=== PATIENT | male | born 1945 | race Caucasian/White ===

== ENCOUNTER 2021-03-06 15:15 | Emergency (ER) | payer OTHER, SELFPAY ==
[2021-03-06] VITALS (22 sets, daily range): BP systolic 125–161; BP diastolic 65–97; PULSE 99–106; RESP 17–28; TEMP 36.1; O2SAT 91–100
--- NOTE | ~2021-03-06 | XR_ITS ---
XR chest 1V 03/06/2021 16:07 Indication: Generalized chest pain Procedure: AP portable chest Comparison: 05/01/2017 Findings: There is right upper and diffuse left-sided airspace disease with peribronchial thickening. Cardiomegaly. No significant effusion or pneumothorax. No acute osseous abnormality. Impression: 1: Extensive bilateral airspace disease which may represent edema or pneumonia. Reviewed, dictated and finalized at location B. Impression: 1: Extensive bilateral airspace disease which may represent edema or pneumonia.
--- NOTE | ~2021-03-06 | XR_ITS ---
EXAMINATION: XR wrist LT min 3V DATE: 03/06/2021 16:07 INDICATION: Left wrist injury. TECHNIQUE: 4 views of left wrist were obtained. COMPARISON: None. FINDINGS: There is dorsal tilt of lunate, consistent with dorsal intercalated segmental instability. No fracture. There is mild osteoarthritis of triscaphe joint and severe osteoarthritis of first carpa l metacarpal joint. There is an 8 mm nonaggressive lytic lesion in lunate, likely an enchondroma, sub chondral cyst, or intraosseous ganglion. IMPRESSION: 1. Polyarticular osteoarthritis. 2. Dorsal intercalated segmental instability (DISI). Reviewed, dictated and finalized at location A.
--- NOTE | ~2021-03-06 | CT_ITS ---
EXAMINATION: CT abdomen pelvis w con DATE: 03/06/2021 15:55 INDICATION: Abdominal pain. TECHNIQUE: Computed tomography (CT) of the abdomen and pelvis was performed with 100 mL Omnipaque 350 intravenous contrast. Automated exposure control and iterative reconstruction technique were employe d. The dose-length product was 1346.26 mGy-cm. COMPARISON: CT 09/05/2017 FINDINGS: The visualized portions of the lung bases demonstrates septal thickening and airspace and g roundglass opacities with a posterior predominance, consistent with chronic interstitial lung disease . Calcified right lung nodules and calcified right hilar lymph nodes are consistent with old granulom atous disease. There is a small left pleural effusion. The heart size is normal. No pericardial effus ion. Calcifications in the liver and spleen are consistent with old granulomatous disease. The gallbl adder, pancreas, and adrenal glands are normal. There are cysts in the kidneys measuring up to 19 mm on the left. There is a 3 mm stone in right kidney. There are bilateral inguinal hernias containing f at. There are changes of appendectomy. There are no dilated loops of bowel. There are no pathological ly enlarged lymph nodes. There is no free intraperitoneal fluid. The prostate is mildly enlarged. The re is an old fracture of the left 11th rib. There are acute fractures of left seventh-ninth ribs. The re are changes of anterior and posterior fusion procedures at L5-S1. IMPRESSION: 1. Acute fractures of left seventh-ninth ribs. 2. Small left pleural effusion. 3. Chronic interstitial lung disease. Reviewed, dictated and finalized at location A.
--- NOTE | ~2021-03-06 | CT_ITS ---
EXAMINATION: CT cervical spine wo con DATE: 03/06/2021 15:55 INDICATION: Neck injury. TECHNIQUE: Computed tomography (CT) of the cervical spine was performed without intravenous contrast. Automated exposure control and iterative reconstruction technique were employed. The dose-length pro duct was 476.92 mGy-cm. COMPARISON: Cervical spine CT 09/19/2010 FINDINGS: There is 7 degrees dextrocurvature of cervical spine. Vertebral body heights are normal. Th ere is severely decreased disc height at C3-C4, mildly decreased disc height at C4-C5 and C5-C6, and moderately decreased disc height at C6-C7. The following disc levels are specifically discussed: C2-C3: There is no uncovertebral joint osteoarthritis. There is mild right and moderate left facet denice int osteoarthritis. There is no neural foraminal stenosis. There is no central canal stenosis. C3-C4: There is severe left uncovertebral joint osteoarthritis. There is severe bilateral facet joint osteoarthritis. There is severe left neural foraminal stenosis. There is mild central canal stenosis . C4-C5: There is no uncovertebral joint osteoarthritis. There is severe left facet joint osteoarthriti s. There is mild left neural foraminal stenosis. There is mild central canal stenosis. C5-C6: There is mild bilateral uncovertebral joint osteoarthritis. There is severe right and moderate left facet joint osteoarthritis. There is mild bilateral neural foraminal stenosis. There is mild ce ntral canal stenosis. C6-C7: There is moderate right and severe left uncovertebral joint osteoarthritis. There is mild righ t and moderate severe facet joint osteoarthritis. There is mild bilateral neural foraminal stenosis. There is mild central canal stenosis. C7-T1: There is no uncovertebral joint osteoarthritis. There is severe bilateral facet joint osteoart hritis. There is mild left neural foraminal stenosis. There is no central canal stenosis. IMPRESSION: 1. No fracture. 2. Severe cervical spondylosis. Reviewed, dictated and finalized at location A.
--- NOTE | ~2021-03-06 | CT_ITS ---
EXAMINATION: CT brain wo con DATE: 03/06/2021 15:55 INDICATION: Syncope. TECHNIQUE: Computed tomography (CT) of the head was performed without intravenous contrast. The mA wa s adjusted according to patient size. Iterative reconstruction technique was employed. The dose-lengt h product was 681.00 mGy-cm. COMPARISON: Head CT 09/19/2010 FINDINGS: There are old infarcts in the right temporal and occipital lobes in the expected distributi on of right posterior cerebral artery. There are scattered areas of low attenuation in the cerebral w ramiro matter, which is within normal limits for the patient's age. There is no intracranial hemorrhage , acute infarction, or abnormal intracranial mass lesion. There are old infarcts in right thalamus. T here is ex vacuo dilatation of occipital horn of right lateral ventricle. There is mucosal thickening in the paranasal sinuses. The mastoid air cells are normal. There are likely changes of ocular lens replacement surgeries. IMPRESSION: 1. 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 Reviewed, dictated and finalized at location A. IMPRESSION: 1. Old infarcts involving the right temporal and occipital lobes and right thal amus.
--- NOTE | ~2021-03-06 | XR_ITS ---
EXAMINATION: XR elbow LT 2V DATE: 03/06/2021 16:07 INDICATION: Left elbow injury. TECHNIQUE: 2 views of left elbow were obtained. COMPARISON: None. FINDINGS: Bone alignment is normal. No fracture. The elbow joint space is normal. There is an entheso phyte at medial humeral epicondyle. No elbow joint effusion. IMPRESSION: 1. No fracture. Reviewed, dictated and finalized at location A. IMPRESSION: 1. No fracture.
--- NOTE | ~2021-03-06 | CT_ITS ---
EXAMINATION: CTA chest PE protocol DATE: 03/06/2021 17:23 INDICATION: Midsternal chest pain. TECHNIQUE: Computed tomography angiography (CTA) of the chest was performed with 100 mL Omnipaque-350 intravenous contrast timed to evaluate the pulmonary arteries. Coronal maximum intensity projection 3D-reconstructions were created by the technologist. Automated exposure control and iterative reconst ruction technique were employed. The dose-length product was 916.18 mGy-cm. COMPARISON: Chest CT 09/05/2017 FINDINGS: The lungs demonstrate widespread septal thickening and groundglass and airspace opacities. Calcified right lung nodules and calcified right hilar lymph nodes are consistent with old granulomat ous disease. There is a small left hydropneumothorax. There is gas in left chest wall. There are frac tures of left first-ninth ribs. The heart demonstrates lipomatous hypertrophy of the interatrial sept um. The heart size is normal. No pericardial effusion. There is no pulmonary embolus. There is mild t horacic spondylosis. IMPRESSION: 1. No pulmonary embolus. Sensitivity is mildly decreased by motion artifact. 2. Acute fractures of left first-ninth ribs. 3. Small left-sided hydropneumothorax. 4. Worsened diffuse lung disease, likely atelectasis and mild pulmonary edema superimposed on chronic interstitial lung disease. Reviewed, dictated and finalized at location A. IMPRESSION: 1. No pulmonary embolus. Sensitivity is mildly decreased by motion artifact. 2. Acute fractures of left first-ninth ribs. 3. Small left-sided hydropneumothorax. 4. Worsened diffuse lung disease, likely atelectasis and mild pulmonary edema s uperimposed on chronic interstitial lung disease.
--- NOTE | 2021-03-06 15:19 | ECG_ITS ---
Measurements Intervals [place] Rate: 97 P: 48 [place]: 186 QRS: 0 QRSD: 110 T: 52 QT: 355 QTc: 452 Interpretive Statements SINUS RHYTHM BASELINE ARTIFACT- I, II, III, AVR, AVL, AVF, V1-V6 NORMAL ECG Electronically Signed On 03-06-2021 16:21:01 CDT by Asael Jha D.O.
--- NOTE | 2021-03-06 15:28 | ED.CHESTPAIN ---
HPI - Chest Pain General Chief Complaint: Chest Pain Stated Complaint: CP Time Seen by Provider: 03/06/21 15:20 Source: RN notes reviewed History of Present Illness HPI narrative: Patient presents to emergency department from home via EMS for chest pain and a fall. Patient states he was working in his basement and experienced sudden onset of right-sided chest pain. States the chest pain was sharp and stabbing states that that time he did not feel well was going upstairs to lay down he states that he does not recall what happened but woke up on the concrete at the bottom of the stairs since that time he has been noted to have bruising around his left eye which is new as well as skin tears on his left arm and left-sided chest pain denies any fevers or chills does note upper abdominal pain. 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 but does not follow cardiology is on aspirin and Plavix Related Data Home Medications Medication Instructions Recorded Confirmed Bifidobacterium infantis [Align] 4 mg PO DAILY 03/06/21 amitriptyline-chlordiazepoxide 1 tablet PO BID PRN 03/06/21 aspirin 81 mg PO DAILY 03/06/21 atorvastatin 40 mg PO DAILY 03/06/21 calcium mg 03/06/21 cholecalciferol (vitamin D3) 125 mcg PO DAILY 03/06/21 [Vitamin D3] clopidogrel 75 mg PO DAILY 03/06/21 finasteride 0.5 mg PO DAILY 03/06/21 multivitamin cap 03/06/21 pantoprazole 40 mg PO HS 03/06/21 polyethylene glycol 3350 [Miralax] 17 g PO DAILY 03/06/21 tamsulosin 0.4 mg PO DAILY 03/06/21 Allergies Allergy/AdvReac Type Severity Reaction Status Date / Time rivaroxaban AdvReac Unknown SEVERE Verified 03/06/21 15:20 NOSE BLEED Review of Systems Review of Systems: Narrative: Gen.: Denies fevers or chills Eyes: Denies eye pain or visual change ENT: Denies congestion Respiratory: Denies shortness of breath or cough CV: See HPI GI: Reports abdominal pain denies nausea, emesis or diarrhea denies burning, urgency, frequency or hematuria Musculoskeletal: Reports left arm pain Neuro: Denies numbness, tingling, weakness or focal weakness Skin: Denies rash Except as documented, all other systems reviewed and negative [facility] Past Medical History Medical History (Updated 03/06/21 @ 18:18 by Abisai Reyes DO) Coronary artery disease Family History Family History (Updated 05/10/14 @ 07:13 by DOCTOR UNKNOWN) Sibling Cerebrovascular accident Father Family history of heart disease in male family member before age 55 Other Diabetes mellitus Family history of cardiovascular disease Family history of gout Family history of malignant neoplasm Family history of osteoarthritis Hypertension Social History Social History (Updated 03/06/21 @ 18:15 by Abisai Reyes DO) Smoking status: Never smoker Alcohol intake: current Gender identity (if verbalized by the patient): Male Exam Narrative: Exam Narrative: APPEARANCE: Well appearing, no apparent distress, well-nourished. HEENT: normocephalic ecchymosis of the left superior and inferior orbit no tenderness of the bilateral zygomatic arch range of motion of jaw without pain EYES: PERRL left lateral eye with ecchymosis NECK: Supple. No midline tenderness to palpation. Full range of motion without pain RESPIRATORY: No respiratory distress. Clear to auscultation bilaterally Chest: Turn palpation bilateral anterior chest wall CARDIOVASCULAR: Regular rate and rhythm without murmurs rubs or gallops. ABDOMINAL: Soft, nondistended, tender to palpation epigastric right upper quadrant left upper quadrant tenderness right lower quadrant left lower quadrant MUSCULOSKELETAl: Moves all extremities. No tenderness to palpation of bilateral upper and lower extremities. No clubbing cyanosis or edema Back: No midline thoracic or lumbar tenderness to palpation NEURO: Awake and alert ?3. Follows commands. Speech normal. No focal deficits. SKIN:: Warm, dry. Six large superficial skin tear of the left p
[2021-03-06 15:38] LABS: Basophils Absolute Auto 0.1 K/mm3 (0.0-0.1); Basophils Percent Auto 0.3 % (0.2-1.2); Eosinophils Percent Auto 0.1 % (0-4.4); Hemoglobin 15.1 g/dL (14.0-18.0); Immature Granulocyte Percent A 0.5 % (0-0.5); Lymphocytes Absolute Auto 1.39 K/mm3 (0.9-3.2); Lymphocytes Percent Auto 7.5 % (18.3-44.2); Mean Corpuscular HGB Conc 32.8 g/dl (32-36); Mean Corpuscular Hemoglobin 29.1 pg (26-34); Mean Corpuscular Volume 88.6 fl (80-100); Mean Platelet Volume 9.4 fl (7.4-10.4); Monocytes Percent Auto 5.3 % (2.6-8.5); Neutrophils Absolute Auto 15.9 K/mm3 (1.3-6.7); Neutrophils Percent Auto 86.3 % (45.5-73.1); Platelet Count Result 238 k/mm3 (150-375); Red Blood Count 5.19 M/mm3 (4.6-6.20); Red Cell Distribution Width 14.6 % (11.5-14.5); White Blood Count 18.5 K/mm3 (4.5-10.0)
[2021-03-06 15:48] LABS: Estimated CRCL calculation 39 ml/min; Estimated Glomerular Filt Rate 46
--- NOTE | 2021-03-06 15:50 | PC.NURSE ---
PT STILL IN CT
[2021-03-06 15:51] LABS: Alanine Aminotransferase 20 U/L (4-50); Albumin Level 4.1 g/dL (3.5-5.1); Alkaline Phosphatase 113 U/L (38-126); Aspartate Amino Transferase 39 U/L (17-59); Bilirubin,Total 0.6 mg/dL (0.2-1.3); Lipase 111 U/L (23-300)
[2021-03-06 15:52] LABS: Anion Gap 8 mmol/L (8-16); Blood Urea Nitrogen 17 mg/dL (9-20); Calcium 9.3 mg/dL (8.4-10.2); Carbon Dioxide 26 mmol/L (22-30); Chloride 105 mmol/L (98-107); Estimated CRCL calculation 45 ml/min; Estimated Glomerular Filt Rate 54; Glucose 145 mg/dL (75-110); Potassium 4.4 mmol/L (3.4-5.0); Sodium 139 mmol/L (137-145)
[2021-03-06 15:58] LABS: INR 0.9; Prothrombin Time 13.1 Seconds (11.1-14.7)
[2021-03-06 15:59] LABS: Partial Thromboplastin Time 21.4 SECONDS (22.3-36.8)
[2021-03-06 16:31] LABS: Troponin I < 0.012 ng/mL (0.000-0.034)
--- NOTE | 2021-03-06 16:57 | PC.NURSE ---
HOSPITALIST AT BEDSIDE.
[2021-03-06 17:03] LABS: NT Pro B Type Natriuretic Pept 213 pg/mL (5-100)
[2021-03-06 17:17] LABS: Lactic Acid Reflex 1.7 mmol/L (0.7-2.1)
--- NOTE | 2021-03-06 17:47 | PC.NURSE ---
pT C/O 08/22 PAIN, EDP INFORMED, AWAITING NEW ORDERS.
[2021-03-06] MEDS: MORPHINE SULFATE (*CRX) 4 MG/ML INJ IV PUSH ×2 (18:01→20:41)
--- NOTE | 2021-03-06 18:10 | PC.NURSE ---
pT O2 NOTED TO DECREASE AT THIS TIME TO 85% ON RA, EDP INFORMED, PT PLACED ON 2l VIA NC. PT NOTED TO BE ASLEEP UPON ENTERING ROOM.
--- NOTE | 2021-03-06 18:20 | PC.NURSE ---
lars walker and yogesh all declined transfer to [facility] ems accepted transfer to [facility] ETA [id number] Trip#[id number]
--- NOTE | 2021-03-06 18:28 | PC.NURSE ---
REPORT CALLED TO ALINA HOPSON AT THIS TIME AT [facility]
--- NOTE | 2021-03-06 18:30 | PC.NURSE ---
PER UNIT SEC [facility] FOR EMS [id number]
--- NOTE | 2021-03-06 19:07 | PC.NURSE ---
Pt presents to ED post fall at home with complaints of abdominal pain. Pt noted to be on blood thinners. Bruising and swelling noted to left eye with multiple skin tears noted to bilateral arms. Pt remains alert and oriented x4 and in no obvious distress at this time. States pain is rated 4/10 this time and does not request pain meds. Nephew at bedside and both updated on poc. All questions and concerns addressed. Pt advised to press call button for assistance. Pt vitals are stable and pt conversing with staff without difficulty.
--- NOTE | 2021-03-06 19:09 | PC.NURSE ---
REPORT TO RN ALICIA AT THIS TIME, SHE HAS ASSUMED PT CARE, PT VSS, A&OX4, PINK, WARM AND DRY, FAMILY AT BEDSIDE.
[2021-03-06 19:12] LABS: Troponin I < 0.012 ng/mL (0.000-0.034)
--- NOTE | 2021-03-06 19:48 | PC.NURSE ---
Pt resting on cart in its lowest position with call button and personal items within reach. Pt denies pain at this time. EMS called and states new arrival time is 2044. Pt and nephew aware of ETA. Pt and nephew advised to press call button for assistance.
--- NOTE | 2021-03-06 20:19 | PC.NURSE ---
Pt continues resting on cart in its lowest position with call button and personal items within reach. Pt now complaining of pain. EDMD notified and states he will place orders for pain. Pt remains alert and oriented x4 with stable vitals. Breathing is even and unlabored and pt in no obvious distress. Nephew remains at bedside. Both advised to press call button for assistance.
--- NOTE | 2021-03-06 20:30 | PC.NURSE ---
[facility] has arrived and is aware that pt is being transferred to [facility] ER
[2021-03-06] MEDS: SODIUM CHLORIDE 0.9% IV 1,000 ML 100 ML IV CONT (20:41)
--- NOTE | 2021-03-06 20:41 | PC.NURSE ---
EMS arrived for pt transport.
== END 2021-03-06 20:49 | disposition short-term general hospital (02) ==
PROVIDERS: Emergency Medicine; Emergency Provider Emergency Medicine; PCP Family Medicine Adolescent Medicine
DX: S22.42XA Multiple fractures of ribs, left side, initial encounter for closed fracture (principal); S00.83XA Contusion of other part of head, initial encounter; S50.02XA Contusion of left elbow, initial encounter; J93.9 Pneumothorax, unspecified; I25.10 Atherosclerotic heart disease of native coronary artery without angina pectoris; Z79.82 Long term (current) use of aspirin; Z79.02 Long term (current) use of antithrombotics/antiplatelets; W10.9XXA Fall (on) (from) unspecified stairs and steps, initial encounter
CPT/HCPCS: 36415; 70450; 71045; 71275; 72125; 73070; 73110; 74177; 80048; 80076; 83605; 83690; 83880; 84484; 85025; 85610; 85730; 87040; 93005; 96374; 96376; 99285; J2270; J7030; Q9967

== ENCOUNTER 2021-04-13 17:44 | Emergency (ER) | payer OTHER, SELFPAY ==
--- NOTE | ~2021-04-13 | CT_ITS ---
EXAMINATION: CT brain wo con INDICATION: Transient alteration of awareness COMPARISON: 03/06/2021 TECHNIQUE: Standard unenhanced head CT. The dose-length product (DLP) was 681.00 mGy-cm. The mA was a djusted according to patient size. Iterative reconstruction technique was employed. FINDINGS: There is no acute intraparenchymal hemorrhage. No evidence of mass lesion. No evidence of a cute infarction. There are chronic infarcts in the right temporal and occipital lobes and right thala mus. Again noted is ex vacuo enlargement of the occipital horn of the right lateral ventricle. There is mild periventricular and subcortical hypodensity probably related to small vessel ischemic disease . There is mild prominence of the sulci and ventricles related to cerebral atrophy. Intracranial calc ified cerebral atherosclerosis is noted. There are no extra-axial collections. There is no mass effec t or midline shift. Changes in the globes are likely from ocular lens surgery. The visualized sinuses and mastoid air cells are well aerated. IMPRESSION: 1. Areas of prior infarction in the right occipital and temporal lobes and the right thalamus without acute intracranial abnormality. 2. Age related findings. Reviewed, dictated and finalized at location A.
--- NOTE | ~2021-04-13 | CT_ITS ---
EXAMINATION: CT cervical spine wo con DATE: 04/13/2021 19:02 INDICATION: Neck pain TECHNIQUE: Computed tomography (CT) of the cervical spine was performed without intravenous contrast. The dose-length product (DLP) was 404.47 mGy-cm. Automated exposure control and iterative reconstruc tion technique were employed. COMPARISON: 03/06/2021 FINDINGS: There is no cervical spine fracture. The vertebral body heights and alignment are maintaine d. There is severe loss of intervertebral disc space height at C3-4, moderate loss of disc space heig ht at C6-7, and mild loss of intervertebral disc space height at C4-5 and C5-6. The prevertebral soft tissues are normal. There is moderate to severe multilevel facet and uncovertebral joint osteoarthri tis. There are healing fractures of the left first through third ribs. IMPRESSION: 1. Severe cervical spondylosis without acute findings or significant interval change. 2. Healing fractures of the left first through third ribs. Reviewed, dictated and finalized at location A. IMPRESSION: 1. Severe cervical spondylosis without acute findings or significant interval c hange. 2. Healing fractures of the left first through third ribs.
--- NOTE | 2021-04-13 18:34 | ECG_ITS ---
Measurements Intervals [place] Rate: 98 P: -7 MS: 138 QRS: 63 QRSD: 94 T: 24 QT: 317 QTc: 406 Interpretive Statements SINUS RHYTHM MINIMAL Q WAVES- INFERIOR LEADS BASELINE ARTIFACT- I, II, III, AVR, AVL, AVF, V1 BORDERLINE ECG Electronically Signed On 04-13-2021 21:22:39 CDT by Asael Jha D.O.
[2021-04-13 18:36] VITALS: BP 142/69; PULSE 100; RESP 16; TEMP 36.5; O2SAT 98
[2021-04-13 18:50] LABS: Basophils Absolute Auto 0.1 K/mm3 (0.0-0.1); Basophils Percent Auto 0.4 % (0.2-1.2); Eosinophils Absolute Auto 0.1 K/mm3 (0-0.3); Eosinophils Percent Auto 0.5 % (0-4.4); Hematocrit 44.1 % (42.0-52.0); Hemoglobin 14.3 g/dL (14.0-18.0); Immature Granulocyte Absolute 0.04 K/mm3 (0.00-0.031); Immature Granulocyte Percent A 0.3 % (0-0.5); Lymphocytes Absolute Auto 1.48 K/mm3 (0.9-3.2); Lymphocytes Percent Auto 12.8 % (18.3-44.2); Mean Corpuscular HGB Conc 32.4 g/dl (32-36); Mean Corpuscular Hemoglobin 28.7 pg (26-34); Mean Corpuscular Volume 88.6 fl (80-100); Mean Platelet Volume 9.3 fl (7.4-10.4); Monocytes Absolute Auto 0.8 K/mm3 (0.1-0.6); Monocytes Percent Auto 6.6 % (2.6-8.5); Neutrophils Absolute Auto 9.2 K/mm3 (1.3-6.7); Neutrophils Percent Auto 79.4 % (45.5-73.1); Platelet Count Result 292 k/mm3 (150-375); Red Blood Count 4.98 M/mm3 (4.6-6.20); Red Cell Distribution Width 15.1 % (11.5-14.5); White Blood Count 11.6 K/mm3 (4.5-10.0)
[2021-04-13 19:02] LABS: Anion Gap 9 mmol/L (8-16); Blood Urea Nitrogen 15 mg/dL (9-20); Calcium 9.9 mg/dL (8.4-10.2); Carbon Dioxide 26 mmol/L (22-30); Chloride 103 mmol/L (98-107); Estimated CRCL calculation 59 ml/min; Estimated Glomerular Filt Rate > 60; Glucose 115 mg/dL (65-110); Sodium 138 mmol/L (137-145)
--- NOTE | 2021-04-13 21:40 | PC.NURSE ---
cristi barr able to provide ride home. [phone].
[2021-04-13 21:44] VITALS: BP 143/73; PULSE 96; RESP 13; TEMP 36.5; O2SAT 99
[2021-04-13 22:19] VITALS: BP 123/76; BP 126/65; BP 132/103; PULSE 107; PULSE 111; PULSE 91
[2021-04-13] MEDS: SODIUM CHLORIDE 0.9% IV 1,000 ML 999 ML IV CONT (22:27)
--- NOTE | 2021-04-13 22:40 | ED.GENADULT ---
HPI - General Adult General Chief complaint: Syncope Stated complaint: syncopal episode at home. Time Seen by Provider: 04/13/21 21:59 History of Present Illness HPI narrative: Patient is a 75-year-old gentleman who presents the emergency department with chief complaint of syncope. Patient reports that today he was out working in the yard got a little hot at that time and then this evening was taking a shower. The patient reports that he took a fairly long and hot shower and then while he was in the shower he started to become very lightheaded. The patient states that after he got lightheaded he got out of the shower sat down in a chair started to feel a little better and then thought that he would go lay down on his bed got up to walk to the bed became lightheaded and then proceeded to pass out. Patient states that after he passed out he started feeling better and is currently not hurting anywhere other than his chest where he has been hurting after he had multiple rib fractures. Related Data Home Medications Medication Instructions Recorded Confirmed Bifidobacterium infantis [Align] 4 mg PO DAILY 03/06/21 amitriptyline-chlordiazepoxide 1 tablet PO BID PRN 03/06/21 aspirin 81 mg PO DAILY 03/06/21 atorvastatin 40 mg PO DAILY 03/06/21 calcium mg 03/06/21 cholecalciferol (vitamin D3) 125 mcg PO DAILY 03/06/21 [Vitamin D3] clopidogrel 75 mg PO DAILY 03/06/21 finasteride 0.5 mg PO DAILY 03/06/21 multivitamin cap 03/06/21 pantoprazole 40 mg PO HS 03/06/21 polyethylene glycol 3350 [Miralax] 17 g PO DAILY 03/06/21 tamsulosin 0.4 mg PO DAILY 03/06/21 Allergies Allergy/AdvReac Type Severity Reaction Status Date / Time rivaroxaban AdvReac Unknown SEVERE Verified 04/13/21 21:44 NOSE BLEED Review of Systems Review of Systems: A 10 system review of systems was completed on the patient and is negative except for what is stated in the HPI. Nursing and ancillary documentation was reviewed. FORMERLY [facility], [facility] Past Medical History Medical History Coronary artery disease Family History Family History Sibling Cerebrovascular accident Father Family history of heart disease in male family member before age 55 Other Diabetes mellitus Family history of cardiovascular disease Family history of gout Family history of malignant neoplasm Family history of osteoarthritis Hypertension Social History Social History Smoking status: Never smoker Alcohol intake: current Gender identity (if verbalized by the patient): Male Exam Narrative: GENERAL: Well-appearing, well-nourished, and in no acute distress. HEAD: Normocephalic, atraumatic. EYES: PERRLA and EOMI. ENT: Nares clear, no rhinorrhea or epistaxis. Mucous membranes moist. NECK: Supple. CHEST: Clear to auscultation. No respiratory distress. HEART: Regular rate and rhythm. No murmur heard. Normal peripheral pulses. ABDOMEN: Soft, nontender, nondistended, normal active bowel sounds. EXTREMITIES: Normal range of motion. No edema. SKIN: Warm, dry, no rash. NEURO: No focal deficits. Alert and oriented x3. PSYCH: Normal mood and affect. Course Vital Signs Vital signs: Vital Signs Temperature 36.5 C 04/13/21 18:36 Pulse Rate 100 04/13/21 18:36 Respiratory Rate 16 04/13/21 18:36 Blood Pressure 142/69 H 04/13/21 18:36 Pulse Oximetry 98 04/13/21 18:36 Temperature 36.5 C 04/13/21 21:44 Pulse Rate 111 H 04/13/21 22:19 Respiratory Rate 13 04/13/21 21:44 Blood Pressure 126/65 04/13/21 22:19 Pulse Oximetry 99 04/13/21 21:44 Medical Decision Making Vital Signs Vital Signs: Vital Signs Temperature 36.5 C 04/13/21 18:36 Pulse Rate 100 04/13/21 18:36 Respiratory Rate 16 04/13/21 18:36 Blood Pressure 142/69 H 04/13/21 18:36 Pu
[2021-04-13 23:38] VITALS: BP 100/89; PULSE 89; RESP 17; TEMP 36.2; O2SAT 98
== END 2021-04-13 23:40 | disposition home or self-care (01) ==
PROVIDERS: Emergency Medicine; Emergency Provider Emergency Medicine; PCP Family Medicine Adolescent Medicine
DX: R55 Syncope and collapse (principal); Z79.82 Long term (current) use of aspirin; I25.10 Atherosclerotic heart disease of native coronary artery without angina pectoris; R94.31 Abnormal electrocardiogram [ECG] [EKG]
CPT/HCPCS: 36415; 70450; 72125; 80048; 85025; 93005; 96360; 99284; J7030

== ENCOUNTER 2022-12-24 15:21 | Emergency (ER) | payer OTHER, SELFPAY ==
[2022-12-24] VITALS (14 sets, daily range): BP systolic 125–156; BP diastolic 67–91; PULSE 87–102; RESP 10–26; TEMP 36.7; O2SAT 91–100
--- NOTE | ~2022-12-24 | XR_ITS ---
EXAMINATION: XR chest 1V portable INDICATION: Transient alteration of awareness TECHNIQUE: Portable AP chest at 1544 hours COMPARISON: 03/06/2021 FINDINGS: Cardiomegaly is noted. There are mild diffuse interstitial and airspace opacities throughou t the lungs. No pleural effusion or pneumothorax. IMPRESSION: 1. Diffuse lung disease, consistent with pneumonia and/or pulmonary edema. Reviewed, dictated and finalized at location F.
--- NOTE | ~2022-12-24 | CT_ITS ---
EXAMINATION: CT brain wo con DATE: 12/24/2022 15:56 INDICATION: Syncope. Head injury. TECHNIQUE: Computed tomography (CT) of the head was performed without intravenous contrast. The mA wa s adjusted according to patient size. Iterative reconstruction technique was employed. The dose-lengt h product was 681.00 mGy-cm. COMPARISON: Head CT 04/13/2021 FINDINGS: There are scattered areas of low attenuation in the cerebral white matter. There is an old infarct in the right thalamus. There is an old infarct in the right temporal occipital region in the distribution of right posterior cerebral artery. There is no intracranial hemorrhage, acute infarctio n, or abnormal intracranial mass lesion. There is ex vacuo dilatation of the occipital horn of right lateral ventricle. There is mild mucosal thickening in the paranasal sinuses. The mastoid air cells a re normal. There are likely changes of ocular lens replacement surgeries. IMPRESSION: 1. Old infarcts involving the right thalamus and right temporal occipital region. 2. Mild nonspecific cerebral white matter disease, which likely represents chronic small vessel ische ana disease. Reviewed, dictated and finalized at location A. IMPRESSION: 1. Old infarcts involving the right thalamus and right temporal occipital regio n. 2. Mild nonspecific cerebral white matter disease, which likely represents twisting frame fixer armaan small vessel ischemic disease.
--- NOTE | ~2022-12-24 | CT_ITS ---
EXAMINATION: CT cervical spine wo con DATE: 12/24/2022 16:00 INDICATION: Neck pain. Syncope. TECHNIQUE: Computed tomography (CT) of the cervical spine was performed without intravenous contrast. The dose-length product was 503 mGy-cm. Automated exposure control and iterative reconstruction tech CodeRyte were employed. COMPARISON: CT dated 04/13/2021 FINDINGS: Craniovertebral junction is normal. Odontoid process is normal. There is advanced degenerat gilbert disc disease and spondylosis at C3-4. There is mild degenerative disc disease with disc narrowing at C6-7. There is a prominent ventral bridging osteophyte at C6-7. There is degenerative anterolisth esis at C7-T1. There is mild-moderate multilevel uncinate and facet hypertrophy. No significant aster gil soft tissue abnormality. There is intracranial atherosclerosis. IMPRESSION: 1. No acute abnormality of the cervical spine. 2: Moderate-severe cervical spondylosis. Reviewed, dictated and finalized at location L.
--- NOTE | 2022-12-24 15:35 | ECG_ITS ---
Measurements Intervals [place] Rate: 91 P: 93 [place]: 198 QRS: 75 QRSD: 114 T: 37 QT: 364 QTc: 450 Interpretive Statements SINUS RHYTHM WITH OCCASIONAL SUPRAVENTRICULAR PREMATURE COMPLEXES NONSPECIFIC iNTRAVENTRICULAR CONDUCTION DELAY BORDERLINE ECG COMPARED TO ECG 04/13/2021 18:52:24 INTRAVENTRICULAR CONDUCTION DELAY NOW PRESENT Electronically Signed On 12-25-2022 16:29:52 CDT by Shukri Rivera M.D.
--- NOTE | 2022-12-24 15:46 | ED.DIZZY ---
HPI - Dizziness General Chief Complaint: Syncope Stated Complaint: syncopy Time Seen by Provider: 12/24/22 15:35 History of Present Illness HPI Narrative: Patient is a 77-year-old male with history of CAD, CVA, here after syncopal episode tonight. Patient states that he was working out in his yard in the heat all afternoon. This evening while he was on his tractor he felt lightheaded and did pass out for several seconds. He denies any preceding chest pain, palpitations, headaches or shortness of breath. He was in his usual state of health this morning. Admits to not drinking enough water today. The neighbors called EMS who administered a liter of fluids and patient states he feels improved. States this is happened in the past and was attributed to vasovagal syncope, also when patient was out working in the yard. Related Data Home Medications Medication Instructions Recorded Confirmed Bifidobacterium infantis 4 mg 4 mg PO DAILY 03/06/21 05/04/22 capsule (Align) calcium 500 mg tablet mg 03/06/21 05/04/22 cholecalciferol (vitamin D3) 125 125 mcg PO DAILY 03/06/21 05/04/22 mcg (5,000 unit) tablet (Vitamin D3) multivitamin cap 03/06/21 05/04/22 polyethylene glycol 3350 17 gram 17 g PO DAILY 03/06/21 05/04/22 oral powder packet (Miralax) tamsulosin 0.4 mg capsule 0.4 mg PO DAILY 03/06/21 05/04/22 Allergies Allergy/AdvReac Type Severity Reaction Status Date / Time rivaroxaban AdvReac Unknown SEVERE Verified 05/04/22 15:12 NOSE BLEED Review of Systems Review of Systems: Gen: Reports syncope Eyes: Denies eye pain or visual change ENT: Denies congestion Respiratory: Denies shortness of breath or cough CV: Denies chest pain or palpitations GI: Denies abdominal pain nausea, emesis or diarrhea denies burning, urgency, frequency or hematuria Musculoskeletal: Denies back pain or muscle pain Neuro: Denies numbness, tingling, weakness or focal weakness Skin: Denies rash Except as documented, all other systems reviewed and negative PMFSH Past Medical History Medical History Blood type B+ Coronary artery disease History of CVA (cerebrovascular accident) (~04/2014) History of rib fracture (~2020) Occipital infarction (~04/2014) Surgical History Surgical History History of exploratory laparotomy (~2000) History of gastric surgery (~2014) stoma reversal History of ventral hernia repair (~06/2016) Family History Family History Sibling Cerebrovascular accident Father Family history of heart disease in male family member before age 55 Other Diabetes mellitus Family history of cardiovascular disease Family history of gout Family history of malignant neoplasm Family history of osteoarthritis Hypertension Social History Social History (Updated 05/04/22 @ 15:15 by Anjelica Peck MA) Years smoked: 50 Smoking status: Current every day smoker Tobacco type: cigarettes Second hand tobacco smoke exposure: No Alcohol intake: former Substance use: never Substance use type: does not use Living arrangements: alone Occupation/Education: retired Gender identity (if verbalized by the patient): Male Sexual Orientation (if Verbalized by the Patient): Straight or Heterosexual Spiritual care concerns: No Exam Narrative: APPEARANCE: Well appearing, no pain in distress, well-nourished. Head: Normocephalic and atraumatic. EYES: PERRLA/EOMI, conjunctivae clear NOSE: No nasal drainage EARS: External ear normal in appearance THROAT: Oropharynx is clear. Mucous membranes are moist. NECK: Supple. No adenopathy, no masses. RESPIRATORY: expiratory wheezing noted throughout all lung chen. no respiratory distress. CARDIOVASCULAR: Regular rate and rhythm without murmurs, rubs, or gallops. ABDOMINAL: Normoactive
[2022-12-24 16:31] LABS: Basophils Percent Auto 0.3 % (0.2-1.2); Eosinophils Percent Auto 0.2 % (0-4.4); Hematocrit 46.1 % (42.0-52.0); Hemoglobin 15.1 g/dL (14.0-18.0); Immature Granulocyte Absolute 0.06 K/mm3 (0.00-0.031); Immature Granulocyte Percent A 0.5 % (0-0.5); Lymphocytes Absolute Auto 1.35 K/mm3 (0.9-3.2); Lymphocytes Percent Auto 10.7 % (18.3-44.2); Mean Corpuscular HGB Conc 32.8 g/dl (32-36); Mean Corpuscular Hemoglobin 28.4 pg (26-34); Mean Corpuscular Volume 86.8 fl (80-100); Mean Platelet Volume 9.3 fl (7.4-10.4); Monocytes Absolute Auto 0.9 K/mm3 (0.1-0.6); Monocytes Percent Auto 6.8 % (2.6-8.5); Neutrophils Absolute Auto 10.2 K/mm3 (1.3-6.7); Neutrophils Percent Auto 81.5 % (45.5-73.1); Platelet Count Result 233 k/mm3 (150-375); Red Blood Count 5.31 M/mm3 (4.6-6.20); Red Cell Distribution Width 15.5 % (11.5-14.5); White Blood Count 12.6 K/mm3 (4.5-10.0)
[2022-12-24 16:43] LABS: Magnesium 1.5 mg/dL (1.6-2.3)
[2022-12-24] MEDS: LEVALBUTEROL NEB 1.25 MG/3 ML INHALATION (16:43)
[2022-12-24] MEDS: IPRATROPIUM BR 0.02% INH SOLN 0.5 MG/2.5 ML VIAL INHALATION (16:43)
[2022-12-24 16:44] LABS: Alanine Aminotransferase 16 U/L (6-50); Alkaline Phosphatase 107 U/L (38-126); Anion Gap 7 mmol/L (8-16); Aspartate Amino Transferase 22 U/L (17-59); Bilirubin,Total 1.1 mg/dL (0.2-1.3); Blood Urea Nitrogen 14 mg/dL (9-20); Calcium 9.1 mg/dL (8.4-10.2); Carbon Dioxide 28 mmol/L (22-30); Chloride 104 mmol/L (98-107); Estimated CRCL calculation 48 ml/min; Estimated Glomerular Filt Rate 53; Glucose 113 mg/dL (65-110); Potassium 4.2 mmol/L (3.4-5.0); Sodium 139 mmol/L (137-145)
[2022-12-24 16:56] LABS: NT Pro B Type Natriuretic Pept 178 pg/mL (19.9-100); Troponin I < 0.012 ng/mL (0.000-0.034)
[2022-12-24 17:08] LABS: SARS-CoV-2 RNA PCR Negative
== END 2022-12-24 18:35 | disposition home or self-care (01) ==
PROVIDERS: Emergency Provider Physician Assistant; PCP Family Medicine Adolescent Medicine
DX: R55 Syncope and collapse (principal); J18.9 Pneumonia, unspecified organism; Z20.822 Contact with and (suspected) exposure to COVID-19; I25.10 Atherosclerotic heart disease of native coronary artery without angina pectoris; Z86.73 Personal history of transient ischemic attack (TIA), and cerebral infarction without residual deficits; F17.210 Nicotine dependence, cigarettes, uncomplicated; I49.1 Atrial premature depolarization; I45.9 Conduction disorder, unspecified; R90.82 White matter disease, unspecified; M47.812 Spondylosis without myelopathy or radiculopathy, cervical region
CPT/HCPCS: 36415; 70450; 71045; 72125; 80053; 83735; 83880; 84484; 85025; 93005; 94640; 99284; U0003; U0005

== ENCOUNTER 2023-07-09 13:21 | Outpatient (CLI) | payer OTHER, SELFPAY ==
--- NOTE | ~2023-07-09 | CT_ITS ---
EXAMINATION: CT lung screening DATE: 07/09/2023 13:46 INDICATION: Personal history of nicotine dependence TECHNIQUE: Computed tomography (CT) of the chest was performed without intravenous contrast. The dose -length product was 235.83 mGy-cm. COMPARISON: CT dated 03/06/2021 FINDINGS: Heart size is normal. No significant pleural or pericardial effusion. There are calcified g ranulomas of the liver and spleen. Mild mediastinal lymphadenopathy, likely reactive. There is athero sclerosis. There is emphysema. There are patchy groundglass opacities with interlobular septal thicke sachin and coarse interstitial changes, likely superimposed pulmonary fibrosis. No endobronchial lesion s. Mild thoracic spondylosis. IMPRESSION: 1. Lung-RADS category 1: Negative. Continue annual screening with noncontrast low-dose chest CT in 12 months. 2: Emphysema with superimposed interstitial lung disease, compatible with usual interstitial pneumon itis. Reviewed, dictated and finalized at location B. IMPRESSION: 1. Lung-RADS category 1: Negative. Continue annual screening with noncontrast l ow-dose chest CT in 12 months. 2: Emphysema with superimposed interstitial lung disease, compatible with usua l interstitial pneumonitis.
== END 2023-07-09 13:22 | disposition home or self-care (01) ==
PROVIDERS: PCP Family Medicine Adolescent Medicine; Visit Provider Nurse Practitioner Family
DX: Z12.2 Encounter for screening for malignant neoplasm of respiratory organs (principal); Z87.891 Personal history of nicotine dependence; J43.9 Emphysema, unspecified
CPT/HCPCS: 71271

== ENCOUNTER 2024-08-09 15:03 | Inpatient (IN) | payer OTHER, SELFPAY ==
[2024-08-09] VITALS (12 sets, daily range): BP systolic 106–168; BP diastolic 58–83; PULSE 86–131; RESP 18–32; TEMP 36.6–37.8; O2SAT 89–97; BMI 30.2
--- NOTE | ~2024-08-09 | XR_ITS ---
XR abdomen/kub 1V DATE: 08/12/2024 03:50 INDICATION: Nausea and vomiting TECHNIQUE: Portable supine AP views on 08/12/2024 at 1527 and 1529 hours COMPARISON: None FINDINGS: There is very prominent gaseous distention of the stomach and proximal to mid small bowel, with relative evacuation of the distal bowel, suggesting possible Status post anterior and right posterior surgical fusion at L5-S1. Small bowel obstruction. IMPRESSION: Possible small bowel obstruction Reviewed, dictated and finalized at Location A. Reviewed, dictated and finalized at location A. URY CELL CLEANER
--- NOTE | ~2024-08-09 | XR_ITS ---
EXAMINATION: XR chest port-a-cath/central DATE: 08/16/2024 10:25 INDICATION: Central line placement. TECHNIQUE: A single frontal view of the chest was obtained. COMPARISON: Chest single view at 4:57 AM FINDINGS: There are interstitial and airspace opacities involving all lung zones bilaterally. No pleu ral effusion or pneumothorax. Cardiomegaly is noted. The endotracheal tube tip is 7.8 cm above the ca nivia. A right internal jugular central venous catheter is seen with tip at the superior cavoatrial ju nction. The nasogastric tube tip is beyond the inferior margin of the radiograph, but at least to the stomach. IMPRESSION: 1. Diffuse lung disease with improvement in left midlung zone, consistent with pulmonary edema versus pneumonia versus acute respiratory distress syndrome (ARDS). 2. Cardiomegaly. Reviewed, dictated and finalized at location A. L ESTIMATOR IMPRESSION: 1. Diffuse lung disease with improvement in left midlung zone, consistent with pulmonary edema versus pneumonia versus acute respiratory distress syndrome (AR DS). 2. Cardiomegaly.
--- NOTE | ~2024-08-09 | XR_ITS ---
EXAMINATION: XR chest 1V portable DATE: 08/10/2024 06:58 INDICATION: Acute hypoxic respiratory failure TECHNIQUE: frontal view of the chest was obtained. COMPARISON: Chest radiograph dated 08/09/[address] dated 07/09/2023 and 08/09/2024 FINDINGS: Mildly decreased lung volumes with diffuse reticular and groundglass opacities in both lungs which is increased since the prior study suggesting mild pulmonary edema or pneumonia superimposed over likel y chronic interstitial lung disease. No pleural effusion or pneumothorax. Cardiomegaly. IMPRESSION: 1. Small lung volumes with increasing reticular and groundglass opacities in both lungs which could r epresent pulmonary edema or pneumonia superimposed over likely chronic interstitial lung disease. 2. Cardiomegaly. Reviewed, dictated and finalized at location A. KE COUNSELOR IMPRESSION: 1. Small lung volumes with increasing reticular and groundglass opacities in pedro th lungs which could represent pulmonary edema or pneumonia superimposed over l ikely chronic interstitial lung disease. 2. Cardiomegaly.
--- NOTE | ~2024-08-09 | XR_ITS ---
EXAMINATION: XR abdomen gastric tube insert DATE: 08/14/2024 12:57 INDICATION: Orogastric tube placement. TECHNIQUE: A semierect view of the abdomen was obtained. COMPARISON: CT abdomen and pelvis 08/12/2024 FINDINGS: The lower abdomen and right lateral aspect of the abdomen are excluded. There are dilated l oops of small bowel. The orogastric tube tip is in the distal stomach. IMPRESSION: 1. Orogastric tube tip in the distal stomach. 2. Dilated small bowel, likely adynamic ileus. Reviewed, dictated and finalized at location A. BING INSTRUCTOR
--- NOTE | ~2024-08-09 | XR_ITS ---
Portable chest x-ray Comparison: 08/17/2024 Clinical History: Respiratory failure Findings: Endotracheal tube, NG tube, and bilateral central venous lines are present. Extensive inte rstitial disease with mild bibasilar haziness present. Cardiomediastinal silhouette is stable. Bones and soft tissues are unremarkable. Impression: Stable extensive pulmonary disease with extensive interstitial disease and right basilar haziness. Support tubes are unchanged, as above. Reviewed, dictated and finalized at location M. RUCTOR CREELER Impression: Stable extensive pulmonary disease with extensive interstitial disease and righ t basilar haziness. Support tubes are unchanged, as above.
--- NOTE | ~2024-08-09 | XR_ITS ---
EXAMINATION: XR abdomen/kub 1V DATE: 08/17/2024 09:26 INDICATION: Adynamic ileus. TECHNIQUE: A supine view of the abdomen on 3 radiographs was obtained. COMPARISON: CT abdomen and pelvis 08/14/2024 FINDINGS: There are no dilated loops of bowel. There is a small volume of stool in the colon. The kanika ogastric tube tip is in the stomach. There are changes of anterior and posterior fusion procedures at L5-S1. There is a catheter tip at superior cavoatrial junction. There is a second catheter tip at booker perior cavoatrial junction. A catheter overlies the bladder. IMPRESSION: 1. Normal bowel gas pattern. Reviewed, dictated and finalized at location A. AFLUX OPERATOR
--- NOTE | ~2024-08-09 | MR_ITS ---
EXAMINATION: MR lumbar spine wo/w con DATE: 08/12/2024 13:03 INDICATION: Back pain with radiculopathy. TECHNIQUE: Magnetic resonance imaging (MRI) of the lumbar spine was performed without and with 20 mL MultiHance intravenous contrast. COMPARISON: Lumbar spine MRI 03/08/2014, CT 08/12/24 FINDINGS: There is 3 degrees levocurvature of lumbar spine. There are changes of anterior posterior f usion procedures at L5-S1 with interbody device, anterior plate and screws, and right-sided pedicle s crews. There is a chronic compression fracture of L2 with 1/5 loss of height. There is a mottled karlee amalia of increased T2-weighted signal intensity and contrast enhancement involving all of the bones. Th ere is mildly decreased disc height at L4-L5. The distal spinal cord signal intensity is normal. The conus medullaris is at L1. The following disc levels are specifically discussed: L1-L2: The disc does not extend beyond the endplate margin. There is mild bilateral facet joint osteo arthritis. There is no neural foraminal stenosis. There is no central canal stenosis. L2-L3: The disc is bulging. There is moderate bilateral facet joint osteoarthritis. There is mild duarte ateral neural foraminal stenosis. There is mild central canal stenosis. L3-L4: The disc is bulging. There is mild bilateral facet joint osteoarthritis. There is mild bilater al neural foraminal stenosis. There is no central canal stenosis. L4-L5: The disc is bulging and has an annular fissure. There is severe bilateral facet joint osteoart hritis. There is mild bilateral neural foraminal stenosis. There is mild central canal stenosis. L5-S1: There is no facet joint hypertrophy. There is mild left neural foraminal stenosis. There is no central canal stenosis. There is posterior decompression. IMPRESSION: 1. Widespread enhancement of the bones without abnormal CT correlate suspicious for metastatic diseas e or multiple myeloma. 2. Mild lumbar spondylosis. 3. Anterior fusion procedure at L5-S1. Reviewed, dictated and finalized at location A. WEB SERVICES DEVELOPER IMPRESSION: 1. Widespread enhancement of the bones without abnormal CT correlate suspicious for metastatic disease or multiple myeloma. 2. Mild lumbar spondylosis. 3. Anterior fusion procedure at L5-S1.
--- NOTE | ~2024-08-09 | MR_ITS ---
EXAMINATION: MR thoracic spine wo/w con DATE: 08/12/2024 13:03 INDICATION: Back pain. Radiculopathy. TECHNIQUE: Magnetic resonance imaging (MRI) of the thoracic spine was performed without and with 20 m L MultiHance intravenous contrast. COMPARISON: Chest CT 08/12/2024 FINDINGS: There is kyphosis of thoracic spine. There is mild chronic height loss of T11 vertebral bod y. There is widespread abnormal increased T2-weighted signal intensity and contrast enhancement of th e bones. There is mildly decreased disc height at T5-T6, T6-T7, and T7-T8. At T7-T8, there is a centr al protrusion with mild central canal stenosis. There is multilevel facet joint osteoarthritis, sever e at multiple levels. On the right, there is mild neural foraminal stenosis at T4-T5 and T11-T12. On the left, there is mild neural foraminal stenosis at T4-T5, T5-T6, T6-T7, T7-T8, and T8-T9. The spina l cord signal intensity is normal. IMPRESSION: 1. Widespread contrast enhancement of the bones, consistent with metastatic disease versus multiple m yeloma. 2. Mild thoracic spondylosis. Reviewed, dictated and finalized at location A. OPERATOR IMPRESSION: 1. Widespread contrast enhancement of the bones, consistent with metastatic dis ease versus multiple myeloma. 2. Mild thoracic spondylosis.
--- NOTE | ~2024-08-09 | US_ITS ---
EXAMINATION: US abdomen limited DATE: 08/12/2024 16:30 INDICATION: gallstones TECHNIQUE: Multiple grayscale and Doppler ultrasound images of limited portions of the abdomen were o btained. COMPARISON: CT cap 08/12/2024. FINDINGS: The visualized portions of the pancreas are normal. The liver is normal with normal echogen icity and echotexture. No surface nodularity. Normal hepatopetal flow in the main portal vein. Normal gallbladder size, without wall thickening or pericholecystic fluid. Low-level and highly echogenic m aterial in the dependent gallbladder lumen, with some twinkle artifact, no shadowing. Mobility cannot be assessed, tech was unable to turn the patient. The common bile duct measures 5 mm. There was no s onographic Newton sign. Right kidney measures 10.9 x 5.5 x 5.7 cm. Simple exophytic midpole right huang al cyst. IMPRESSION: Likely, additional gallbladder sludge and stones in the dependent gallbladder lumen. Reviewed, dictated and finalized at location K. Y OPERATOR IMPRESSION: Likely, additional gallbladder sludge and stones in the dependent gallbladder l umcari.
--- NOTE | ~2024-08-09 | MR_ITS ---
EXAMINATION: MR brain/brain stem wo con DATE: 08/12/2024 13:01 INDICATION: STROKE TECHNIQUE: Magnetic resonance imaging (MRI) of the brain and brainstem was performed without intraven ous contrast. Sequences included sagittal and axial T1-weighted SE, axial diffusion-weighted FS EPI A SSET, axial T2*-weighted GRE, axial T2-weighted FLAIR Propeller, and axial T2-weighted Propeller. Huma arent diffusion coefficient (ADC) maps were created. COMPARISON: MRA brain 08/11/2024; CT brain 08/09/2024. FINDINGS: No abnormal restricted diffusion to suggest acute ischemic infarct. Focal encephalomalacia in the rig ht medial occipital lobe. Focal old right thalamic lacunar infarct. No MRI evidence of hemorrhage or extra-axial collection. No suspicious foci of susceptibility to suggest prior intraparenchymal hemorr carine. Scattered foci of white matter hyperintensity, likely representing mild small vessel ischemic d isease. Mild generalized parenchymal volume loss. The basilar cisterns are patent. Flow voids are pre served. Paranasal sinuses are within normal limits. Bilateral lens replacements. Globes and orbital c ontents are otherwise within normal limits. IMPRESSION: No acute intracranial process. Reviewed, dictated and finalized at location K. CTOR OF MATH
--- NOTE | ~2024-08-09 | XR_ITS ---
EXAMINATION: XR chest ET placement DATE: 08/14/2024 12:57 INDICATION: Intubation. TECHNIQUE: A single frontal view of the chest was obtained. COMPARISON: Chest single view 08/13/2024, chest CT 08/12/2024 FINDINGS: There are interstitial and airspace opacities in all lung zones bilaterally. No pleural eff usion or pneumothorax. The heart size is normal. Calcified right hilar lymph nodes are consistent wit h old granulomatous disease. The endotracheal tube tip is 2.5 cm above the tyler. The nasogastric tu be tip is beyond the inferior margin of the radiograph, but at least to the stomach. IMPRESSION: 1. Stable diffuse lung disease, consistent with pneumonia versus pulmonary edema superimposed on classifier operator armaan interstitial lung disease. Reviewed, dictated and finalized at location A. IO TECH IMPRESSION: 1. Stable diffuse lung disease, consistent with pneumonia versus pulmonary kathy a superimposed on chronic interstitial lung disease.
--- NOTE | ~2024-08-09 | CT_ITS ---
CTA chest PE protocol Ordering provider: Eugene Guadalupe MD History: 78 years Male with . Elevated ddimer . Comparison: None. Technique: CT angiogram chest was performed following timed intravenous injection of contrast. Thin s lice axial images and reformatted coronal images were obtained. Three dimensional reformatted images of the chest were also obtained using a [employer] workstation. . Automated exposure control and iterati ve reconstruction technique were employed. The dose-length product was 817.88 mGy-cm. 100 ML Omnipaqu e 350 was given IV. Findings: PULMONARY ARTERIES: No pulmonary embolus in the main pulmonary arteries and segmental branches.. VISUALIZED THORACIC INLET: Normal. MEDIASTINUM: Aorta/coronary arteries: Mild atheromatous disease. Heart/other: The heart is not enlarged. Lymph nodes: Right paratracheal lymphadenopathy is seen with the largest measuring 1.9 cm.. Precarina l lymphadenopathy also noted with the largest measures 1.8 cm. subcarinal lymphadenopathy is also not ed with the largest measures 1.8 cm. Left hilar enlarged lymph node is noted measuring 2.1 cm. LUNGS: Bilateral interstitial thickening and alveolar opacification more prominent in the right upper lobe. Minimal fat pleural effusion. Trace of left pleural effusion. No pulmonary nodules or masses. No pneu mothorax. VISUALIZED UPPER ABDOMEN: Cholelithiasis. Small Density seen in the left kidney in the last image ult rasound evaluation advised. Left adrenal adenoma measuring 1.8 cm.. No follow-up advised unless clini linwood warranted Otherwise, the visualized upper abdomen is normal. MUSCULOSKELETAL: Soft tissues: The superficial soft tissues are normal. Bones: Age appropriate degenerative changes of the spine. Healing fracture is seen in the left ribs a t multiple levels. IMPRESSION: 1. No pulmonary embolism. 2. Bilateral interstitial and alveolar opacification more prominent in the right upper lobe which ma y indicate pneumonitis versus fibrotic changes versus pulmonary edema. 3. Bilateral pleural effusion more on the right side. 4. Cholelithiasis. 5. Left adrenal adenoma. 6. Mediastinal lymphadenopathy.. 7. Multiple healing rib fractures in the left hemithorax. Reviewed, dictated and finalized at location A. SIOTHERAPIST IMPRESSION: 1. No pulmonary embolism. 2. Bilateral interstitial and alveolar opacification more prominent in the rig ht upper lobe which may indicate pneumonitis versus fibrotic changes versus pul monary edema. 3. Bilateral pleural effusion more on the right side. 4. Cholelithiasis. 5. Left adrenal adenoma. 6. Mediastinal lymphadenopathy.. 7. Multiple healing rib fractures in the left hemithorax.
--- NOTE | ~2024-08-09 | XR_ITS ---
XR chest 2V 08/09/2024 15:54 Indication: Weakness and falls Procedure: 2 view chest Comparison: Comparison to multiple prior studies sequentially, with oldest reviewed study dated 05/01. Findings: Cardiomegaly. Mild interstitial edema. No pleural effusion or pneumothorax. No acute osseou s abnormality. Impression: 1: Cardiomegaly with mild interstitial edema Reviewed, dictated and finalized at location B. VIORAL HEALTH CARE COORDINATOR Impression: 1: Cardiomegaly with mild interstitial edema
--- NOTE | ~2024-08-09 | XR_ITS ---
Portable chest x-ray Comparison: 08/14/2024 Clinical History: Respiratory failure Findings: Endotracheal tube, NG tube, and left-sided PICC line are in place. Diffuse interstitial an d groundglass pulmonary disease is again present. Cardiomediastinal silhouette is stable. Bones and soft tissues are unremarkable. Impression: Diffuse groundglass and interstitial pulmonary disease. Findings are compatible with diffuse chronic interstitial disease, with possible superimposed pulmonary edema or pneumonia. Correlate clinically. Support tubes, as above. Reviewed, dictated and finalized at [facility]. R SCHOOL MUSIC TEACHER Impression: Diffuse groundglass and interstitial pulmonary disease. Findings are compatible with diffuse chronic interstitial disease, with possible superimposed pulmonar y edema or pneumonia. Correlate clinically. Support tubes, as above.
--- NOTE | ~2024-08-09 | XR_ITS ---
EXAMINATION: XR chest 1V portable Exam Date/Time: 08/13/2024 21:45 FITNESS PLAN COORDINATOR HISTORY: increasing oxygen requirements Comparison: 04/10/2024; CT cap 08/12/2020. RESULT: Lines, tubes, and devices: None. Lungs and pleura: Severe patchy airspace opacities, more pronounced in the mid and lower lung zones and within the left lung. Moderate diffuse reticular opacities. Cardiomediastinal silhouette: Stable. Other: No acute osseous or upper abdominal finding. IMPRESSION: Pulmonary opacities likely representing worsening pulmonary edema and/or infection, likely overlying chronic interstitial changes. Reviewed, dictated and finalized at location K. ESS PLAN COORDINATOR IMPRESSION: Pulmonary opacities likely representing worsening pulmonary edema and/or infect ion, likely overlying chronic interstitial changes.
--- NOTE | ~2024-08-09 | US_ITS ---
EXAMINATION: US renal BI DATE: 08/15/2024 14:33 INDICATION: Acute on chronic kidney disease TECHNIQUE: Multiple ultrasound grayscale images of the kidneys were obtained. COMPARISON: CT dated 08/14/2024. FINDINGS: The right kidney measures 10.4 x 5.8 x 3.9 cm but is poorly visualized. The left kidney measures 12.7 x 5.2 x 4.7 cm. The kidneys demonstrate normal echogenicity. 2.0 and 0.9 cm anechoic cyst at the lef t kidney. There is no hydronephrosis in either kidney. No stones identified. Camacho catheter within t he decompressed bladder which limits evaluation. IMPRESSION: 1. A couple cysts in the left kidney. Otherwise normal kidneys with no hydronephrosis. Reviewed, dictated and finalized at location A. HANDLER IMPRESSION: 1. A couple cysts in the left kidney. Otherwise normal kidneys with no hydrone phrosis.
--- NOTE | ~2024-08-09 | US_ITS ---
EXAMINATION: US venous doppler LE DATE: 08/11/2024 14:14 INDICATION: Shortness of breath. Elevated d-dimer. TECHNIQUE: Grayscale ultrasound images without and with compression and Doppler ultrasound images of the bilateral lower extremity veins were obtained. COMPARISON: None. FINDINGS: The visualized portions of right common femoral vein, profunda (deep) femoral vein, femoral vein, pop liteal vein, posterior tibial veins, peroneal veins, gastrocnemius vein and greater saphenous vein ou tflow are patent. The visualized portions of left common femoral vein, profunda femoral vein, femoral vein, popliteal v ein, posterior tibial veins, peroneal veins, gastrocnemius vein and greater saphenous vein outflow ar e patent. IMPRESSION: 1. No deep venous thrombosis in either lower limb. Reviewed, dictated and finalized at location A. SPACE MECHANIC
--- NOTE | ~2024-08-09 | XR_ITS ---
EXAMINATION: XR abdomen gastric tube rechec DATE: 08/15/2024 10:56 INDICATION: Orogastric tube repositioning TECHNIQUE: A supine view of the abdomen and lower chest was obtained for evaluation of feeding tube placement. COMPARISON: None. FINDINGS: Orogastric tube in the stomach with proximal side-port at the distal body and the distal tip near the gastric pylorus. There is a small amount of contrast material within the stomach. Some gas is seen w ithin the transverse colon. No dilated loops of gas-filled bowel in the visualized upper abdomen. End otracheal tube tip 6.1 cm above the tyler. Left upper extremity peripherally inserted central venous catheter (PICC) tip at the caudal superior vena cava. Diffuse increased interstitial pattern throug hout the lungs with patchy airspace opacities most prominent at the left mid and right lower lung zon es. IMPRESSION: 1. Orogastric tube in the stomach with distal tip near the pylorus. Consider withdrawal by 10 cm. 2. Diffuse bilateral lung disease which could represent pulmonary edema, pneumonia, ARDS or some comb ination thereof. 3. Endotracheal tube tip 6.1 cm above the tyler. Consider advancement by 3.4 cm. Reviewed, dictated and finalized at location A. LITIES AND GROUNDS DIRECTOR IMPRESSION: 1. Orogastric tube in the stomach with distal tip near the pylorus. Consider wi thdrawal by 10 cm. 2. Diffuse bilateral lung disease which could represent pulmonary edema, pneumo omkar, ARDS or some combination thereof. 3. Endotracheal tube tip 6.1 cm above the tyler. Consider advancement by 3.4 c m.
--- NOTE | ~2024-08-09 | CT_ITS ---
EXAMINATION: CT brain wo con DATE: 08/09/2024 17:48 INDICATION: Fall with dizzy spells. TECHNIQUE: Computed tomography (CT) of the head was performed without intravenous contrast. Sagittal and coronal reconstructions were performed. The mA was adjusted according to patient size. Iterative reconstruction technique was employed. The dose-length product was 681.00 mGy-cm. COMPARISON: head CT dated 12/24/2022 FINDINGS: No fracture. Again seen is a small region of encephalomalacia in the right occipital lobe extending t o the inferomedial posterior right temporal lobe and the rest redistribution of the right posterior c erebral artery. Additional small old lacunar infarcts in the right thalamus and right basal ganglia. No acute intracranial hemorrhage, acute infarction or abnormal extra axial fluid collection. There is mild scattered white matter hypoattenuation consistent with chronic small vessel ischemic disease. S ymmetric prominence of the sulci consistent with mild age-appropriate diffuse cerebral volume loss. F ocal expected dilation of the occipital horn of the right lateral ventricle. Ventricles are otherwise normal and symmetric. No mass/mass effect. Changes of bilateral intraocular lens replacement. The or bits, paranasal sinuses and mastoid air cells are normal. IMPRESSION: 1. No fracture or acute intracranial process. 2. Stable appearance of old infarcts involving the right basal ganglia, right thalamus and right temp oral occipital region. 3. Age-related changes including mild diffuse volume loss and mild scattered mesenteric white matter hypoattenuation consistent with chronic small vessel ischemic disease. Reviewed, dictated and finalized at location A. CH PATHOLOGY SUPERVISOR IMPRESSION: 1. No fracture or acute intracranial process. 2. Stable appearance of old infarcts involving the right basal ganglia, right t halamus and right temporal occipital region. 3. Age-related changes including mild diffuse volume loss and mild scattered me senteric white matter hypoattenuation consistent with chronic small vessel isch emic disease.
--- NOTE | ~2024-08-09 | XR_ITS ---
XR abdomen gastric tube insert DATE: 08/12/2024 05:18 INDICATION: NG tube placement TECHNIQUE: Portable AP view on 08/12/2024 at 0451 hours COMPARISON: 08/12/2024 portable AP abdomen 08/12/2024 CT chest abdomen pelvis FINDINGS: There is an NG tube within the gastric fundus, proximal side port not far beyond the diaphr agmatic hiatus. There is diminished gaseous distention of the stomach following NG tube placement but persistent abnormal small bowel dilatation suggesting small bowel obstruction. No apparent intraperitoneal free air IMPRESSION: NG tube in gastric fundus Reviewed, dictated and finalized at Location A. Reviewed, dictated and finalized at location A. MOTIVE POWER ELECTRONICS ENGINEER IMPRESSION: NG tube in gastric fundus
--- NOTE | ~2024-08-09 | XR_ITS ---
EXAMINATION: XR abdomen/kub 1V DATE: 08/13/2024 13:10 INDICATION: Small bowel obstruction. Lactic acidosis. TECHNIQUE: A supine view of the abdomen on 2 radiographs was obtained. COMPARISON: CT abdomen and pelvis 08/12/2024, small bowel series 08/12/2024 FINDINGS: There are multiple dilated loops of small bowel. The colon is decompressed. There is oral c ontrast in the colon. There are changes of anterior posterior fusion procedures at L5-S1. IMPRESSION: 1. Dilated small bowel, likely adynamic ileus. Reviewed, dictated and finalized at location A. COORDINATOR
--- NOTE | ~2024-08-09 | US_ITS ---
EXAMINATION: US venous doppler [facility] DATE: 08/19/2024 11:31 INDICATION: Lower limb swelling. TECHNIQUE: Grayscale ultrasound images without and with compression and Doppler ultrasound images of the bilateral lower extremity veins were obtained. COMPARISON: Ultrasound 08/14/2024 FINDINGS: The visualized portions of right common femoral vein, profunda (deep) femoral vein, femoral vein, pop liteal vein, peroneal veins, posterior tibial veins, and greater saphenous vein outflow are patent. The visualized portions of left common femoral vein, profunda femoral vein, femoral vein, popliteal v ein, peroneal veins, posterior tibial veins, and greater saphenous vein outflow are patent. IMPRESSION: 1. No deep venous thrombosis. Reviewed, dictated and finalized at location A. YTICAL LAB TECHNICIAN
--- NOTE | ~2024-08-09 | CT_ITS ---
EXAMINATION: CT brain wo con DATE: 08/15/2024 08:35 INDICATION: Anisocoria. TECHNIQUE: Computed tomography (CT) of the head was performed without intravenous contrast. The mA wa s adjusted according to patient size. Iterative reconstruction technique was employed. The dose-lengt h product was 1059.33 mGy-cm. COMPARISON: Head CT 08/09/2024, brain MRI 08/12/2024 FINDINGS: There is an old infarct in right temporal occipital region. There is an old infarct in righ t thalamus. There are scattered areas of low attenuation in the cerebral white matter, which is withi n normal limits for the patient's age. There is no intracranial hemorrhage, acute infarction, or abn ormal intracranial mass lesion. The ventricles are normal in size. There are likely changes of ocular lens replacement surgeries. There is mild mucosal thickening in the paranasal sinuses. There are sma ll bilateral mastoid effusions. IMPRESSION: 1. 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 Reviewed, dictated and finalized at location A. E CHANGER IMPRESSION: 1. Old infarcts involving the right temporal occipital region and right thalamu s.
--- NOTE | ~2024-08-09 | XR_ITS ---
XR chest 1V portable DATE: 08/11/2024 09:15 INDICATION: Shortness of breath TECHNIQUE: Portable AP chest on 08/11/2024 at 0913 hours COMPARISON: 08/10/2024 CTA chest 08/10/2024 portable AP chest at 0653 hours portable AP chest FINDINGS: Cardiomegaly. There is pulmonary vascular congestion/redistribution. Mild prominence of the minor fissure suggests subpleural edema. Diffuse bilateral pulmonary interstitial infiltrates may be due to pulmonary interstitial edema or interstitial pneumonitis, likely superimposed upon some chron ic interstitial fibrotic change. Aortic arch calcification. Osteopenia. IMPRESSION: Suggestion of congestive heart failure; interstitial pneumonitis patient pneumonia is not excluded Reviewed, dictated and finalized at location A. OR QUALITY CONTROL TECHNICIAN IMPRESSION: Suggestion of congestive heart failure; interstitial pneumonitis pa tient pneumonia is not excluded
--- NOTE | ~2024-08-09 | MR_ITS ---
EXAMINATION: MR cervical spine wo con DATE: 08/11/2024 08:20 INDICATION: Neck pain with radiculopathy TECHNIQUE: Magnetic resonance imaging (MRI) of the cervical spine was performed without intravenous c ontrast. Sequences included sagittal T2-weighted FSE, sagittal T2-weighted FS FSE, sagittal T1-weight ed FSE, axial MERGE and axial T2-weighted FSE. COMPARISON: None FINDINGS: There is some degree of minimal to moderate motion artifact on all of the sequences mildly limited ev aluation. 8 degrees cervicothoracic levocurvature. Straightening of the normal cervical lordosis. 2 m m anterolisthesis C7 on T1. Vertebral body heights are normal. Nonspecific heterogeneous marrow sign al with regions of increased fluid and decreased T1 signal in several vertebral bodies and portions o f the posterior elements in the cervical and upper thoracic spine which raises some concern for multi ple myeloma versus metastatic disease. Moderate to severe disc height loss at C3-C4, moderate disc he ight loss with increased signal at C6-C7 and mild disc height loss at C4-C5, C5-C6 and C7-T1. Assessm ent of the cord signal is limited by the motion artifact but appears unremarkable accounting for the motion artifact. Paravertebral soft tissues are unremarkable. The following disc levels are specific ally discussed: C2-C3: The disc does not extend beyond the endplate margin. There is no uncovertebral joint osteoarth ritis. There is mild right and moderate left facet joint osteoarthritis. There is no neural foraminal stenosis. There is no central canal stenosis. C3-C4: Left-sided predominant posterior disc osteophyte complex. There is mild right and severe left uncovertebral joint osteoarthritis. There is moderate right and moderate to severe left facet joint o steoarthritis. There is severe left and mild to moderate right neural foraminal stenosis. There is mi ld central canal stenosis with indentation of the left ventral surface of the cord. C4-C5: Disc is mildly bulging. There is mild right and mild to moderate left uncovertebral joint oste oarthritis. There is mild right and severe left facet joint osteoarthritis. There is mild right and m oderate left neural foraminal stenosis. There is mild central canal stenosis with mild flattening the ventral surface of the cord. C5-C6: Disc is mildly bulging. There is moderate right and mild left uncovertebral joint osteoarthrit is. There is mild left and moderate right facet joint osteoarthritis. There is moderate right neural foraminal stenosis. There is mild central canal stenosis with subtle flattening of the ventral surfac e of the cord. C6-C7: Disc is mildly bulging. There is moderate right and severe left uncovertebral joint osteoarthr itis. There is mild to moderate bilateral facet joint osteoarthritis. There is mild bilateral neural foraminal stenosis. There is no central canal stenosis. C7-T1: The disc does not extend beyond the more posterior T1 endplate margin. There is no uncovertebr al joint osteoarthritis. There is severe bilateral facet joint osteoarthritis. There is minimal bilat eral neural foraminal stenosis. There is no central canal stenosis. IMPRESSION: 1. Moderate to severe cervical spondylosis. 2. Heterogeneous marrow signal with regions of increased fluid and decreased T1 signal which raises c oncern for multiple myeloma or metastatic disease. Assessment is however limited by motion artifact i n the absence of intravenous contrast. Reviewed, dictated and finalized at location A. TABLE PREPARER IMPRESSION: 1. Moderate to severe cervical spondylosis. 2. Heterogeneous marrow signal with regions of increased fluid and decreased T1 signal which raises concern for multiple myeloma or metastatic disease. Assess ment is however limited by motion artifact in the absence of intravenous contra st.
--- NOTE | ~2024-08-09 | XR_ITS ---
Portable chest x-ray Comparison: 08/15/2024 Clinical History: Respiratory failure Findings: Endotracheal tube, NG tube, and left-sided PICC line are in place. Extensive hazy and inte rstitial pulmonary disease is again present. No pleural effusion. Cardiomediastinal silhouette is st able. Bones and soft tissues are unremarkable. Impression: Stable diffuse groundglass and interstitial pulmonary disease. Stable support tubes. Reviewed, dictated and finalized at location . ING ENFORCEMENT OFFICER Impression: Stable diffuse groundglass and interstitial pulmonary disease. Stable support tubes.
--- NOTE | ~2024-08-09 | CT_ITS ---
EXAMINATION: CT cervical spine wo con DATE: 08/09/2024 17:48 INDICATION: Unable to walk post multiple recent falls percent with dizziness and low back and bilater al leg pain. TECHNIQUE: Computed tomography (CT) of the cervical spine was performed without intravenous contrast. Automated exposure control and iterative reconstruction technique were employed. The dose-length pro duct was 430.95 mGy-cm. COMPARISON: None FINDINGS: Minimal cervicothoracic levocurvature. Straightening of the normal cervical lordosis. Vertebral body heights are normal. No acute fracture. Bridging anterior osteophyte at C6-C7. Moderate to severe disc height loss at C3-C4, moderate disc height loss at C4-C5, C6-C7 and C7-T1 mild disc height loss at t he remaining cervical levels. Severe left-sided uncovertebral osteoarthritis and small posterior endp late osteophytes at C3-C4 which contribute to mild central canal and moderate to severe right-sided n eural foraminal stenosis at this level. Additional minimal central canal stenosis at C4-C5 and C6-C7. Multilevel moderate and severe cervical facet osteoarthritis. Mild neural foraminal stenosis at mult iple additional levels on both the left and right sides of the cervical spine. Small amount of athero sclerotic calcific location at the left carotid bulb. Cervical soft tissues are unremarkable. Visuali zed apices of lungs are clear. IMPRESSION: 1. Moderate to severe cervical spondylosis. No acute osseous abnormality. Reviewed, dictated and finalized at location A. D CARE RN
--- NOTE | ~2024-08-09 | CT_ITS ---
EXAMINATION: CT thoracic lumbar wo con DATE: 08/09/2024 17:48 INDICATION: Unable to walk post multiple falls with low back pain and bilateral leg pain. TECHNIQUE: Computed tomography (CT) of the thoracic and lumbar spine was performed without intravenou s contrast. Automated exposure control and iterative reconstruction technique were employed. The dose -length product was 2140.34 mGy-cm. COMPARISON: CT dated 11/24/2013 FINDINGS: Thoracic spine: Mild midthoracic kyphosis. Unchanged minimal chronic anterior wedging at T5 and T6. Multiple old heal ed posterior left rib fractures. No acute fracture. Multilevel mild to moderate disc height loss thro ughout the thoracic spine most prominent at T7-T8, T8-T9 and T9-T10. No central canal stenosis. There is moderate to severe facet osteoarthritis a few levels in the mid to upper thoracic spine with mild facet osteoarthritis in the lower thoracic spine. There is mild neural foraminal stenosis at a few l evels most prominent on the left at T5-T6 and on the right at T4-T5 through T7-T8. Calcified nodules in the right lower lobe consistent with old granulomatous disease. There are peripheral predominant i rregular septal line thickening which could represent atelectasis, mild pulmonary edema or more likel y chronic interstitial lung disease. 8 mm subpleural noncalcified nodule in the left lower lobe. Lumbar spine: Partial L5 laminectomy with combined instrumented anterior and posterior spinal fusion at L5-S1 with interbody bone graft cage, anterior plate and screw fixation and right-sided vertical jacquie and pedicle screw fixation. Alignment is normal. Chronic appearing L2 compression fracture with 20% right anteri or vertebral body height loss which is new since 03/06/2021 but which appears to have been present on the wound care coordinator topogram from CT dated 07/09/2023. Remaining vertebral body heights are normal. No acute fr actures. Mild disc height loss at L4-L5. Multilevel mild lumbar facet osteoarthritis. Mild disc bulge s contributing to mild central canal stenosis at L3-L4 and L4-L5. Mild neural foraminal stenosis bila terally at L4-L5 and L5-S1. Paravertebral soft tissues are unremarkable. IMPRESSION: 1. Multiple old posterior left rib fractures and chronic compression fractures with mild anterior wed ging at T5 and T6 and mild right-sided anterior vertebral body height loss at L2. No acute osseous ab normality. 2. Moderate thoracic spondylosis and mild lumbar spondylosis. 3. Combined instrumented L5-S1 anterior and posterior spinal fusion. 4. Chronic bilateral lower lung predominant interstitial lung disease with indeterminate 8 mm pulmona ry nodule in the left lower lobe. Recommend 3 month follow-up low-dose noncontrast chest CT. Reviewed, dictated and finalized at location A. LAYER IMPRESSION: 1. Multiple old posterior left rib fractures and chronic compression fractures with mild anterior wedging at T5 and T6 and mild right-sided anterior vertebral body height loss at L2. No acute osseous abnormality. 2. Moderate thoracic spondylosis and mild lumbar spondylosis. 3. Combined instrumented L5-S1 anterior and posterior spinal fusion. 4. Chronic bilateral lower lung predominant interstitial lung disease with inde terminate 8 mm pulmonary nodule in the left lower lobe. Recommend 3 month follo w-up low-dose noncontrast chest CT.
--- NOTE | ~2024-08-09 | XR_ITS ---
EXAM: XR sm bowel follow through [facility] DATE: 08/12/2024 19:11 HISTORY: SBO, please use water soluble contrast via NGT . COMPARISON: CT cap, same date. FINDINGS: Multiple loops of dilated air-filled small bowel in the left upper quadrant in the banquet prep cook v iew. Partially visualized lumbar fusion hardware. Pelvic surgical clips. Excreted contrast in the uri nary bladder. Chronic interstitial appearing changes in the lung bases. Following contrast instillati on through the NG tube, contrast fills a normal-appearing stomach and duodenal C-loop, then multiple loops of dilated small bowel in the left abdomen. Contrast reaches the colon by the 3 hour 30 minute image.. IMPRESSION: Radiographic findings consistent with low-grade small bowel obstruction or ileus. Reviewed, dictated and finalized at location K. CULTURAL SCIENCES PROFESSOR IMPRESSION: Radiographic findings consistent with low-grade small bowel obstruc tion or ileus.
--- NOTE | ~2024-08-09 | MR_ITS ---
EXAMINATION: MRA brain wo con DATE: 08/11/2024 08:03 INDICATION: Stroke TECHNIQUE: Magnetic resonance angiography (MRA) of the brain was performed without intravenous contrast by the 3 D [id number] technique. COMPARISON: None. FINDINGS: There is normal flow related signal seen within the vertebral, basilar and internal carotid arteries. The bilateral vertebral arteries are codominant. There are no aneurysms identified. Both A1 and P1 segments are patent. There is a high-grade stenosis along the right P1 segment. There is a moderate g rade stenosis at the origin of the right M1 segment. There is a patent anterior communicating artery. Flow in the cerebral arteries is symmetric. Encephalomalacia consistent with chronic infarct in the right occipital lobe. IMPRESSION: 1. High-grade stenosis on the right P1 segment with downstream moderate-sized region of encephalomala camilel consistent with chronic infarct. 2. Moderate grade stenosis at the origin of the right M1 segment. Reviewed, dictated and finalized at location A. H MAKER IMPRESSION: 1. High-grade stenosis on the right P1 segment with downstream moderate-sized r egion of encephalomalacia consistent with chronic infarct. 2. Moderate grade stenosis at the origin of the right M1 segment.
--- NOTE | ~2024-08-09 | CT_ITS ---
CT chest abdomen pelvis wo con Ordering provider: Froilan Shaw History: . Bowel Obstruction ARDS . Comparison: July 21, 2024 Technique: CT chest without IV contrast. CT abdomen and pelvis without oral and IV contrast. Radiatio n reduction technique utilized.The dose-length product was 1752.17 mGy-cm. FINDINGS: The study is limited due to lack of IV contrast. CHEST: --VISUALIZED THORACIC INLET: Normal as visualized. Endotracheal tube and nasogastric tube are seen. Left central line with the tip overlying the superio r vena cava. --MEDIASTINUM: Aorta/coronary arteries: Mild atheromatous disease. Ascending aorta measures 3.7 cm. Heart/other: The heart is slightly enlarged. Lymph nodes: Enlarged lymph nodes are seen in the paratracheal and precarinal areas with the largest measures 2.1 cm. Prevascular lymph nodes are also seen with the largest measures 2.3 cm. Subcarinal l ymph node is also seen measuring 2 cm.--LUNGS: Bilateral interstitial thickening with alveolar opacif ication is seen suggestive of ARDS versus pulmonary edema. Superimposed pneumonitis cannot be exclude d. Clinical correlation advised. No pulmonary nodules or masses. No effusions. No pneumothorax. --MUSCULOSKELETAL: Soft tissues: The superficial soft tissues are normal. Bones: Age appropriate degenerative changes of the spine. Multiple Old healed fractures are seen in t he left hemithorax ribs. ABDOMEN/PELVIS: --MUSCULOSKELETAL: Bones: Age appropriate degenerative changes of the spine. Postoperative changes at the level of L5-S1 . Superficial soft tissues: Bilateral fat containing inguinal hernias. Otherwise, The superficial soft tissues are normal. --UPPER ABDOMINAL ORGANS: Liver: Normal. Gallbladder: Contrast is seen in the gallbladder most likely due to old study. Spleen: Normal. Benign calcifications are noted. Stomach/duodenum: Normal. Pancreas: Normal.Minimal fat stranding is seen posterior to the pancreas which may be artifactual due to motion artifacts. Clinical evaluation advised. Adrenals: Left adrenal adenoma is seen measuring 1.8 cm. No follow-up advised unless clinically warra nted. Kidneys: Hypodensity seen in the left kidney most likely small cysts. The one seen medially in the up per pole is slightly dense which measures 1.7 cm. Ultrasound evaluation advised. 2 stone is seen in the right kidney lower and mid pole. Small cysts are also noted. No ureteric stone s seen bilaterally. --PELVIC ORGANS: The bladder is underfilled due to Camacho's catheter. Hypodensity is seen in the right lobe posteriorly in the right further evaluation advised. No bladder stones. --BOWEL AND MESENTERY: Colon: No evidence of diverticulitis. Residual contrast is seen in the colon. Appendix is not well de monstrated with no inflammatory changes in the right lower quadrant. Small Bowel: Dilated small bowel loops in the mid abdomen are noted with no evidence of obstruction. Follow-up advised. Peritoneum/mesentery: No free air or free fluid. No mesenteric lymphadenopathy. --RETROPERITONEUM: Mild atheromatous disease of the abdominal aorta. No retroperitoneal lymphadenop athy. IMPRESSION: CHEST: 1. Bilateral interstitial and alveolar opacification suggestive of ARDS versus pulmonary edema versu s pneumonia. Follow-up and clinical correlation advised. Changes are increased compared to the previo us examination. 2. Mediastinal lymphadenopathy. 3. Slight cardiomegaly. ABDOMEN/PELVIS: 1. A few dilated small bowel loops in the mid abdomen with no evidence of complete obstruction. Impr ovement is noted compared to previous study. Follow-up advised. 2. Right kidney stones with no hydronephrosis or ureteric stones. 3. Bilateral small fat containing inguinal hernias. Minimal fat stranding posterior to the body and tail of the pancreas which may be artifactual. Reviewed, dictated and finalized at location A. R TILING PROFESSIONAL IMPRESSION: CHEST: 1. Bilateral interstitial and alveolar opacification suggestive of ARDS versus pulmonary edema versus pneumonia. Follow-up and clinical correlation advised. Changes are increased compared to the previous examination. 2. Mediastinal lymphadenopathy. 3. Slight cardiomegaly. ABDOMEN/PELVIS: 1. A few dilated small bowel loops in the mid abdomen with no evidence of comp lete obstruction. Improvement is noted compared to previous study. Follow-up ad vised. 2. Right kidney stones with no hydronephrosis or ureteric stones. 3. Bilateral small fat containing inguinal hernias. Minimal fat stranding post erior to the body and tail of the pancreas which may be artifactual.
--- NOTE | ~2024-08-09 | XR_ITS ---
Portable chest x-ray Comparison: 08/16/2024 Clinical History: Respiratory failure Findings: Endotracheal tube, NG tube, left-sided PICC line, and right IJ line are in place. Extensiv e interstitial disease present with minimal groundglass opacity. Cardiomediastinal silhouette is sta ble. Bones and soft tissues are unremarkable. Impression: Extensive interstitial disease of the lungs, with minimal groundglass opacity. Support tubes are unchanged. Reviewed, dictated and finalized at location M. IPPING CLERK Impression: Extensive interstitial disease of the lungs, with minimal groundglass opacity. Support tubes are unchanged.
--- NOTE | ~2024-08-09 | US_ITS ---
EXAMINATION: US venous doppler LE DATE: 08/14/2024 15:41 INDICATION: Elevated d-dimer. TECHNIQUE: Grayscale ultrasound images without and with compression and Doppler ultrasound images of the bilateral lower extremity veins were obtained. COMPARISON: None. FINDINGS: The visualized portions of right common femoral vein, profunda (deep) femoral vein, femoral vein, pop liteal vein, peroneal veins, posterior tibial veins, and greater saphenous vein outflow are patent. The visualized portions of left common femoral vein, profunda femoral vein, femoral vein, popliteal v ein, peroneal veins, posterior tibial veins, and greater saphenous vein outflow are patent. There is a small left Calles's cyst. IMPRESSION: 1. No deep venous thrombosis. 2. Small left Calles's cyst. Reviewed, dictated and finalized at location A. PHERE PROCESS SERVER DEVELOPER
--- NOTE | ~2024-08-09 | CT_ITS ---
EXAMINATION: CT chest abdomen pelvis w con DATE: 08/12/2024 05:51 INDICATION: Suspected aspiration. Bilious emesis. Abnormal KUB. TECHNIQUE: Computed tomography (CT) of the chest was performed without intravenous contrast. Automate d exposure control and iterative reconstruction technique were employed. Exam dose: 1354.29 mGy-cm t otal exam DLP. COMPARISON: 08/10/2024 CTA chest FINDINGS: Thoracic aortic calcification; no thoracic aortic aneurysm or dissection. Prominent coronary artery calcifications. Heart size is borderline. No pericardial effusion. There is mild right paratracheal bilateral hilar lymphadenopathy, likely reactive Minimal bilateral pleural effusions. There are numerous interval bilateral active pulmonary infiltrates since 08/10/2024 cyst with extensi ve bilateral pneumonia and/or aspiration pneumonitis. There are likely some underlying chronic inters titial fibrotic changes. NG tube in proximal stomach. Probable multiple small stones versus less likely milk of calcium in the dependent aspect of the gall bladder. No gallbladder wall thickening or pericholecystic fluid or fat stranding is noted. Scattered calcified hepatic granulomas. Multiple calcified splenic granulomas. There is splenomegaly, the spleen measuring up to 14.4 cm maximal sagittal dimension. No hepatic space-occupying mass lesion. No bile duct or pancreatic duct dilatation. No pancreatic mas s lesion or calcification is noted. There is some peripancreatic fat stranding as well as thickening of the anterior pararenal fascia on the left; recommend clinical correlation for possible acute inter stitial pancreatitis. Approximately 10.9 x 19 mm 14.5 x 16.5 mm left adrenal nodules, possibly adenomatous, less likely met astases. Normal morphology of the right adrenal gland. Approximately 5 x 5.9 mm and 2.8 mm nonobstructing right renal calculi. No other urinary tract calcul us is noted. 2 cm and 2.2 cm 6 mm right renal cysts. There are approximately 5 left renal cysts ranging from several millimeters to 2.2 cm dimension. No ureteral calculus or hydroureteronephrosis is noted on either side. There is prostate enlargement, is apparently responsible for prominent impression at the base of the urinary bladder; less likely would be urothelial malignancy at the bladder base. No significant bladder wall thickening is noted. Bilateral fat-containing inguinal hernias. There are clips along the mid and left anterior abdominal wall. Status post appendectomy. There is mild proximal and mid small bowel dilatation, measuring up to 3.3 cm diameter, with multiple small bowel air-fluid levels. There is a transition zone in the anterolateral right lower abdomen (i [id number]). The findings suggest partial small bowel obstruction, possibly due to right lower quadrant adhesions. Likely chronic mild anterior wedge compression fracture of L2. Status post right posterior and anterior surgical fusion at L5-S1. Recent lateral right 10th mildly displaced rib fracture. Multiple subacute or old left rib fractures. IMPRESSION: Extensive interval bilateral patchy pulmonary infiltrates since 08/10/2024, which may be consistent w ith extensive aspiration pneumonitis or rapidly worsening pneumonia Reviewed, dictated and finalized at [facility]. Reviewed, dictated and finalized at [facility]. ICIST IMPRESSION: Extensive interval bilateral patchy pulmonary infiltrates since 08/10/2024, whi ch may be consistent with extensive aspiration pneumonitis or rapidly worsening pneumonia
--- NOTE | ~2024-08-09 | XR_ITS ---
EXAMINATION: XR chest 1V portable DATE: 08/19/2024 05:20 INDICATION: Respiratory failure. TECHNIQUE: A single frontal view of the chest was obtained. COMPARISON: Chest single view 08/18/2024 FINDINGS: There is a diffuse interstitial pattern in the lungs. There are airspace opacities in right mid and lower lung zones and all left lung zones. No pleural effusion or pneumothorax. The heart siz e is normal. The endotracheal tube tip is 4.6 cm above the tyler. The nasogastric tube tip is beyond the inferior margin of the radiograph, but at least to the stomach. A left upper extremity periphera lly inserted central venous catheter (PICC) is seen with tip in the superior vena cava. A right inter nal jugular central venous catheter is seen with tip at the superior cavoatrial junction. IMPRESSION: 1. Stable diffuse lung disease, consistent with pulmonary edema versus pneumonia versus acute respira tory distress syndrome (ARDS). Reviewed, dictated and finalized at [facility] STIGATOR [employer] IMPRESSION: 1. Stable diffuse lung disease, consistent with pulmonary edema versus pneumoni a versus acute respiratory distress syndrome (ARDS).
--- NOTE | ~2024-08-09 | MR_ITS ---
EXAMINATION: MR cervical spine w con DATE: 08/12/2024 13:03 INDICATION: Cervical radiculopathy. TECHNIQUE: Magnetic resonance imaging (MRI) of the cervical spine was performed with 20 mL MultiHance intravenous contrast. COMPARISON: Cervical spine MRI 08/11/2024 FINDINGS: Alignment is normal. Vertebral body heights are normal. There are widespread areas of decre ased T1-weighted signal intensity and contrast enhancement involving the bones. There is moderately d ecreased disc height at C3-C4 and C6-C7. The spinal cord signal intensity is normal. 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 IMPRESSION: 1. Widespread abnormal contrast enhancement in the bones, consistent with metastatic disease versus m ultiple myeloma. 2. Moderate cervical spondylosis. Reviewed, dictated and finalized at [facility]. ING SCHEDULER IMPRESSION: 1. Widespread abnormal contrast enhancement in the bones, consistent with metas tatic disease versus multiple myeloma. 2. Moderate cervical spondylosis.
--- NOTE | 2024-08-09 15:23 | ECG_ITS ---
Test Date: 2024-08-09 15:29:25 Measurements Intervals [place] Rate: 111 P: 28 WI: 167 QRS: 60 QRSD: 100 T: 39 QT: 312 QTc: 425 Interpretive Statements SINUS TACHYCARDIA WITH OCCASIONAL VENTRICULAR PREMATURE COMPLEXES WITH OCCASIONAL SUPRAVENTRICULAR PREMATURE COMPLEXES BASELINE ARTIFACT- I, II, III, AVR, AVL, AVF ABNORMAL ECG No previous ECG available for comparison Electronically Signed On 08-09-2024 15:53:53 SECURITY OPERATIONS MANAGER by Asael Jha D.O.
[2024-08-09 15:54] LABS: Hematocrit 42.5 % (42.0-52.0); Hemoglobin 14.2 g/dL (14.0-18.0); Mean Corpuscular HGB Conc 33.4 g/dl (32-36); Mean Corpuscular Hemoglobin 27.6 pg (26-34); Mean Corpuscular Volume 82.7 fl (80-100); Mean Platelet Volume 9.5 fl (7.4-10.4); Platelet Count Result 202 k/mm3 (150-375); Red Blood Count 5.14 M/mm3 (4.6-6.20); Red Cell Distribution Width 15.1 % (11.5-14.5); White Blood Count 18.9 K/mm3 (4.5-10.0)
[2024-08-09 16:07] LABS: Alanine Aminotransferase 71 U/L (6-50); Albumin Level 3.9 g/dL (3.5-5.1); Alkaline Phosphatase 268 U/L (38-126); Anion Gap 11 mmol/L (4-12); Aspartate Amino Transferase 226 U/L (17-59); Bilirubin,Total 1.3 mg/dL (0.2-1.3); Blood Urea Nitrogen 31 mg/dL (9-20); Calcium 9.6 mg/dL (8.4-10.2); Carbon Dioxide 26 mmol/L (22-30); Chloride 100 mmol/L (98-107); Estimated CRCL calculation 37 ml/min; Estimated Glomerular Filt Rate 39; Glucose 83 mg/dL (65-110); Potassium 4.4 mmol/L (3.4-5.0); Sodium 137 mmol/L (137-145)
[2024-08-09 16:09] LABS: Band Neutrophils Percent 12 % (0-6); Neutrophils Absolute Manual 14.17 K/mm3 (1.3-6.7); Neutrophils Percent Manual 63 % (46-73); Total Cells Counted 100
[2024-08-09 16:10] LABS: Lymphocytes Absolute Manual 2.26 K/mm3 (1.1-4.5); Lymphocytes Percent Manual 12 % (18-44); Metamyelocytes Percent 4 %; Monocytes Percent Manual 9 % (3-9)
[2024-08-09 16:11] LABS: Platelet Estimate Adequate (Adequate)
[2024-08-09 16:13] LABS: Atypical Lymphocytes Present
[2024-08-09 16:14] LABS: Schistocytes None Seen
--- NOTE | 2024-08-09 16:43 | ED_ITS ---
HPI - General Adult General Chief complaint: Weakness Stated complaint: weakness, falls Time Seen by Provider: 08/09/24 15:59 Source: patient, family and EMS Mode of arrival: EMS Limitations: no limitations History of Present Illness HPI narrative: 78 years old white male came from home by ambulance with his son. His sinus telling me that it the quality control inspector heading told him that the patient was laying down on the garage unable to get up 4 days ago. The son drove from [place] to his house and found him laying down on the floor 3 days ago. Today patient unable to manage to walk because of multiple falls. Currently complaining of lower back pain and leg pain bilaterally. Related Data Home Medications Medication Instructions Recorded Confirmed Bifidobacterium infantis 4 mg 4 mg PO DAILY 03/06/21 01/04/24 capsule (Align) calcium 500 mg tablet mg 03/06/21 01/04/24 cholecalciferol (vitamin D3) 125 125 mcg PO DAILY 03/06/21 01/04/24 mcg (5,000 unit) tablet (Vitamin D3) multivitamin cap 03/06/21 01/04/24 polyethylene glycol 3350 17 gram 17 g PO DAILY 03/06/21 01/04/24 oral powder packet (Miralax) Allergies Allergy/AdvReac Type Severity Reaction Status Date / Time rivaroxaban AdvReac Unknown SEVERE Verified 07/11/24 13:24 NOSE BLEED PMFSH Past Medical History Medical History Blood type B+ History of CVA (cerebrovascular accident) (~04/2014) History of rib fracture (~2020) Occipital infarction (~04/2014) Surgical History Surgical History History of exploratory laparotomy (~2000) History of gastric surgery (~2014) stoma reversal History of ventral hernia repair (06/2016) Family History Family History Sibling Cerebrovascular accident Father Family history of heart disease in male family member before age 55 Other Diabetes mellitus Family history of cardiovascular disease Family history of gout Family history of malignant neoplasm Family history of osteoarthritis Hypertension Social History Social History Years smoked: 50 Smoking status: Current every day smoker Tobacco type: cigarettes Second hand tobacco smoke exposure: No Alcohol intake: former Substance use: never Substance use type: does not use Lack of Transportation: No Lack of Food: Never True Current Housing: I Have Housing Concerned About Future Housing: No Difficulty Paying Gas/Electric Bills: No Difficulty Paying for Meds: No Currently Unemployed: No Education: High School Diploma/GED Difficulty w/ Childcare or Family Care: No Living arrangements: alone Occupation/Education: retired Gender identity (if verbalized by the patient): Male Sexual Orientation (if Verbalized by the Patient): Straight or Heterosexual Spiritual care concerns: No Exam Narrative: GENERAL APPEARANCE: WELL-DEVELOPED, WELL-NOURISHED SKIN: NORMAL COLOR SCATTERED BRUISES HEAD: NORMOCEPHALIC, NONTRAUMATIC EYES: CLEAR CONJUNCTIVA ENT: DRY ORAL CAVITY NECK: SUPPLE, MILD DIFFUSE TENDERNESS CHEST AND RESPIRATORY: AIRWAY PATENT, NO RESPIRATORY DISTRESS, NO ACCESSORY MUSCLE USE HEART: TACHYCARDIA ABDOMEN: SOFT, NONTENDER, NO ORGANOMEGALY, QUIET BOWEL SOUNDS VASCULAR: NORMAL PERIPHERAL PULSES, NORMAL CAPILLARY REFILL. MUSCULOSKELETAL: NORMAL RANGE OF MOTION, NONTENDER BACK NEUROLOGIC: ALERT AND ORIENTED ?3, PATIENT IS ABLE TO STAND BUT UNABLE TO WALK FORWARD, JITTERY, SHAKING Course Vital Signs Vital signs: Vital Signs Temperature 36.6 C 08/09/24 15:06 Pulse Rate 106 H 08/09/24 15:06 Respiratory Rate 18 08/09/24 15:06 Blood Pressure 141/58 H 08/09/24 15:06 Pulse Oximetry 90 08/09/24 15:06 Oxygen Delivery Room Air 08/09/24 15:06 Temperature 37.8 C H 08/09/24 18:52 Pulse Rate 125 H 08/09/24 20:52 Respiratory Rate 23 H 08/09/24 20:52 Blood Pressure 106/72 08/09/24 20:19 Pulse Oximetry 93 08/09/24 20:52 Oxygen Delivery Nasal Cannula 08/09/24 16:33 Oxygen Flow Rate 2 08/09/24 16:33 Medical Decision Making MDM Narrative Medical decision making narrative: PATIENT CAME TO THE ED BY AMBULANCE FROM HOME WITH GENERAL WEAKNESS, MULTIPLE FALLS, LOWER BACK PAIN, LEG PAIN VITAL SIGNS ON ARRIVAL SHOWED BLOOD PRESSURE 141/658, HEART RATE 106, RESPIRATION 18, TEMPERATURE 36.6?, SATURATION ON 1 L NASAL CANNULA 90% BY PULSE OXIMETRY PHYSICAL EXAMINATION SHOWING JITTERY PATIENT, DRY ORAL CAVITY, AWAKE, ORIENTED X4, LOOKS ILL AND GENERALLY WEAK DIFFERENTIAL DIAGNOSIS INCLUDE DEHYDRATION, ELECTROLYTE IMBALANCE, URINARY TRACT INFECTION, PNEUMONIA, DISKITIS , EPIDURAL ABSCESS, FRACTURES, CVA, SEPSIS BLOOD WORKUP TODAY INCLUDED SEPTIC PROTOCOL, SHOWED WBC 18.9 WITH LEFT SHIFT, CREATININE IS 1.7, BUN 31 LACTIC ACID 2.6 AST 226 ALT 71 ALKALINE PHOSPHATASE 268, CPK 260 C-REACTIVE PROTEIN 25.9 ABG ON 1 L OXYGEN SHOWING PH 7.4, 95% OXYGEN SATURATION URINALYSIS SHOWED NO EVIDENCE OF INFECTION CHEST X-RAY SHOWED NO ACUTE ABNORMALITIES CT CERVICAL SPINE, THORACIC SPINE AND LUMBAR SPINE SHOWED NO ACUTE OSSEOUS ABNORMALITY CT HEAD WITHOUT CONTRAST SHOWED NO ACUTE ABNORMALITIES DIAGNOSIS: SEPSIS UNKNOWN SOURCE OF INFECTION, DISKITIS, EPIDURAL ABSCESS IS A POSSIBILITY PATIENT STARTED ON LEVAQUIN, VANCOMYCIN AND ZOSYN. Differential Diagnosis Differential Diagnosis: ABOVE Vital Signs Vital Signs: Vital Signs Temperature 36.6 C 08/09/24 15:06 Pulse Rate 106 H 08/09/24 15:06 Respiratory Rate 18 08/09/24 15:06 Blood Pressure 141/58 H 08/09/24 15:06 Pulse Oximetry 90 08/09/24 15:06 Oxygen Delivery Room Air 08/09/24 15:06 Temperature 37.8 C H 08/09/24 18:52 Pulse Rate 125 H 08/09/24 20:52 Respiratory Rate 23 H 08/09/24 20:52 Blood Pressure 106/72 08/09/24 20:19 Pulse Oximetry 93 08/09/24 20:52 Oxygen Delivery Nasal Cannula 08/09/24 16:33 Oxygen Flow Rate 2 08/09/24 16:33 Lab Data 08/09/24 15:39 08/09/24 15:38 Labs: Lab Results 08/09/24 08/09/24 08/09/24 Range/Units 15:38 15:39 16:59 WBC 18.9 H (4.5-10.0) K/mm3 RBC 5.14 (4.6-6.20) M/mm3 Hgb 14.2 (14.0-18.0) g/dL Hct 42.5 (42.0-52.0) % MCV 82.7 (80-100) fl MCH 27.6 (26-34) pg MCHC 33.4 (32-36) g/dl RDW 15.1 H (11.5-14.5) % Plt Count 202 (150-375) k/mm3 MPV 9.5 (7.4-10.4) fl Immature Gran % (Auto) Not Reportable Neut % (Auto) Not Reportable Lymph % (Auto) Not Reportable [place] % (Auto) Not Reportable Eos % (Auto) Not Reportable Baso % (Auto) Not Reportable Lymph # (Auto) Not Reportable [place] # (Auto) Not Reportable Eos # (Auto) Not Reportable Baso # (Auto) Not Reportable Abs Immat Gran (auto) Not Reportable Absolute Neuts (auto) Not Reportable Absolute Nucleated RBC Not Reportable Total Counted 100 Neutrophils % (Manual) 63 (46-73) % Band Neutrophils % 12 H (0-6) % Lymphocytes % (Manual) 12 L (18-44) % Monocytes % (Manual) 9 (3-9) % Metamyelocytes % 4 % Nucleated RBC % Not Reportable Abs Neuts (Manual) 14.17 H (1.3-6.7) K/mm3 Abs Lymphs (Manual) 2.26 (1.1-4.5) K/mm3 Abs Monocytes (Manual) 1.70 H (0.1-0.90) K/mm3 Atypical Lymphocytes Present Platelet Estimate Adequate (Adequate) Schistocytes None seen ESR 16 (0-20) mm/hr PT 15.0 H (11.1-14.7) Seconds INR 1.2 APTT 31.7 (22.3-36.8) Seconds Sodium 137 (137-145) mmol/L Potassium 4.4 (3.4-5.0) mmol/L Chloride 100 (98-107) mmol/L Carbon Dioxide 26 (22-30) mmol/L Anion Gap 11 (4-12) mmol/L BUN 31 H D (9-20) mg/dL Creatinine 1.70 H (0.7-1.3) mg/dL Estim Creat Clear Calc 37 ml/min Estimated GFR 39 L (59 - ) Glucose 83 (65-110) mg/dL Lactic Acid (0.7-2.0) mmol/L Calcium 9.6 (8.4-10.2) mg/dL Total Bilirubin 1.3 (0.2-1.3) mg/dL AST 226 H (17-59) U/L ALT 71 H (6-50) U/L Alkaline Phosphatase 268 H (38-126) U/L Total Creatine Kinase 260 H (55-170) U/L C-Reactive Protein 25.9 H (<1.0) mg/dL Total Protein 8.0 (6.3-8.2) g/dL Albumin 3.9 (3.5-5.1) g/dL Urine Color Yellow (Yellow) Urine Appearance Clear (Clear) Urine pH 5.5 (5.0-9.0) Ur Specific [place] 1.020 (1.001-1.035) Urine Protein 1+ H (Negative) mg/dL Urine Glucose (UA) Negative (Negative) mg/dL Urine Ketones Trace H (Negative) mg/dL Ur Blood (Man) Negative (Negative) Urine Nitrate Negative (Negative) Urine Bilirubin Negative (Negative) Urine Urobilinogen 1.0 (<2.0) mg/dL Add Ur Microanalysis Reviewed Leukocyte Esterase Rfl Trace H (Negative) SANGEETA/UL Urine RBC 0-2 (0-2) /hpf Urine WBC 0-5 (0-3) /hpf Ur Squamous Epith Cells Few (Few) /hpf Urine Bacteria None seen /hpf Urine Casts 6-10 Hyaline Casts Present (None) /lpf Nasal MRSA (PCR) (NOT DETECTE) Influenza A (RT-PCR) Negative (Negative) Influenza B (RT-PCR) Negative (Negative) RSV (RT-PCR) Negative (Negative) SARS-CoV-2 RNA (RT-PCR) Negative (Negative) 08/09/24 08/09/24 Range/Units 18:03 19:11 WBC (4.5-10.0) K/mm3 RBC (4.6-6.20) M/mm3 Hgb (14.0-18.0) g/dL Hct (42.0-52.0) % MCV (80-100) fl MCH (26-34) pg MCHC (32-36) g/dl RDW (11.5-14.5) % Plt Count (150-375) k/mm3 MPV (7.4-10.4) fl Immature Gran % (Auto) Neut % (Auto) Lymph % (Auto) [place] % (Auto) Eos % (Auto) Baso % (Auto) Lymph # (Auto) [place] # (Auto) Eos # (Auto) Baso # (Auto) Abs Immat Gran (auto) Absolute Neuts (auto) Absolute Nucleated RBC Total Counted Neutrophils % (Manual) (46-73) % Band Neutrophils % (0-6) % Lymphocytes % (Manual) (18-44) % Monocytes % (Manual) (3-9) % Metamyelocytes % % Nucleated RBC % Abs Neuts (Manual) (1.3-6.7) K/mm3 Abs Lymphs (Manual) (1.1-4.5) K/mm3 Abs Monocytes (Manual) (0.1-0.90) K/mm3 Atypical Lymphocytes Platelet Estimate (Adequate) Schistocytes ESR (0-20) mm/hr PT (11.1-14.7) Seconds INR APTT (22.3-36.8) Seconds Sodium (137-145) mmol/L Potassium (3.4-5.0) mmol/L Chloride (98-107) mmol/L Carbon Dioxide (22-30) mmol/L Anion Gap (4-12) mmol/L BUN (9-20) mg/dL Creatinine (0.7-1.3) mg/dL Estim Creat Clear Calc ml/min Estimated GFR (59 - ) Glucose (65-110) mg/dL Lactic Acid 2.6 H (0.7-2.0) mmol/L Calcium (8.4-10.2) mg/dL Total Bilirubin (0.2-1.3) mg/dL AST (17-59) U/L ALT (6-50) U/L Alkaline Phosphatase (38-126) U/L Total Creatine Kinase (55-170) U/L C-Reactive Protein (<1.0) mg/dL Total Protein (6.3-8.2) g/dL Albumin (3.5-5.1) g/dL Urine Color (Yellow) Urine Appearance (Clear) Urine pH (5.0-9.0) Ur Specific [place] (1.001-1.035) Urine Protein (Negative) mg/dL Urine Glucose (UA) (Negative) mg/dL Urine Ketones (Negative) mg/dL Ur Blood (Man) (Negative) Urine Nitrate (Negative) Urine Bilirubin (Negative) Urine Urobilinogen (<2.0) mg/dL Add Ur Microanalysis Leukocyte Esterase Rfl (Negative) SANGEETA/UL Urine RBC (0-2) /hpf Urine WBC (0-3) /hpf Ur Squamous Epith Cells (Few) /hpf Urine Bacteria /hpf Urine Casts Hyaline Casts (None) /lpf Nasal MRSA (PCR) Not detected (NOT DETECTE) Influenza A (RT-PCR) (Negative) Influenza B (RT-PCR) (Negative) RSV (RT-PCR) (Negative) SARS-CoV-2 RNA (RT-PCR) (Negative) ABG Data ABG results: 08/09/24 17:01 Puncture Site Right radial ABG pH 7.480 H ABG pCO2 27.0 L ABG pO2 67.6 L ABG PO2/FiO2 Ratio 2.82 ABG HCO3 19.7 L ABG O2 Saturation 95.0 ABG O2 Content 17.8 ABG Base Excess -2.4 A-a Gradient 71.4 Oxyhemoglobin 93.0 Total Hemoglobin 13.6 O2 Delivery Device Nasal cannula O2 Liters/Min 1.0 FiO2 24 Interpretation: Impressions Chest X-Ray 08/09/24 15:56 Impression: 1: Cardiomegaly with mild interstitial edema Head CT 08/09/24 17:49 IMPRESSION: 1. No fracture or acute intracranial process. 2. 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 3. Age-related changes including mild diffuse volume loss and mild scattered mesenteric white matter hypoattenuation consistent with chronic small vessel ischemic disease. Cervical Spine CT 08/09/24 18:15 IMPRESSION: 1. Moderate to severe cervical spondylosis. No acute osseous abnormality. Thoracic/Lumbar Spine CT 08/09/24 18:22 IMPRESSION: 1. Multiple old posterior left rib fractures and chronic compression fractures with mild anterior wedging at T5 and T6 and mild right-sided anterior vertebral body height loss at L2. No acute osseous abnormality. 2. Moderate thoracic spondylosis and mild lumbar spondylosis. 3. Combined instrumented L5-S1 anterior and posterior spinal fusion. 4. Chronic bilateral lower lung predominant interstitial lung disease with indeterminate 8 mm pulmonary nodule in the left lower lobe. Recommend 3 month follow-up low-dose noncontrast chest CT. Imaging Data Radiologist's impression: Impressions Chest X-Ray 08/09/24 15:56 Impression: 1: Cardiomegaly with mild interstitial edema Head CT 08/09/24 17:49 IMPRESSION: 1. No fracture or acute intracranial process. 2. 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 3. Age-related changes including mild diffuse volume loss and mild scattered mesenteric white matter hypoattenuation consistent with chronic small vessel ischemic disease. ECG Data EKG #1: Attestation: I personally reviewed and interpreted this ECG as follows: ECG completion date: 08/09/24 Interpretation: SINUS TACHYCARDIA WITH OCCASIONAL PVCS AT 111 BEATS PER MINUTE, ABNORMAL EKG, NO PREVIOUS EKG AVAILABLE FOR COMPARISON Critical Care Time Critical Care Time Critical Care Time: Yes Total Critical Care Time: 45 Discharge Plan Discharge Clinical Impression: Sepsis, Acute dehydration Patient Disposition: Still a Patient Condition: Serious Prescriptions: No Action nortriptyline 50 mg capsule 50 mg PO QHS Qty: 90 2RF polyethylene glycol 3350 [Miralax] 17 gram Powder In Packet 17 g PO DAILY calcium 500 mg Tablet multivitamin Capsule Align 4 mg Capsule 4 mg PO DAILY cholecalciferol (vitamin D3) [Vitamin D3] 125 mcg (5,000 unit) Tablet 125 mcg PO DAILY tamsulosin 0.4 mg capsule 0.4 mg PO BID Qty: 180 2RF clopidogrel 75 mg tablet See Rx Instructions .ROUTE .COMPLEX Qty: 90 3RF Dose Instruction: TAKE ONE TABLET BY MOUTH ONCE DAILY Rx Instructions: TAKE ONE TABLET BY MOUTH ONCE DAILY atorvastatin 40 mg tablet 40 mg PO DAILY Qty: 90 3RF finasteride 5 mg tablet See Rx Instructions .ROUTE .COMPLEX Qty: 90 3RF Dose Instruction: TAKE 1 TABLET BY MOUTH EVERY DAY Rx Instructions: TAKE 1 TABLET BY MOUTH EVERY DAY pantoprazole 40 mg tablet,delayed release (DR/EC) 40 mg PO HS Qty: 90 2RF cyclobenzaprine 10 mg tablet 10 mg PO TID PRN (Reason: muscle spasm) Qty: 20 0RF Follow-up/Referrals: Rolly Benitez MD [Primary Care Provider] - Quality Stroke Date of last known normal: 08/09/24 Stroke Scale Stroke Scale 1: Stroke scale date:: 08/09/24 1a Level of consciousness: alert-0 1b Level of consciousness questions: answers both correctly-0 1c Level of consciousness commands: obeys both correctly-0 2 Best gaze: normal-0 3 Visual: no visual loss-0 4 Facial palsy: normal-0 5a Motor: left arm: no drift-0 5b Motor: right arm: no drift-0 6a Motor: left leg: no drift-0 6b Motor: right leg: no drift-0 7 Limb ataxia: absent-0 8 Sensory: normal-0 9 Best language: no aphasia-0 10 Dysarthria: normal-0 11 Extinction and inattention: no abnormality-0 Level:: 0
--- NOTE | 2024-08-09 16:52 | PC.NURSE ---
Pt attempting to climb out of bed to urinate. Pt assisted back into bed and assisted with urinal. SPO2 in the 80's on room air with activity and pt appears sob with exertion.
[2024-08-09 17:02] LABS: Influenza A QL RT-PCR Negative (Negative); Influenza B QL RT-PCR Negative (Negative); RSV RNA, RT-PCR Negative (Negative); SARS-CoV-2 RNA PCR Negative (Negative)
[2024-08-09 17:08] LABS: Alveolar/Arterial O2 Gradient 71.4 mmHg; Base Excess ABG -2.4 mEq/l (+/-2.0); Fractional Inspired Oxygen 24 %; HCO3 ABG 19.7 mEq/l (22.0-26.0); Oxygen Content ABG 17.8 %vol (16.0-22.0); PO2 ABG 67.6 mmHg (80.0-100.0); PO2 FiO2 Ratio Arterial Blood 2.82 %; Total Hemoglobin 13.6 g/dL (12.0-18.0)
[2024-08-09 17:09] LABS: Device NASAL CANNULA; Modified Allen's Test Pass; Site Drawn RIGHT RADIAL
[2024-08-09 17:13] LABS: Add Urine Microscopic? YES; Appearance Urine Clear (Clear); Bacteria Urine None Seen /hpf; Bilirubin Urine Negative (Negative); Blood Urine Negative (Negative); Color Urine Yellow (Yellow); Glucose Urine UA Negative (Negative); Hyaline Casts Urine Present /lpf; Ketones Urine Trace mg/dL (Negative); Leukocyte Esterase Ur Trace LEU/UL (Negative); Need Manual Microscopic Reviewed; Nitrate Urine Negative (Negative); Protein Urine 1+ mg/dL (Negative); RBC Urine 0-2 /hpf (0-2); Squamous Epithelial Cell Urine Few /hpf (Few); WBC Urine 0-5 /hpf (0-3); pH Urine 5.5 (5.0-9.0)
[2024-08-09 17:59] LABS: INR 1.2
[2024-08-09 18:00] LABS: Creatine Kinase 260 U/L (55-170); Partial Thromboplastin Time 31.7 Seconds (22.3-36.8)
[2024-08-09] MEDS: SODIUM CHLORIDE 0.9% IV 1,000 ML 150 ML IV CONT (18:00)
[2024-08-09] MEDS: SODIUM CHLORIDE 0.9% IV 1,000 ML 999 ML IV CONT ×2 (18:01→20:11)
[2024-08-09 18:12] LABS: CRP 25.9 mg/dL (<1.0)
[2024-08-09 18:18] LABS: Lactic Acid Reflex 2.6 mmol/L (0.7-2.0)
[2024-08-09] MEDS: levoFLOXacin 750 MG/D5W 150 ML 750 MG/150 ML BAG 100 MG IVPB (19:03)
[2024-08-09 19:19] LABS: Erythrocyte Sedimentation Rate 16 mm/hr (0-20)
[2024-08-09] MEDS: ACETAMINOPHEN 500 MG TABLET 1000 MG PO (19:21)
[2024-08-09 20:25] LABS: MRSA (PCR) NOT DETECTED (NOT DETECTE)
[2024-08-09] MEDS: PIPERACILLIN/TAZ 2.25G/NS 50ML 2.25 GM/50 ML BAG IVPB ×2 (20:51→23:46)
[2024-08-09 21:07] LABS: Reflex Lactic Acid Yes or No Add Lactic
[2024-08-09] MEDS: LABETALOL HCL INJ 100 MG/20 ML VIAL 10 MG IV PUSH (21:58)
[2024-08-09] MEDS: NORTRIPTYLINE HCL 25 MG CAPSULE PO (21:58)
[2024-08-09] MEDS: VANCOMYCIN 1,250 MG/NS 250 ML 1,250 MG/250 ML BAG 166.67 MG IVPB ×2 (21:59→23:43)
[2024-08-09 22:13] LABS: Lactic Acid 2.4 mmol/L (0.7-2.0)
--- NOTE | 2024-08-09 23:53 | ADMGEN ---
This patient, Primo Munroe, was admitted to IMU Room 206-01 at 2327. Patient/family oriented to hospital policies and general routines including ID bracelet, bed and alarms, visiting hours, pain management, procedures, bathroom and other care routines, personal items, smoking policy, room service/diet, and visiting hours. Information on how to activate the Rapid Response Team has been discussed. Patient/Family are encouraged to report perceived risks to care and to ask questions if they do not understand what they are told or what they should do.
[2024-08-10] VITALS (23 sets, daily range): BP systolic 144–179; BP diastolic 59–92; PULSE 88–130; RESP 18–28; TEMP 36.4–38.6; O2SAT 92–98
[2024-08-10] MEDS: SODIUM CHLORIDE 0.9% IV 1,000 ML 125 ML IV CONT (01:00)
--- NOTE | 2024-08-10 04:18 | PM.IMHP ---
H&P: HPI History of Present Illness Date/Time: 08/10/24 04:18 Chief Complaint: Dizzy, falls Narrative: 78-year-old male with past medical history of GERD, BPH, coronary artery disease, mixed hyperlipidemia, chronic kidney disease stage 3 and CVA who presents to the ER from home via EMS after having multiple falls. The patient reports that he has history of intermittent back pain. He reports that he has been having increased back pain recently due to his multiple falls. He reports that when he stands up he will often feel dizzy. He does have history of orthostatic hypotension. He also reports that he has a tendency to fall because of residual paresthesias to his left upper and lower extremity due to prior CVA in 2013. He is gotten to the point that when he does stand up his left leg will fatigue quickly and then his right leg cannot hold him up in he will start to shake and fall. When he was stood up for ambulation in the ER the patient only made if you shuffling footsteps and then almost fell. The patient reports he has had numerous falls recently and fell in the garage on Wednesday. His neighbor came and helped him up and then called the patient's son. The patient's son then drove up from [place] and when the son arrived at the patient's house he found the patient on the floor in the living room. The patient denies having been on the floor for 3 days but does note that he has gotten up and fallen again in multiple times. He up the patient up and the patient did not want to come into the ER for evaluations so he put off coming to the hospital in still the . He does have chronic leg pain. Review ask him about his pain currently he rubs his lateral thighs and buttock region. He is restless and cannot sit still in the bed. He is tachypneic and speaking in 2-3 word sentences. He states that he has been more short of breath over the last day. On initial arrival to the ER patient had a normal temperature but he did develop of fever up to 100.1. He denies any significant chills or hot flashes at home. He was noted to have marked leukocytosis with bandemia. He reports he has a frequent intermittent dry cough. He does not think that his cough is any worse than baseline. He does continue to smoke 1/4 pack of cigarettes per day to 1/2 pack of cigarettes per day. He used to smoke up to 1.5 packs of cigarettes per day. He denies any known ill contacts. He denies any wounds. He does have several abrasions of various stages of healing to his knees in lower extremities. He denies any actual loss of consciousness. Patient is alert oriented times 4 but does not give the best history regarding frequency and symptoms regarding his acute hospital stay. He has chronic BPH with slow urine stream. His symptoms are unchanged from baseline. He has been having some dysuria on and off for the last couple of months. He denies any hematuria. His last bowel movement was day before yesterday. He reports that he takes MiraLax on a somewhat frequent basis to have normal stools. The patient reports that he had recently lost about 25 lb with dietary changes. However despite the recent weight loss reports his abdomen is more distended. He reports that the abdominal distension has been more recent discovery. He reports having normal bowel movements without hematochezia or melena ended her denies scrotal edema or lower extremity swelling. Patient denies any loss of bowel or bladder control. No exacerbation of leg pain or back pain with straight leg raise. Review of Systems Review of Systems: 12 systems were reviewed with pertinent positives and negatives per HPI. Except as documented in the HPI, all other systems were reviewed and are negative. [facility] Past Medical History Medical History (Updated 08/10/24 @ 04:31 by Nirmala Weinstein DO) Aortic stenosis Blood type B+ BPH (benign prostatic hyperplasia) Coronary artery disease GERD (gastroesophageal reflux disease) History of CVA (cerebrovascular accident) (~04/2014) History of rib fracture (~2020) Mixed hyperlipidemia Occipital infarction (~04/2014) BRYAN on CPAP PAD (peripheral artery disease) Primary insomnia Ptosis, left eyelid Pulmonary interstitial fibrosis Stage 3a chronic kidney disease (CKD) Type 2 diabetes mellitus without complications Vasovagal syncope Surgical History Surgical History History of exploratory laparotomy (~2000) History of gastric surgery (~2014) stoma reversal History of ventral hernia repair (06/2016) Family History Family History Sibling Cerebrovascular accident Father Family history of heart disease in male family member before age 55 Other Diabetes mellitus Family history of cardiovascular disease Family history of gout Family history of malignant neoplasm Family history of osteoarthritis Hypertension Social History Social History (Updated 08/10/24 @ 20:14 by Nirmala Weinstein DO) Social History: Patient is and lives alone. He is retired from the [employer]. He still smokes half a pack of cigarettes per day. He he has smoked as much as 1.5 packs of cigarettes per day since he was a teenager. He denies any history of heavy alcohol use but used to drink on occasion but has not done so in many years. He denies illicit substance use. Code status: Full code Surrogate decision maker: Kt (son) Smoking packs per day: 0.5 Smoking cigarettes per day: 10.0 Years smoked: 60 Smoking pack-years: 30.00 Smoking status: Heavy tobacco smoker Tobacco type: cigarettes Second hand tobacco smoke exposure: Yes Alcohol intake: former Substance use: never Substance use type: does not use Do You Feel Safe in your Home?: Yes Lack of Transportation: No Lack of Food: Never True Current Housing: I Have Housing Concerned About Future Housing: No Difficulty Paying Gas/Electric Bills: No Difficulty Paying for Meds: No Currently Unemployed: No Education: High School Diploma/GED Difficulty w/ Childcare or Family Care: No Living arrangements: alone Occupation/Education: retired Gender identity (if verbalized by the patient): Male Sexual Orientation (if Verbalized by the Patient): Straight or Heterosexual Spiritual care concerns: No Meds Home Medications and Allergies Home Medications Medication Instructions Recorded Confirmed Type Bifidobacterium infantis 4 mg 4 mg PO DAILY 03/06/21 08/10/24 History capsule (Align) calcium 500 mg tablet 500 mg PO DAILY 03/06/21 08/10/24 History cholecalciferol (vitamin D3) 125 125 mcg PO DAILY 03/06/21 08/10/24 History mcg (5,000 unit) tablet (Vitamin D3) multivitamin 1 cap PO DAILY 03/06/21 08/10/24 History polyethylene glycol 3350 17 gram 17 g PO DAILY PRN Constipation 03/06/21 08/10/24 History oral powder packet (Miralax) nortriptyline 50 mg capsule 50 mg PO QHS #90 caps 01/04/24 08/10/24 Rx tamsulosin 0.4 mg capsule 0.4 mg PO BID #180 caps 04/04/24 08/10/24 Rx clopidogrel 75 mg tablet See Rx Instructions .Route 04/10/24 08/10/24 Rx .COMPLEX #90 tabs atorvastatin 40 mg tablet 40 mg PO DAILY #90 tabs 05/02/24 08/10/24 Rx finasteride 5 mg tablet See Rx Instructions .Route 06/07/24 08/10/24 Rx .COMPLEX #90 tabs pantoprazole 40 mg tablet,delayed 40 mg PO HS #90 tabs 06/18/24 08/10/24 Rx release cyclobenzaprine 10 mg tablet 10 mg PO TID PRN muscle spasm #20 08/04/24 08/10/24 Rx tabs Allergies Allergy/AdvReac Type Severity Reaction Status Date / Time rivaroxaban AdvReac Unknown SEVERE Verified 07/11/24 13:24 NOSE BLEED Vital Signs Vital Signs - 24 hr 08/09/24 15:06 08/09/24 16:33 08/09/24 16:32 Temperature 97.9 F Pulse Rate 106 H 115 H Respiratory Rate 18 29 H Blood Pressure 141/58 H Pulse Oximetry 90 96 95 Oxygen Delivery Room Air Nasal Cannula Oxygen Flow Rate 2 08/09/24 16:57 08/09/24 17:00 08/09/24 17:01 Temperature Pulse Rate 118 H 112 H 112 H Respiratory Rate 21 H 26 H 32 H Blood Pressure 138/76 Pulse Oximetry 89 L 95 Oxygen Delivery Oxygen Flow Rate 08/09/24 18:52 08/09/24 19:35 08/09/24 20:19 Temperature 100.1 F H Pulse Rate 125 H 120 H 131 H Respiratory Rate 24 H 24 H 20 Blood Pressure 168/83 H 106/72 Pulse Oximetry 95 97 94 Oxygen Delivery Oxygen Flow Rate 08/09/24 20:52 08/09/24 22:26 08/09/24 22:57 Temperature 98.5 F Pulse Rate 125 H 86 97 Respiratory Rate 23 H 20 21 H Blood Pressure 152/61 H 150/75 H Pulse Oximetry 93 96 95 Oxygen Delivery Oxygen Flow Rate 08/10/24 00:00 08/10/24 00:00 08/10/24 00:00 Temperature 98.3 F Pulse Rate 88 96 Respiratory Rate 19 Blood Pressure 147/60 H Pulse Oximetry 95 98 Oxygen Delivery Nasal Cannula Oxygen Flow Rate 2 08/10/24 04:00 Temperature Pulse Rate Respiratory Rate Blood Pressure Pulse Oximetry 98 Oxygen Delivery Nasal Cannula Oxygen Flow Rate 2 Exam Narrative: Weight 95.4 kg BMI 30.2 Const: Other: Obese, mildly ill-appearing, uncomfortable HENMT: Other: Mucous membranes are dry, no oral pharyngeal erythema, crowded posterior oropharynx, head is normocephalic atraumatic Eyes: Other: Pupils are equal and reactive no scleral icterus, no conjunctival pallor Neck: Other: Large neck circumference, no gross lymphadenopathy, possible thyroid enlargement Resp: Other: Crackles of the right upper lobe, decreased breath sounds at the bases, moderate tachypnea with abdominal respirations Cardio: Other: Sinus tachycardia, 2+ bilateral radial pedal pulses, no murmur, no JVD GI: Other: Obese, distended, soft, nontender, positive bowel sounds Back/Spine/Pelvis: Other: No reproducible pain to palpation of spinous processes, surgical scar over L4-S1 region Skin: Other: Hot to touch, mildly diaphoretic Neuro: Other: Alert oriented x4, speech is clear, no facial asymmetry, decreased sensation of left upper and lower extremity which patient reports is chronic, 5/5 hotbed operator strength on the left 4/5 hotbed operator strength on the right, extraocular movements intact Psych: Other: Anxious, pleasant, cooperative, appropriate judgment and insight H&P: Results Labs Labs: Laboratory Tests 08/09/24 15:39 08/09/24 15:38 08/09/24 08/09/24 08/09/24 15:38 15:39 16:59 WBC 18.9 H RBC 5.14 Hgb 14.2 Hct 42.5 MCV 82.7 MCH 27.6 MCHC 33.4 RDW 15.1 H Plt Count 202 MPV 9.5 Immature Gran % (Auto) Not Reportable Neut % (Auto) Not Reportable Lymph % (Auto) Not Reportable [place] % (Auto) Not Reportable Eos % (Auto) Not Reportable Baso % (Auto) Not Reportable Lymph # (Auto) Not Reportable [place] # (Auto) Not Reportable Eos # (Auto) Not Reportable Baso # (Auto) Not Reportable Abs Immat Gran (auto) Not Reportable Absolute Neuts (auto) Not Reportable Absolute Nucleated RBC Not Reportable Total Counted 100 Neutrophils % (Manual) 63 Band Neutrophils % 12 H Lymphocytes % (Manual) 12 L Monocytes % (Manual) 9 Metamyelocytes % 4 Nucleated RBC % Not Reportable Abs Neuts (Manual) 14.17 H Abs Lymphs (Manual) 2.26 Abs Monocytes (Manual) 1.70 H Atypical Lymphocytes Present Platelet Estimate Adequate Schistocytes None seen ESR 16 PT 15.0 H INR 1.2 APTT 31.7 Puncture Site ABG pH ABG pCO2 ABG pO2 ABG PO2/FiO2 Ratio ABG HCO3 ABG O2 Saturation ABG O2 Content ABG Base Excess A-a Gradient Oxyhemoglobin Total Hemoglobin O2 Delivery Device O2 Liters/Min FiO2 Sodium 137 Potassium 4.4 Chloride 100 Carbon Dioxide 26 Anion Gap 11 BUN 31 H D Creatinine 1.70 H Estim Creat Clear Calc 37 Estimated GFR 39 L Glucose 83 Lactic Acid Calcium 9.6 Total Bilirubin 1.3 AST 226 H ALT 71 H Alkaline Phosphatase 268 H Total Creatine Kinase 260 H C-Reactive Protein 25.9 H Total Protein 8.0 Albumin 3.9 Urine Color Yellow Urine Appearance Clear Urine pH 5.5 Ur Specific [place] 1.020 Urine Protein 1+ H Urine Glucose (UA) Negative Urine Ketones Trace H Ur Blood (Man) Negative Urine Nitrate Negative Urine Bilirubin Negative Urine Urobilinogen 1.0 Add Ur Microanalysis Reviewed Leukocyte Esterase Rfl Trace H Urine RBC 0-2 Urine WBC 0-5 Ur Squamous Epith Cells Few Urine Bacteria None seen Urine Casts 6-10 Hyaline Casts Present Nasal MRSA (PCR) Influenza A (RT-PCR) Negative Influenza B (RT-PCR) Negative RSV (RT-PCR) Negative SARS-CoV-2 RNA (RT-PCR) Negative 08/09/24 08/09/24 08/09/24 17:01 18:03 19:11 WBC RBC Hgb Hct MCV MCH MCHC RDW Plt Count MPV Immature Gran % (Auto) Neut % (Auto) Lymph % (Auto) [place] % (Auto) Eos % (Auto) Baso % (Auto) Lymph # (Auto) [place] # (Auto) Eos # (Auto) Baso # (Auto) Abs Immat Gran (auto) Absolute Neuts (auto) Absolute Nucleated RBC Total Counted Neutrophils % (Manual) Band Neutrophils % Lymphocytes % (Manual) Monocytes % (Manual) Metamyelocytes % Nucleated RBC % Abs Neuts (Manual) Abs Lymphs (Manual) Abs Monocytes (Manual) Atypical Lymphocytes Platelet Estimate Schistocytes ESR PT INR APTT Puncture Site Right radial ABG pH 7.480 H ABG pCO2 27.0 L ABG pO2 67.6 L ABG PO2/FiO2 Ratio 2.82 ABG HCO3 19.7 L ABG O2 Saturation 95.0 ABG O2 Content 17.8 ABG Base Excess -2.4 A-a Gradient 71.4 Oxyhemoglobin 93.0 Total Hemoglobin 13.6 O2 Delivery Device Nasal cannula O2 Liters/Min 1.0 FiO2 24 Sodium Potassium Chloride Carbon Dioxide Anion Gap BUN Creatinine Estim Creat Clear Calc Estimated GFR Glucose Lactic Acid 2.6 H Calcium Total Bilirubin AST ALT Alkaline Phosphatase Total Creatine Kinase C-Reactive Protein Total Protein Albumin Urine Color Urine Appearance Urine pH Ur Specific [place] Urine Protein Urine Glucose (UA) Urine Ketones Ur Blood (Man) Urine Nitrate Urine Bilirubin Urine Urobilinogen Add Ur Microanalysis Leukocyte Esterase Rfl Urine RBC Urine WBC Ur Squamous Epith Cells Urine Bacteria Urine Casts Hyaline Casts Nasal MRSA (PCR) Not detected Influenza A (RT-PCR) Influenza B (RT-PCR) RSV (RT-PCR) SARS-CoV-2 RNA (RT-PCR) 08/09/24 21:58 WBC RBC Hgb Hct MCV MCH MCHC RDW Plt Count MPV Immature Gran % (Auto) Neut % (Auto) Lymph % (Auto) [place] % (Auto) Eos % (Auto) Baso % (Auto) Lymph # (Auto) [place] # (Auto) Eos # (Auto) Baso # (Auto) Abs Immat Gran (auto) Absolute Neuts (auto) Absolute Nucleated RBC Total Counted Neutrophils % (Manual) Band Neutrophils % Lymphocytes % (Manual) Monocytes % (Manual) Metamyelocytes % Nucleated RBC % Abs Neuts (Manual) Abs Lymphs (Manual) Abs Monocytes (Manual) Atypical Lymphocytes Platelet Estimate Schistocytes ESR PT INR APTT Puncture Site ABG pH ABG pCO2 ABG pO2 ABG PO2/FiO2 Ratio ABG HCO3 ABG O2 Saturation ABG O2 Content ABG Base Excess A-a Gradient Oxyhemoglobin Total Hemoglobin O2 Delivery Device O2 Liters/Min FiO2 Sodium Potassium Chloride Carbon Dioxide Anion Gap BUN Creatinine Estim Creat Clear Calc Estimated GFR Glucose Lactic Acid 2.4 H Calcium Total Bilirubin AST ALT Alkaline Phosphatase Total Creatine Kinase C-Reactive Protein Total Protein Albumin Urine Color Urine Appearance Urine pH Ur Specific [place] Urine Protein Urine Glucose (UA) Urine Ketones Ur Blood (Man) Urine Nitrate Urine Bilirubin Urine Urobilinogen Add Ur Microanalysis Leukocyte Esterase Rfl Urine RBC Urine WBC Ur Squamous Epith Cells Urine Bacteria Urine Casts Hyaline Casts Nasal MRSA (PCR) Influenza A (RT-PCR) Influenza B (RT-PCR) RSV (RT-PCR) SARS-CoV-2 RNA (RT-PCR) Impressions Chest X-Ray 08/09/24 15:56 (personally reviewed agree with radiologic interpretation) Impression: 1: Cardiomegaly with mild interstitial edema Head CT 08/09/24 17:49 IMPRESSION: 1. No fracture or acute intracranial process. 2. 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 3. Age-related changes including mild diffuse volume loss and mild scattered mesenteric white matter hypoattenuation consistent with chronic small vessel ischemic disease. Cervical Spine CT 08/09/24 18:15 IMPRESSION: 1. Moderate to severe cervical spondylosis. No acute osseous abnormality. Thoracic/Lumbar Spine CT 08/09/24 18:22 IMPRESSION: 1. Multiple old posterior left rib fractures and chronic compression fractures with mild anterior wedging at T5 and T6 and mild right-sided anterior vertebral body height loss at L2. No acute osseous abnormality. 2. Moderate thoracic spondylosis and mild lumbar spondylosis. 3. Combined instrumented L5-S1 anterior and posterior spinal fusion. 4. Chronic bilateral lower lung predominant interstitial lung disease with indeterminate 8 mm pulmonary nodule in the left lower lobe. Recommend 3 month follow-up low-dose noncontrast chest CT. EKG: Personally reviewed and interpreted. Cardiology interpretation below. Measurements Intervals [place] Rate: 111 P: 28 MN: 167 QRS: 60 QRSD: 100 T: 39 QT: 312 QTc: 425 Interpretive Statements SINUS TACHYCARDIA WITH OCCASIONAL VENTRICULAR PREMATURE COMPLEXES WITH OCCASIONAL SUPRAVENTRICULAR PREMATURE COMPLEXES BASELINE ARTIFACT- I, II, III, AVR, AVL, AVF ABNORMAL ECG No previous ECG available for comparison Assessment and Plan Assessment and plan (1) Sepsis: Qualifiers: Acute renal failure type: unspecified Sepsis acute organ dysfunction status: with acute organ dysfunction Sepsis type: sepsis due to unspecified organism Severe sepsis acute organ dysfunction type: acute renal failure Severe sepsis shock status: without septic shock Qualified Code(s): A41.9 - Sepsis, unspecified organism; R65.20 - Severe sepsis without septic shock; N17.9 - Acute kidney failure, unspecified Code(s): A41.9 - Sepsis, unspecified organism Status: Acute (2) Acute dehydration: Code(s): E86.0 - Dehydration Status: Acute (3) Multiple falls: Code(s): R29.6 - Repeated falls Status: Acute Plan Sepsis of uncertain origin. The patient does have back pain but no reproducible tenderness to palpation. He has postsurgical changes of L5-S1 that appear chronic. He is able to straight leg raise but has generalized weakness of his lower extremities. He does have significant tachypnea but this seems to be in part due to acute respiratory compensation for metabolic acidosis. Is unclear if patient has underlying pneumonia causing sepsis versus changes on imaging of chronic interstitial lung disease with some component of edema versus pneumonia verses possible osteomyelitis or diskitis. Given the patient's acute hypoxic respiratory failure and lung exam I am more suspicious of pneumonia at this time. Will continue treating with broad-spectrum antibiotic coverage and await blood cultures. Will check MRSA screen. Given the patient's back pain there could be a possibility of osteomyelitis or diskitis. Patient does have chronic difficulty with slow urine output but has been completely emptying his bladder and postvoid residuals have been within expected values since admission. Nursing staff is check postvoid residual a couple of times. Patient has not had any incontinence of bowel or bladder that was suggest cauda equina. Although his extremities are weak he does not have change in his sensation of pain or paresthesias compared to his baseline. We could consider MRI of the patient's lumbar spine if osteomyelitis or epidural abscess is still on the differential however we would have to verify the materials as patient has in his lumbar region prior to proceeding with imaging. Given his tachypnea suspicious for underlying pneumonia. Will repeat chest x-ray this a.m.. Given his extensive smoking history will also add scheduled nebulizer treatments to treat for some component of possible underlying COPD. Will request PT and OT evaluation. The patient is able to sit up in bed but is unable to reposition himself in bed. When nursing staff was able to get the patient to sit up at the bedside he was only able to sit up for about 2 minutes and then became fatigued and fell backwards. Patient will likely need rehab placement prior to discharge. Patient has chronic kidney disease and creatinine seems to be at baseline. However patient does have significant lactic acidosis is lactic acid level did improve slightly with IV fluid hydration. Will continue IV fluid hydration but will decrease rate given the patient's chronic underlying lung disease and degree of tachypnea. Patient remains on broad-spectrum antibiotic coverage as is exact source of infection is unknown. Will narrow antibiotic coverage pending on clinical/lab results. Will check D-dimer. If elevated patient may benefit from CTA verses V/Q scan. The patient does have lactic acidosis with respiratory compensation. Will continue IV fluid as discussed above and what true electrolyte panel and CBC. Is unclear if the patient is a candidate for MRI to check for diskitis or osteomyelitis given prior spinal instrumentation. Patient is not having loss of bowel or bladder control which make me suspicious for cauda equina or acute cord compression. Patient does have chronic neurologic deficits at this prior history of stroke with no acute neurologic changes making me less suspicious for CVA and he has no nuchal rigidity to suggest meningitis as possible source of sepsis is so will hold off on MRI of brain as meningitis encephalitis in CVAs less likely. The patient does have type 2 diabetes mellitus. His last A1c was 6.0 on 07/11/2024 prior A1c in February was 7.4. He is not on any diabetic medications at home. This morning patient had hypoglycemia. Will add Accu-Cheks a.c. HS and hypoglycemia protocol. He reports he checks his Accu-Cheks 3 or 4 times a day at home and had not noticed any hypoglycemia. Quality VTE Prophylaxis VTE prophylaxis: pharmacologic ordered (Lovenox 40 mg subQ daily.) Hospitalist [facility] Advance Care Plan I have confirmed that the patient's Advanced Care Plan is present, code status is documented, or surrogate decision maker is listed in patient medical record.: Yes Medication Reconciliation I have utilized all available resources to obtain, update and review the patients current medications (includes all prescriptions, OTC, herbals, cannabis, and nutritional supplements).: Yes
[2024-08-10 05:05] LABS: Hematocrit 36.3 % (42.0-52.0); Mean Corpuscular HGB Conc 33.1 g/dl (32-36); Mean Corpuscular Hemoglobin 27.6 pg (26-34); Mean Corpuscular Volume 83.6 fl (80-100); Mean Platelet Volume 9.8 fl (7.4-10.4); Platelet Count Result 138 k/mm3 (150-375); Red Blood Count 4.34 M/mm3 (4.6-6.20); Red Cell Distribution Width 15.4 % (11.5-14.5); White Blood Count 17.4 K/mm3 (4.5-10.0)
[2024-08-10 05:13] LABS: Estimated CRCL calculation 45 ml/min; Estimated Glomerular Filt Rate 49
[2024-08-10 05:22] LABS: Alanine Aminotransferase 50 U/L (6-50); Albumin Level 3.1 g/dL (3.5-5.1); Alkaline Phosphatase 211 U/L (38-126); Anion Gap 16 mmol/L (4-12); Aspartate Amino Transferase 216 U/L (17-59); Bilirubin,Total 1.2 mg/dL (0.2-1.3); Blood Urea Nitrogen 28 mg/dL (9-20); Calcium 8.2 mg/dL (8.4-10.2); Carbon Dioxide 18 mmol/L (22-30); Chloride 104 mmol/L (98-107); Estimated CRCL calculation 45 ml/min; Estimated Glomerular Filt Rate 49; Glucose 49 mg/dL (65-110); Potassium 3.8 mmol/L (3.4-5.0); Sodium 138 mmol/L (137-145)
[2024-08-10 05:35] LABS: Anisocytosis 1+; Band Neutrophils Percent 2 % (0-6); Basophils Absolute Manual 0.17 K/mm3 (0.0-0.1); Basophils Percent Manual 1 % (0-1); Burr Cells 1+; Eosinophils Absolute Manual 0.17 K/mm3 (0.02-0.50); Eosinophils Percent Manual 1 % (0-4); Lymphocytes Absolute Manual 3.48 K/mm3 (1.1-4.5); Monocytes Absolute Manual 0.17 K/mm3 (0.1-0.90); Monocytes Percent Manual 1 % (3-9); Neutrophils Absolute Manual 13.39 K/mm3 (1.3-6.7); Neutrophils Percent Manual 75 % (46-73); Nucleated Red Blood Cells 1 %; Platelet Estimate Decreased (Adequate); Poikilocytosis 1+; Schistocytes None Seen; Smudge Cells FEW; Total Cells Counted 100
[2024-08-10] MEDS: PIPERACILLIN/TAZ 2.25G/NS 50ML 2.25 GM/50 ML BAG IVPB (05:54)
[2024-08-10] MEDS: ACETAMINOPHEN 325 MG TABLET 650 MG PO ×3 (06:00→20:00)
[2024-08-10 06:12] LABS: Glucose Point of Care 67 mg/dl (65-105)
[2024-08-10 06:19] LABS: Procalcitonin 0.4 ng/mL
[2024-08-10 06:37] LABS: Glucose Point of Care 90 mg/dl (65-105)
[2024-08-10] MEDS: LEVALBUTEROL NEB 1.25 MG/3 ML (07:06)
[2024-08-10] MEDS: IPRATROPIUM BR 0.02% INH SOLN 0.5 MG/2.5 ML VIAL (07:06)
[2024-08-10] MEDS: IPRATROPIUM BR 0.02% INH SOLN 0.5 MG/2.5 ML VIAL INHALATION ×3 (07:10→20:50)
[2024-08-10] MEDS: LEVALBUTEROL NEB 1.25 MG/3 ML 0.63 MG INHALATION ×3 (07:10→20:50)
--- NOTE | 2024-08-10 08:23 | PC.NURSE ---
ST here for eval, pt reports being unable to swallow scrambled eggs, pt witnessed having coughing fit when drinking water
[2024-08-10 08:39] LABS: Glucose Point of Care 86 mg/dl (65-105)
[2024-08-10] MEDS: ENOXAPARIN 40 MG/0.4 ML SYRINGE SUB-Q (09:11)
[2024-08-10] MEDS: SODIUM CHLORIDE 0.9% IV 1,000 ML 100 ML IV CONT ×2 (09:11→19:58)
[2024-08-10] MEDS: CALCIUM CARBONATE (OSCAL) 500 MG TABLET PO (09:13)
[2024-08-10] MEDS: TAMSULOSIN HCL 0.4 MG CAPSULE PO ×2 (09:13→18:02)
[2024-08-10] MEDS: FINASTERIDE 5 MG TABLET BY MOUTH (09:13)
[2024-08-10] MEDS: MULTIVITAMINS THERAPEUTIC TAB (*BKC) 1 TABLET PO (09:14)
[2024-08-10] MEDS: CLOPIDOGREL BISULFATE 75 MG TABLET BY MOUTH (09:14)
[2024-08-10] MEDS: ATORVASTATIN 40 MG TABLET PO (09:14)
[2024-08-10] MEDS: CHOLECALCIFEROL 1,000 UNITS TABLET 5000 UNITS PO (09:14)
[2024-08-10 09:20] LABS: D Dimer 9.46 ug/mL (<0.48)
--- NOTE | 2024-08-10 11:30 | PC.NURSE ---
Anayeli has been in to speak with pt and son, will order PT eval and MRI for back pain
[2024-08-10] MEDS: CYCLOBENZAPRINE HCL 10 MG TABLET PO ×2 (11:50→20:00)
[2024-08-10 11:58] LABS: Glucose Point of Care 83 mg/dl (65-105)
[2024-08-10] MEDS: metroNIDAZOLE 500 MG/ISO 100ML 500 MG/100 ML BAG 100 MG IVPB ×2 (13:42→21:45)
[2024-08-10 16:35] LABS: Glucose Point of Care 82 mg/dl (65-105)
--- NOTE | 2024-08-10 17:29 | P.PNIM_ITS ---
Progress Note: A&P Assessment and Plan (1) Sepsis: Qualifiers: Acute renal failure type: unspecified Sepsis acute organ dysfunction status: with acute organ dysfunction Sepsis type: sepsis due to unspecified or ganism Severe sepsis acute organ dysfunction type: acute renal failure Severe sepsis shock status: without septic shock Qualified Code(s): A41.9 - Sepsis, unspecified organism; R65.20 - Severe sepsis without septic shock; N17.9 - Acute kidney failure, unspecified Code(s): A41.9 - Sepsis, unspecified organism Status: Acute (2) Acute dehydration: Code(s): E86.0 - Dehydration Status: Acute (3) Multiple falls: Code(s): R29.6 - Repeated falls Status: Acute Plan Sepsis Likely from Pneumonia r/o diskitis/osteomyelitis CXR showed increasing reticular and groundglass opacities bilateral lungs patient was tachycardia (112), tachypnea (32), WBC 17.4 and lactic acid 2.4 Vital signs improving F/u cultures Continue Levaquin, Flagyl and Vanc monitor closely Pneumonia CXR showed worsening bilateral reticular and groundglass opacities Continue above care Back pain with radiculopathy Patient reported worsening back pain with worsening lower extremities weakness and frequent fall CT spine showed chronic compression fracture at T5, T6 and L2. r/o stroke and cord compression MRI brain and Spine ordered PT/OT consulted PRN pain control Elevated ddimer ?Sepsis vs DVT/PE CTA chest pe protocol and venous doppler ordered monitor BPH Continue Finasteride and Tamsulosin Hypertension Continue home meds CKD stage III Cr 1.4 which is about baseline monitor hx of CVA continue Plavix and lipitor CAD continue home meds DVT prophylaxis on Sq Lovenox Subjective Date/time seen: 08/10/24 17:29 Interval history: Patient comfortable at bedside and still complained of back pain Review of Systems Review of Systems: 12 systems were reviewed with pertinent positives and negatives per HPI. Except as documented in the HPI, all other systems were reviewed and are negative. Exam Narrative: General: alert and comfortable Eyes: EOMI, PERRLA ENNT External ears normal, Neck is supple, no masses, Respiratory systems: Clear to auscultation Cardiovascular S1, S2, normal rhythm, no murmur, rub, or gallop; no thrill or palpable murmurs on palpation. Gastrointestinal: soft, non-tender, and non-distended abdomen with no masses; BS present Skin: no rash, lesions, ulcerations, subcutaneous nodules or induration Musculoskeletal: spine tenderness on palpation Neurologic: Alert and oriented x3, power 4/5 in lower extremities Mental Status Exam: normal affect Objective Data Vital Signs Vital Signs: Vital Signs - 24 hr 08/09/24 18:52 08/09/24 19:35 08/09/24 20:19 Temperature 100.1 F H Pulse Rate 125 H 120 H 131 H Respiratory Rate 24 H 24 H 20 Blood Pressure 168/83 H 106/72 Pulse Oximetry 95 97 94 Oxygen Delivery Oxygen Flow Rate 08/09/24 20:52 08/09/24 22:26 08/09/24 22:57 Temperature 98.5 F Pulse Rate 125 H 86 97 Respiratory Rate 23 H 20 21 H Blood Pressure 152/61 H 150/75 H Pulse Oximetry 93 96 95 Oxygen Delivery Oxygen Flow Rate 08/10/24 00:00 08/10/24 00:00 08/10/24 00:00 Temperature 98.3 F Pulse Rate 88 96 Respiratory Rate 19 Blood Pressure 147/60 H Pulse Oximetry 95 98 Oxygen Delivery Nasal Cannula Oxygen Flow Rate 2 08/10/24 04:00 08/10/24 02:00 08/10/24 04:00 Temperature Pulse Rate 101 H 101 H Respiratory Rate Blood Pressure Pulse Oximetry 98 Oxygen Delivery Nasal Cannula Oxygen Flow Rate 2 08/10/24 04:00 08/10/24 06:00 08/10/24 07:10 Temperature 98.4 F Pulse Rate 101 H 113 H 105 H Respiratory Rate 20 18 Blood Pressure 148/72 H Pulse Oximetry 98 94 Oxygen Delivery Nasal Cannula Oxygen Flow Rate 3 08/10/24 07:10 08/10/24 07:20 08/10/24 08:00 Temperature 97.6 F Pulse Rate 105 H 106 H 114 H Respiratory Rate 18 18 28 H Blood Pressure 144/92 H Pulse Oximetry 97 Oxygen Delivery Oxygen Flow Rate 08/10/24 08:00 08/10/24 08:00 08/10/24 10:00 Temperature Pulse Rate 108 H 94 Respiratory Rate Blood Pressure Pulse Oximetry 98 Oxygen Delivery Nasal Cannula Oxygen Flow Rate 4 08/10/24 12:00 08/10/24 12:00 08/10/24 12:06 Temperature 98 F 98 F Pulse Rate 96 96 Respiratory Rate 22 H 22 H Blood Pressure 155/68 H 155/68 H 166/66 H Pulse Oximetry 96 96 Oxygen Delivery Oxygen Flow Rate 08/10/24 12:00 08/10/24 12:00 08/10/24 13:00 Temperature Pulse Rate 120 H 97 Respiratory Rate 18 Blood Pressure Pulse Oximetry 96 Oxygen Delivery Nasal Cannula Oxygen Flow Rate 3 08/10/24 13:10 08/10/24 14:00 08/10/24 16:00 Temperature Pulse Rate 98 104 H Respiratory Rate 18 Blood Pressure Pulse Oximetry 96 Oxygen Delivery Nasal Cannula Oxygen Flow Rate 3 08/10/24 16:00 Temperature Pulse Rate 103 H Respiratory Rate Blood Pressure Pulse Oximetry Oxygen Delivery Oxygen Flow Rate Intake/Output Intake/Output: Intake & Output 08/07/24 08/08/24 08/09/24 08/10/24 23:59 23:59 23:59 23:59 Intake Total 3200 1815 Output Total 1100 Balance 3200 715 Meds/Results Medications: Active Medications Generic Name Dose Route Start Last Admin Trade Name Freq PRN Reason Stop Dose Admin Acetaminophen 650 mg 08/09/24 19:56 08/10/24 11:49 Acetaminophen 325 Mg Tablet PO 650 mg Q4H PRN Administration Mild Pain (1-3) or Fever Atorvastatin Calcium 40 mg 08/10/24 09:00 08/10/24 09:14 Atorvastatin 40 Mg Tablet PO 40 mg DAILY [place] Administration Calcium Carbonate 500 mg 08/10/24 09:00 08/10/24 09:13 Calcium Carbonate (Oscal) 500 Mg Tablet PO 500 mg QAM [place] Administration Clopidogrel Bisulfate 75 mg 08/10/24 09:00 08/10/24 09:14 Clopidogrel Bisulfate 75 Mg Tablet BY MOUTH 75 mg DAILY [place] Administration Cyclobenzaprine HCl 10 mg 08/10/24 04:26 08/10/24 11:50 Cyclobenzaprine Hcl 10 Mg Tablet PO 10 mg TID PRN Administration muscle spasm Dextrose 12.5 gm 08/10/24 06:29 Dextrose 50% 25 Gm/50 Ml Syringe IV PUSH PRN PRN Hypoglycemia Protocol Enoxaparin Sodium 40 mg 08/10/24 09:00 08/10/24 09:11 Enoxaparin 40 Mg/0.4 Ml Syringe SUB-Q 40 mg DAILY [place] Administration Finasteride 5 mg 08/10/24 09:00 08/10/24 09:13 Finasteride 5 Mg Tablet BY MOUTH 5 mg DAILY [place] Administration Glucagon 1 mg 08/10/24 06:29 Glucagon For Inj 1 Mg Vial IM PRN PRN Hypoglycemia Protocol Glucose 15 gm 08/10/24 06:29 Glucose Oral Gel 15 Gm Of Glucse In 37.5 Gm Tube PO PRN PRN Hypoglycemia Protocol Levofloxacin/Dextrose 750 mg in 150 mls @ 100 mls/hr 08/09/24 20:00 08/09/24 20:35 Levaquin 750 Mg/D5w 150 Ml IVPB Infused Q48H [place] Infusion Sodium Chloride 1,000 mls @ 100 mls/hr 08/09/24 20:00 08/10/24 09:11 Normal Saline Iv IV CONT 100 mls/hr .Q10H [place] Administration Dextrose 1,000 mls @ 100 mls/hr 08/10/24 06:29 Dextrose 5% 1,000 Ml IVPB PRN PRN Hypoglycemia Protocol Vancomycin HCl 1,500 mg in 500 mls @ 250 mls/hr 08/10/24 21:00 Vancomycin 1,500 Mg/Ns 500 Ml IVPB Q24H [place] Metronidazole 500 mg in 100 mls @ 100 mls/hr 08/10/24 13:00 08/10/24 14:42 Flagyl 500 Mg/Iso Soln 100 Ml IVPB Infused Q8HR [place] Infusion Ipratropium [place] 0.5 mg 08/10/24 08:00 08/10/24 13:03 Ipratropium Br 0.02% Inh Soln 0.5 Mg/2.5 Ml Vial INHALATION 0.5 mg Q6HRT [place] Administration Levalbuterol HCl 0.63 mg 08/10/24 08:00 08/10/24 13:03 Levalbuterol Neb 1.25 Mg/3 Ml INHALATION 0.63 mg Q6HRT [place] Administration Multivitamins Therapeutic 1 tablet 08/10/24 09:00 08/10/24 09:14 Multivitamins Therapeutic Tab (*Bkc) PO 1 tablet DAILY [place] Administration Nortriptyline HCl 50 mg 08/10/24 21:00 Nortriptyline Hcl 25 Mg Capsule PO QHS [place] Pantoprazole Sodium 40 mg 08/10/24 21:00 Pantoprazole 40 Mg Tablet PO HS [place] Polyethylene Glycol 17 gm 08/10/24 04:26 Polyethylene Glycol 3350 17 Gm Powd.Pack PO DAILY PRN Constipation Tamsulosin HCl 0.4 mg 08/10/24 09:00 08/10/24 09:13 Tamsulosin Hcl 0.4 Mg Capsule PO 0.4 mg BID [place] Administration Vitamin D 5,000 units 08/10/24 09:00 08/10/24 09:14 Cholecalciferol 1,000 Units Tablet PO 5,000 units DAILY [place] Administration Radiology Results: ITS Impressions Head CT 08/09/24 17:49 IMPRESSION: 1. No fracture or acute intracranial process. 2. 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 3. Age-related changes including mild diffuse volume loss and mild scattered mesenteric white matter hypoattenuation consistent with chronic small vessel ischemic disease. Cervical Spine CT 08/09/24 18:15 IMPRESSION: 1. Moderate to severe cervical spondylosis. No acute osseous abnormality. Thoracic/Lumbar Spine CT 08/09/24 18:22 IMPRESSION: 1. Multiple old posterior left rib fractures and chronic compression fractures with mild anterior wedging at T5 and T6 and mild right-sided anterior vertebral body height loss at L2. No acute osseous abnormality. 2. Moderate thoracic spondylosis and mild lumbar spondylosis. 3. Combined instrumented L5-S1 anterior and posterior spinal fusion. 4. Chronic bilateral lower lung predominant interstitial lung disease with indeterminate 8 mm pulmonary nodule in the left lower lobe. Recommend 3 month follow-up low-dose noncontrast chest CT. Chest X-Ray 08/10/24 07:05 IMPRESSION: 1. Small lung volumes with increasing reticular and groundglass opacities in both lungs which could represent pulmonary edema or pneumonia superimposed over likely chronic interstitial lung disease. 2. Cardiomegaly. Labs Labs: Laboratory Results - last 24 hr 08/09/24 08/09/24 08/09/24 15:38 18:03 19:11 WBC RBC Hgb Hct MCV MCH MCHC RDW Plt Count MPV Immature Gran % (Auto) Neut % (Auto) Lymph % (Auto) [place] % (Auto) Eos % (Auto) Baso % (Auto) Lymph # (Auto) [place] # (Auto) Eos # (Auto) Baso # (Auto) Abs Immat Gran (auto) Absolute Neuts (auto) Absolute Nucleated RBC Total Counted Neutrophils % (Manual) Band Neutrophils % Lymphocytes % (Manual) Monocytes % (Manual) Eosinophils % (Manual) Basophils % (Manual) Nucleated RBC % Abs Neuts (Manual) Abs Lymphs (Manual) Abs Monocytes (Manual) Absolute Eos (Manual) Abs Basophils (Manual) Nucleated RBCs Smudge Cells Platelet Estimate Poikilocytosis Anisocytosis [place] Cells Schistocytes ESR 16 PT 15.0 H INR 1.2 APTT 31.7 D-Dimer Sodium Potassium Chloride Carbon Dioxide Anion Gap BUN Creatinine Estim Creat Clear Calc Estimated GFR Glucose POC Capillary Glucose Lactic Acid 2.6 H Calcium Total Bilirubin AST ALT Alkaline Phosphatase Total Creatine Kinase 260 H C-Reactive Protein 25.9 H Total Protein Albumin Procalcitonin Nasal MRSA (PCR) Not detected 08/09/24 08/10/24 08/10/24 21:58 04:58 04:58 WBC 17.4 H RBC 4.34 L Hgb 12.0 L Hct 36.3 L MCV 83.6 MCH 27.6 MCHC 33.1 RDW 15.4 H Plt Count 138 L MPV 9.8 Immature Gran % (Auto) Not Reportable Neut % (Auto) Not Reportable Lymph % (Auto) Not Reportable [place] % (Auto) Not Reportable Eos % (Auto) Not Reportable Baso % (Auto) Not Reportable Lymph # (Auto) Not Reportable [place] # (Auto) Not Reportable Eos # (Auto) Not Reportable Baso # (Auto) Not Reportable Abs Immat Gran (auto) Not Reportable Absolute Neuts (auto) Not Reportable Absolute Nucleated RBC Not Reportable Total Counted 100 Neutrophils % (Manual) 75 H Band Neutrophils % 2 Lymphocytes % (Manual) 20.0 Monocytes % (Manual) 1 L Eosinophils % (Manual) 1 Basophils % (Manual) 1 Nucleated RBC % Not Reportable Abs Neuts (Manual) 13.39 H Abs Lymphs (Manual) 3.48 Abs Monocytes (Manual) 0.17 Absolute Eos (Manual) 0.17 Abs Basophils (Manual) 0.17 H Nucleated RBCs 1 Smudge Cells Few Platelet Estimate Decreased Poikilocytosis 1+ Anisocytosis 1+ Dennise Cells 1+ Schistocytes None seen ESR PT INR APTT D-Dimer Sodium 138 Potassium 3.8 Chloride 104 Carbon Dioxide 18 L Anion Gap 16 H BUN 28 H Creatinine 1.40 H 1.40 H Estim Creat Clear Calc 45 Estimated GFR Glucose POC Capillary Glucose Lactic Acid 2.4 H Calcium Total Bilirubin AST ALT Alkaline Phosphatase Total Creatine Kinase C-Reactive Protein Total Protein Albumin Procalcitonin Nasal MRSA (PCR) 08/10/24 08/10/24 08/10/24 04:58 04:58 06:00 WBC RBC Hgb Hct MCV MCH MCHC RDW Plt Count MPV Immature Gran % (Auto) Neut % (Auto) Lymph % (Auto) [place] % (Auto) Eos % (Auto) Baso % (Auto) Lymph # (Auto) [place] # (Auto) Eos # (Auto) Baso # (Auto) Abs Immat Gran (auto) Absolute Neuts (auto) Absolute Nucleated RBC Total Counted Neutrophils % (Manual) Band Neutrophils % Lymphocytes % (Manual) Monocytes % (Manual) Eosinophils % (Manual) Basophils % (Manual) Nucleated RBC % Abs Neuts (Manual) Abs Lymphs (Manual) Abs Monocytes (Manual) Absolute Eos (Manual) Abs Basophils (Manual) Nucleated RBCs Smudge Cells Platelet Estimate Poikilocytosis Anisocytosis [place]enn[place] Cells Schistocytes ESR PT INR APTT D-Dimer Sodium Potassium Chloride Carbon Dioxide Anion Gap BUN Creatinine Estim Creat Clear Calc 45 Estimated GFR 49 L 49 L Glucose 49 L* POC Capillary Glucose 67 Lactic Acid Calcium 8.2 L Total Bilirubin 1.2 AST 216 H ALT 50 Alkaline Phosphatase 211 H Total Creatine Kinase C-Reactive Protein Total Protein 6.0 L Albumin 3.1 L Procalcitonin 0.4 Nasal MRSA (PCR) 08/10/24 08/10/24 08/10/24 06:35 07:44 08:47 WBC RBC Hgb Hct MCV MCH MCHC RDW Plt Count MPV Immature Gran % (Auto) Neut % (Auto) Lymph % (Auto) [place] % (Auto) Eos % (Auto) Baso % (Auto) Lymph # (Auto) [place] # (Auto) Eos # (Auto) Baso # (Auto) Abs Immat Gran (auto) Absolute Neuts (auto) Absolute Nucleated RBC Total Counted Neutrophils % (Manual) Band Neutrophils % Lymphocytes % (Manual) Monocytes % (Manual) Eosinophils % (Manual) Basophils % (Manual) Nucleated RBC % Abs Neuts (Manual) Abs Lymphs (Manual) Abs Monocytes (Manual) Absolute Eos (Manual) Abs Basophils (Manual) Nucleated RBCs Smudge Cells Platelet Estimate Poikilocytosis Anisocytosis [place] Cells Schistocytes ESR PT INR APTT D-Dimer 9.46 H Sodium Potassium Chloride Carbon Dioxide Anion Gap BUN Creatinine Estim Creat Clear Calc Estimated GFR Glucose POC Capillary Glucose 90 86 Lactic Acid Calcium Total Bilirubin AST ALT Alkaline Phosphatase Total Creatine Kinase C-Reactive Protein Total Protein Albumin Procalcitonin Nasal MRSA (PCR) 08/10/24 08/10/24 11:20 16:33 WBC RBC Hgb Hct MCV MCH MCHC RDW Plt Count MPV Immature Gran % (Auto) Neut % (Auto) Lymph % (Auto) [place] % (Auto) Eos % (Auto) Baso % (Auto) Lymph # (Auto) [place] # (Auto) Eos # (Auto) Baso # (Auto) Abs Immat Gran (auto) Absolute Neuts (auto) Absolute Nucleated RBC Total Counted Neutrophils % (Manual) Band Neutrophils % Lymphocytes % (Manual) Monocytes % (Manual) Eosinophils % (Manual) Basophils % (Manual) Nucleated RBC % Abs Neuts (Manual) Abs Lymphs (Manual) Abs Monocytes (Manual) Absolute Eos (Manual) Abs Basophils (Manual) Nucleated RBCs Smudge Cells Platelet Estimate Poikilocytosis Anisocytosis [place] Cells Schistocytes ESR PT INR APTT D-Dimer Sodium Potassium Chloride Carbon Dioxide Anion Gap BUN Creatinine Estim Creat Clear Calc Estimated GFR Glucose POC Capillary Glucose 83 82 Lactic Acid Calcium Total Bilirubin AST ALT Alkaline Phosphatase Total Creatine Kinase C-Reactive Protein Total Protein Albumin Procalcitonin Nasal MRSA (PCR) Quality VTE Prophylaxis VTE prophylaxis: pharmacologic ordered (Lovenox 40 mg subQ daily.)
--- NOTE | 2024-08-10 18:55 | PC.NURSE ---
pt taken down to ct, returned to room
[2024-08-10] MEDS: NORTRIPTYLINE HCL 25 MG CAPSULE 50 MG PO (20:01)
[2024-08-10] MEDS: PANTOPRAZOLE 40 MG TABLET PO (20:01)
[2024-08-10] MEDS: VANCOMYCIN 1,500 MG/NS 500 ML 1,500 MG/500 ML BAG 250 MG IVPB (20:10)
[2024-08-11] VITALS (32 sets, daily range): BP systolic 151–184; BP diastolic 53–85; PULSE 103–140; RESP 20–30; TEMP 36.9–38.3; O2SAT 90–97
--- NOTE | 2024-08-11 | ECHO_ITS ---
Patient Info Name: Primo Munroe Age: 78 years : 1945 Gender: Male Ht: 70 in Wt: 212 lbs BSA: 2.20 m2 HR: 132 bpm BP: 184 / 62 mmHg Technical Quality: Poor Exam Date: 08/11/2024 12:26 PM Exam Location: Echo Lab Patient Status: Inpatient Admit Date: 08/09/2024 Staff Ordering Physician: Eugene Guadalupe MD Rn Admissions: Radha Dickens RDCS Attending Provider: Nirmala Weinstein DO Exam Type: CA echo dop color flow w con Study Info Indications - DYSPNEA Complete two-dimensional, color flow and Doppler transthoracic echocardiogram is performed with contrast to opacify the left ventricle and to improve the deliniation of the left ventricle endocardial borders. Contrast/Agitated Saline Contrast/Ag. Saline: Definity Amount: 2.00 ml Existing IV Access: Yes Reason for Poor Study: poor echocardiographic windows Summary 1. Definity contrast administered improved wall motion interpretation. 2. Left ventricular chamber dimension is normal. 3. Left ventricular systolic function is normal, estimated at 60-65%. 4. There is mild concentric increased left ventricular wall thickness. 5. The left ventricular diastolic function is normal. 6. E/e' 6 is not elevated. Left Ventricle E/e' 6 is not elevated. Definity contrast administered improved wall motion interpretation. Left ventricular chamber dimension is normal. Left ventricular systolic function is normal, estimated at 60-65%. There is mild concentric increased left ventricular wall thickness. The left ventricular diastolic function is normal. Right Ventricle Right ventricular systolic function is normal and with normal TAPSE 1.8 cm. Right ventricular chamber dimension is normal. Left Atria Left atrial chamber dimension is normal. Right Atria Right atrial chamber dimension is normal. Aortic Valve The aortic valve is trileaflet. There is no aortic valve stenosis. There is no aortic valve regurgitation. Pulmonic Valve There is no pulmonic regurgitation. Mitral Valve There is no mitral valve stenosis. There is no mitral valve regurgitation. Tricuspid Valve There is no tricuspid valve regurgitation. Pericardium/Pleural There is no pericardial effusion. Inferior Vena Cava Normal inferior vena cava with >50% collapse upon inspiration consistent with normal right atrial pressure, 5 mmHg. Aorta The aortic root size at the sinus of Valsalva is normal. Left Ventricular Outflow Tract Name Value Normal LVOT 2D LVOT Diameter 2.15 cm LVOT Doppler LVOT Peak Gradient 4 mmHg LVOT Mean Gradient 2 mmHg LVOT VTI 18.89 cm LVOT VTI/AV VTI Ratio 0.98 LVOT Stroke Volume 68.70 ml LVOT CO 6.71 l/min LVOT CI 3.04 L/min/m2 Pulmonic Valve Name Value Normal RVOT Doppler RVOT Peak Gradient 3 mmHg PV Doppler PV Peak Gradient 3 mmHg Mitral Valve Name Value Normal MV Doppler MV Peak Gradient 5 mmHg MV Mean Gradient 2 mmHg MV Decel Story 689.41 cm/s2 MV PHT 0 s MV Area (PHT) 6.29 cm2 4.00-5.00 MV Area (Cont Eq VTI) 3.28 cm2 MV Diastolic Function MV E Peak Velocity 83.16 cm/s MV A Peak Velocity 75.96 cm/s MV E/A 1.09 MV Decel Time 0 s MV Annular TDI MV E/e' (Septal) 6.13 <=8.00 MV E/e' (Lateral) 6.38 <=8.00 MV E/e' (Average) 6.26 Tricuspid Valve Name Value Normal Estimated PAP/RSVP RA Pressure 5 mmHg <=5 Aorta Name Value Normal Ascending Aorta Ao Root Diameter (MM) 4.07 cm Ao Root Diam Index (MM) 1.85 cm/m2 Aortic Valve Name Value Normal AV Doppler AV Peak Velocity 136.96 cm/s AV Peak Gradient 7 mmHg AV Mean Gradient 4 mmHg AV VTI 19.38 cm AV Area (Cont Eq VTI) 3.55 cm2 >=3.00 AV Area (Cont Eq Toney) 2.73 cm2 AV Regurgitation 2D LVOT Area 3.64 cm2 Ventricles Name Value Normal LV Dimensions 2D/MM IVS Diastolic Thickness (2D) 1.69 cm 0.60-1.00 LVID Diastole (2D) 5.68 cm 4.20-5.80 LVIW Diastolic Thickness (2D) 1.28 cm 0.60-1.00 LVID Systole (2D) 3.87 cm 2.50-4.00 LVOT Diameter 2.15 cm LV Mass (2D Cubed) 385.98 g 88.00-224.00 LV Mass Index (2D Cubed) 0.02 g/cm2 0.00-0.01 Relative Wall Thickness (2D) 0.45 LV Fractional Shortening/Ejection Fraction 2D/MM LV Fractional Shortening (2D) 31 % 25-43 LV EF (2D Teicholz) 58 % 52-72 Atria Name Value Normal LA Dimensions LA Dimension (MM) 3.28 cm 3.00-4.10 Report Signatures
[2024-08-11] MEDS: LEVALBUTEROL NEB 1.25 MG/3 ML 0.63 MG INHALATION ×4 (03:39→20:16)
[2024-08-11] MEDS: IPRATROPIUM BR 0.02% INH SOLN 0.5 MG/2.5 ML VIAL INHALATION ×4 (03:39→20:15)
[2024-08-11 05:10] LABS: Estimated CRCL calculation 52 ml/min; Estimated Glomerular Filt Rate 58
[2024-08-11] MEDS: metroNIDAZOLE 500 MG/ISO 100ML 500 MG/100 ML BAG 100 MG IVPB ×3 (06:30→21:49)
[2024-08-11 07:43] LABS: Glucose Point of Care 82 mg/dl (65-105)
[2024-08-11 08:30] LABS: Glucose Point of Care 73 mg/dl (65-105)
--- NOTE | 2024-08-11 09:01 | PCRCNOTE ---
ABG delayed due to patient using restroom and receiving breathing treatment on 8 lpm at time of order. Will draw ABG after patient is finished with restroom.
[2024-08-11] MEDS: ENOXAPARIN 40 MG/0.4 ML SYRINGE SUB-Q (09:24)
[2024-08-11] MEDS: hydrALAZINE HCL 20 MG/ML VIAL IV PUSH (09:24)
[2024-08-11 09:34] LABS: Alveolar/Arterial O2 Gradient 135.7 mmHg; Base Excess ABG -8.3 mEq/l (+/-2.0); Fractional Inspired Oxygen 32 %; HCO3 ABG 14.4 mEq/l (22.0-26.0); Oxygen Content ABG 15.4 %vol (16.0-22.0); Oxygen Saturation ABG 93.8 % (95.0-100.0); Oxyhemoglobin 91.9 % THb (90.0-100.0); PO2 ABG 65.8 mmHg (80.0-100.0); PO2 FiO2 Ratio Arterial Blood 2.06 %; Total Hemoglobin 11.9 g/dL (12.0-18.0); pH ABG 7.418 (7.350-7.450)
[2024-08-11 09:35] LABS: Device NASAL CANNULA; Modified Allen's Test Pass; PCO2 ABG 22.8 mmHg (35.0-45.0); Site Drawn RIGHT RADIAL
[2024-08-11] MEDS: DEXTROSE 50% 25 GM/50 ML SYRINGE IV PUSH (10:46)
--- NOTE | 2024-08-11 11:16 | ECG_ITS ---
Test Date: 2024-08-11 11:32:43 Measurements Intervals [place] Rate: 126 P: 0 FL: 0 QRS: 70 QRSD: 110 T: -4 QT: 312 QTc: 453 Interpretive Statements SINUS TACHYCARDIA ATRIAL COUPLET AND FREQUENT ATRIAL PREMATURE COMPLEXES NONSPECIFIC ST-T WAVE ABNORMALITY- INFERIOR LEADS BASELINE ARTIFACT- I, II, AVR, AVF, V1 ABNORMAL ECG Compared to ECG 08/09/2024 15:29:25 FREQUENT ATRIAL PREMATURE COMPLEXES NOW PRESENT Electronically Signed On 08-11-2024 11:50:35 [employer] TECHNICIAN by Asael Jha D.O.
[2024-08-11] MEDS: SODIUM CHLORIDE 0.9% IV 1,000 ML 100 ML IV CONT ×2 (11:20→21:13)
[2024-08-11 11:28] LABS: Glucose Point of Care 112 mg/dl (65-105)
[2024-08-11] MEDS: dilTIAZem HCl INJ 25 MG/5 ML VIAL 10 MG IV PUSH (12:19)
[2024-08-11] MEDS: dilTIAZem 100 MG/100 ML 100 MG/100 ML BAG 7.5 MG IV CONT (12:19)
[2024-08-11] MEDS: PERFLUTREN LIPID MICROSPHERES 1.5 ML VIAL DILUTED TO 10 ML TOTAL VOLUME IV PUSH (13:15)
--- NOTE | 2024-08-11 13:33 | IVDEFINITY ---
Prior to administration of IV Definity the patient was educated on the risks and benefits of the imaging enhancing agent including potential adverse side effects. The patient verbalized understanding. Allergies were verified. No exclusion criteria were identified and at least one of the following inclusion criteria were met: 1) physician request, 2) patient technically difficult to image (per the [employer]ocardi[employer] guidelines of two or more segments not discernable within the apical view), or 3) questionable left ventricular function. ?
--- NOTE | 2024-08-11 16:11 | P.CONCA_ITS ---
Assessment and Plan Assessment and plan (1) Atrial fibrillation: Code(s): I48.91 - Unspecified atrial fibrillation Status: Acute Plan This is a 78-year-old man who has been having difficulty with lower extremity weakness and falling recently. He was apparently on the floor in his home for something like 2-3 days. He was brought into the hospital for evaluation. Upon arrival he was somewhat febrile and is being worked up for sepsis he also had a significant leukocytosis with bandemia. Earlier today he reverted from sinus rhythm to atrial fibrillation. Has been placed on intravenous diltiazem by the hospitalist with modest improvement in his heart rate. I am going to start him on metoprolol a and Xarelto for systemic anticoagulation. Patient states that in the past he had a left lower extremity DVT and was on Xarelto at that time which he tolerated well Tahir Chávez MD [facility] History of Present Illness History of Present Illness Consult date/time: 08/11/24 16:11 Consult reason: atrial fibrillation Reason For Visit: SEPSIS, BACK PAIN, SAMUEL Narrative: This is a 78-year-old man I am seeing at the request of the hospitalist because of atrial fibrillation. The patient is unknown to me prior to this and he does not have any significant previous cardiac history. 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 With this however he has still been remain independent living in his own home. He has had frequent falls recently that have been unexplained. He fell several times this past week and his family came in to see him from out of town and found him on the floor in his home. As the suspicion is he had been on the floor for possibly 2-3 days. Upon arrival in the hospital he was febrile he is being worked up for sepsis. During the hospital evaluation earlier today he transition from sinus rhythm to atrial fib with RVR. With his atrial fibrillation he has no symptoms or awareness of his tachycardia or palpitations he denies any chest pain. His chart says that he has COPD his son states that he has smoked cigarettes since he was a teenager. In this setting I am seeing him in consultation. He is responsive and alert but semi coherent. Review of Systems Review of Systems: ROS unobtainable: Yes unobtainable due to mental status PMFSH Past Medical History Medical History (Updated 08/11/24 @ 16:16 by Tahir Chávez MD) Aortic stenosis Blood type B+ BPH (benign prostatic hyperplasia) Coronary artery disease GERD (gastroesophageal reflux disease) History of CVA (cerebrovascular accident) (~04/2014) History of rib fracture (~2020) Mixed hyperlipidemia Occipital infarction (~04/2014) BRYAN on CPAP PAD (peripheral artery disease) Primary insomnia Ptosis, left eyelid Pulmonary interstitial fibrosis Stage 3a chronic kidney disease (CKD) Type 2 diabetes mellitus without complications Vasovagal syncope Surgical History Surgical History History of exploratory laparotomy (~2000) History of gastric surgery (~2014) stoma reversal History of ventral hernia repair (06/2016) Family History Family History Sibling Cerebrovascular accident Father Family history of heart disease in male family member before age 55 Other Diabetes mellitus Family history of cardiovascular disease Family history of gout Family history of malignant neoplasm Family history of osteoarthritis Hypertension Social History Social History (Updated 08/10/24 @ 20:14 by Nirmala Weinstein DO) Social History: Patient is and lives alone. He is retired from the [employer]. He still smokes half a pack of cigarettes per day. He he has smoked as much as 1.5 packs of cigarettes per day since he was a teenager. He denies any history of heavy alcohol use but used to drink on occasion but has not done so in many years. He denies illicit substance use. Code status: Full code Surrogate decision maker: Kt (son) Smoking packs per day: 0.5 Smoking cigarettes per day: 10.0 Years smoked: 60 Smoking pack-years: 30.00 Smoking status: Heavy tobacco smoker Tobacco type: cigarettes Second hand tobacco smoke exposure: Yes Alcohol intake: former Substance use: never Substance use type: does not use Do You Feel Safe in your Home?: Yes Lack of Transportation: No Lack of Food: Never True Current Housing: I Have Housing Concerned About Future Housing: No Difficulty Paying Gas/Electric Bills: No Difficulty Paying for Meds: No Currently Unemployed: No Education: High School Diploma/GED Difficulty w/ Childcare or Family Care: No Living arrangements: alone Occupation/Education: retired Gender identity (if verbalized by the patient): Male Sexual Orientation (if Verbalized by the Patient): Straight or Heterosexual Spiritual care concerns: No Meds Home Medications and Allergies Home Medications Medication Instructions Recorded Confirmed Type Bifidobacterium infantis 4 mg 4 mg PO DAILY 03/06/21 08/10/24 History capsule (Align) calcium 500 mg tablet 500 mg PO DAILY 03/06/21 08/10/24 History cholecalciferol (vitamin D3) 125 125 mcg PO DAILY 03/06/21 08/10/24 History mcg (5,000 unit) tablet (Vitamin D3) multivitamin 1 cap PO DAILY 03/06/21 08/10/24 History polyethylene glycol 3350 17 gram 17 g PO DAILY PRN Constipation 03/06/21 08/10/24 History oral powder packet (Miralax) nortriptyline 50 mg capsule 50 mg PO QHS #90 caps 01/04/24 08/10/24 Rx tamsulosin 0.4 mg capsule 0.4 mg PO BID #180 caps 04/04/24 08/10/24 Rx clopidogrel 75 mg tablet See Rx Instructions .Route 04/10/24 08/10/24 Rx .COMPLEX #90 tabs atorvastatin 40 mg tablet 40 mg PO DAILY #90 tabs 05/02/24 08/10/24 Rx finasteride 5 mg tablet See Rx Instructions .Route 06/07/24 08/10/24 Rx .COMPLEX #90 tabs pantoprazole 40 mg tablet,delayed 40 mg PO HS #90 tabs 06/18/24 08/10/24 Rx release cyclobenzaprine 10 mg tablet 10 mg PO TID PRN muscle spasm #20 08/04/24 08/10/24 Rx tabs Allergies Allergy/AdvReac Type Severity Reaction Status Date / Time rivaroxaban AdvReac Unknown SEVERE Verified 07/11/24 13:24 NOSE BLEED Vital Signs Vital Signs - 24 hr 08/10/24 18:00 08/10/24 19:04 08/10/24 20:00 Temperature 38.6 C H 38.6 C H Pulse Rate 117 H 123 H Respiratory Rate 24 H Blood Pressure 154/84 H Pulse Oximetry 95 Oxygen Delivery Oxygen Flow Rate 08/10/24 20:00 08/10/24 20:50 08/10/24 20:53 Temperature Pulse Rate 124 H 117 H Respiratory Rate 18 Blood Pressure Pulse Oximetry 95 92 Oxygen Delivery Nasal Cannula Nasal Cannula Oxygen Flow Rate 3 3 08/10/24 21:02 08/10/24 21:47 08/10/24 23:32 Temperature 38.2 C H 36.8 C Pulse Rate 130 H 118 H 114 H Respiratory Rate 18 28 H 28 H Blood Pressure 179/73 H 154/59 H Pulse Oximetry 93 92 Oxygen Delivery Oxygen Flow Rate 08/10/24 20:00 08/10/24 22:00 08/11/24 00:00 Temperature Pulse Rate 123 H 114 H Respiratory Rate Blood Pressure Pulse Oximetry 92 Oxygen Delivery Nasal Cannula Oxygen Flow Rate 3 08/11/24 00:00 08/11/24 02:00 08/11/24 03:39 Temperature Pulse Rate 103 H 113 H 109 H Respiratory Rate 20 Blood Pressure Pulse Oximetry Oxygen Delivery Oxygen Flow Rate 08/11/24 03:48 08/11/24 04:00 08/11/24 04:00 Temperature 37.5 C Pulse Rate 109 H 120 H Respiratory Rate 20 20 Blood Pressure 153/85 H Pulse Oximetry 92 95 Oxygen Delivery Nasal Cannula Oxygen Flow Rate 3 08/11/24 04:00 08/11/24 06:00 08/11/24 08:44 Temperature Pulse Rate 119 H 125 H 118 H Respiratory Rate 22 H Blood Pressure Pulse Oximetry Oxygen Delivery Oxygen Flow Rate 08/11/24 08:45 08/11/24 08:57 08/11/24 08:00 Temperature Pulse Rate 125 H 125 H Respiratory Rate 24 H Blood Pressure Pulse Oximetry 92 92 Oxygen Delivery Nasal Cannula Nasal Cannula Oxygen Flow Rate 3 3 08/11/24 11:31 08/11/24 12:00 08/11/24 12:19 Temperature 38.3 C H Pulse Rate 140 H 132 H Respiratory Rate 26 H Blood Pressure 184/62 H Pulse Oximetry 90 90 Oxygen Delivery Nasal Cannula Oxygen Flow Rate 3 08/11/24 14:13 08/11/24 10:00 08/11/24 12:00 Temperature 37.9 C H Pulse Rate 123 H 132 H 137 H Respiratory Rate 24 H Blood Pressure 151/63 H Pulse Oximetry 93 Oxygen Delivery Oxygen Flow Rate 08/11/24 14:00 08/11/24 14:32 08/11/24 14:00 Temperature Pulse Rate 123 H 125 H 116 H Respiratory Rate Blood Pressure 151/63 H 151/63 H Pulse Oximetry Oxygen Delivery Oxygen Flow Rate 08/11/24 14:43 08/11/24 14:54 Temperature Pulse Rate 121 H 123 H Respiratory Rate 28 H 28 H Blood Pressure Pulse Oximetry Oxygen Delivery Oxygen Flow Rate Exam Const: Other: Well-developed well-nourished elderly man supine in bed asking for something to drink HENMT: Mouth: Yes moist mucous membranes Eyes: Sclera: sclerae normal Neck: Neck: supple and no JVD Resp: Effort & Inspection: normal respiratory effort Other: Coarse rhonchorous breath sounds Cardio: Rate: tachycardic Rhythm: abnormal rhythm irregularly irregular Other: No audible murmur exam somewhat difficult GI: GI Palp: Yes Soft to palpation Auscultation: normal bowel sounds Skin: General skin exam: normal color Neuro: Other: Alert and responsive oriented x3 Extrem: Other: No edema, good distal pulses Results Labs and Meds 08/10/24 04:58 08/11/24 04:42 Lab results: Comprehensive Metabolic Panel 08/11/24 Range/Units 04:42 Creatinine 1.20 (0.7-1.3) mg/dL Intake and Output 08/11/24 08/11/24 08/11/24 07:59 15:59 23:59 Intake Total 1250 16.6 Output Total 1050 125 Balance 200 -108.4 Intake: IV 1000 16.6 Sodium Chloride 0.9% IV 1,000 1000 ml @ 100 mls/hr IV CONT .Q10H [place] Rx#:[id number] dilTIAZem 100 MG/100 ML 100 mg 16.6 In 100 ml @ 7.5 MG/HR 7.5 mls/ hr IV CONT .[id number] [place] Rx#: [id number] Oral 250 Output: Urine 125 Catheter Urine 1050 External/Condom 1050 Patient Weight 08/11/24 23:59 Weight 96.2 kg
[2024-08-11 16:22] LABS: Glucose Point of Care 99 mg/dl (65-105)
--- NOTE | 2024-08-11 16:53 | PM.IMPN ---
Progress Note: A&P Assessment and Plan (1) Sepsis: Qualifiers: Acute renal failure type: unspecified Sepsis acute organ dysfunction status: with acute organ dysfunction Sepsis type: sepsis due to unspecified organism Severe sepsis acute organ dysfunction type: acute renal failure Severe sepsis shock status: without septic shock Qualified Code(s): A41.9 - Sepsis, unspecified organism; R65.20 - Severe sepsis without septic shock; N17.9 - Acute kidney failure, unspecified Code(s): A41.9 - Sepsis, unspecified organism Status: Acute (2) Acute dehydration: Code(s): E86.0 - Dehydration Status: Acute (3) Multiple falls: Code(s): R29.6 - Repeated falls Status: Acute Plan Sepsis Likely from Pneumonia r/o diskitis/osteomyelitis CXR showed increasing reticular and groundglass opacities bilateral lungs patient was tachycardia (112), tachypnea (32), WBC 17.[address] Chest negative for PE but showed pneumonia Vital signs improving F/u cultures Continue Levaquin, Flagyl and Vanc monitor closely Pneumonia CXR showed worsening bilateral reticular and groundglass opacities Continue above care Atrial fibrillation with RVR Patient went into AFib RVR this morning EKG showed Afib RVR On Cardizem infusion and Full dose Lovenox (as patient is NPO awaiting Speech eval) Cardiology consulted ECHO pending Back pain with radiculopathy Patient reported worsening back pain with worsening lower extremities weakness and frequent fall CT spine showed chronic compression fracture at T5, T6 and L2. r/o stroke and cord compression MRI brain and Spine ordered PT/OT consulted PRN pain control Elevated ddimer DVT/PE ruled CTA chest pe protocol and venous doppler negative for PE or DVT monitor BPH Continue Finasteride and Tamsulosin Hypertension Continue home meds CKD stage III Cr 1.4 which is about baseline monitor hx of CVA continue Plavix and lipitor CAD continue home meds DVT prophylaxis on Sq Lovenox will transition to PO AC once cleared by speech) Subjective Date/time seen: 08/11/24 16:53 Interval history: Patient comfortable at bedside and still complained of back pain Review of Systems Review of Systems: 12 systems were reviewed with pertinent positives and negatives per HPI. Except as documented in the HPI, all other systems were reviewed and are negative. Exam Narrative: General: alert and comfortable Eyes: EOMI, PERRLA ENNT External ears normal, Neck is supple, no masses, Respiratory systems: Clear to auscultation Cardiovascular S1, S2, normal rhythm, no murmur, rub, or gallop; no thrill or palpable murmurs on palpation. Gastrointestinal: soft, non-tender, and non-distended abdomen with no masses; BS present Skin: no rash, lesions, ulcerations, subcutaneous nodules or induration Musculoskeletal: spine tenderness on palpation Neurologic: Alert and oriented x3, power 4/5 in lower extremities Mental Status Exam: normal affect Const: Other: Obese, mildly ill-appearing, uncomfortable HENMT: Other: Mucous membranes are dry, no oral pharyngeal erythema, crowded posterior oropharynx, head is normocephalic atraumatic Eyes: Other: Pupils are equal and reactive no scleral icterus, no conjunctival pallor Neck: Other: Large neck circumference, no gross lymphadenopathy, possible thyroid enlargement Resp: Other: Crackles of the right upper lobe, decreased breath sounds at the bases, moderate tachypnea with abdominal respirations Cardio: Other: Sinus tachycardia, 2+ bilateral radial pedal pulses, no murmur, no JVD GI: Other: Obese, distended, soft, nontender, positive bowel sounds Back/Spine/Pelvis: Other: No reproducible pain to palpation of spinous processes, surgical scar over L4-S1 region Skin: Other: Hot to touch, mildly diaphoretic Neuro: Other: Alert oriented x4, speech is clear, no facial asymmetry, decreased sensation of left upper and lower extremity which patient reports is chronic, 5/5 molder wax ball strength on the left 4/5 molder wax ball strength on the right, extraocular movements intact Psych: Other: Anxious, pleasant, cooperative, appropriate judgment and insight Objective Data Vital Signs Vital Signs: Vital Signs - 24 hr 08/10/24 18:00 08/10/24 19:04 08/10/24 20:00 Temperature 101.5 F H 101.5 F H Pulse Rate 117 H 123 H Respiratory Rate 24 H Blood Pressure 154/84 H Pulse Oximetry 95 Oxygen Delivery Oxygen Flow Rate 08/10/24 20:00 08/10/24 20:50 08/10/24 20:53 Temperature Pulse Rate 124 H 117 H Respiratory Rate 18 Blood Pressure Pulse Oximetry 95 92 Oxygen Delivery Nasal Cannula Nasal Cannula Oxygen Flow Rate 3 3 08/10/24 21:02 08/10/24 21:47 08/10/24 23:32 Temperature 100.8 F H 98.2 F Pulse Rate 130 H 118 H 114 H Respiratory Rate 18 28 H 28 H Blood Pressure 179/73 H 154/59 H Pulse Oximetry 93 92 Oxygen Delivery Oxygen Flow Rate 08/10/24 20:00 08/10/24 22:00 08/11/24 00:00 Temperature Pulse Rate 123 H 114 H Respiratory Rate Blood Pressure Pulse Oximetry 92 Oxygen Delivery Nasal Cannula Oxygen Flow Rate 3 08/11/24 00:00 08/11/24 02:00 08/11/24 03:39 Temperature Pulse Rate 103 H 113 H 109 H Respiratory Rate 20 Blood Pressure Pulse Oximetry Oxygen Delivery Oxygen Flow Rate 08/11/24 03:48 08/11/24 04:00 08/11/24 04:00 Temperature 99.5 F Pulse Rate 109 H 120 H Respiratory Rate 20 20 Blood Pressure 153/85 H Pulse Oximetry 92 95 Oxygen Delivery Nasal Cannula Oxygen Flow Rate 3 08/11/24 04:00 08/11/24 06:00 08/11/24 08:44 Temperature Pulse Rate 119 H 125 H 118 H Respiratory Rate 22 H Blood Pressure Pulse Oximetry Oxygen Delivery Oxygen Flow Rate 08/11/24 08:45 08/11/24 08:57 08/11/24 08:00 Temperature Pulse Rate 125 H 125 H Respiratory Rate 24 H Blood Pressure Pulse Oximetry 92 92 Oxygen Delivery Nasal Cannula Nasal Cannula Oxygen Flow Rate 3 3 08/11/24 11:31 08/11/24 12:00 08/11/24 12:19 Temperature 100.9 F H Pulse Rate 140 H 132 H Respiratory Rate 26 H Blood Pressure 184/62 H Pulse Oximetry 90 90 Oxygen Delivery Nasal Cannula Oxygen Flow Rate 3 08/11/24 14:13 08/11/24 10:00 08/11/24 12:00 Temperature 100.3 F H Pulse Rate 123 H 132 H 137 H Respiratory Rate 24 H Blood Pressure 151/63 H Pulse Oximetry 93 Oxygen Delivery Oxygen Flow Rate 08/11/24 14:00 08/11/24 14:32 08/11/24 14:00 Temperature Pulse Rate 123 H 125 H 116 H Respiratory Rate Blood Pressure 151/63 H 151/63 H Pulse Oximetry Oxygen Delivery Oxygen Flow Rate 08/11/24 14:43 08/11/24 14:54 08/11/24 16:21 Temperature 98.8 F Pulse Rate 121 H 123 H 117 H Respiratory Rate 28 H 28 H 22 H Blood Pressure 172/56 H Pulse Oximetry 93 Oxygen Delivery Oxygen Flow Rate Intake/Output Intake/Output: Intake & Output 08/08/24 08/09/24 08/10/24 08/11/24 23:59 23:59 23:59 23:59 Intake Total 3200 2915 1416.6 Output Total 1100 1575 Balance 3200 1815 -158.4 Meds/Results Medications: Active Medications Generic Name Dose Route Start Last Admin Trade Name Freq PRN Reason Stop Dose Admin Acetaminophen 650 mg 08/09/24 19:56 08/10/24 20:00 Acetaminophen 325 Mg Tablet PO 650 mg Q4H PRN Administration Mild Pain (1-3) or Fever Atorvastatin Calcium 40 mg 08/10/24 09:00 08/11/24 12:31 Atorvastatin 40 Mg Tablet PO Not Given DAILY [place] Calcium Carbonate 500 mg 08/10/24 09:00 08/11/24 12:31 Calcium Carbonate (Oscal) 500 Mg Tablet PO Not Given QAM [facility] Cyclobenzaprine HCl 10 mg 08/10/24 04:26 08/10/24 20:00 Cyclobenzaprine Hcl 10 Mg Tablet PO 10 mg TID PRN Administration muscle spasm Dextrose 12.5 gm 08/10/24 06:29 08/11/24 10:46 Dextrose 50% 25 Gm/50 Ml Syringe IV PUSH 12.5 gm PRN PRN Administration Hypoglycemia Protocol Finasteride 5 mg 08/10/24 09:00 08/11/24 12:32 Finasteride 5 Mg Tablet BY MOUTH Not Given DAILY [facility] Glucagon 1 mg 08/10/24 06:29 Glucagon For Inj 1 Mg Vial IM PRN PRN Hypoglycemia Protocol Glucose 15 gm 08/10/24 06:29 Glucose Oral Gel 15 Gm Of Glucse In 37.5 Gm Tube PO PRN PRN Hypoglycemia Protocol Hydralazine HCl 20 mg 08/11/24 11:57 Hydralazine Hcl 20 Mg/Ml Vial IV PUSH Q4H PRN Blood Sugar - High Levofloxacin/Dextrose 750 mg in 150 mls @ 100 mls/hr 08/09/24 20:00 08/09/24 20:35 Levaquin 750 Mg/D5w 150 Ml IVPB Infused Q48H [place] Infusion Sodium Chloride 1,000 mls @ 100 mls/hr 08/09/24 20:00 08/11/24 11:20 Normal Saline Iv IV CONT 100 mls/hr .Q10H [place] Administration Dextrose 1,000 mls @ 100 mls/hr 08/10/24 06:29 Dextrose 5% 1,000 Ml IVPB PRN PRN Hypoglycemia Protocol Vancomycin HCl 1,500 mg in 500 mls @ 250 mls/hr 08/10/24 21:00 08/10/24 20:10 Vancomycin 1,500 Mg/Ns 500 Ml IVPB 250 mls/hr Q24H [place] Administration Metronidazole 500 mg in 100 mls @ 100 mls/hr 08/10/24 13:00 08/11/24 15:21 Flagyl 500 Mg/Iso Soln 100 Ml IVPB 100 mls/hr Q8HR [place] Administration Diltiazem HCl 100 mg in 100 mls @ 10 mls/hr 08/11/24 12:05 08/11/24 14:32 Cardizem 100 Mg/100 Ml IV CONT 10 mg/hr .Q10H [place] 10 mls/hr Infusion 10 MG/HR Ipratropium [place] 0.5 mg 08/10/24 08:00 08/11/24 14:41 Ipratropium Br 0.02% Inh Soln 0.5 Mg/2.5 Ml Vial INHALATION 0.5 mg Q6HRT [place] Administration Levalbuterol HCl 0.63 mg 08/10/24 08:00 08/11/24 14:41 Levalbuterol Neb 1.25 Mg/3 Ml INHALATION 0.63 mg Q6HRT [place] Administration Metoprolol Succinate 50 mg 08/11/24 16:10 Metoprolol Succinate Ext Rel 50 Mg Tabcr PO QAM [facility] Multivitamins Therapeutic 1 tablet 08/10/24 09:00 08/11/24 12:32 Multivitamins Therapeutic Tab (*Bkc) PO Not Given DAILY [place] Nortriptyline HCl 50 mg 08/10/24 21:00 08/10/24 20:01 Nortriptyline Hcl 25 Mg Capsule PO 50 mg QHS [place] Administration Pantoprazole Sodium 40 mg 08/10/24 21:00 08/10/24 20:01 Pantoprazole 40 Mg Tablet PO 40 mg HS [place] Administration Polyethylene Glycol 17 gm 08/10/24 04:26 Polyethylene Glycol 3350 17 Gm Powd.Pack PO DAILY PRN Constipation Rivaroxaban 20 mg 08/11/24 17:00 Rivaroxaban 20 Mg Tablet PO DAILY@1700 [facility] Tamsulosin HCl 0.4 mg 08/10/24 09:00 08/11/24 16:26 Tamsulosin Hcl 0.4 Mg Capsule PO Not Given BID [facility] Vitamin D 5,000 units 08/10/24 09:00 08/11/24 12:31 Cholecalciferol 1,000 Units Tablet PO Not Given DAILY [facility] Radiology Results: ITS Impressions Head CT 08/09/24 17:49 IMPRESSION: 1. No fracture or acute intracranial process. 2. 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 3. Age-related changes including mild diffuse volume loss and mild scattered mesenteric white matter hypoattenuation consistent with chronic small vessel ischemic disease. Cervical Spine CT 08/09/24 18:15 IMPRESSION: 1. Moderate to severe cervical spondylosis. No acute osseous abnormality. Thoracic/Lumbar Spine CT 08/09/24 18:22 IMPRESSION: 1. Multiple old posterior left rib fractures and chronic compression fractures with mild anterior wedging at T5 and T6 and mild right-sided anterior vertebral body height loss at L2. No acute osseous abnormality. 2. Moderate thoracic spondylosis and mild lumbar spondylosis. 3. Combined instrumented L5-S1 anterior and posterior spinal fusion. 4. Chronic bilateral lower lung predominant interstitial lung disease with indeterminate 8 mm pulmonary nodule in the left lower lobe. Recommend 3 month follow-up low-dose noncontrast chest CT. Chest CTA 08/10/24 18:43 IMPRESSION: 1. No pulmonary embolism. 2. Bilateral interstitial and alveolar opacification more prominent in the right upper lobe which may indicate pneumonitis versus fibrotic changes versus pulmonary edema. 3. Bilateral pleural effusion more on the right side. 4. Cholelithiasis. 5. Left adrenal adenoma. 6. Mediastinal lymphadenopathy.. 7. Multiple healing rib fractures in the left hemithorax. Cervical Spine MRI 08/11/24 09:18 IMPRESSION: 1. Moderate to severe cervical spondylosis. 2. Heterogeneous marrow signal with regions of increased fluid and decreased T1 signal which raises concern for multiple myeloma or metastatic disease. Assessment is however limited by motion artifact in the absence of intravenous contrast. Chest X-Ray 08/11/24 09:19 IMPRESSION: Suggestion of congestive heart failure; interstitial pneumonitis patient pneumonia is not excluded Brain MRA 08/11/24 09:25 IMPRESSION: 1. High-grade stenosis on the right P1 segment with downstream moderate-sized region of encephalomalacia consistent with chronic infarct. 2. Moderate grade stenosis at the origin of the right M1 segment. Venous Doppler Study 08/11/24 14:29 IMPRESSION: 1. No deep venous thrombosis in either lower limb. Labs Labs: Laboratory Results - last 24 hr 08/10/24 08/11/24 08/11/24 23:26 04:42 08:28 Puncture Site ABG pH ABG pCO2 ABG pO2 ABG PO2/FiO2 Ratio ABG HCO3 ABG O2 Saturation ABG O2 Content ABG Base Excess A-a Gradient Oxyhemoglobin Total Hemoglobin O2 Delivery Device O2 Liters/Min FiO2 Creatinine 1.20 Estim Creat Clear Calc 52 Estimated GFR 58 L POC Capillary Glucose 82 73 08/11/24 08/11/24 08/11/24 09:23 11:07 16:15 Puncture Site Right radial ABG pH 7.418 ABG pCO2 22.8 L* ABG pO2 65.8 L ABG PO2/FiO2 Ratio 2.06 ABG HCO3 14.4 L ABG O2 Saturation 93.8 L ABG O2 Content 15.4 L ABG Base Excess -8.3 A-a Gradient 135.7 Oxyhemoglobin 91.9 Total Hemoglobin 11.9 L O2 Delivery Device Nasal cannula O2 Liters/Min 3.0 FiO2 32 Creatinine Estim Creat Clear Calc Estimated GFR POC Capillary Glucose 112 H 99 Quality VTE Prophylaxis VTE prophylaxis: pharmacologic ordered (Lovenox 40 mg subQ daily.)
[2024-08-11 20:07] LABS: Glucose Point of Care 103 mg/dl (65-105)
[2024-08-11 20:53] LABS: MRSA (PCR) NOT DETECTED (NOT DETECTE)
[2024-08-11] MEDS: levoFLOXacin 750 MG/D5W 150 ML 750 MG/150 ML BAG 100 MG IVPB (21:14)
[2024-08-11] MEDS: dilTIAZem 100 MG/100 ML 100 MG/100 ML BAG 15 MG IV CONT (21:15)
[2024-08-11] MEDS: ENOXAPARIN 100 MG/ML SYRINGE 95 MG SUB-Q (21:16)
[2024-08-11] MEDS: VANCOMYCIN 1,250 MG/NS 250 ML 1,250 MG/250 ML BAG 166.67 MG IVPB (21:47)
[2024-08-12] VITALS (24 sets, daily range): BP systolic 131–168; BP diastolic 49–114; PULSE 83–107; RESP 18–30; TEMP 36.6–37.4; O2SAT 90–99; BMI 10.0
[2024-08-12] MEDS: PROMETHAZINE HCL 25 MG/ML AMPUL IM (01:00)
[2024-08-12] MEDS: IPRATROPIUM BR 0.02% INH SOLN 0.5 MG/2.5 ML VIAL INHALATION ×4 (01:20→20:51)
[2024-08-12] MEDS: LEVALBUTEROL NEB 1.25 MG/3 ML 0.63 MG INHALATION ×4 (01:21→20:51)
[2024-08-12] MEDS: dilTIAZem 100 MG/100 ML 100 MG/100 ML BAG 15 MG IV CONT (03:04)
[2024-08-12 04:07] LABS: Hematocrit 33.6 % (42.0-52.0); Immature Platelet Fraction Pct 3.1 % (0.9-11.2); Mean Corpuscular HGB Conc 32.7 g/dl (32-36); Mean Corpuscular Hemoglobin 26.7 pg (26-34); Mean Corpuscular Volume 81.6 fl (80-100); Mean Platelet Volume 10.1 fl (7.4-10.4); Red Blood Count 4.12 M/mm3 (4.6-6.20); Red Cell Distribution Width 16.2 % (11.5-14.5); White Blood Count 14.4 K/mm3 (4.5-10.0)
[2024-08-12] MEDS: ONDANSETRON INJ 4 MG/2 ML VIAL IV PUSH (04:19)
[2024-08-12 04:26] LABS: Alanine Aminotransferase 45 U/L (6-50); Albumin Level 2.8 g/dL (3.5-5.1); Alkaline Phosphatase 255 U/L (38-126); Anion Gap 16 mmol/L (4-12); Aspartate Amino Transferase 190 U/L (17-59); Bilirubin,Total 0.9 mg/dL (0.2-1.3); Blood Urea Nitrogen 38 mg/dL (9-20); Calcium 8.8 mg/dL (8.4-10.2); Carbon Dioxide 13 mmol/L (22-30); Chloride 112 mmol/L (98-107); Estimated CRCL calculation 42 ml/min; Estimated Glomerular Filt Rate 45; Glucose 114 mg/dL (65-110); Magnesium 1.5 mg/dL (1.6-2.3); Potassium 3.8 mmol/L (3.4-5.0); Sodium 141 mmol/L (137-145)
[2024-08-12 04:27] LABS: Platelet Count Result 73 k/mm3 (150-375)
[2024-08-12 04:34] LABS: Anisocytosis 1+; Atypical Lymphocytes Present; Burr Cells 1+; Monocytes Absolute Manual 0.57 K/mm3 (0.1-0.90); Monocytes Percent Manual 4 % (3-9); Neutrophils Percent Manual 80 % (46-73); Platelet Estimate Decreased (Adequate); Schistocytes None Seen; Smudge Cells PRESENT; Total Cells Counted 100
--- NOTE | 2024-08-12 04:38 | PM.EVENT ---
Event Note Event Note Event Note: In the manufacturing storeperson hours nursing staff called to notify me that the patient was having nausea vomiting and that the patient had not slept for 3 days. I gave a dose of Phenergan but despite this the patient continued to have vomiting his emesis then became frankly bilious. The patient was NPO due to a failed bedside swallow. Order had been placed for modified barium swallow for this a.m.. However given the patient developing bilious emesis at a stat KUB was ordered. The KUB demonstrated markedly dilated gastric cardia and large stool ball in the rectal vault with some dilated loops of bowel as well. Differential includes ileus versus small-bowel obstruction versus volvulus. An order was given to place an NG tube. Patient had immediate return of 900 mL of bilious liquid. An order has been placed for stat CT with contrast of chest abdomen and pelvis given concerns for possible aspiration and to rule out volvulus versus small-bowel obstruction. After placement of the NG tube and drainage of gastric contents the patient immediately fell asleep in is been snoring loudly. His belly is now soft and nondistended. He does have hypoactive bowel sounds. Patient has no overt right upper quadrant pain on exam. Patient did report having difficulty having bowel movements on admission and having slow urine output. He has a pure wick in place and has had approximately 600 mL out in the suction canister. Bilious emesis with abnormal KUB--CT scan has been ordered. Patient remains NPO. Significant improvement in symptoms with NG placement. Will await CT results. 30 minute spent in critical care activities. Due to a high probability of clinically significant, life threatening deterioration, the patient required my highest level of preparedness to intervene emergently and I personally spent this critical care time directly and personally managing the patient. This critical care time included obtaining a history; examining the patient; pulse oximetry; ordering and review of studies; arranging urgent treatment with development of a management plan; evaluation of patient's response to treatment; frequent reassessment; and discussions with other providers. It was exclusive of separately billable procedures and treating other patients and teaching time. Please see Assessment and Plan section and the rest of the note for further information on patient assessment and treatment.
[2024-08-12] MEDS: metroNIDAZOLE 500 MG/ISO 100ML 500 MG/100 ML BAG 100 MG IVPB ×3 (06:34→21:17)
[2024-08-12 07:02] LABS: Lipase 36 U/L (23-300)
[2024-08-12 07:41] LABS: Lactic Acid Reflex 3.4 mmol/L (0.7-2.0)
[2024-08-12 07:46] LABS: Glucose Point of Care 114 mg/dl (65-105)
--- NOTE | 2024-08-12 08:29 | ECG_ITS ---
Test Date: 2024-08-12 08:55:45 Measurements Intervals [place] Rate: 84 P: 28 UT: 179 QRS: 63 QRSD: 109 T: 45 QT: 370 QTc: 439 Interpretive Statements SINUS RHYTHM WITH OCCASIONAL VENTRICULAR PREMATURE COMPLEXES BASELINE ARTIFACT- I, III, AVR, AVL, AVF, V1, V4-V6 BORDERLINE ECG Compared to ECG 08/11/2024 11:32:43 HEART RATE HAS DECREASED Electronically Signed On 08-12-2024 14:10:22 ASSOCIATE DIRECTOR by Asael Jha D.O.
[2024-08-12] MEDS: MAGNESIUM SULF 4 GM/WATER100ML 4 GM/100 ML BAG IVPB (08:30)
[2024-08-12] MEDS: PANTOPRAZOLE SODIUM IV 40 MG VIAL IV PUSH (08:31)
[2024-08-12 10:21] LABS: Reflex Lactic Acid Yes or No Add Lactic
[2024-08-12] MEDS: SODIUM BICARBONATE 8.4% 150 MEQ in DEXTROSE 5% 1,000 ML 950 ML 100 MEQ IV CONT ×2 (10:29→21:19)
[2024-08-12 10:50] LABS: Creatine Kinase 265 U/L (55-170)
[2024-08-12 10:53] LABS: Lactic Acid 4.3 mmol/L (0.7-2.0)
[2024-08-12] MEDS: VANCOMYCIN 1,250 MG/NS 250 ML 1,250 MG/250 ML BAG 166.67 MG IVPB (11:05)
--- NOTE | 2024-08-12 11:40 | P.PNCA_ITS ---
Progress Note: A&P Assessment and Plan (1) Atrial fibrillation: Code(s): I48.91 - Unspecified atrial fibrillation Status: Acute Plan Paroxysmal fibrillation currently in sinus rhythm Sepsis SAMUEL Plan Continue metoprolol when patient is tolerating oral intake Continue Xarelto when patient is tolerating oral intake and no plan for procedures or surgeries Cardiology will sign off please call back if needed Subjective Date/time seen: 08/12/24 11:40 Interval history: no acute events Tele SR Review of Systems Review of Systems: All systems reviewed & are unremarkable except as noted in HPI and below Exam Const: Other: Well-developed well-nourished elderly man supine in bed asking for something to drink HENMT: Mouth: Yes moist mucous membranes Eyes: Sclera: sclerae normal Neck: Neck: supple and no JVD Resp: Effort & Inspection: normal respiratory effort Other: Coarse rhonchorous breath sounds Cardio: Rate: tachycardic Rhythm: abnormal rhythm irregularly irregular Other: No audible murmur exam somewhat difficult GI: GI Palp: Yes Soft to palpation Auscultation: normal bowel sounds Skin: General skin exam: normal color Neuro: Other: Alert and responsive oriented x3 Extrem: Other: No edema, good distal pulses Objective Data Vital Signs Vital Signs: Vital Signs - 24 hr 08/11/24 12:00 08/11/24 12:19 08/11/24 14:13 Temperature 37.9 C H Pulse Rate 132 H 123 H Respiratory Rate 24 H Blood Pressure 151/63 H Pulse Oximetry 90 93 Oxygen Delivery Nasal Cannula Oxygen Flow Rate 3 08/11/24 12:00 08/11/24 14:00 08/11/24 14:32 Temperature Pulse Rate 137 H 123 H 125 H Respiratory Rate Blood Pressure 151/63 H 151/63 H Pulse Oximetry Oxygen Delivery Oxygen Flow Rate 08/11/24 14:00 08/11/24 14:43 08/11/24 14:54 Temperature Pulse Rate 116 H 121 H 123 H Respiratory Rate 28 H 28 H Blood Pressure Pulse Oximetry Oxygen Delivery Oxygen Flow Rate 08/11/24 16:21 08/11/24 16:00 08/11/24 17:19 Temperature 37.1 C Pulse Rate 117 H 117 H 122 H Respiratory Rate 22 H Blood Pressure 172/56 H 172/56 H 172/56 H Pulse Oximetry 93 Oxygen Delivery Oxygen Flow Rate 08/11/24 17:25 08/11/24 18:22 08/11/24 18:00 Temperature 37.2 C Pulse Rate 115 H 105 H Respiratory Rate 20 Blood Pressure 172/56 H 164/72 H 164/72 H Pulse Oximetry 94 Oxygen Delivery Oxygen Flow Rate 08/11/24 16:00 08/11/24 16:00 08/11/24 18:00 Temperature Pulse Rate 118 H 106 H Respiratory Rate Blood Pressure Pulse Oximetry 94 Oxygen Delivery Nasal Cannula Oxygen Flow Rate 3 08/11/24 20:16 08/11/24 20:19 08/11/24 20:00 Temperature 38.2 C H Pulse Rate 111 H 111 H 108 H Respiratory Rate 26 H 26 H 22 H Blood Pressure 155/58 H Pulse Oximetry 94 97 Oxygen Delivery Nasal Cannula Oxygen Flow Rate 3 08/11/24 20:39 08/11/24 21:02 08/11/24 21:15 Temperature Pulse Rate 108 H 112 H 112 H Respiratory Rate 28 H Blood Pressure 155/58 H 155/58 H Pulse Oximetry Oxygen Delivery Oxygen Flow Rate 08/11/24 20:00 08/11/24 20:00 08/11/24 22:00 Temperature 36.9 C Pulse Rate 108 H 110 H Respiratory Rate 30 H Blood Pressure 155/58 H 158/53 H Pulse Oximetry 94 94 Oxygen Delivery Nasal Cannula Oxygen Flow Rate 3 08/11/24 22:00 08/11/24 20:00 08/12/24 00:00 Temperature 36.9 C Pulse Rate 110 H 107 H 104 H Respiratory Rate 24 H Blood Pressure 168/59 H Pulse Oximetry 93 Oxygen Delivery Oxygen Flow Rate 08/12/24 01:21 08/12/24 01:28 08/12/24 02:00 Temperature 36.6 C Pulse Rate 102 H 101 H 97 Respiratory Rate 26 H 28 H 28 H Blood Pressure 164/58 H Pulse Oximetry 92 Oxygen Delivery Oxygen Flow Rate 08/12/24 00:00 08/12/24 00:00 08/11/24 22:00 Temperature Pulse Rate 104 H 110 H Respiratory Rate Blood Pressure 168/59 H 158/53 H Pulse Oximetry 92 Oxygen Delivery Nasal Cannula Oxygen Flow Rate 3 08/12/24 02:00 08/12/24 03:04 08/12/24 03:04 Temperature Pulse Rate 97 95 95 Respiratory Rate Blood Pressure 164/58 H 164/58 H 164/58 H Pulse Oximetry Oxygen Delivery Oxygen Flow Rate 08/12/24 04:00 08/12/24 06:00 08/12/24 04:00 Temperature 37.4 C 36.7 C Pulse Rate 90 86 Respiratory Rate 24 H 24 H Blood Pressure 143/49 H 131/58 L Pulse Oximetry 91 91 91 Oxygen Delivery Nasal Cannula Oxygen Flow Rate 3 08/12/24 07:26 08/12/24 00:00 08/12/24 04:00 Temperature 36.7 C Pulse Rate 84 107 H 98 Respiratory Rate 26 H Blood Pressure 138/53 L Pulse Oximetry 90 Oxygen Delivery Oxygen Flow Rate 08/12/24 06:00 08/12/24 04:00 08/12/24 06:00 Temperature Pulse Rate 83 90 86 Respiratory Rate Blood Pressure 143/49 H 134/58 L Pulse Oximetry Oxygen Delivery Oxygen Flow Rate 08/12/24 08:00 08/12/24 09:31 08/12/24 08:20 Temperature Pulse Rate 104 H 104 H 102 H Respiratory Rate 22 H 22 H 22 H Blood Pressure Pulse Oximetry 94 Oxygen Delivery Nasal Cannula Oxygen Flow Rate 3 08/12/24 09:06 08/12/24 10:05 Temperature Pulse Rate Respiratory Rate Blood Pressure Pulse Oximetry Oxygen Delivery Nasal Cannula Nasal Cannula Oxygen Flow Rate 3 3 Intake/Output Intake/Output: Intake & Output 08/09/24 08/10/24 08/11/24 08/12/24 23:59 23:59 23:59 23:59 Intake Total 3200 2915 2949.6 120 Output Total 1100 1575 500 Balance 3200 1815 1374.6 -380 Meds/Results Medications: Active Medications Generic Name Dose Route Start Last Admin Trade Name Freq PRN Reason Stop Dose Admin Acetaminophen 650 mg 08/09/24 19:56 08/10/24 20:00 Acetaminophen 325 Mg Tablet PO 650 mg Q4H PRN Administration Mild Pain (1-3) or Fever Atorvastatin Calcium 40 mg 08/10/24 09:00 08/11/24 12:31 Atorvastatin 40 Mg Tablet PO Not Given DAILY [place] Dextrose 12.5 gm 08/10/24 06:29 08/11/24 10:46 Dextrose 50% 25 Gm/50 Ml Syringe IV PUSH 12.5 gm PRN PRN Administration Hypoglycemia Protocol Enoxaparin Sodium 95 mg 08/11/24 21:00 08/12/24 08:34 Enoxaparin 100 Mg/Ml Syringe SUB-Q Not Given Q12H [place] Finasteride 5 mg 08/10/24 09:00 08/11/24 12:32 Finasteride 5 Mg Tablet BY MOUTH Not Given DAILY [place] Glucagon 1 mg 08/10/24 06:29 Glucagon For Inj 1 Mg Vial IM PRN PRN Hypoglycemia Protocol Glucose 15 gm 08/10/24 06:29 Glucose Oral Gel 15 Gm Of Glucse In 37.5 Gm Tube PO PRN PRN Hypoglycemia Protocol Hydralazine HCl 20 mg 08/11/24 11:57 Hydralazine Hcl 20 Mg/Ml Vial IV PUSH Q4H PRN Blood Sugar - High Levofloxacin/Dextrose 750 mg in 150 mls @ 100 mls/hr 08/09/24 20:00 08/11/24 21:14 Levaquin 750 Mg/D5w 150 Ml IVPB 100 mls/hr Q48H [place] Administration Dextrose 1,000 mls @ 100 mls/hr 08/10/24 06:29 Dextrose 5% 1,000 Ml IVPB PRN PRN Hypoglycemia Protocol Metronidazole 500 mg in 100 mls @ 100 mls/hr 08/10/24 13:00 08/12/24 06:34 Flagyl 500 Mg/Iso Soln 100 Ml IVPB 100 mls/hr Q8HR [place] Administration Vancomycin HCl 1,250 mg in 250 mls @ 166.667 mls/hr 08/11/24 22:00 08/12/24 11:05 Vancomycin 1,250 Mg/Ns 250 Ml IVPB 166.67 mls/hr Q12H [place] Administration Sodium Bicarbonate 150 meq/ 1,100 mls @ 125 mls/hr 08/12/24 08:00 08/12/24 10:29 Dextrose IV CONT 100 mls/hr .Q8H48M [place] Administration Ipratropium [place] 0.5 mg 08/10/24 08:00 08/12/24 08:30 Ipratropium Br 0.02% Inh Soln 0.5 Mg/2.5 Ml Vial INHALATION 0.5 mg Q6HRT [place] Administration Levalbuterol HCl 0.63 mg 08/10/24 08:00 08/12/24 08:30 Levalbuterol Neb 1.25 Mg/3 Ml INHALATION 0.63 mg Q6HRT [place] Administration Metoprolol Succinate 50 mg 08/11/24 16:10 08/11/24 17:02 Metoprolol Succinate Ext Rel 50 Mg Tabcr PO Not Given QAM [facility] Morphine Sulfate 2 mg 08/12/24 03:15 Morphine Sulfate (*Crx) 2 Mg/Ml Inj IV PUSH Q4H PRN Pain Rated 7-10 Multivitamins Therapeutic 1 tablet 08/10/24 09:00 08/12/24 08:31 Multivitamins Therapeutic Tab (*Bkc) PO Not Given DAILY [facility] Nortriptyline HCl 50 mg 08/10/24 21:00 08/11/24 19:50 Nortriptyline Hcl 25 Mg Capsule PO Not Given QHS [facility] Ondansetron HCl 4 mg 08/12/24 03:15 08/12/24 04:19 Ondansetron Inj 4 Mg/2 Ml Vial IV PUSH 4 mg Q4H PRN Administration Nausea And Vomiting Pantoprazole Sodium 40 mg 08/12/24 09:00 08/12/24 08:31 Pantoprazole Sodium Iv 40 Mg Vial IV PUSH 40 mg QAM [facility] Administration Rivaroxaban 20 mg 08/11/24 17:00 Rivaroxaban 20 Mg Tablet PO DAILY@1700 [facility] Tamsulosin HCl 0.4 mg 08/10/24 09:00 08/11/24 16:26 Tamsulosin Hcl 0.4 Mg Capsule PO Not Given BID [facility] Radiology Results: ITS Impressions Head CT 08/09/24 17:49 IMPRESSION: 1. No fracture or acute intracranial process. 2. 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 3. Age-related changes including mild diffuse volume loss and mild scattered mesenteric white matter hypoattenuation consistent with chronic small vessel ischemic disease. Cervical Spine CT 08/09/24 18:15 IMPRESSION: 1. Moderate to severe cervical spondylosis. No acute osseous abnormality. Thoracic/Lumbar Spine CT 08/09/24 18:22 IMPRESSION: 1. Multiple old posterior left rib fractures and chronic compression fractures with mild anterior wedging at T5 and T6 and mild right-sided anterior vertebral body height loss at L2. No acute osseous abnormality. 2. Moderate thoracic spondylosis and mild lumbar spondylosis. 3. Combined instrumented L5-S1 anterior and posterior spinal fusion. 4. Chronic bilateral lower lung predominant interstitial lung disease with indeterminate 8 mm pulmonary nodule in the left lower lobe. Recommend 3 month follow-up low-dose noncontrast chest CT. Chest CTA 08/10/24 18:43 IMPRESSION: 1. No pulmonary embolism. 2. Bilateral interstitial and alveolar opacification more prominent in the right upper lobe which may indicate pneumonitis versus fibrotic changes versus pulmonary edema. 3. Bilateral pleural effusion more on the right side. 4. Cholelithiasis. 5. Left adrenal adenoma. 6. Mediastinal lymphadenopathy.. 7. Multiple healing rib fractures in the left hemithorax. Cervical Spine MRI 08/11/24 09:18 IMPRESSION: 1. Moderate to severe cervical spondylosis. 2. Heterogeneous marrow signal with regions of increased fluid and decreased T1 signal which raises concern for multiple myeloma or metastatic disease. Asse ssment is however limited by motion artifact in the absence of intravenous contrast. Chest X-Ray 08/11/24 09:19 IMPRESSION: Suggestion of congestive heart failure; interstitial pneumonitis patient pneumonia is not excluded Brain MRA 08/11/24 09:25 IMPRESSION: 1. High-grade stenosis on the right P1 segment with downstream moderate-sized region of encephalomalacia consistent with chronic infarct. 2. Moderate grade stenosis at the origin of the right M1 segment. Venous Doppler Study 08/11/24 14:29 IMPRESSION: 1. No deep venous thrombosis in either lower limb. Abdomen X-Ray 08/12/24 06:14 IMPRESSION: NG tube in gastric fundus Chest/Abdomen/Pelvis CT 08/12/24 08:46 IMPRESSION: Extensive interval bilateral patchy pulmonary infiltrates since 08/10/2024, which may be consistent with extensive aspiration pneumonitis or rapidly worsening pneumonia Labs Labs: Laboratory Results - last 24 hr 08/11/24 08/11/24 08/11/24 16:15 19:36 19:38 WBC RBC Hgb Hct MCV MCH MCHC RDW Plt Count MPV Immature Gran % (Auto) Neut % (Auto) Lymph % (Auto) [place] % (Auto) Eos % (Auto) Baso % (Auto) Lymph # (Auto) [place] # (Auto) Eos # (Auto) Baso # (Auto) Abs Immat Gran (auto) Absolute Neuts (auto) Absolute Nucleated RBC Total Counted Neutrophils % (Manual) Lymphocytes % (Manual) Monocytes % (Manual) Nucleated RBC % Abs Lymphs (Manual) Abs Monocytes (Manual) Atypical Lymphocytes Smudge Cells Platelet Estimate % Immature Plt Fraction Anisocytosis [place] Cells Schistocytes Sodium Potassium Chloride Carbon Dioxide Anion Gap BUN Creatinine Estim Creat Clear Calc Estimated GFR Glucose POC Capillary Glucose 99 Lactic Acid Calcium Magnesium Total Bilirubin AST ALT Alkaline Phosphatase Total Creatine Kinase Total Protein Albumin Lipase Nasal MRSA (PCR) Not detected Vancomycin Trough 10.0 08/11/24 08/12/24 08/12/24 19:58 03:55 04:00 WBC 14.4 H RBC 4.12 L Hgb 11.0 L Hct 33.6 L MCV 81.6 MCH 26.7 MCHC 32.7 RDW 16.2 H Plt Count 73 L MPV 10.1 Immature Gran % (Auto) Not Reportable Neut % (Auto) Not Reportable Lymph % (Auto) Not Reportable [place] % (Auto) Not Reportable Eos % (Auto) Not Reportable Baso % (Auto) Not Reportable Lymph # (Auto) Not Reportable [place] # (Auto) Not Reportable Eos # (Auto) Not Reportable Baso # (Auto) Not Reportable Abs Immat Gran (auto) Not Reportable Absolute Neuts (auto) Not Reportable Absolute Nucleated RBC Not Reportable Total Counted 100 Neutrophils % (Manual) 80 H Lymphocytes % (Manual) 16.0 L Monocytes % (Manual) 4 Nucleated RBC % Not Reportable Abs Lymphs (Manual) 2.30 Abs Monocytes (Manual) 0.57 Atypical Lymphocytes Present Smudge Cells Present Platelet Estimate Decreased % Immature Plt Fraction 3.1 Anisocytosis 1+ [place] Cells 1+ Schistocytes None seen Sodium 141 Potassium 3.8 Chloride 112 H Carbon Dioxide 13 L Anion Gap 16 H BUN 38 H D Creatinine 1.50 H Estim Creat Clear Calc 42 Estimated GFR 45 L Glucose 114 H POC Capillary Glucose 103 Lactic Acid Calcium 8.8 Magnesium 1.5 L Total Bilirubin 0.9 AST 190 H ALT 45 Alkaline Phosphatase 255 H Total Creatine Kinase Total Protein 6.0 L Albumin 2.8 L Lipase 36 Nasal MRSA (PCR) Vancomycin Trough 08/12/24 08/12/24 08/12/24 07:16 07:24 10:34 WBC RBC Hgb Hct MCV MCH MCHC RDW Plt Count MPV Immature Gran % (Auto) Neut % (Auto) Lymph % (Auto) [place] % (Auto) Eos % (Auto) Baso % (Auto) Lymph # (Auto) [place] # (Auto) Eos # (Auto) Baso # (Auto) Abs Immat Gran (auto) Absolute Neuts (auto) Absolute Nucleated RBC Total Counted Neutrophils % (Manual) Lymphocytes % (Manual) Monocytes % (Manual) Nucleated RBC % Abs Lymphs (Manual) Abs Monocytes (Manual) Atypical Lymphocytes Smudge Cells Platelet Estimate % Immature Plt Fraction Anisocytosis [place] Cells Schistocytes Sodium Potassium Chloride Carbon Dioxide Anion Gap BUN Creatinine Estim Creat Clear Calc Estimated GFR Glucose POC Capillary Glucose 114 H Lactic Acid 3.4 H 4.3 H* Calcium Magnesium Total Bilirubin AST ALT Alkaline Phosphatase Total Creatine Kinase 265 H Total Protein Albumin Lipase Nasal MRSA (PCR) Vancomycin Trough
--- NOTE | 2024-08-12 11:53 | P.PNIM_ITS ---
Progress Note: A&P Assessment and Plan (1) Sepsis: Qualifiers: Acute renal failure type: unspecified Sepsis acute organ dysfunction status: with acute organ dysfunction Sepsis type: sepsis due to unspecified or ganism Severe sepsis acute organ dysfunction type: acute renal failure Severe sepsis shock status: without septic shock Qualified Code(s): A41.9 - Sepsis, unspecified organism; R65.20 - Severe sepsis without septic shock; N17.9 - Acute kidney failure, unspecified Code(s): A41.9 - Sepsis, unspecified organism Status: Acute (2) Acute dehydration: Code(s): E86.0 - Dehydration Status: Acute (3) Multiple falls: Code(s): R29.6 - Repeated falls Status: Acute Plan Sepsis Likely from Pneumonia r/o diskitis/osteomyelitis CXR showed increasing reticular and groundglass opacities bilateral lungs patient was tachycardia (112), tachypnea (32), WBC 17.[address] Chest negative for PE but showed pneumonia repeat CT AP and chest this morning showed extensive PNA and partial SBO Vital signs stable F/u cultures Continue Levaquin, Flagyl and Vanc MRI spine pending monitor closely Pneumonia CXR showed worsening bilateral reticular and groundglass opacities Continue above care Partial SBO NPO, continue NG tube drained Continue IVF monitor Gen surgery consulted Atrial fibrillation with RVR Now in NSR Cardizem infusion held and Full dose Lovenox on hold due to thrombocytopenia Cardiology following ECHO showed normal LV function Back pain with radiculopathy Patient reported worsening back pain with worsening lower extremities weakness and frequent fall CT spine showed chronic compression fracture at T5, T6 and L2. r/o stroke and cord compression MRI brain and Spine pending PT/OT consulted PRN pain control Elevated ddimer DVT/PE ruled CTA chest pe protocol and venous doppler negative for PE or DVT monitor BPH Continue Finasteride and Tamsulosin Hypertension Continue home meds CKD stage III Cr 1.4 which is about baseline monitor hx of CVA continue Plavix and lipitor CAD continue home meds DVT prophylaxis on Sq Lovenox will transition to PO AC once cleared by speech) Subjective Date/time seen: 08/12/24 11:53 Interval history: Had RR overnight and CT AP showed partial SBO, NG tube was inserted with about 900cc drained Patient now in NSR. Review of Systems Review of Systems: 12 systems were reviewed with pertinent positives and negatives per HPI. Except as documented in the HPI, all other systems were reviewed and are negative. Exam Narrative: General: alert and comfortable Eyes: EOMI, PERRLA ENNT External ears normal, Neck is supple, no masses, Respiratory systems: Clear to auscultation Cardiovascular S1, S2, normal rhythm, no murmur, rub, or gallop; no thrill or palpable murmurs on palpation. Gastrointestinal: soft, non-tender, and non-distended abdomen with no masses; BS present Skin: no rash, lesions, ulcerations, subcutaneous nodules or induration Musculoskeletal: spine tenderness on palpation Neurologic: Alert and oriented x3, power 4/5 in lower extremities Mental Status Exam: normal affect Const: Other: Obese, mildly ill-appearing, uncomfortable HENMT: Other: Mucous membranes are dry, no oral pharyngeal erythema, crowded posterior oropharynx, head is normocephalic atraumatic Eyes: Other: Pupils are equal and reactive no scleral icterus, no conjunctival pallor Neck: Other: Large neck circumference, no gross lymphadenopathy, possible thyroid enlargement Resp: Other: Crackles of the right upper lobe, decreased breath sounds at the bases, moderate tachypnea with abdominal respirations Cardio: Other: Sinus tachycardia, 2+ bilateral radial pedal pulses, no murmur, no JVD GI: Other: Obese, distended, soft, nontender, positive bowel sounds Back/Spine/Pelvis: Other: No reproducible pain to palpation of spinous processes, surgical scar over L4-S1 region Skin: Other: Hot to touch, mildly diaphoretic Neuro: Other: Alert oriented x4, speech is clear, no facial asymmetry, decreased sensation of left upper and lower extremity which patient reports is chronic, 5/[address] wellness str ength on the left 4/5 rn wellness strength on the right, extraocular movements intact Psych: Other: Anxious, pleasant, cooperative, appropriate judgment and insight Objective Data Vital Signs Vital Signs: Vital Signs - 24 hr 08/11/24 12:00 08/11/24 12:19 08/11/24 14:13 Temperature 100.3 F H Pulse Rate 132 H 123 H Respiratory Rate 24 H Blood Pressure 151/63 H Pulse Oximetry 90 93 Oxygen Delivery Nasal Cannula Oxygen Flow Rate 3 08/11/24 12:00 08/11/24 14:00 08/11/24 14:32 Temperature Pulse Rate 137 H 123 H 125 H Respiratory Rate Blood Pressure 151/63 H 151/63 H Pulse Oximetry Oxygen Delivery Oxygen Flow Rate 08/11/24 14:00 08/11/24 14:43 08/11/24 14:54 Temperature Pulse Rate 116 H 121 H 123 H Respiratory Rate 28 H 28 H Blood Pressure Pulse Oximetry Oxygen Delivery Oxygen Flow Rate 08/11/24 16:21 08/11/24 16:00 08/11/24 17:19 Temperature 98.8 F Pulse Rate 117 H 117 H 122 H Respiratory Rate 22 H Blood Pressure 172/56 H 172/56 H 172/56 H Pulse Oximetry 93 Oxygen Delivery Oxygen Flow Rate 08/11/24 17:25 08/11/24 18:22 08/11/24 18:00 Temperature 99 F Pulse Rate 115 H 105 H Respiratory Rate 20 Blood Pressure 172/56 H 164/72 H 164/72 H Pulse Oximetry 94 Oxygen Delivery Oxygen Flow Rate 08/11/24 16:00 08/11/24 16:00 08/11/24 18:00 Temperature Pulse Rate 118 H 106 H Respiratory Rate Blood Pressure Pulse Oximetry 94 Oxygen Delivery Nasal Cannula Oxygen Flow Rate 3 08/11/24 20:16 08/11/24 20:19 08/11/24 20:00 Temperature 100.8 F H Pulse Rate 111 H 111 H 108 H Respiratory Rate 26 H 26 H 22 H Blood Pressure 155/58 H Pulse Oximetry 94 97 Oxygen Delivery Nasal Cannula Oxygen Flow Rate 3 08/11/24 20:39 08/11/24 21:02 08/11/24 21:15 Temperature Pulse Rate 108 H 112 H 112 H Respiratory Rate 28 H Blood Pressure 155/58 H 155/58 H Pulse Oximetry Oxygen Delivery Oxygen Flow Rate 08/11/24 20:00 08/11/24 20:00 08/11/24 22:00 Temperature 98.5 F Pulse Rate 108 H 110 H Respiratory Rate 30 H Blood Pressure 155/58 H 158/53 H Pulse Oximetry 94 94 Oxygen Delivery Nasal Cannula Oxygen Flow Rate 3 08/11/24 22:00 08/11/24 20:00 08/12/24 00:00 Temperature 98.5 F Pulse Rate 110 H 107 H 104 H Respiratory Rate 24 H Blood Pressure 168/59 H Pulse Oximetry 93 Oxygen Delivery Oxygen Flow Rate 08/12/24 01:21 08/12/24 01:28 08/12/24 02:00 Temperature 98 F Pulse Rate 102 H 101 H 97 Respiratory Rate 26 H 28 H 28 H Blood Pressure 164/58 H Pulse Oximetry 92 Oxygen Delivery Oxygen Flow Rate 08/12/24 00:00 08/12/24 00:00 08/11/24 22:00 Temperature Pulse Rate 104 H 110 H Respiratory Rate Blood Pressure 168/59 H 158/53 H Pulse Oximetry 92 Oxygen Delivery Nasal Cannula Oxygen Flow Rate 3 08/12/24 02:00 08/12/24 03:04 08/12/24 03:04 Temperature Pulse Rate 97 95 95 Respiratory Rate Blood Pressure 164/58 H 164/58 H 164/58 H Pulse Oximetry Oxygen Delivery Oxygen Flow Rate 08/12/24 04:00 08/12/24 06:00 08/12/24 04:00 Temperature 99.3 F 98.1 F Pulse Rate 90 86 Respiratory Rate 24 H 24 H Blood Pressure 143/49 H 131/58 L Pulse Oximetry 91 91 91 Oxygen Delivery Nasal Cannula Oxygen Flow Rate 3 08/12/24 07:26 08/12/24 00:00 08/12/24 04:00 Temperature 98.1 F Pulse Rate 84 107 H 98 Respiratory Rate 26 H Blood Pressure 138/53 L Pulse Oximetry 90 Oxygen Delivery Oxygen Flow Rate 08/12/24 06:00 08/12/24 04:00 08/12/24 06:00 Temperature Pulse Rate 83 90 86 Respiratory Rate Blood Pressure 143/49 H 134/58 L Pulse Oximetry Oxygen Delivery Oxygen Flow Rate 08/12/24 08:00 08/12/24 09:31 08/12/24 08:20 Temperature Pulse Rate 104 H 104 H 102 H Respiratory Rate 22 H 22 H 22 H Blood Pressure Pulse Oximetry 94 Oxygen Delivery Nasal Cannula Oxygen Flow Rate 3 08/12/24 09:06 08/12/24 10:05 Temperature Pulse Rate Respiratory Rate Blood Pressure Pulse Oximetry Oxygen Delivery Nasal Cannula Nasal Cannula Oxygen Flow Rate 3 3 Intake/Output Intake/Output: Intake & Output 08/09/24 08/10/24 08/11/24 08/12/24 23:59 23:59 23:59 23:59 Intake Total 3200 2915 2949.6 120 Output Total 1100 1575 500 Balance 3200 1815 1374.6 -380 Meds/Results Medications: Active Medications Generic Name Dose Route Start Last Admin Trade Name Freq PRN Reason Stop Dose Admin Acetaminophen 650 mg 08/09/24 19:56 08/10/24 20:00 Acetaminophen 325 Mg Tablet PO 650 mg Q4H PRN Administration Mild Pain (1-3) or Fever Atorvastatin Calcium 40 mg 08/10/24 09:00 08/11/24 12:31 Atorvastatin 40 Mg Tablet PO Not Given DAILY [facility] Dextrose 12.5 gm 08/10/24 06:29 08/11/24 10:46 Dextrose 50% 25 Gm/50 Ml Syringe IV PUSH 12.5 gm PRN PRN Administration Hypoglycemia Protocol Enoxaparin Sodium 95 mg 08/11/24 21:00 08/12/24 08:34 Enoxaparin 100 Mg/Ml Syringe SUB-Q Not Given Q12H [facility] Finasteride 5 mg 08/10/24 09:00 08/11/24 12:32 Finasteride 5 Mg Tablet BY MOUTH Not Given DAILY [facility] Glucagon 1 mg 08/10/24 06:29 Glucagon For Inj 1 Mg Vial IM PRN PRN Hypoglycemia Protocol Glucose 15 gm 08/10/24 06:29 Glucose Oral Gel 15 Gm Of Glucse In 37.5 Gm Tube PO PRN PRN Hypoglycemia Protocol Hydralazine HCl 20 mg 08/11/24 11:57 Hydralazine Hcl 20 Mg/Ml Vial IV PUSH Q4H PRN Blood Sugar - High Levofloxacin/Dextrose 750 mg in 150 mls @ 100 mls/hr 08/09/24 20:00 08/11/24 21:14 Levaquin 750 Mg/D5w 150 Ml IVPB 100 mls/hr Q48H [place] Administration Dextrose 1,000 mls @ 100 mls/hr 08/10/24 06:29 Dextrose 5% 1,000 Ml IVPB PRN PRN Hypoglycemia Protocol Metronidazole 500 mg in 100 mls @ 100 mls/hr 08/10/24 13:00 08/12/24 06:34 Flagyl 500 Mg/Iso Soln 100 Ml IVPB 100 mls/hr Q8HR [facility] Administration Vancomycin HCl 1,250 mg in 250 mls @ 166.667 mls/hr 08/11/24 22:00 08/12/24 11:05 Vancomycin 1,250 Mg/Ns 250 Ml IVPB 166.67 mls/hr Q12H [place] Administration Sodium Bicarbonate 150 meq/ 1,100 mls @ 125 mls/hr 08/12/24 08:00 08/12/24 10:29 Dextrose IV CONT 100 mls/hr .Q8H48M [facility] Administration Ipratropium [place] 0.5 mg 08/10/24 08:00 08/12/24 08:30 Ipratropium Br 0.02% Inh Soln 0.5 Mg/2.5 Ml Vial INHALATION 0.5 mg Q6HRT [place] Administration Levalbuterol HCl 0.63 mg 08/10/24 08:00 08/12/24 08:30 Levalbuterol Neb 1.25 Mg/3 Ml INHALATION 0.63 mg Q6HRT [facility] Administration Metoprolol Succinate 50 mg 08/11/24 16:10 08/11/24 17:02 Metoprolol Succinate Ext Rel 50 Mg Tabcr PO Not Given QAM [facility] Morphine Sulfate 2 mg 08/12/24 03:15 Morphine Sulfate (*Crx) 2 Mg/Ml Inj IV PUSH Q4H PRN Pain Rated 7-10 Multivitamins Therapeutic 1 tablet 08/10/24 09:00 08/12/24 08:31 Multivitamins Therapeutic Tab (*Bkc) PO Not Given DAILY [facility] Nortriptyline HCl 50 mg 08/10/24 21:00 08/11/24 19:50 Nortriptyline Hcl 25 Mg Capsule PO Not Given QHS [facility] Ondansetron HCl 4 mg 08/12/24 03:15 08/12/24 04:19 Ondansetron Inj 4 Mg/2 Ml Vial IV PUSH 4 mg Q4H PRN Administration Nausea And Vomiting Pantoprazole Sodium 40 mg 08/12/24 09:00 08/12/24 08:31 Pantoprazole Sodium Iv 40 Mg Vial IV PUSH 40 mg QAM [facility] Administration Rivaroxaban 20 mg 08/11/24 17:00 Rivaroxaban 20 Mg Tablet PO DAILY@1700 [facility] Tamsulosin HCl 0.4 mg 08/10/24 09:00 08/11/24 16:26 Tamsulosin Hcl 0.4 Mg Capsule PO Not Given BID [facility] Radiology Results: ITS Impressions Head CT 08/09/24 17:49 IMPRESSION: 1. No fracture or acute intracranial process. 2. 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 3. Age-related changes including mild diffuse volume loss and mild scattered mesenteric white matter hypoattenuation consistent with chronic small vessel ischemic disease. Cervical Spine CT 08/09/24 18:15 IMPRESSION: 1. Moderate to severe cervical spondylosis. No acute osseous abnormality. Thoracic/Lumbar Spine CT 08/09/24 18:22 IMPRESSION: 1. Multiple old posterior left rib fractures and chronic compression fractures with mild anterior wedging at T5 and T6 and mild right-sided anterior vertebral body height loss at L2. No acute osseous abnormality. 2. Moderate thoracic spondylosis and mild lumbar spondylosis. 3. Combined instrumented L5-S1 anterior and posterior spinal fusion. 4. Chronic bilateral lower lung predominant interstitial lung disease with indeterminate 8 mm pulmonary nodule in the left lower lobe. Recommend 3 month follow-up low-dose noncontrast chest CT. Chest CTA 08/10/24 18:43 IMPRESSION: 1. No pulmonary embolism. 2. Bilateral interstitial and alveolar opacification more prominent in the right upper lobe which may indicate pneumonitis versus fibrotic changes versus pulmonary edema. 3. Bilateral pleural effusion more on the right side. 4. Cholelithiasis. 5. Left adrenal adenoma. 6. Mediastinal lymphadenopathy.. 7. Multiple healing rib fractures in the left hemithorax. Cervical Spine MRI 08/11/24 09:18 IMPRESSION: 1. Moderate to severe cervical spondylosis. 2. Heterogeneous marrow signal with regions of increased fluid and decreased T1 signal which raises concern for multiple myeloma or metastatic disease. Assessment is however limited by motion artifact in the absence of intravenous contrast. Chest X-Ray 08/11/24 09:19 IMPRESSION: Suggestion of congestive heart failure; interstitial pneumonitis patient pneumonia is not excluded Brain MRA 08/11/24 09:25 IMPRESSION: 1. High-grade stenosis on the right P1 segment with downstream moderate-sized region of encephalomalacia consistent with chronic infarct. 2. Moderate grade stenosis at the origin of the right M1 segment. Venous Doppler Study 08/11/24 14:29 IMPRESSION: 1. No deep venous thrombosis in either lower limb. Abdomen X-Ray 08/12/24 06:14 IMPRESSION: NG tube in gastric fundus Chest/Abdomen/Pelvis CT 08/12/24 08:46 IMPRESSION: Extensive interval bilateral patchy pulmonary infiltrates since 08/10/2024, which may be consistent with extensive aspiration pneumonitis or rapidly worsening pneumonia Labs Labs: Laboratory Results - last 24 hr 08/11/24 08/11/24 08/11/24 16:15 19:36 19:38 WBC RBC Hgb Hct MCV MCH MCHC RDW Plt Count MPV Immature Gran % (Auto) Neut % (Auto) Lymph % (Auto) Day % (Auto) Eos % (Auto) Baso % (Auto) Lymph # (Auto) Day # (Auto) Eos # (Auto) Baso # (Auto) Abs Immat Gran (auto) Absolute Neuts (auto) Absolute Nucleated RBC Total Counted Neutrophils % (Manual) Lymphocytes % (Manual) Monocytes % (Manual) Nucleated RBC % Abs Lymphs (Manual) Abs Monocytes (Manual) Atypical Lymphocytes Smudge Cells Platelet Estimate % Immature Plt Fraction Anisocytosis Braxton Cells Schistocytes Sodium Potassium Chloride Carbon Dioxide Anion Gap BUN Creatinine Estim Creat Clear Calc Estimated GFR Glucose POC Capillary Glucose 99 Lactic Acid Calcium Magnesium Total Bilirubin AST ALT Alkaline Phosphatase Total Creatine Kinase Total Protein Albumin Lipase Nasal MRSA (PCR) Not detected Vancomycin Trough 10.0 08/11/24 08/12/24 08/12/24 19:58 03:55 04:00 WBC 14.4 H RBC 4.12 L Hgb 11.0 L Hct 33.6 L MCV 81.6 MCH 26.7 MCHC 32.7 RDW 16.2 H Plt Count 73 L MPV 10.1 Immature Gran % (Auto) Not Reportable Neut % (Auto) Not Reportable Lymph % (Auto) Not Reportable Day % (Auto) Not Reportable Eos % (Auto) Not Reportable Baso % (Auto) Not Reportable Lymph # (Auto) Not Reportable Day # (Auto) Not Reportable Eos # (Auto) Not Reportable Baso # (Auto) Not Reportable Abs Immat Gran (auto) Not Reportable Absolute Neuts (auto) Not Reportable Absolute Nucleated RBC Not Reportable Total Counted 100 Neutrophils % (Manual) 80 H Lymphocytes % (Manual) 16.0 L Monocytes % (Manual) 4 Nucleated RBC % Not Reportable Abs Lymphs (Manual) 2.30 Abs Monocytes (Manual) 0.57 Atypical Lymphocytes Present Smudge Cells Present Platelet Estimate Decreased % Immature Plt Fraction 3.1 Anisocytosis 1+ Dennise Cells 1+ Schistocytes None seen Sodium 141 Potassium 3.8 Chloride 112 H Carbon Dioxide 13 L Anion Gap 16 H BUN 38 H D Creatinine 1.50 H Estim Creat Clear Calc 42 Estimated GFR 45 L Glucose 114 H POC Capillary Glucose 103 Lactic Acid Calcium 8.8 Magnesium 1.5 L Total Bilirubin 0.9 AST 190 H ALT 45 Alkaline Phosphatase 255 H Total Creatine Kinase Total Protein 6.0 L Albumin 2.8 L Lipase 36 Nasal MRSA (PCR) Vancomycin Trough 08/12/24 08/12/24 08/12/24 07:16 07:24 10:34 WBC RBC Hgb Hct MCV MCH MCHC RDW Plt Count MPV Immature Gran % (Auto) Neut % (Auto) Lymph % (Auto) Day % (Auto) Eos % (Auto) Baso % (Auto) Lymph # (Auto) Day # (Auto) Eos # (Auto) Baso # (Auto) Abs Immat Gran (auto) Absolute Neuts (auto) Absolute Nucleated RBC Total Counted Neutrophils % (Manual) Lymphocytes % (Manual) Monocytes % (Manual) Nucleated RBC % Abs Lymphs (Manual) Abs Monocytes (Manual) Atypical Lymphocytes Smudge Cells Platelet Estimate % Immature Plt Fraction Anisocytosis Braxton Cells Schistocytes Sodium Potassium Chloride Carbon Dioxide Anion Gap BUN Creatinine Estim Creat Clear Calc Estimated GFR Glucose POC Capillary Glucose 114 H Lactic Acid 3.4 H 4.3 H* Calcium Magnesium Total Bilirubin AST ALT Alkaline Phosphatase Total Creatine Kinase 265 H Total Protein Albumin Lipase Nasal MRSA (PCR) Vancomycin Trough Quality VTE Prophylaxis VTE prophylaxis: pharmacologic ordered (Lovenox 40 mg subQ daily.)
--- NOTE | 2024-08-12 12:47 | WPDGICN ---
Assessment and Plan Assessment and plan (1) Atrial fibrillation: Code(s): I48.91 - Unspecified atrial fibrillation Status: Acute (2) Sepsis: Qualifiers: Acute renal failure type: unspecified Sepsis acute organ dysfunction status: with acute organ dysfunction Sepsis type: sepsis due to unspecified organism Severe sepsis acute organ dysfunction type: acute renal failure Severe sepsis shock status: without septic shock Qualified Code(s): A41.9 - Sepsis, unspecified organism; R65.20 - Severe sepsis without septic shock; N17.9 - Acute kidney failure, unspecified Code(s): A41.9 - Sepsis, unspecified organism Status: Acute (3) Acute dehydration: Code(s): E86.0 - Dehydration Status: Acute (4) Type 2 diabetes mellitus without complications: Code(s): E11.9 - Type 2 diabetes mellitus without complications Status: Acute (5) Gall stones: Code(s): K80.20 - Calculus of gallbladder without cholecystitis without obstruction Status: Acute (6) Small bowel obstruction: Code(s): K56.609 - Unspecified intestinal obstruction, unspecified as to partial versus complete obstruction Status: Acute Plan overall patient has multiple issues including sepsis infection pneumonia. Gallstones small bowel obstruction. Agree with culturing the patient also with broad-spectrum antibiotics to cover for sepsis continue NG tube with intermittent suction surgical consult has already been placed for partial small-bowel obstruction and evaluation of gallstones will get a ultrasound of the gallbladder also check lactic acid if not checked before patient does have low platelets which can be secondary to sepsis there is also concern that patient might aspirate which can be evaluated once small-bowel obstruction issues at this point patient is NPO continue with hydration also continue with PPI once a day to cover for any stress ulcers GI Consult Note Consult date/time: 08/12/24 12:47 Reason for consult: partial small-bowel obstruction gallstones sepsis pneumonia HPI: Primo Munroe is a 78 year old male admitted to the hospital with weakness and history of fall very limited history is obtainable from the patient when is saw the patient patient had NG tube in place I could not get much history from him patient also had staff members around him right to her just him on the chair. I did review patient records looks like patient has history of AFib weakness falls and he came to the hospital with leukocytosis. During that workup patient had a CT scan that showed multiple lung infiltrates possible aspiration also showed gallstones and possible partial small-bowel obstruction for which General surgery has been consulted. As per staff no signs of GI bleed has been noticed Review of Systems Review of Systems: unable to obtain review of systems from the patient [facility] Past Medical History Medical History (Updated 08/12/24 @ 12:51 by Randall Canales MD) Aortic stenosis Blood type B+ BPH (benign prostatic hyperplasia) Coronary artery disease DVT prophylaxis GERD (gastroesophageal reflux disease) History of CVA (cerebrovascular accident) (~04/2014) History of rib fracture (~2020) Mixed hyperlipidemia Occipital infarction (~04/2014) BRYAN on CPAP PAD (peripheral artery disease) Primary insomnia Ptosis, left eyelid Pulmonary interstitial fibrosis Stage 3a chronic kidney disease (CKD) Type 2 diabetes mellitus without complications Vasovagal syncope Surgical History Surgical History (Updated 08/12/24 @ 03:28 by Nirmala Weinstein DO) History of appendectomy History of exploratory laparotomy (~2000) Exploratory laparotomy in 2000, laparotomy with adhesion lysis and repair of ventral abdominal hernia in 2015 due to incarcerated hernia History of gastric surgery (~2014) stoma reversal History of lumbar surgery (~2014) April and May 2015 L4 through S1 History of ventral hernia repair (06/2016) Status post cataract extraction of both eyes with insertion of intraocular lens Status post peripheral artery angioplasty with insertion of stent (~2013) Left leg Family History Family History (Updated 08/12/24 @ 03:25 by Nirmala Weinstein DO) Sibling Cerebrovascular accident Stomach cancer Hx of CABG Both brothers Diabetes mellitus Father Family history of heart disease in male family member before age 55 Cerebrovascular accident Mother Diabetes mellitus Other Family history of cardiovascular disease Family history of gout Family history of malignant neoplasm Family history of osteoarthritis Hypertension Social History Social History (Updated 08/12/24 @ 03:23 by Nirmala Weinstein DO) Social History: Patient is and lives alone. He has 3 sons. He is retired from the railroad. He still smokes half a pack of cigarettes per day. He has smoked as much as 2 packs of cigarettes per day since he was 14 until he was 68. Since age 68 he has cut back to 0.5 packs of cigarettes per day. He denies any history of heavy alcohol use but used to drink on occasion but has not done so in many years. He denies illicit substance use. Code status: Full code Surrogate decision maker: Kt (son) Smoking packs per day: 0.5 Smoking cigarettes per day: 10.0 Years smoked: 60 Smoking pack-years: 30.00 Smoking status: Heavy tobacco smoker Tobacco type: cigarettes Second hand tobacco smoke exposure: Yes Alcohol intake: former Substance use: never Substance use type: does not use Do You Feel Safe in your Home?: Yes Lack of Transportation: No Lack of Food: Never True Current Housing: I Have Housing Concerned About Future Housing: No Difficulty Paying Gas/Electric Bills: No Difficulty Paying for Meds: No Currently Unemployed: No Education: High School Diploma/GED Difficulty w/ Childcare or Family Care: No Living arrangements: alone Occupation/Education: retired Additional occupation/education comments: 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 Gender identity (if verbalized by the patient): Male Sexual Orientation (if Verbalized by the Patient): Straight or Heterosexual Spiritual care concerns: No Meds Home Medications and Allergies Home Medications Medication Instructions Recorded Confirmed Type Bifidobacterium infantis 4 mg 4 mg PO DAILY 03/06/21 08/10/24 History capsule (Align) calcium 500 mg tablet 500 mg PO DAILY 03/06/21 08/10/24 History cholecalciferol (vitamin D3) 125 125 mcg PO DAILY 03/06/21 08/10/24 History mcg (5,000 unit) tablet (Vitamin D3) multivitamin 1 cap PO DAILY 03/06/21 08/10/24 History polyethylene glycol 3350 17 gram 17 g PO DAILY PRN Constipation 03/06/21 08/10/24 History oral powder packet (Miralax) nortriptyline 50 mg capsule 50 mg PO QHS #90 caps 01/04/24 08/10/24 Rx tamsulosin 0.4 mg capsule 0.4 mg PO BID #180 caps 04/04/24 08/10/24 Rx clopidogrel 75 mg tablet See Rx Instructions .Route 04/10/24 08/10/24 Rx .COMPLEX #90 tabs atorvastatin 40 mg tablet 40 mg PO DAILY #90 tabs 05/02/24 08/10/24 Rx finasteride 5 mg tablet See Rx Instructions .Route 06/07/24 08/10/24 Rx .COMPLEX #90 tabs pantoprazole 40 mg tablet,delayed 40 mg PO HS #90 tabs 06/18/24 08/10/24 Rx release cyclobenzaprine 10 mg tablet 10 mg PO TID PRN muscle spasm #20 08/04/24 08/10/24 Rx tabs Allergies Allergy/AdvReac Type Severity Reaction Status Date / Time rivaroxaban AdvReac Unknown SEVERE Verified 07/11/24 13:24 NOSE BLEED Vital Signs Vital Signs - 24 hr 08/11/24 14:13 08/11/24 14:00 08/11/24 14:32 Temperature 100.3 F H Pulse Rate 123 H 123 H 125 H Respiratory Rate 24 H Blood Pressure 151/63 H 151/63 H 151/63 H Pulse Oximetry 93 Oxygen Delivery Oxygen Flow Rate 08/11/24 14:00 08/11/24 14:43 08/11/24 14:54 Temperature Pulse Rate 116 H 121 H 123 H Respiratory Rate 28 H 28 H Blood Pressure Pulse Oximetry Oxygen Delivery Oxygen Flow Rate 08/11/24 16:21 08/11/24 16:00 08/11/24 17:19 Temperature 98.8 F Pulse Rate 117 H 117 H 122 H Respiratory Rate 22 H Blood Pressure 172/56 H 172/56 H 172/56 H Pulse Oximetry 93 Oxygen Delivery Oxygen Flow Rate 08/11/24 17:25 08/11/24 18:22 08/11/24 18:00 Temperature 99 F Pulse Rate 115 H 105 H Respiratory Rate 20 Blood Pressure 172/56 H 164/72 H 164/72 H Pulse Oximetry 94 Oxygen Delivery Oxygen Flow Rate 08/11/24 16:00 08/11/24 16:00 08/11/24 18:00 Temperature Pulse Rate 118 H 106 H Respiratory Rate Blood Pressure Pulse Oximetry 94 Oxygen Delivery Nasal Cannula Oxygen Flow Rate 3 08/11/24 20:16 08/11/24 20:19 08/11/24 20:00 Temperature 100.8 F H Pulse Rate 111 H 111 H 108 H Respiratory Rate 26 H 26 H 22 H Blood Pressure 155/58 H Pulse Oximetry 94 97 Oxygen Delivery Nasal Cannula Oxygen Flow Rate 3 08/11/24 20:39 08/11/24 21:02 08/11/24 21:15 Temperature Pulse Rate 108 H 112 H 112 H Respiratory Rate 28 H Blood Pressure 155/58 H 155/58 H Pulse Oximetry Oxygen Delivery Oxygen Flow Rate 08/11/24 20:00 08/11/24 20:00 08/11/24 22:00 Temperature 98.5 F Pulse Rate 108 H 110 H Respiratory Rate 30 H Blood Pressure 155/58 H 158/53 H Pulse Oximetry 94 94 Oxygen Delivery Nasal Cannula Oxygen Flow Rate 3 08/11/24 22:00 08/11/24 20:00 08/12/24 00:00 Temperature 98.5 F Pulse Rate 110 H 107 H 104 H Respiratory Rate 24 H Blood Pressure 168/59 H Pulse Oximetry 93 Oxygen Delivery Oxygen Flow Rate 08/12/24 01:21 08/12/24 01:28 08/12/24 02:00 Temperature 98 F Pulse Rate 102 H 101 H 97 Respiratory Rate 26 H 28 H 28 H Blood Pressure 164/58 H Pulse Oximetry 92 Oxygen Delivery Oxygen Flow Rate 08/12/24 00:00 08/12/24 00:00 08/11/24 22:00 Temperature Pulse Rate 104 H 110 H Respiratory Rate Blood Pressure 168/59 H 158/53 H Pulse Oximetry 92 Oxygen Delivery Nasal Cannula Oxygen Flow Rate 3 08/12/24 02:00 08/12/24 03:04 08/12/24 03:04 Temperature Pulse Rate 97 95 95 Respiratory Rate Blood Pressure 164/58 H 164/58 H 164/58 H Pulse Oximetry Oxygen Delivery Oxygen Flow Rate 08/12/24 04:00 08/12/24 06:00 08/12/24 04:00 Temperature 99.3 F 98.1 F Pulse Rate 90 86 Respiratory Rate 24 H 24 H Blood Pressure 143/49 H 131/58 L Pulse Oximetry 91 91 91 Oxygen Delivery Nasal Cannula Oxygen Flow Rate 3 08/12/24 07:26 08/12/24 00:00 08/12/24 04:00 Temperature 98.1 F Pulse Rate 84 107 H 98 Respiratory Rate 26 H Blood Pressure 138/53 L Pulse Oximetry 90 Oxygen Delivery Oxygen Flow Rate 08/12/24 06:00 08/12/24 04:00 08/12/24 06:00 Temperature Pulse Rate 83 90 86 Respiratory Rate Blood Pressure 143/49 H 134/58 L Pulse Oximetry Oxygen Delivery Oxygen Flow Rate 08/12/24 08:00 08/12/24 09:31 08/12/24 08:20 Temperature Pulse Rate 104 H 104 H 102 H Respiratory Rate 22 H 22 H 22 H Blood Pressure Pulse Oximetry 94 Oxygen Delivery Nasal Cannula Oxygen Flow Rate 3 08/12/24 09:06 08/12/24 10:05 Temperature Pulse Rate Respiratory Rate Blood Pressure Pulse Oximetry Oxygen Delivery Nasal Cannula Nasal Cannula Oxygen Flow Rate 3 3 Exam Narrative: does not appear to be in acute distress HENMT: Other: pupils equally reactive Neck: Other: supple Chest: Other: coarse breath Resp: Other: air entry equal some coarse breath Cardio: Other: S1-S2 regular rate rhythm GI: Other: mildly distended bowel sounds diminished no rebound no guarding Neuro: Other: intact Results Labs 08/12/24 04:00 08/12/24 04:00 Labs: Short CBC 08/12/24 Range/Units 04:00 WBC 14.4 H (4.5-10.0) K/mm3 Hgb 11.0 L (14.0-18.0) g/dL Hct 33.6 L (42.0-52.0) % Plt Count 73 L (150-375) k/mm3 BMP 08/12/24 04:00 Sodium 141 Potassium 3.8 Chloride 112 H Carbon Dioxide 13 L BUN 38 H D Creatinine 1.50 H Glucose 114 H Calcium 8.8 Cardiac Enzymes 08/12/24 Range/Units 10:34 Total Creatine Kinase 265 H (55-170) U/L Liver Function 08/12/24 Range/Units 04:00 Total Bilirubin 0.9 (0.2-1.3) mg/dL AST 190 H (17-59) U/L ALT 45 (6-50) U/L Alkaline Phosphatase 255 H (38-126) U/L Albumin 2.8 L (3.5-5.1) g/dL
[2024-08-12 13:27] LABS: Glucose Point of Care 110 mg/dl (65-105)
--- NOTE | 2024-08-12 13:45 | WPDCN ---
Assessment and Plan Assessment and plan (1) Small bowel obstruction: Code(s): K56.609 - Unspecified intestinal obstruction, unspecified as to partial versus complete obstruction Status: Acute Assessment and Plan: Patient with has CT scan findings assist with possible partial small-bowel obstruction. He certainly has reasons to possibly have a small bowel obstruction due to his large midline incision prior hernia repairs. Undoubtedly he does have some adhesions in his abdomen which could be causing this partial small-bowel obstruction. Nasogastric tube is in place for decompression right now. He does not have acute surgical abdomen right now. We will get a water-soluble small bowel follow-through series. Hopefully this will not show any high-grade obstruction and we can avoid surgery with non operative management. Further recommendations after small bowel series has been done. HPI Data of Consult Date/Time: 08/12/24 13:45 Requesting Physician: Nirmala Weinstein DO Primary Care Provider: Rolly Benitez MD Consult Narrative Reason for consult: Small-bowel obstruction Narrative: Primo Munroe is a 78 year old male admitted to the hospital for sepsis and acute dehydration. He has had issues with some nausea and vomiting and abdominal distension and abdominal x-rays are last 2 days show some dilated small bowel consistent with possible small bowel obstruction. CT scan abdomen pelvis was performed today showing a transition point in the distal small bowel was proximal dilated loops of small bowel with air-fluid levels. Patient has a nasogastric tube in place. There has been some bilious output. States he had a some bowel movements during this admission but not in the last 24hours. Denies having any significant abdominal pain at the present time. He has had a prior exploratory laparotomy and what appears to be a stoma reversal in the past. He has also had a prior incisional hernia repair with mesh but he is not exactly sure. This was done probably 5 or 6 years ago. This was done at another hospital. Review of Systems Review of Systems: The remainder of the review of systems to include constitutional, HEENT, cardiovascular, respiratory, GI, , integumentary, musculoskeletal, endocrine, immunologic, hematologic, psychiatric, and neurologic are all negative except for which is mentioned above in the HPI. [facility] Past Medical History Medical History Aortic stenosis Blood type B+ BPH (benign prostatic hyperplasia) Coronary artery disease DVT prophylaxis GERD (gastroesophageal reflux disease) History of CVA (cerebrovascular accident) (~04/2014) History of rib fracture (~2020) Mixed hyperlipidemia Occipital infarction (~04/2014) BRYAN on CPAP PAD (peripheral artery disease) Primary insomnia Ptosis, left eyelid Pulmonary interstitial fibrosis Stage 3a chronic kidney disease (CKD) Type 2 diabetes mellitus without complications Vasovagal syncope Surgical History Surgical History History of appendectomy History of exploratory laparotomy (~2000) Exploratory laparotomy in 2000, laparotomy with adhesion lysis and repair of ventral abdominal hernia in 2015 due to incarcerated hernia History of gastric surgery (~2014) stoma reversal History of lumbar surgery (~2014) April and May 2015 L4 through S1 History of ventral hernia repair (06/2016) Status post cataract extraction of both eyes with insertion of intraocular lens Status post peripheral artery angioplasty with insertion of stent (~2013) Left leg Family History Family History Sibling Cerebrovascular accident Stomach cancer Hx of CABG Both brothers Diabetes mellitus Father Family history of heart disease in male family member before age 55 Cerebrovascular accident Mother Diabetes mellitus Other Family history of cardiovascular disease Family history of gout Family history of malignant neoplasm Family history of osteoarthritis Hypertension Social History Social History Social History: Patient is and lives alone. He has 3 sons. He is retired from the [employer]. He still smokes half a pack of cigarettes per day. He has smoked as much as 2 packs of cigarettes per day since he was 14 until he was 68. Since age 68 he has cut back to 0.5 packs of cigarettes per day. He denies any history of heavy alcohol use but used to drink on occasion but has not done so in many years. He denies illicit substance use. Code status: Full code Surrogate decision maker: Kt (son) Smoking packs per day: 0.5 Smoking cigarettes per day: 10.0 Years smoked: 60 Smoking pack-years: 30.00 Smoking status: Heavy tobacco smoker Tobacco type: cigarettes Second hand tobacco smoke exposure: Yes Alcohol intake: former Substance use: never Substance use type: does not use Do You Feel Safe in your Home?: Yes Lack of Transportation: No Lack of Food: Never True Current Housing: I Have Housing Concerned About Future Housing: No Difficulty Paying Gas/Electric Bills: No Difficulty Paying for Meds: No Currently Unemployed: No Education: High School Diploma/GED Difficulty w/ Childcare or Family Care: No Living arrangements: alone Occupation/Education: retired Additional occupation/education comments: 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 Gender identity (if verbalized by the patient): Male Sexual Orientation (if Verbalized by the Patient): Straight or Heterosexual Spiritual care concerns: No Meds Home Medications and Allergies Home Medications Medication Instructions Recorded Confirmed Type Bifidobacterium infantis 4 mg 4 mg PO DAILY 03/06/21 08/10/24 History capsule (Align) calcium 500 mg tablet 500 mg PO DAILY 03/06/21 08/10/24 History cholecalciferol (vitamin D3) 125 125 mcg PO DAILY 03/06/21 08/10/24 History mcg (5,000 unit) tablet (Vitamin D3) multivitamin 1 cap PO DAILY 03/06/21 08/10/24 History polyethylene glycol 3350 17 gram 17 g PO DAILY PRN Constipation 03/06/21 08/10/24 History oral powder packet (Miralax) nortriptyline 50 mg capsule 50 mg PO QHS #90 caps 01/04/24 08/10/24 Rx tamsulosin 0.4 mg capsule 0.4 mg PO BID #180 caps 04/04/24 08/10/24 Rx clopidogrel 75 mg tablet See Rx Instructions .Route 04/10/24 08/10/24 Rx .COMPLEX #90 tabs atorvastatin 40 mg tablet 40 mg PO DAILY #90 tabs 05/02/24 08/10/24 Rx finasteride 5 mg tablet See Rx Instructions .Route 06/07/24 08/10/24 Rx .COMPLEX #90 tabs pantoprazole 40 mg tablet,delayed 40 mg PO HS #90 tabs 06/18/24 08/10/24 Rx release cyclobenzaprine 10 mg tablet 10 mg PO TID PRN muscle spasm #20 08/04/24 08/10/24 Rx tabs Allergies Allergy/AdvReac Type Severity Reaction Status Date / Time rivaroxaban AdvReac Unknown SEVERE Verified 07/11/24 13:24 NOSE BLEED Vital Signs Vital Signs - 24 hr 08/11/24 14:13 08/11/24 14:00 08/11/24 14:32 Temperature 37.9 C H Pulse Rate 123 H 123 H 125 H Respiratory Rate 24 H Blood Pressure 151/63 H 151/63 H 151/63 H Pulse Oximetry 93 Oxygen Delivery Oxygen Flow Rate 08/11/24 14:00 08/11/24 14:43 08/11/24 14:54 Temperature Pulse Rate 116 H 121 H 123 H Respiratory Rate 28 H 28 H Blood Pressure Pulse Oximetry Oxygen Delivery Oxygen Flow Rate 08/11/24 16:21 08/11/24 16:00 08/11/24 17:19 Temperature 37.1 C Pulse Rate 117 H 117 H 122 H Respiratory Rate 22 H Blood Pressure 172/56 H 172/56 H 172/56 H Pulse Oximetry 93 Oxygen Delivery Oxygen Flow Rate 08/11/24 17:25 08/11/24 18:22 08/11/24 18:00 Temperature 37.2 C Pulse Rate 115 H 105 H Respiratory Rate 20 Blood Pressure 172/56 H 164/72 H 164/72 H Pulse Oximetry 94 Oxygen Delivery Oxygen Flow Rate 08/11/24 16:00 08/11/24 16:00 08/11/24 18:00 Temperature Pulse Rate 118 H 106 H Respiratory Rate Blood Pressure Pulse Oximetry 94 Oxygen Delivery Nasal Cannula Oxygen Flow Rate 3 08/11/24 20:16 08/11/24 20:19 08/11/24 20:00 Temperature 38.2 C H Pulse Rate 111 H 111 H 108 H Respiratory Rate 26 H 26 H 22 H Blood Pressure 155/58 H Pulse Oximetry 94 97 Oxygen Delivery Nasal Cannula Oxygen Flow Rate 3 08/11/24 20:39 08/11/24 21:02 08/11/24 21:15 Temperature Pulse Rate 108 H 112 H 112 H Respiratory Rate 28 H Blood Pressure 155/58 H 155/58 H Pulse Oximetry Oxygen Delivery Oxygen Flow Rate 08/11/24 20:00 08/11/24 20:00 08/11/24 22:00 Temperature 36.9 C Pulse Rate 108 H 110 H Respiratory Rate 30 H Blood Pressure 155/58 H 158/53 H Pulse Oximetry 94 94 Oxygen Delivery Nasal Cannula Oxygen Flow Rate 3 08/11/24 22:00 08/11/24 20:00 08/12/24 00:00 Temperature 36.9 C Pulse Rate 110 H 107 H 104 H Respiratory Rate 24 H Blood Pressure 168/59 H Pulse Oximetry 93 Oxygen Delivery Oxygen Flow Rate 08/12/24 01:21 08/12/24 01:28 08/12/24 02:00 Temperature 36.6 C Pulse Rate 102 H 101 H 97 Respiratory Rate 26 H 28 H 28 H Blood Pressure 164/58 H Pulse Oximetry 92 Oxygen Delivery Oxygen Flow Rate 08/12/24 00:00 08/12/24 00:00 08/11/24 22:00 Temperature Pulse Rate 104 H 110 H Respiratory Rate Blood Pressure 168/59 H 158/53 H Pulse Oximetry 92 Oxygen Delivery Nasal Cannula Oxygen Flow Rate 3 08/12/24 02:00 08/12/24 03:04 08/12/24 03:04 Temperature Pulse Rate 97 95 95 Respiratory Rate Blood Pressure 164/58 H 164/58 H 164/58 H Pulse Oximetry Oxygen Delivery Oxygen Flow Rate 08/12/24 04:00 08/12/24 06:00 08/12/24 04:00 Temperature 37.4 C 36.7 C Pulse Rate 90 86 Respiratory Rate 24 H 24 H Blood Pressure 143/49 H 131/58 L Pulse Oximetry 91 91 91 Oxygen Delivery Nasal Cannula Oxygen Flow Rate 3 08/12/24 07:26 08/12/24 00:00 08/12/24 04:00 Temperature 36.7 C Pulse Rate 84 107 H 98 Respiratory Rate 26 H Blood Pressure 138/53 L Pulse Oximetry 90 Oxygen Delivery Oxygen Flow Rate 08/12/24 06:00 08/12/24 04:00 08/12/24 06:00 Temperature Pulse Rate 83 90 86 Respiratory Rate Blood Pressure 143/49 H 134/58 L Pulse Oximetry Oxygen Delivery Oxygen Flow Rate 08/12/24 08:00 08/12/24 09:31 08/12/24 08:20 Temperature Pulse Rate 104 H 104 H 102 H Respiratory Rate 22 H 22 H 22 H Blood Pressure Pulse Oximetry 94 Oxygen Delivery Nasal Cannula Oxygen Flow Rate 3 08/12/24 09:06 08/12/24 10:05 08/12/24 13:31 Temperature 36.6 C Pulse Rate 89 Respiratory Rate 30 H Blood Pressure 149/57 H Pulse Oximetry 91 Oxygen Delivery Nasal Cannula Nasal Cannula Oxygen Flow Rate 3 3 08/12/24 13:34 Temperature Pulse Rate 87 Respiratory Rate 20 Blood Pressure Pulse Oximetry Oxygen Delivery Oxygen Flow Rate Exam Const: General: comfortable and no acute distress HENMT: Ears: TM's normal bilaterally Face/Nose/Sinus: Normal nares present Mouth: Yes moist mucous membranes Eyes: General: appearance normal, both eyes and all related structures Sclera: sclerae normal Pupils: Equal, round and reactive pupils present EOM: EOMs intact bilaterally Neck: Neck: supple and no JVD Resp: Effort & Inspection: normal respiratory effort Auscultation: clear to auscultation bilaterally Cardio: Rhythm: abnormal rhythm Other: Irregularly irregular GI: Other: Abdomen is moderately obese but soft. Some mild distension. He has a large midline scar extending from the xiphoid process all the way to the pubic symphysis. No obvious reducible or incarcerated ventral hernias are noted. Minimal tenderness diffusely across the abdomen. Skin: General skin exam: normal color and no rashes or lesions noted Neuro: General: gait normal Speech: normal speech Motor exam (neuro): 5/5 motor strength present throughout and Motor abnormalites present Sensory Exam: normal sensation Extrem: General: normal to inspection Psych: Mental Status: mental status grossly normal Affect: normal affect Results Labs 08/12/24 04:00 08/12/24 04:00 Labs: Short CBC 08/12/24 Range/Units 04:00 WBC 14.4 H (4.5-10.0) K/mm3 Hgb 11.0 L (14.0-18.0) g/dL Hct 33.6 L (42.0-52.0) % Plt Count 73 L (150-375) k/mm3 BMP 08/12/24 04:00 Sodium 141 Potassium 3.8 Chloride 112 H Carbon Dioxide 13 L BUN 38 H D Creatinine 1.50 H Glucose 114 H Calcium 8.8 Cardiac Enzymes 08/12/24 Range/Units 10:34 Total Creatine Kinase 265 H (55-170) U/L Liver Function 08/12/24 Range/Units 04:00 Total Bilirubin 0.9 (0.2-1.3) mg/dL AST 190 H (17-59) U/L ALT 45 (6-50) U/L Alkaline Phosphatase 255 H (38-126) U/L Albumin 2.8 L (3.5-5.1) g/dL
[2024-08-12 16:55] LABS: Lactic Acid Reflex 3.8 mmol/L (0.7-2.0)
[2024-08-12 17:11] LABS: Glucose Point of Care 133 mg/dl (65-105)
[2024-08-12] MEDS: WATER FOR IRRIGATION, STERILE 1,000 ML BOTTLE 1000 ML (21:19)
[2024-08-12 22:00] LABS: Vancomycin Trough 20.8 ug/mL (10.0-20.0)
[2024-08-12 23:47] LABS: Glucose Point of Care 143 mg/dl (65-105)
[2024-08-13] VITALS (25 sets, daily range): BP systolic 148–176; BP diastolic 66–75; PULSE 89–118; RESP 18–26; TEMP 36.3–36.9; O2SAT 90–96
[2024-08-13] MEDS: LEVALBUTEROL NEB 1.25 MG/3 ML 0.63 MG INHALATION ×4 (02:44→21:28)
[2024-08-13] MEDS: IPRATROPIUM BR 0.02% INH SOLN 0.5 MG/2.5 ML VIAL INHALATION ×4 (02:45→21:28)
[2024-08-13] MEDS: VANCOMYCIN 1,250 MG/NS 250 ML 1,250 MG/250 ML BAG 166.67 MG IVPB ×2 (04:05→23:43)
[2024-08-13 04:39] LABS: Alanine Aminotransferase 41 U/L (6-50); Albumin Level 2.7 g/dL (3.5-5.1); Alkaline Phosphatase 237 U/L (38-126); Anion Gap 8 mmol/L (4-12); Aspartate Amino Transferase 145 U/L (17-59); Bilirubin,Total 0.9 mg/dL (0.2-1.3); Blood Urea Nitrogen 50 mg/dL (9-20); Calcium 9.1 mg/dL (8.4-10.2); Carbon Dioxide 27 mmol/L (22-30); Chloride 114 mmol/L (98-107); Estimated CRCL calculation 39 ml/min; Estimated Glomerular Filt Rate 42; Glucose 128 mg/dL (65-110); Magnesium 2.4 mg/dL (1.6-2.3); Potassium 3.3 mmol/L (3.4-5.0); Sodium 149 mmol/L (137-145)
[2024-08-13 06:03] LABS: Hematocrit 32.9 % (42.0-52.0); Immature Platelet Fraction Pct 3.5 % (0.9-11.2); Mean Corpuscular HGB Conc 33.4 g/dl (32-36); Mean Corpuscular Hemoglobin 27.2 pg (26-34); Mean Corpuscular Volume 81.2 fl (80-100); Mean Platelet Volume 10.1 fl (7.4-10.4); Platelet Count Result 43 k/mm3 (150-375); Red Blood Count 4.05 M/mm3 (4.6-6.20); Red Cell Distribution Width 16.8 % (11.5-14.5); White Blood Count 8.7 K/mm3 (4.5-10.0)
[2024-08-13] MEDS: metroNIDAZOLE 500 MG/ISO 100ML 500 MG/100 ML BAG 100 MG IVPB ×3 (06:05→21:20)
[2024-08-13] MEDS: SODIUM BICARBONATE 8.4% 150 MEQ in DEXTROSE 5% 1,000 ML 950 ML 100 MEQ IV CONT (06:24)
[2024-08-13 06:42] LABS: Glucose Point of Care 102 mg/dl (65-105)
[2024-08-13 07:27] LABS: Band Neutrophils Percent 15 % (0-6); Monocytes Absolute Manual 0.78 K/mm3 (0.1-0.90); Monocytes Percent Manual 9 % (3-9); Neutrophils Percent Manual 69 % (46-73); Total Cells Counted 100
[2024-08-13 07:28] LABS: Lymphocytes Percent Manual 7 % (18-44)
[2024-08-13 07:29] LABS: Smudge Cells PRESENT
[2024-08-13 07:30] LABS: Anisocytosis 1+; Burr Cells 1+; Platelet Estimate Decreased (Adequate); Poikilocytosis 1+; Schistocytes 1+
[2024-08-13 09:08] LABS: Lactic Acid Reflex 4.9 mmol/L (0.7-2.0)
[2024-08-13] MEDS: PANTOPRAZOLE SODIUM IV 40 MG VIAL IV PUSH (10:01)
--- NOTE | 2024-08-13 11:25 | WPDGIPROGNO ---
Progress Note: A&P Assessment and Plan (1) Small bowel obstruction: Code(s): K56.609 - Unspecified intestinal obstruction, unspecified as to partial versus complete obstruction Status: Acute (2) Gall stones: Code(s): K80.20 - Calculus of gallbladder without cholecystitis without obstruction Status: Acute Plan discussed with the surgery patient did have abdominal surgery yesterday. For partial small-bowel obstruction continue with the postsurgical plans continue with the aggressive IV fluids and hydration repeat lab workup again as last blood work had a thrombocytopenia and bandemia concerning for sepsis regular GI team will assume patient care tomorrow Subjective Date/time seen: 08/13/24 11:25 Interval history: Patient is being seen for partial small-bowel obstruction status post intestinal surgery yesterday. Discussed with Dr. Barrientos secondary to adhesions patient still has NG tube currently denies any abdominal pain lab workup this morning shows a bandemia and platelets of 43 lactic acid level ordered Review of Systems Review of Systems: negative except for GI symptoms above Exam Narrative: appears to be better NG tube in place Neck: Other: supple Resp: Other: air entry equal clear bilateral Cardio: Other: S1-S2 regular rate rhythm : Other: abdomen status post surgery mildly tender all over bowel sounds diminished Objective Data Vital Signs Vital Signs: Vital Signs - 24 hr 08/12/24 13:31 08/12/24 13:34 08/12/24 13:55 Temperature 98 F Pulse Rate 89 87 85 Respiratory Rate 30 H 20 20 Blood Pressure 149/57 H Pulse Oximetry 91 Oxygen Delivery Oxygen Flow Rate 08/12/24 14:00 08/12/24 12:00 08/12/24 16:00 Temperature Pulse Rate 90 91 Respiratory Rate Blood Pressure Pulse Oximetry 94 Oxygen Delivery Nasal Cannula Oxygen Flow Rate 3 08/12/24 16:00 08/12/24 16:00 08/12/24 18:00 Temperature 99 F Pulse Rate 90 95 Respiratory Rate 22 H Blood Pressure 153/64 H Pulse Oximetry 99 92 Oxygen Delivery Nasal Cannula Oxygen Flow Rate 3 08/12/24 21:14 08/12/24 20:53 08/12/24 20:00 Temperature 99.3 F Pulse Rate 93 102 H Respiratory Rate 18 26 H Blood Pressure 132/114 H Pulse Oximetry 92 90 Oxygen Delivery Nasal Cannula Oxygen Flow Rate 5 08/12/24 20:00 08/13/24 00:00 08/13/24 00:00 Temperature 98.3 F Pulse Rate 98 Respiratory Rate 24 H Blood Pressure 166/66 H Pulse Oximetry 92 94 94 Oxygen Delivery Nasal Cannula Nasal Cannula Oxygen Flow Rate 3 6 08/12/24 20:00 08/12/24 22:00 08/13/24 00:00 Temperature Pulse Rate 99 102 H 94 Respiratory Rate Blood Pressure Pulse Oximetry Oxygen Delivery Oxygen Flow Rate 08/13/24 02:00 08/13/24 02:46 08/12/24 21:03 Temperature Pulse Rate 96 91 90 Respiratory Rate 18 18 Blood Pressure Pulse Oximetry Oxygen Delivery Oxygen Flow Rate 08/13/24 04:00 08/13/24 05:56 08/13/24 04:00 Temperature 98.4 F Pulse Rate 102 H 89 97 Respiratory Rate 26 H 18 Blood Pressure 164/66 H Pulse Oximetry 96 Oxygen Delivery Oxygen Flow Rate 08/13/24 06:00 08/13/24 07:33 08/13/24 08:00 Temperature 98.1 F Pulse Rate 92 99 Respiratory Rate 22 H Blood Pressure 148/74 H Pulse Oximetry 92 94 Oxygen Delivery High Flow Nasal Cannula Oxygen Flow Rate 8 08/13/24 08:00 08/13/24 08:35 08/13/24 11:10 Temperature 98.1 F Pulse Rate 99 101 H 104 H Respiratory Rate 20 24 H 22 H Blood Pressure 176/75 H Pulse Oximetry 91 Oxygen Delivery Oxygen Flow Rate Intake/Output Intake/Output: Intake & Output 08/10/24 08/11/24 08/12/24 08/13/24 23:59 23:59 23:59 23:59 Intake Total 2915 2949.6 1503.3 908.3 Output Total 1100 1575 3750 600 Balance 1815 1374.6 -2246.7 308.3 Meds/Results Medications: Active Medications Generic Name Dose Route Start Last Admin Trade Name Freq PRN Reason Stop Dose Admin Acetaminophen 650 mg 08/09/24 19:56 08/10/24 20:00 Acetaminophen 325 Mg Tablet PO 650 mg Q4H PRN Administration Mild Pain (1-3) or Fever Atorvastatin Calcium 40 mg 08/10/24 09:00 08/11/24 12:31 Atorvastatin 40 Mg Tablet PO Not Given DAILY [place] Dextrose 12.5 gm 08/10/24 06:29 08/11/24 10:46 Dextrose 50% 25 Gm/50 Ml Syringe IV PUSH 12.5 gm PRN PRN Administration Hypoglycemia Protocol Enoxaparin Sodium 95 mg 08/11/24 21:00 08/12/24 08:34 Enoxaparin 100 Mg/Ml Syringe SUB-Q Not Given Q12H [place] Finasteride 5 mg 08/10/24 09:00 08/11/24 12:32 Finasteride 5 Mg Tablet BY MOUTH Not Given DAILY [facility] Glucagon 1 mg 08/10/24 06:29 Glucagon For Inj 1 Mg Vial IM PRN PRN Hypoglycemia Protocol Glucose 15 gm 08/10/24 06:29 Glucose Oral Gel 15 Gm Of Glucse In 37.5 Gm Tube PO PRN PRN Hypoglycemia Protocol Hydralazine HCl 20 mg 08/11/24 11:57 Hydralazine Hcl 20 Mg/Ml Vial IV PUSH Q4H PRN Blood Sugar - High Levofloxacin/Dextrose 750 mg in 150 mls @ 100 mls/hr 08/09/24 20:00 08/11/24 21:14 Levaquin 750 Mg/D5w 150 Ml IVPB 100 mls/hr Q48H [place] Administration Dextrose 1,000 mls @ 100 mls/hr 08/10/24 06:29 Dextrose 5% 1,000 Ml IVPB PRN PRN Hypoglycemia Protocol Metronidazole 500 mg in 100 mls @ 100 mls/hr 08/10/24 13:00 08/13/24 06:05 Flagyl 500 Mg/Iso Soln 100 Ml IVPB 100 mls/hr Q8HR [place] Administration Vancomycin HCl 1,250 mg in 250 mls @ 166.667 mls/hr 08/13/24 05:00 08/13/24 04:05 Vancomycin 1,250 Mg/Ns 250 Ml IVPB 166.67 mls/hr Q18H [place] Administration Dextrose/Sodium Chloride 1,000 mls @ 125 mls/hr 08/13/24 11:25 Dextrose 5% Sodium Chloride 0.45% IV CONT .Q8H [place] Ipratropium [place] 0.5 mg 08/10/24 08:00 08/13/24 07:58 Ipratropium Br 0.02% Inh Soln 0.5 Mg/2.5 Ml Vial INHALATION 0.5 mg Q6HRT [place] Administration Levalbuterol HCl 0.63 mg 08/10/24 08:00 08/13/24 07:58 Levalbuterol Neb 1.25 Mg/3 Ml INHALATION 0.63 mg Q6HRT [place] Administration Metoprolol Succinate 50 mg 08/11/24 16:10 08/11/24 17:02 Metoprolol Succinate Ext Rel 50 Mg Tabcr PO Not Given QAM [place] Morphine Sulfate 2 mg 08/12/24 03:15 Morphine Sulfate (*Crx) 2 Mg/Ml Inj IV PUSH Q4H PRN Pain Rated 7-10 Multivitamins Therapeutic 1 tablet 08/10/24 09:00 08/12/24 08:31 Multivitamins Therapeutic Tab (*Bkc) PO Not Given DAILY [facility] Nortriptyline HCl 50 mg 08/10/24 21:00 08/11/24 19:50 Nortriptyline Hcl 25 Mg Capsule PO Not Given QHS [facility] Ondansetron HCl 4 mg 08/12/24 03:15 08/12/24 04:19 Ondansetron Inj 4 Mg/2 Ml Vial IV PUSH 4 mg Q4H PRN Administration Nausea And Vomiting Pantoprazole Sodium 40 mg 08/13/24 09:00 08/13/24 10:01 Pantoprazole Sodium Iv 40 Mg Vial IV PUSH 40 mg QAM [facility] Administration Rivaroxaban 20 mg 08/11/24 17:00 Rivaroxaban 20 Mg Tablet PO DAILY@1700 [facility] Tamsulosin HCl 0.4 mg 08/10/24 09:00 08/11/24 16:26 Tamsulosin Hcl 0.4 Mg Capsule PO Not Given BID [facility] Radiology Results: ITS Impressions Head CT 08/09/24 17:49 IMPRESSION: 1. No fracture or acute intracranial process. 2. 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 3. Age-related changes including mild diffuse volume loss and mild scattered mesenteric white matter hypoattenuation consistent with chronic small vessel ischemic disease. Cervical Spine CT 08/09/24 18:15 IMPRESSION: 1. Moderate to severe cervical spondylosis. No acute osseous abnormality. Thoracic/Lumbar Spine CT 08/09/24 18:22 IMPRESSION: 1. Multiple old posterior left rib fractures and chronic compression fractures with mild anterior wedging at T5 and T6 and mild right-sided anterior vertebral body height loss at L2. No acute osseous abnormality. 2. Moderate thoracic spondylosis and mild lumbar spondylosis. 3. Combined instrumented L5-S1 anterior and posterior spinal fusion. 4. Chronic bilateral lower lung predominant interstitial lung disease with indeterminate 8 mm pulmonary nodule in the left lower lobe. Recommend 3 month follow-up low-dose noncontrast chest CT. Chest CTA 08/10/24 18:43 IMPRESSION: 1. No pulmonary embolism. 2. Bilateral interstitial and alveolar opacification more prominent in the right upper lobe which may indicate pneumonitis versus fibrotic changes versus pulmonary edema. 3. Bilateral pleural effusion more on the right side. 4. Cholelithiasis. 5. Left adrenal adenoma. 6. Mediastinal lymphadenopathy.. 7. Multiple healing rib fractures in the left hemithorax. Chest X-Ray 08/11/24 09:19 IMPRESSION: Suggestion of congestive heart failure; interstitial pneumonitis patient pneumonia is not excluded Brain MRA 08/11/24 09:25 IMPRESSION: 1. High-grade stenosis on the right P1 segment with downstream moderate-sized region of encephalomalacia consistent with chronic infarct. 2. Moderate grade stenosis at the origin of the right M1 segment. Venous Doppler Study 08/11/24 14:29 IMPRESSION: 1. No deep venous thrombosis in either lower limb. Abdomen X-Ray 08/12/24 06:14 IMPRESSION: NG tube in gastric fundus Chest/Abdomen/Pelvis CT 08/12/24 08:46 IMPRESSION: Extensive interval bilateral patchy pulmonary infiltrates since 08/10/2024, which may be consistent with extensive aspiration pneumonitis or rapidly worsening pneumonia Brain MRI 08/12/24 14:11 IMPRESSION: No acute intracranial process. Abdomen Ultrasound 08/12/24 16:37 IMPRESSION: Likely, additional gallbladder sludge and stones in the dependent gallbladder lumen. Small Bowel X-Ray 08/12/24 19:16 IMPRESSION: Radiographic findings consistent with low-grade small bowel obstruction or ileus. Lumbar Spine MRI 08/13/24 06:32 IMPRESSION: 1. Widespread enhancement of the bones without abnormal CT correlate suspicious for metastatic disease or multiple myeloma. 2. Mild lumbar spondylosis. 3. Anterior fusion procedure at L5-S1. Cervical Spine MRI 08/13/24 06:43 IMPRESSION: 1. Widespread abnormal contrast enhancement in the bones, consistent with metastatic disease versus multiple myeloma. 2. Moderate cervical spondylosis. Thoracic Spine MRI 08/13/24 06:48 IMPRESSION: 1. Widespread contrast enhancement of the bones, consistent with metastatic disease versus multiple myeloma. 2. Mild thoracic spondylosis. Labs Labs: Laboratory Results - last 24 hr 08/12/24 08/12/24 08/12/24 13:24 16:37 16:51 WBC RBC Hgb Hct MCV MCH MCHC RDW Plt Count MPV Immature Gran % (Auto) Neut % (Auto) Lymph % (Auto) [place] % (Auto) Eos % (Auto) Baso % (Auto) Lymph # (Auto) [place] # (Auto) Eos # (Auto) Baso # (Auto) Abs Immat Gran (auto) Absolute Neuts (auto) Absolute Nucleated RBC Total Counted Neutrophils % (Manual) Band Neutrophils % Lymphocytes % (Manual) Monocytes % (Manual) Nucleated RBC % Abs Neuts (Manual) Abs Lymphs (Manual) Abs Monocytes (Manual) Smudge Cells Platelet Estimate % Immature Plt Fraction Poikilocytosis Anisocytosis [place] Cells Schistocytes Sodium Potassium Chloride Carbon Dioxide Anion Gap BUN Creatinine Estim Creat Clear Calc Estimated GFR Glucose POC Capillary Glucose 110 H 133 H Lactic Acid 3.8 H Calcium Magnesium Total Bilirubin AST ALT Alkaline Phosphatase Total Protein Albumin Vancomycin Trough 08/12/24 08/12/24 08/13/24 21:05 23:33 04:03 WBC RBC Hgb Hct MCV MCH MCHC RDW Plt Count MPV Immature Gran % (Auto) Neut % (Auto) Lymph % (Auto) [place] % (Auto) Eos % (Auto) Baso % (Auto) Lymph # (Auto) [place] # (Auto) Eos # (Auto) Baso # (Auto) Abs Immat Gran (auto) Absolute Neuts (auto) Absolute Nucleated RBC Total Counted Neutrophils % (Manual) Band Neutrophils % Lymphocytes % (Manual) Monocytes % (Manual) Nucleated RBC % Abs Neuts (Manual) Abs Lymphs (Manual) Abs Monocytes (Manual) Smudge Cells Platelet Estimate % Immature Plt Fraction Poikilocytosis Anisocytosis [place] Cells Schistocytes Sodium 149 H Potassium 3.3 L Chloride 114 H Carbon Dioxide 27 Anion Gap 8 BUN 50 H D Creatinine 1.60 H Estim Creat Clear Calc 39 Estimated GFR 42 L Glucose 128 H POC Capillary Glucose 143 H Lactic Acid Calcium 9.1 Magnesium 2.4 H Total Bilirubin 0.9 AST 145 H ALT 41 Alkaline Phosphatase 237 H Total Protein 6.0 L Albumin 2.7 L Vancomycin Trough 20.8 H 08/13/24 08/13/24 08/13/24 05:51 06:39 08:44 WBC 8.7 RBC 4.05 L Hgb 11.0 L Hct 32.9 L MCV 81.2 MCH 27.2 MCHC 33.4 RDW 16.8 H Plt Count 43 L MPV 10.1 Immature Gran % (Auto) Not Reportable Neut % (Auto) Not Reportable Lymph % (Auto) Not Reportable [place] % (Auto) Not Reportable Eos % (Auto) Not Reportable Baso % (Auto) Not Reportable Lymph # (Auto) Not Reportable [place] # (Auto) Not Reportable Eos # (Auto) Not Reportable Baso # (Auto) Not Reportable Abs Immat Gran (auto) Not Reportable Absolute Neuts (auto) Not Reportable Absolute Nucleated RBC Not Reportable Total Counted 100 Neutrophils % (Manual) 69 Band Neutrophils % 15 H Lymphocytes % (Manual) 7 L Monocytes % (Manual) 9 Nucleated RBC % Not Reportable Abs Neuts (Manual) 7.30 H Abs Lymphs (Manual) 0.60 L Abs Monocytes (Manual) 0.78 Smudge Cells Present Platelet Estimate Decreased % Immature Plt Fraction 3.5 Poikilocytosis 1+ Anisocytosis 1+ [place] Cells 1+ Schistocytes 1+ Sodium Potassium Chloride Carbon Dioxide Anion Gap BUN Creatinine Estim Creat Clear Calc Estimated GFR Glucose POC Capillary Glucose 102 Lactic Acid 4.9 H* Calcium Magnesium Total Bilirubin AST ALT Alkaline Phosphatase Total Protein Albumin Vancomycin Trough
[2024-08-13 11:48] LABS: Reflex Lactic Acid Yes or No Add Lactic
[2024-08-13] MEDS: DEXTROSE 5%/0.45% SOD CHL 1,000 ML 125 ML IV CONT (11:50)
--- NOTE | 2024-08-13 12:05 | WPDPN ---
Progress Note: A&P Assessment and Plan (1) Small bowel obstruction: Code(s): K56.609 - Unspecified intestinal obstruction, unspecified as to partial versus complete obstruction Status: Acute Assessment and Plan: Water-soluble small bowel series contrast reached the colon at3.5hours. There were some mildly dilated loops of small bowel but no high-grade obstruction. We will go ahead and remove the nasogastric tube today and start him on clear liquids. No acute surgical abdomen at this time. He does likely have at least a partial low-grade obstruction likely due to abdominal adhesions were his previous abdominal surgeries. Hopefully he will continue to completely resolve without surgical management at this time. We will continue to follow. Subjective Date/time seen: 08/13/24 12:05 Interval history: Patient is doing okay today. He did have a couple of bowel movements after small bowel series yesterday. The contrast moved through small bowel into his colon at3.5hours. Impression is that he may have a partial small-bowel obstruction but no high-grade obstruction. White blood cell count is normal today. No fever or tachycardia. Exam GI: Other: Abdomen is soft and obese. Still a little distended. Minimal tenderness. Relatively benign. Objective Data Vital Signs Vital Signs: Vital Signs - 24 hr 08/12/24 13:31 08/12/24 13:34 08/12/24 13:55 Temperature 36.6 C Pulse Rate 89 87 85 Respiratory Rate 30 H 20 20 Blood Pressure 149/57 H Pulse Oximetry 91 Oxygen Delivery Oxygen Flow Rate 08/12/24 14:00 08/12/24 16:00 08/12/24 16:00 Temperature Pulse Rate 90 91 Respiratory Rate Blood Pressure Pulse Oximetry 99 Oxygen Delivery Nasal Cannula Oxygen Flow Rate 3 08/12/24 16:00 08/12/24 18:00 08/12/24 21:14 Temperature 37.2 C Pulse Rate 90 95 Respiratory Rate 22 H Blood Pressure 153/64 H Pulse Oximetry 92 92 Oxygen Delivery Nasal Cannula Oxygen Flow Rate 5 08/12/24 20:53 08/12/24 20:00 08/12/24 20:00 Temperature 37.4 C Pulse Rate 93 102 H Respiratory Rate 18 26 H Blood Pressure 132/114 H Pulse Oximetry 90 92 Oxygen Delivery Nasal Cannula Oxygen Flow Rate 3 08/13/24 00:00 08/13/24 00:00 08/12/24 20:00 Temperature 36.8 C Pulse Rate 98 99 Respiratory Rate 24 H Blood Pressure 166/66 H Pulse Oximetry 94 94 Oxygen Delivery Nasal Cannula Oxygen Flow Rate 6 08/12/24 22:00 08/13/24 00:00 08/13/24 02:00 Temperature Pulse Rate 102 H 94 96 Respiratory Rate Blood Pressure Pulse Oximetry Oxygen Delivery Oxygen Flow Rate 08/13/24 02:46 08/12/24 21:03 08/13/24 04:00 Temperature 36.9 C Pulse Rate 91 90 102 H Respiratory Rate 18 18 26 H Blood Pressure 164/66 H Pulse Oximetry 96 Oxygen Delivery Oxygen Flow Rate 08/13/24 05:56 08/13/24 04:00 08/13/24 06:00 Temperature Pulse Rate 89 97 92 Respiratory Rate 18 Blood Pressure Pulse Oximetry Oxygen Delivery Oxygen Flow Rate 08/13/24 07:33 08/13/24 08:00 08/13/24 08:00 Temperature 36.7 C Pulse Rate 99 99 Respiratory Rate 22 H 20 Blood Pressure 148/74 H Pulse Oximetry 92 94 Oxygen Delivery High Flow Nasal Cannula Oxygen Flow Rate 8 08/13/24 08:35 08/13/24 11:10 Temperature 36.7 C Pulse Rate 101 H 104 H Respiratory Rate 24 H 22 H Blood Pressure 176/75 H Pulse Oximetry 91 Oxygen Delivery Oxygen Flow Rate Intake/Output Intake/Output: Intake & Output 08/10/24 08/11/24 08/12/24 08/13/24 23:59 23:59 23:59 23:59 Intake Total 2915 2949.6 1503.3 908.3 Output Total 1100 1575 3750 600 Balance 1815 1374.6 -2246.7 308.3 Meds/Results Medications: Active Medications Generic Name Dose Route Start Last Admin Trade Name Freq PRN Reason Stop Dose Admin Acetaminophen 650 mg 08/09/24 19:56 08/10/24 20:00 Acetaminophen 325 Mg Tablet PO 650 mg Q4H PRN Administration Mild Pain (1-3) or Fever Atorvastatin Calcium 40 mg 08/10/24 09:00 08/11/24 12:31 Atorvastatin 40 Mg Tablet PO Not Given DAILY [place] Dextrose 12.5 gm 08/10/24 06:29 08/11/24 10:46 Dextrose 50% 25 Gm/50 Ml Syringe IV PUSH 12.5 gm PRN PRN Administration Hypoglycemia Protocol Enoxaparin Sodium 95 mg 08/11/24 21:00 08/12/24 08:34 Enoxaparin 100 Mg/Ml Syringe SUB-Q Not Given Q12H [facility] Finasteride 5 mg 08/10/24 09:00 08/11/24 12:32 Finasteride 5 Mg Tablet BY MOUTH Not Given DAILY [facility] Glucagon 1 mg 08/10/24 06:29 Glucagon For Inj 1 Mg Vial IM PRN PRN Hypoglycemia Protocol Glucose 15 gm 08/10/24 06:29 Glucose Oral Gel 15 Gm Of Glucse In 37.5 Gm Tube PO PRN PRN Hypoglycemia Protocol Hydralazine HCl 20 mg 08/11/24 11:57 Hydralazine Hcl 20 Mg/Ml Vial IV PUSH Q4H PRN Blood Sugar - High Levofloxacin/Dextrose 750 mg in 150 mls @ 100 mls/hr 08/09/24 20:00 08/11/24 21:14 Levaquin 750 Mg/D5w 150 Ml IVPB 100 mls/hr Q48H [place] Administration Dextrose 1,000 mls @ 100 mls/hr 08/10/24 06:29 Dextrose 5% 1,000 Ml IVPB PRN PRN Hypoglycemia Protocol Metronidazole 500 mg in 100 mls @ 100 mls/hr 08/10/24 13:00 08/13/24 06:05 Flagyl 500 Mg/Iso Soln 100 Ml IVPB 100 mls/hr Q8HR [place] Administration Vancomycin HCl 1,250 mg in 250 mls @ 166.667 mls/hr 08/13/24 05:00 08/13/24 04:05 Vancomycin 1,250 Mg/Ns 250 Ml IVPB 166.67 mls/hr Q18H [place] Administration Dextrose/Sodium Chloride 1,000 mls @ 125 mls/hr 08/13/24 11:25 08/13/24 11:50 Dextrose 5% Sodium Chloride 0.45% IV CONT 125 mls/hr .Q8H [place] Administration Ipratropium [place] 0.5 mg 08/10/24 08:00 08/13/24 07:58 Ipratropium Br 0.02% Inh Soln 0.5 Mg/2.5 Ml Vial INHALATION 0.5 mg Q6HRT [place] Administration Levalbuterol HCl 0.63 mg 08/10/24 08:00 08/13/24 07:58 Levalbuterol Neb 1.25 Mg/3 Ml INHALATION 0.63 mg Q6HRT [place] Administration Metoprolol Succinate 50 mg 08/11/24 16:10 08/11/24 17:02 Metoprolol Succinate Ext Rel 50 Mg Tabcr PO Not Given QAM [facility] Morphine Sulfate 2 mg 08/12/24 03:15 Morphine Sulfate (*Crx) 2 Mg/Ml Inj IV PUSH Q4H PRN Pain Rated 7-10 Multivitamins Therapeutic 1 tablet 08/10/24 09:00 08/12/24 08:31 Multivitamins Therapeutic Tab (*Bkc) PO Not Given DAILY [facility] Nortriptyline HCl 50 mg 08/10/24 21:00 08/11/24 19:50 Nortriptyline Hcl 25 Mg Capsule PO Not Given QHS [facility] Ondansetron HCl 4 mg 08/12/24 03:15 08/12/24 04:19 Ondansetron Inj 4 Mg/2 Ml Vial IV PUSH 4 mg Q4H PRN Administration Nausea And Vomiting Pantoprazole Sodium 40 mg 08/13/24 09:00 08/13/24 10:01 Pantoprazole Sodium Iv 40 Mg Vial IV PUSH 40 mg QAM [facility] Administration Rivaroxaban 20 mg 08/11/24 17:00 Rivaroxaban 20 Mg Tablet PO DAILY@1700 [facility] Tamsulosin HCl 0.4 mg 08/10/24 09:00 08/11/24 16:26 Tamsulosin Hcl 0.4 Mg Capsule PO Not Given BID [facility] Radiology Results: ITS Impressions Head CT 08/09/24 17:49 IMPRESSION: 1. No fracture or acute intracranial process. 2. 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 3. Age-related changes including mild diffuse volume loss and mild scattered mesenteric white matter hypoattenuation consistent with chronic small vessel ischemic disease. Cervical Spine CT 08/09/24 18:15 IMPRESSION: 1. Moderate to severe cervical spondylosis. No acute osseous abnormality. Thoracic/Lumbar Spine CT 08/09/24 18:22 IMPRESSION: 1. Multiple old posterior left rib fractures and chronic compression fractures with mild anterior wedging at T5 and T6 and mild right-sided anterior vertebral body height loss at L2. No acute osseous abnormality. 2. Moderate thoracic spondylosis and mild lumbar spondylosis. 3. Combined instrumented L5-S1 anterior and posterior spinal fusion. 4. Chronic bilateral lower lung predominant interstitial lung disease with indeterminate 8 mm pulmonary nodule in the left lower lobe. Recommend 3 month follow-up low-dose noncontrast chest CT. Chest CTA 08/10/24 18:43 IMPRESSION: 1. No pulmonary embolism. 2. Bilateral interstitial and alveolar opacification more prominent in the right upper lobe which may indicate pneumonitis versus fibrotic changes versus pulmonary edema. 3. Bilateral pleural effusion more on the right side. 4. Cholelithiasis. 5. Left adrenal adenoma. 6. Mediastinal lymphadenopathy.. 7. Multiple healing rib fractures in the left hemithorax. Chest X-Ray 08/11/24 09:19 IMPRESSION: Suggestion of congestive heart failure; interstitial pneumonitis patient pneumonia is not excluded Brain MRA 08/11/24 09:25 IMPRESSION: 1. High-grade stenosis on the right P1 segment with downstream moderate-sized region of encephalomalacia consistent with chronic infarct. 2. Moderate grade stenosis at the origin of the right M1 segment. Venous Doppler Study 08/11/24 14:29 IMPRESSION: 1. No deep venous thrombosis in either lower limb. Abdomen X-Ray 08/12/24 06:14 IMPRESSION: NG tube in gastric fundus Chest/Abdomen/Pelvis CT 08/12/24 08:46 IMPRESSION: Extensive interval bilateral patchy pulmonary infiltrates since 08/10/2024, which may be consistent with extensive aspiration pneumonitis or rapidly worsening pneumonia Brain MRI 08/12/24 14:11 IMPRESSION: No acute intracranial process. Abdomen Ultrasound 08/12/24 16:37 IMPRESSION: Likely, additional gallbladder sludge and stones in the dependent gallbladder lumen. Small Bowel X-Ray 08/12/24 19:16 IMPRESSION: Radiographic findings consistent with low-grade small bowel obstruction or ileus. Lumbar Spine MRI 08/13/24 06:32 IMPRESSION: 1. Widespread enhancement of the bones without abnormal CT correlate suspicious for metastatic disease or multiple myeloma. 2. Mild lumbar spondylosis. 3. Anterior fusion procedure at L5-S1. Cervical Spine MRI 08/13/24 06:43 IMPRESSION: 1. Widespread abnormal contrast enhancement in the bones, consistent with metastatic disease versus multiple myeloma. 2. Moderate cervical spondylosis. Thoracic Spine MRI 08/13/24 06:48 IMPRESSION: 1. Widespread contrast enhancement of the bones, consistent with metastatic disease versus multiple myeloma. 2. Mild thoracic spondylosis. Labs Labs: Laboratory Results - last 24 hr 08/12/24 08/12/24 08/12/24 13:24 16:37 16:51 WBC RBC Hgb Hct MCV MCH MCHC RDW Plt Count MPV Immature Gran % (Auto) Neut % (Auto) Lymph % (Auto) [place] % (Auto) Eos % (Auto) Baso % (Auto) Lymph # (Auto) [place] # (Auto) Eos # (Auto) Baso # (Auto) Abs Immat Gran (auto) Absolute Neuts (auto) Absolute Nucleated RBC Total Counted Neutrophils % (Manual) Band Neutrophils % Lymphocytes % (Manual) Monocytes % (Manual) Nucleated RBC % Abs Neuts (Manual) Abs Lymphs (Manual) Abs Monocytes (Manual) Smudge Cells Platelet Estimate % Immature Plt Fraction Poikilocytosis Anisocytosis Gray Cells Schistocytes Sodium Potassium Chloride Carbon Dioxide Anion Gap BUN Creatinine Estim Creat Clear Calc Estimated GFR Glucose POC Capillary Glucose 110 H 133 H Lactic Acid 3.8 H Calcium Magnesium Total Bilirubin AST ALT Alkaline Phosphatase Total Protein Albumin Vancomycin Trough 08/12/24 08/12/24 08/13/24 21:05 23:33 04:03 WBC RBC Hgb Hct MCV MCH MCHC RDW Plt Count MPV Immature Gran % (Auto) Neut % (Auto) Lymph % (Auto) [place] % (Auto) Eos % (Auto) Baso % (Auto) Lymph # (Auto) [place] # (Auto) Eos # (Auto) Baso # (Auto) Abs Immat Gran (auto) Absolute Neuts (auto) Absolute Nucleated RBC Total Counted Neutrophils % (Manual) Band Neutrophils % Lymphocytes % (Manual) Monocytes % (Manual) Nucleated RBC % Abs Neuts (Manual) Abs Lymphs (Manual) Abs Monocytes (Manual) Smudge Cells Platelet Estimate % Immature Plt Fraction Poikilocytosis Anisocytosis Gray Cells Schistocytes Sodium 149 H Potassium 3.3 L Chloride 114 H Carbon Dioxide 27 Anion Gap 8 BUN 50 H D Creatinine 1.60 H Estim Creat Clear Calc 39 Estimated GFR 42 L Glucose 128 H POC Capillary Glucose 143 H Lactic Acid Calcium 9.1 Magnesium 2.4 H Total Bilirubin 0.9 AST 145 H ALT 41 Alkaline Phosphatase 237 H Total Protein 6.0 L Albumin 2.7 L Vancomycin Trough 20.8 H 08/13/24 08/13/24 08/13/24 05:51 06:39 08:44 WBC 8.7 RBC 4.05 L Hgb 11.0 L Hct 32.9 L MCV 81.2 MCH 27.2 MCHC 33.4 RDW 16.8 H Plt Count 43 L MPV 10.1 Immature Gran % (Auto) Not Reportable Neut % (Auto) Not Reportable Lymph % (Auto) Not Reportable [place] % (Auto) Not Reportable Eos % (Auto) Not Reportable Baso % (Auto) Not Reportable Lymph # (Auto) Not Reportable [place] # (Auto) Not Reportable Eos # (Auto) Not Reportable Baso # (Auto) Not Reportable Abs Immat Gran (auto) Not Reportable Absolute Neuts (auto) Not Reportable Absolute Nucleated RBC Not Reportable Total Counted 100 Neutrophils % (Manual) 69 Band Neutrophils % 15 H Lymphocytes % (Manual) 7 L Monocytes % (Manual) 9 Nucleated RBC % Not Reportable Abs Neuts (Manual) 7.30 H Abs Lymphs (Manual) 0.60 L Abs Monocytes (Manual) 0.78 Smudge Cells Present Platelet Estimate Decreased % Immature Plt Fraction 3.5 Poikilocytosis 1+ Anisocytosis 1+ [place] Cells 1+ Schistocytes 1+ Sodium Potassium Chloride Carbon Dioxide Anion Gap BUN Creatinine Estim Creat Clear Calc Estimated GFR Glucose POC Capillary Glucose 102 Lactic Acid 4.9 H* Calcium Magnesium Total Bilirubin AST ALT Alkaline Phosphatase Total Protein Albumin Vancomycin Trough
[2024-08-13 12:13] LABS: Hematocrit 32.4 % (42.0-52.0); Hemoglobin 10.9 g/dL (14.0-18.0); Immature Platelet Fraction Pct 4.5 % (0.9-11.2); Mean Corpuscular HGB Conc 33.6 g/dl (32-36); Mean Corpuscular Volume 80.4 fl (80-100); Mean Platelet Volume 9.8 fl (7.4-10.4); Platelet Count Result 42 k/mm3 (150-375); Red Blood Count 4.03 M/mm3 (4.6-6.20); Red Cell Distribution Width 16.9 % (11.5-14.5); White Blood Count 9.7 K/mm3 (4.5-10.0)
[2024-08-13 12:22] LABS: Alanine Aminotransferase 39 U/L (6-50); Albumin Level 2.8 g/dL (3.5-5.1); Alkaline Phosphatase 241 U/L (38-126); Anion Gap 10 mmol/L (4-12); Aspartate Amino Transferase 137 U/L (17-59); Blood Urea Nitrogen 51 mg/dL (9-20); Calcium 9.2 mg/dL (8.4-10.2); Carbon Dioxide 27 mmol/L (22-30); Chloride 115 mmol/L (98-107); Estimated CRCL calculation 37 ml/min; Estimated Glomerular Filt Rate 45; Glucose 116 mg/dL (65-110); Potassium 3.2 mmol/L (3.4-5.0); Sodium 152 mmol/L (137-145)
[2024-08-13 12:26] LABS: Glucose Point of Care 113 mg/dl (65-105)
[2024-08-13 15:03] LABS: Lactic Acid Reflex 5.8 mmol/L (0.7-2.0)
--- NOTE | 2024-08-13 16:31 | P.PNIM_ITS ---
Progress Note: A&P Assessment and Plan (1) Sepsis: Qualifiers: Acute renal failure type: unspecified Sepsis acute organ dysfunction status: with acute organ dysfunction Sepsis type: sepsis due to unspecified or ganism Severe sepsis acute organ dysfunction type: acute renal failure Severe sepsis shock status: without septic shock Qualified Code(s): A41.9 - Sepsis, unspecified organism; R65.20 - Severe sepsis without septic shock; N17.9 - Acute kidney failure, unspecified Code(s): A41.9 - Sepsis, unspecified organism Status: Acute (2) Acute dehydration: Code(s): E86.0 - Dehydration Status: Acute (3) Multiple falls: Code(s): R29.6 - Repeated falls Status: Acute Plan Sepsis, improving Likely from Pneumonia r/o diskitis/osteomyelitis CXR showed increasing reticular and groundglass opacities bilateral lungs patient was tachycardia (112), tachypnea (32), WBC 17.[address] Chest negative for PE but showed pneumonia repeat CT AP and chest this morning showed extensive PNA and partial SBO Vital signs stable F/u cultures Continue Levaquin, Flagyl and Vanc MRI spine pending monitor closely Pneumonia CXR showed worsening bilateral reticular and groundglass opacities Continue above care Partial SBO Having bowel movement small bowel follow through reviewed remove NG tube and start clears per surgery Gen surgery following Atrial fibrillation with RVR Now in NSR Cardizem infusion held and Full dose Lovenox on hold due to thrombocytopenia Continue metoprolol, will switch to Xarelto if patient tolerates oral intake ECHO showed normal LV function Cardiology following Back pain with radiculopathy Multiple bone lesion suspicious for metastases vs MM Bone biopsy, UPEP and SPEP ordered HemOnc consulted PRN pain control Elevated ddimer DVT/PE ruled CTA chest PE protocol and venous doppler negative for PE or DVT monitor BPH Continue Finasteride and Tamsulosin Hypertension Continue home meds CKD stage III Cr 1.4 which is about baseline monitor hx of CVA continue Plavix and lipitor CAD continue home meds DVT prophylaxis on Sq Lovenox will transition to PO AC once cleared by speech) Subjective Date/time seen: 08/13/24 16:31 Interval history: Comfortable at bedside Patient had bowel movement today and Gen surgery cleared for clear fluid diet MRI spine showed multiple metastases, bone biopsy, UPEP and SPEP ordered HemONc consult Review of Systems Review of Systems: 12 systems were reviewed with pertinent positives and negatives per HPI. Except as documented in the HPI, all other systems were reviewed and are negative. Exam Narrative: General: alert and comfortable Eyes: EOMI, PERRLA ENNT External ears normal, Neck is supple, no masses, Respiratory systems: Clear to auscultation Cardiovascular S1, S2, normal rhythm, no murmur, rub, or gallop; no thrill or palpable murmurs on palpation. Gastrointestinal: soft, non-tender, and non-distended abdomen with no masses; BS present Skin: no rash, lesions, ulcerations, subcutaneous nodules or induration Musculoskeletal: spine tenderness on palpation Neurologic: Alert and oriented x3, power 4/5 in lower extremities Mental Status Exam: normal affect Const: Other: Obese, mildly ill-appearing, uncomfortable HENMT: Other: Mucous membranes are dry, no oral pharyngeal erythema, crowded posterior oropharynx, head is normocephalic atraumatic Eyes: Other: Pupils are equal and reactive no scleral icterus, no conjunctival pallor Neck: Other: Large neck circumference, no gross lymphadenopathy, possible thyroid enlargement Resp: Other: Crackles of the right upper lobe, decreased breath sounds at the bases, moderate tachypnea with abdominal respirations Cardio: Other: Sinus tachycardia, 2+ bilateral radial pedal pulses, no murmur, no JVD GI: Other: Obese, distended, soft, nontender, positive bowel sounds Back/Spine/Pelvis: Other: No reproducible pain to palpation of spinous processes, surgical scar over L4-S1 region Skin: Other: Hot to touch, mildly diaphoretic Neuro: Other: Alert oriented x4, speech is clear, no facial asymmetry, decreased sensation of left upper and lower extremity which patient reports is chronic, 5/5 veterinary radiologist strength on the left 4/5 veterinary radiologist strength on the right, extraocular movements intact Psych: Other: Anxious, pleasant, cooperative, appropriate judgment and insight Objective Data Vital Signs Vital Signs: Vital Signs - 24 hr 08/12/24 18:00 08/12/24 21:14 08/12/24 20:53 Temperature Pulse Rate 95 93 Respiratory Rate 18 Blood Pressure Pulse Oximetry 92 Oxygen Delivery Nasal Cannula Oxygen Flow Rate 5 08/12/24 20:00 08/12/24 20:00 08/13/24 00:00 Temperature 99.3 F 98.3 F Pulse Rate 102 H 98 Respiratory Rate 26 H 24 H Blood Pressure 132/114 H 166/66 H Pulse Oximetry 90 92 94 Oxygen Delivery Nasal Cannula Oxygen Flow Rate 3 08/13/24 00:00 08/12/24 20:00 08/12/24 22:00 Temperature Pulse Rate 99 102 H Respiratory Rate Blood Pressure Pulse Oximetry 94 Oxygen Delivery Nasal Cannula Oxygen Flow Rate 6 08/13/24 00:00 08/13/24 02:00 08/13/24 02:46 Temperature Pulse Rate 94 96 91 Respiratory Rate 18 Blood Pressure Pulse Oximetry Oxygen Delivery Oxygen Flow Rate 08/12/24 21:03 08/13/24 04:00 08/13/24 05:56 Temperature 98.4 F Pulse Rate 90 102 H 89 Respiratory Rate 18 26 H 18 Blood Pressure 164/66 H Pulse Oximetry 96 Oxygen Delivery Oxygen Flow Rate 08/13/24 04:00 08/13/24 06:00 08/13/24 07:33 Temperature 98.1 F Pulse Rate 97 92 99 Respiratory Rate 22 H Blood Pressure 148/74 H Pulse Oximetry 92 Oxygen Delivery Oxygen Flow Rate 08/13/24 08:00 08/13/24 08:00 08/13/24 08:35 Temperature Pulse Rate 99 101 H Respiratory Rate 20 24 H Blood Pressure Pulse Oximetry 94 Oxygen Delivery High Flow Nasal Cannula Oxygen Flow Rate 8 08/13/24 11:10 08/13/24 08:00 08/13/24 08:00 Temperature 98.1 F Pulse Rate 104 H 104 H 104 H Respiratory Rate 22 H 22 H Blood Pressure 176/75 H Pulse Oximetry 91 91 Oxygen Delivery High Flow Nasal Cannula Oxygen Flow Rate 10 08/13/24 10:00 08/13/24 12:00 08/13/24 12:00 Temperature Pulse Rate 100 103 H 103 H Respiratory Rate 21 H Blood Pressure Pulse Oximetry 96 Oxygen Delivery High Flow Nasal Cannula Oxygen Flow Rate 10 08/13/24 13:36 08/13/24 13:36 08/13/24 13:48 Temperature Pulse Rate 108 H 103 H Respiratory Rate 24 H 20 Blood Pressure Pulse Oximetry 92 Oxygen Delivery High Flow Nasal Cannula Oxygen Flow Rate 14 08/13/24 15:56 08/13/24 14:00 08/13/24 16:00 Temperature 98.2 F Pulse Rate 105 H 105 H 105 H Respiratory Rate 24 H Blood Pressure 171/75 H Pulse Oximetry 93 Oxygen Delivery Oxygen Flow Rate 08/13/24 16:00 08/13/24 16:21 Temperature Pulse Rate 105 H 106 H Respiratory Rate 24 H Blood Pressure Pulse Oximetry 93 Oxygen Delivery High Flow Nasal Cannula Oxygen Flow Rate 9 Intake/Output Intake/Output: Intake & Output 08/10/24 08/11/24 08/12/24 08/13/24 23:59 23:59 23:59 23:59 Intake Total 2915 2949.6 1503.3 1008.3 Output Total 1100 1575 3750 600 Balance 1815 1374.6 -2246.7 408.3 Meds/Results Medications: Active Medications Generic Name Dose Route Start Last Admin Trade Name Freq PRN Reason Stop Dose Admin Acetaminophen 650 mg 08/09/24 19:56 08/10/24 20:00 Acetaminophen 325 Mg Tablet PO 650 mg Q4H PRN Administration Mild Pain (1-3) or Fever Atorvastatin Calcium 40 mg 08/10/24 09:00 08/11/24 12:31 Atorvastatin 40 Mg Tablet PO Not Given DAILY [place] Dextrose 12.5 gm 08/10/24 06:29 08/11/24 10:46 Dextrose 50% 25 Gm/50 Ml Syringe IV PUSH 12.5 gm PRN PRN Administration Hypoglycemia Protocol Enoxaparin Sodium 95 mg 08/11/24 21:00 08/12/24 08:34 Enoxaparin 100 Mg/Ml Syringe SUB-Q Not Given Q12H [place] Finasteride 5 mg 08/10/24 09:00 08/11/24 12:32 Finasteride 5 Mg Tablet BY MOUTH Not Given DAILY [facility] Glucagon 1 mg 08/10/24 06:29 Glucagon For Inj 1 Mg Vial IM PRN PRN Hypoglycemia Protocol Glucose 15 gm 08/10/24 06:29 Glucose Oral Gel 15 Gm Of Glucse In 37.5 Gm Tube PO PRN PRN Hypoglycemia Protocol Hydralazine HCl 20 mg 08/11/24 11:57 Hydralazine Hcl 20 Mg/Ml Vial IV PUSH Q4H PRN Blood Sugar - High Levofloxacin/Dextrose 750 mg in 150 mls @ 100 mls/hr 08/09/24 20:00 08/11/24 21:14 Levaquin 750 Mg/D5w 150 Ml IVPB 100 mls/hr Q48H [place] Administration Dextrose 1,000 mls @ 100 mls/hr 08/10/24 06:29 Dextrose 5% 1,000 Ml IVPB PRN PRN Hypoglycemia Protocol Metronidazole 500 mg in 100 mls @ 100 mls/hr 08/10/24 13:00 08/13/24 06:05 Flagyl 500 Mg/Iso Soln 100 Ml IVPB 100 mls/hr Q8HR [place] Administration Vancomycin HCl 1,250 mg in 250 mls @ 166.667 mls/hr 08/13/24 05:00 08/13/24 04:05 Vancomycin 1,250 Mg/Ns 250 Ml IVPB 166.67 mls/hr Q18H [place] Administration Dextrose/Sodium Chloride 1,000 mls @ 125 mls/hr 08/13/24 11:25 08/13/24 11:50 Dextrose 5% Sodium Chloride 0.45% IV CONT 125 mls/hr .Q8H [place] Administration Ipratropium [place] 0.5 mg 08/10/24 08:00 08/13/24 13:34 Ipratropium Br 0.02% Inh Soln 0.5 Mg/2.5 Ml Vial INHALATION 0.5 mg Q6HRT [place] Administration Levalbuterol HCl 0.63 mg 08/10/24 08:00 08/13/24 13:34 Levalbuterol Neb 1.25 Mg/3 Ml INHALATION 0.63 mg Q6HRT [place] Administration Metoclopramide HCl 5 mg 08/13/24 18:00 Metoclopramide Hcl Inj 10 Mg/2 Ml Vial IV PUSH Q6HR [facility] Metoprolol Succinate 50 mg 08/11/24 16:10 08/11/24 17:02 Metoprolol Succinate Ext Rel 50 Mg Tabcr PO Not Given QAM [facility] Morphine Sulfate 2 mg 08/12/24 03:15 Morphine Sulfate (*Crx) 2 Mg/Ml Inj IV PUSH Q4H PRN Pain Rated 7-10 Multivitamins Therapeutic 1 tablet 08/10/24 09:00 08/12/24 08:31 Multivitamins Therapeutic Tab (*Bkc) PO Not Given DAILY [place] Nortriptyline HCl 50 mg 08/10/24 21:00 08/11/24 19:50 Nortriptyline Hcl 25 Mg Capsule PO Not Given QHS [facility] Ondansetron HCl 4 mg 08/12/24 03:15 08/12/24 04:19 Ondansetron Inj 4 Mg/2 Ml Vial IV PUSH 4 mg Q4H PRN Administration Nausea And Vomiting Pantoprazole Sodium 40 mg 08/13/24 09:00 08/13/24 10:01 Pantoprazole Sodium Iv 40 Mg Vial IV PUSH 40 mg QAM [place] Administration Rivaroxaban 20 mg 08/11/24 17:00 Rivaroxaban 20 Mg Tablet PO DAILY@1700 [facility] Tamsulosin HCl 0.4 mg 08/10/24 09:00 08/11/24 16:26 Tamsulosin Hcl 0.4 Mg Capsule PO Not Given BID [facility] Radiology Results: ITS Impressions Head CT 08/09/24 17:49 IMPRESSION: 1. No fracture or acute intracranial process. 2. 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 3. Age-related changes including mild diffuse volume loss and mild scattered mesenteric white matter hypoattenuation consistent with chronic small vessel ischemic disease. Cervical Spine CT 08/09/24 18:15 IMPRESSION: 1. Moderate to severe cervical spondylosis. No acute osseous abnormality. Thoracic/Lumbar Spine CT 08/09/24 18:22 IMPRESSION: 1. Multiple old posterior left rib fractures and chronic compression fractures with mild anterior wedging at T5 and T6 and mild right-sided anterior vertebral body height loss at L2. No acute osseous abnormality. 2. Moderate thoracic spondylosis and mild lumbar spondylosis. 3. Combined instrumented L5-S1 anterior and posterior spinal fusion. 4. Chronic bilateral lower lung predominant interstitial lung disease with indeterminate 8 mm pulmonary nodule in the left lower lobe. Recommend 3 month follow-up low-dose noncontrast chest CT. Chest CTA 08/10/24 18:43 IMPRESSION: 1. No pulmonary embolism. 2. Bilateral interstitial and alveolar opacification more prominent in the right upper lobe which may indicate pneumonitis versus fibrotic changes versus pulmonary edema. 3. Bilateral pleural effusion more on the right side. 4. Cholelithiasis. 5. Left adrenal adenoma. 6. Mediastinal lymphadenopathy.. 7. Multiple healing rib fractures in the left hemithorax. Chest X-Ray 08/11/24 09:19 IMPRESSION: Suggestion of congestive heart failure; interstitial pneumonitis patient pneumonia is not excluded Brain MRA 08/11/24 09:25 IMPRESSION: 1. High-grade stenosis on the right P1 segment with downstream moderate-sized region of encephalomalacia consistent with chronic infarct. 2. Moderate grade stenosis at the origin of the right M1 segment. Venous Doppler Study 08/11/24 14:29 IMPRESSION: 1. No deep venous thrombosis in either lower limb. Chest/Abdomen/Pelvis CT 08/12/24 08:46 IMPRESSION: Extensive interval bilateral patchy pulmonary infiltrates since 08/10/2024, which may be consistent with extensive aspiration pneumonitis or rapidly worsening pneumonia Brain MRI 08/12/24 14:11 IMPRESSION: No acute intracranial process. Abdomen Ultrasound 08/12/24 16:37 IMPRESSION: Likely, additional gallbladder sludge and stones in the dependent gallbladder lumen. Small Bowel X-Ray 08/12/24 19:16 IMPRESSION: Radiographic findings consistent with low-grade small bowel obstruction or ileus. Lumbar Spine MRI 08/13/24 06:32 IMPRESSION: 1. Widespread enhancement of the bones without abnormal CT correlate suspicious for metastatic disease or multiple myeloma. 2. Mild lumbar spondylosis. 3. Anterior fusion procedure at L5-S1. Cervical Spine MRI 08/13/24 06:43 IMPRESSION: 1. Widespread abnormal contrast enhancement in the bones, consistent with metastatic disease versus multiple myeloma. 2. Moderate cervical spondylosis. Thoracic Spine MRI 08/13/24 06:48 IMPRESSION: 1. Widespread contrast enhancement of the bones, consistent with metastatic disease versus multiple myeloma. 2. Mild thoracic spondylosis. Abdomen X-Ray 08/13/24 13:20 IMPRESSION: 1. Dilated small bowel, likely adynamic ileus. Labs Labs: Laboratory Results - last 24 hr 08/12/24 08/12/24 08/12/24 16:37 16:51 21:05 WBC RBC Hgb Hct MCV MCH MCHC RDW Plt Count MPV Immature Gran % (Auto) Neut % (Auto) Lymph % (Auto) [place] % (Auto) Eos % (Auto) Baso % (Auto) Lymph # (Auto) [place] # (Auto) Eos # (Auto) Baso # (Auto) Abs Immat Gran (auto) Absolute Neuts (auto) Absolute Nucleated RBC Total Counted Neutrophils % (Manual) Band Neutrophils % Lymphocytes % (Manual) Monocytes % (Manual) Nucleated RBC % Abs Neuts (Manual) Abs Lymphs (Manual) Abs Monocytes (Manual) Smudge Cells Platelet Estimate % Immature Plt Fraction Poikilocytosis Anisocytosis Dennise Cells Schistocytes Sodium Potassium Chloride Carbon Dioxide Anion Gap BUN Creatinine Estim Creat Clear Calc Estimated GFR Glucose POC Capillary Glucose 133 H Lactic Acid 3.8 H Calcium Magnesium Total Bilirubin AST ALT Alkaline Phosphatase Total Protein Albumin Vancomycin Trough 20.8 H 08/12/24 08/13/24 08/13/24 23:33 04:03 05:51 WBC 8.7 RBC 4.05 L Hgb 11.0 L Hct 32.9 L MCV 81.2 MCH 27.2 MCHC 33.4 RDW 16.8 H Plt Count 43 L MPV 10.1 Immature Gran % (Auto) Not Reportable Neut % (Auto) Not Reportable Lymph % (Auto) Not Reportable [place] % (Auto) Not Reportable Eos % (Auto) Not Reportable Baso % (Auto) Not Reportable Lymph # (Auto) Not Reportable [place] # (Auto) Not Reportable Eos # (Auto) Not Reportable Baso # (Auto) Not Reportable Abs Immat Gran (auto) Not Reportable Absolute Neuts (auto) Not Reportable Absolute Nucleated RBC Not Reportable Total Counted 100 Neutrophils % (Manual) 69 Band Neutrophils % 15 H Lymphocytes % (Manual) 7 L Monocytes % (Manual) 9 Nucleated RBC % Not Reportable Abs Neuts (Manual) 7.30 H Abs Lymphs (Manual) 0.60 L Abs Monocytes (Manual) 0.78 Smudge Cells Present Platelet Estimate Decreased % Immature Plt Fraction 3.5 Poikilocytosis 1+ Anisocytosis 1+ Dennise Cells 1+ Schistocytes 1+ Sodium 149 H Potassium 3.3 L Chloride 114 H Carbon Dioxide 27 Anion Gap 8 BUN 50 H D Creatinine 1.60 H Estim Creat Clear Calc 39 Estimated GFR 42 L Glucose 128 H POC Capillary Glucose 143 H Lactic Acid Calcium 9.1 Magnesium 2.4 H Total Bilirubin 0.9 AST 145 H ALT 41 Alkaline Phosphatase 237 H Total Protein 6.0 L Albumin 2.7 L Vancomycin Trough 08/13/24 08/13/24 08/13/24 06:39 08:44 11:08 WBC RBC Hgb Hct MCV MCH MCHC RDW Plt Count MPV Immature Gran % (Auto) Neut % (Auto) Lymph % (Auto) [place] % (Auto) Eos % (Auto) Baso % (Auto) Lymph # (Auto) [place] # (Auto) Eos # (Auto) Baso # (Auto) Abs Immat Gran (auto) Absolute Neuts (auto) Absolute Nucleated RBC Total Counted Neutrophils % (Manual) Band Neutrophils % Lymphocytes % (Manual) Monocytes % (Manual) Nucleated RBC % Abs Neuts (Manual) Abs Lymphs (Manual) Abs Monocytes (Manual) Smudge Cells Platelet Estimate % Immature Plt Fraction Poikilocytosis Anisocytosis Dennise Cells Schistocytes Sodium Potassium Chloride Carbon Dioxide Anion Gap BUN Creatinine Estim Creat Clear Calc Estimated GFR Glucose POC Capillary Glucose 102 113 H Lactic Acid 4.9 H* Calcium Magnesium Total Bilirubin AST ALT Alkaline Phosphatase Total Protein Albumin Vancomycin Trough 08/13/24 08/13/24 12:05 14:46 WBC 9.7 RBC 4.03 L Hgb 10.9 L Hct 32.4 L MCV 80.4 MCH 27.0 MCHC 33.6 RDW 16.9 H Plt Count 42 L MPV 9.8 Immature Gran % (Auto) Neut % (Auto) Lymph % (Auto) [place] % (Auto) Eos % (Auto) Baso % (Auto) Lymph # (Auto) [place] # (Auto) Eos # (Auto) Baso # (Auto) Abs Immat Gran (auto) Absolute Neuts (auto) Absolute Nucleated RBC Total Counted Neutrophils % (Manual) Band Neutrophils % Lymphocytes % (Manual) Monocytes % (Manual) Nucleated RBC % Abs Neuts (Manual) Abs Lymphs (Manual) Abs Monocytes (Manual) Smudge Cells Platelet Estimate % Immature Plt Fraction 4.5 Poikilocytosis Anisocytosis Dennise Cells Schistocytes Sodium 152 H Potassium 3.2 L Chloride 115 H Carbon Dioxide 27 Anion Gap 10 BUN 51 H Creatinine 1.50 H Estim Creat Clear Calc 37 Estimated GFR 45 L Glucose 116 H POC Capillary Glucose Lactic Acid 5.0 H* 5.8 H* Calcium 9.2 Magnesium Total Bilirubin 1.0 AST 137 H ALT 39 Alkaline Phosphatase 241 H Total Protein 6.0 L Albumin 2.8 L Vancomycin Trough Quality VTE Prophylaxis VTE prophylaxis: pharmacologic ordered (Lovenox 40 mg subQ daily.)
[2024-08-13] MEDS: LACTATED RINGERS 1,000 ML 122 ML IV CONT (18:20)
[2024-08-13] MEDS: LACTATED RINGERS 1,000 ML 500 ML IV CONT (18:20)
[2024-08-13] MEDS: METOCLOPRAMIDE HCL INJ 10 MG/2 ML VIAL 5 MG IV PUSH (18:21)
[2024-08-13 18:42] LABS: Glucose Point of Care 153 mg/dl (65-105)
[2024-08-13] MEDS: levoFLOXacin 750 MG/D5W 150 ML 750 MG/150 ML BAG 100 MG IVPB (21:15)
[2024-08-13 21:56] LABS: Alveolar/Arterial O2 Gradient 314.2 mmHg; Base Excess ABG -1.3 mEq/l (+/-2.0); Carboxyhemoglobin 0.7 % THb (0-2.0); Fractional Inspired Oxygen 60 %; HCO3 ABG 23.3 mEq/l (22.0-26.0); Methemoglobin ABG 0.1 %THb (0-1.5); Oxygen Content ABG 15.5 %vol (16.0-22.0); Oxygen Saturation ABG 94.5 % (95.0-100.0); Oxyhemoglobin 93.1 % THb (90.0-100.0); PCO2 ABG 38.4 mmHg (35.0-45.0); PO2 ABG 71.4 mmHg (80.0-100.0); PO2 FiO2 Ratio Arterial Blood 1.19 %; Reduced Hemoglobin 6.1 %THb (0-5.0); Total Hemoglobin 11.8 g/dL (12.0-18.0)
[2024-08-13 21:57] LABS: Modified Allen's Test Pass; Site Drawn RIGHT RADIAL
[2024-08-13 21:58] LABS: Device OTHER DEVICE
[2024-08-13 23:23] LABS: Anion Gap 6 mmol/L (4-12); Blood Urea Nitrogen 50 mg/dL (9-20); Calcium 9.3 mg/dL (8.4-10.2); Carbon Dioxide 28 mmol/L (22-30); Chloride 116 mmol/L (98-107); Estimated CRCL calculation 43 ml/min; Estimated Glomerular Filt Rate 53; Glucose 114 mg/dL (65-110); Potassium 3.2 mmol/L (3.4-5.0); Sodium 150 mmol/L (137-145)
[2024-08-13 23:33] LABS: NT Pro B Type Natriuretic Pept 1790 pg/mL (19.9-100)
[2024-08-13 23:37] LABS: Lactic Acid Reflex 5.2 mmol/L (0.7-2.0)
[2024-08-13 23:40] LABS: Procalcitonin 0.7 ng/mL
[2024-08-13] MEDS: POTASSIUM CHLORIDE INJ 40 MEQ in SODIUM CHLORIDE 0.9% IV 500 ML 130 MEQ IVPB (23:52)
[2024-08-14] VITALS (48 sets, daily range): BP systolic 81–171; BP diastolic 44–84; PULSE 114–133; RESP 18–263; TEMP 36.9–39.2; O2SAT 90–97; BMI 29.9
[2024-08-14 00:25] LABS: CRP 29.2 mg/dL (<1.0)
--- NOTE | 2024-08-14 00:25 | PCDIET ---
Patient maxed on airvo and oxygen saturation frequently drops into the 80's. Patient does not want to escalate to bipap at this time, he does not feel he could tolerate it, and reiterates multiple times through discussion he does not want to be placed on a ventilator. Explained to patient that being unable to escalate care may result in and patient states understanding. Dr Jacobsen called and order received to change code status to a DNI. If heart stops patient still wants to attempt CPR and medications to restart it.
[2024-08-14] MEDS: METOCLOPRAMIDE HCL INJ 10 MG/2 ML VIAL 5 MG IV PUSH ×5 (00:27→23:38)
[2024-08-14] MEDS: FUROSEMIDE INJ 40 MG/4 ML VIAL IV PUSH (00:27)
[2024-08-14 02:08] LABS: Reflex Lactic Acid Yes or No Add Lactic
[2024-08-14] MEDS: IPRATROPIUM BR 0.02% INH SOLN 0.5 MG/2.5 ML VIAL INHALATION ×2 (02:20→08:03)
[2024-08-14] MEDS: LEVALBUTEROL NEB 1.25 MG/3 ML 0.63 MG INHALATION ×2 (02:57→08:03)
[2024-08-14 04:45] LABS: Lactic Acid 4.6 mmol/L (0.7-2.0)
[2024-08-14 04:55] LABS: Hematocrit 32.2 % (42.0-52.0); Hemoglobin 10.8 g/dL (14.0-18.0); Immature Platelet Fraction Pct 7.3 % (0.9-11.2); Mean Corpuscular HGB Conc 33.5 g/dl (32-36); Mean Corpuscular Hemoglobin 27.3 pg (26-34); Mean Corpuscular Volume 81.5 fl (80-100); Mean Platelet Volume 9.8 fl (7.4-10.4); Platelet Count Result 29 k/mm3 (150-375); Red Blood Count 3.95 M/mm3 (4.6-6.20); Red Cell Distribution Width 17.1 % (11.5-14.5)
[2024-08-14 04:59] LABS: Hypochromasia 1+; Platelet Estimate Decreased (Adequate)
[2024-08-14 05:00] LABS: Anisocytosis 1+; Poikilocytosis 1+
[2024-08-14 05:01] LABS: Burr Cells 1+; Smudge Cells PRESENT; Target Cells 1+
[2024-08-14 05:02] LABS: Band Neutrophils Percent 8 % (0-6); Basophils Percent Manual 1 % (0-1); Eosinophils Percent Manual 5 % (0-4); Lymphocytes Percent Manual 28 % (18-44); Monocytes Percent Manual 3 % (3-9); Neutrophils Percent Manual 54 % (46-73); Total Cells Counted 100
[2024-08-14 05:04] LABS: Metamyelocytes Percent 1 %
[2024-08-14 05:05] LABS: Atypical Lymphocytes Present; Schistocytes Rare
[2024-08-14] MEDS: metroNIDAZOLE 500 MG/ISO 100ML 500 MG/100 ML BAG 100 MG IVPB ×3 (05:27→21:07)
[2024-08-14 05:31] LABS: Alanine Aminotransferase 35 U/L (6-50); Albumin Level 2.7 g/dL (3.5-5.1); Alkaline Phosphatase 257 U/L (38-126); Anion Gap 10 mmol/L (4-12); Aspartate Amino Transferase 187 U/L (17-59); Bilirubin,Total 1.1 mg/dL (0.2-1.3); Blood Urea Nitrogen 52 mg/dL (9-20); Calcium 9.3 mg/dL (8.4-10.2); Carbon Dioxide 27 mmol/L (22-30); Chloride 115 mmol/L (98-107); Estimated CRCL calculation 40 ml/min; Estimated Glomerular Filt Rate 49; Glucose 81 mg/dL (65-110); Magnesium 1.9 mg/dL (1.6-2.3); Potassium 3.7 mmol/L (3.4-5.0); Sodium 152 mmol/L (137-145)
[2024-08-14] MEDS: ONDANSETRON INJ 4 MG/2 ML VIAL IV PUSH (05:34)
[2024-08-14 06:45] LABS: Glucose Point of Care 79 mg/dl (65-105)
[2024-08-14] MEDS: PANTOPRAZOLE SODIUM IV 40 MG VIAL IV PUSH (08:43)
[2024-08-14] MEDS: DEXTROSE 5% IN WATER 500 ML 125 ML IV CONT (08:43)
[2024-08-14 08:56] LABS: Base Excess ABG -2.1 mEq/l (+/-2.0); Fractional Inspired Oxygen 92 %; HCO3 ABG 22.3 mEq/l (22.0-26.0); Oxygen Content ABG 14.2 %vol (16.0-22.0); Oxygen Saturation ABG 91.9 % (95.0-100.0); Oxyhemoglobin 89.9 % THb (90.0-100.0); PCO2 ABG 36.5 mmHg (35.0-45.0); PO2 ABG 61.7 mmHg (80.0-100.0); PO2 FiO2 Ratio Arterial Blood 0.67 %; Total Hemoglobin 11.2 g/dL (12.0-18.0); pH ABG 7.403 (7.350-7.450)
[2024-08-14 08:58] LABS: Device HIGH FLOW NASAL CANN; Modified Allen's Test Pass; Site Drawn RIGHT RADIAL
--- NOTE | 2024-08-14 08:58 | PCOTNOTE ---
The patient treatment was not able to be completed. Not appropriate at this time. Will plan to continue treatment per plan of care.
[2024-08-14] MEDS: MIDAZOLAM HCL (*CRX) 2 MG/2 ML VIAL 4 MG IV PUSH ×2 (12:14→12:54)
[2024-08-14] MEDS: ETOMIDATE 20 MG/10 ML AMPUL 30 MG IV PUSH (12:16)
[2024-08-14] MEDS: ROCURONIUM BROMIDE 50 MG/5 ML VIAL IV PUSH (12:17)
[2024-08-14 12:30] LABS: Glucose Point of Care 147 mg/dl (65-105)
[2024-08-14] MEDS: FENTANYL 2,500MCG/NS250ML(*CRX 2,500 MCG/250 ML BAG IV CONT (12:31)
[2024-08-14] MEDS: MIDAZOLAM 100MG/NS 100ML(*CRX) 100 MG/100 ML BAG IV CONT (12:32)
[2024-08-14 12:48] LABS: NT Pro B Type Natriuretic Pept 2420 pg/mL (19.9-100)
--- NOTE | 2024-08-14 12:55 | WPDCNINT ---
Assessment and Plan Assessment and plan (1) Acute respiratory failure: Code(s): J96.00 - Acute respiratory failure, unspecified whether with hypoxia or hypercapnia Status: Acute Assessment and Plan: Acute respiratory failure secondary to pneumonia which is most likely aspiration which may have progressed on ARDS Patient gradually developing worsening hypoxia. He was unable to maintain saturations on Vapotherm this morning and was switched to BiPAP. Despite being on BiPAP he was tachypnea. In light of bowel obstruction and tachypnea patient was intubated Chest x-ray reviewed-withdraw ET tube by 1 cm A ventilator settings reviewed ABG pending Cultures have been negative Continue Flagyl. His Levaquin to cefepime Vancomycin discontinued Repeat CT chest ordered chest CTA was negative for PE. Venous Dopplers were negative for DVT (2) Small bowel obstruction: Code(s): K56.609 - Unspecified intestinal obstruction, unspecified as to partial versus complete obstruction Status: Acute Assessment and Plan: OG tube placed after intubation. Patient will be NPO at this time. Repeat CT abdomen pelvis pending (3) Gall stones: Code(s): K80.20 - Calculus of gallbladder without cholecystitis without obstruction Status: Acute Assessment and Plan: Ultrasound shows gallbladder sludge and stones in the dependent gallbladder lumen. Patient evaluated by general surgery and GI no intervention at this time (4) Atrial fibrillation: Code(s): I48.91 - Unspecified atrial fibrillation Status: Acute Assessment and Plan: Intermittent AFib currently in sinus rhythm Anticoagulation is on hold due to anticipated biopsy (5) GERD (gastroesophageal reflux disease): Code(s): K21.9 - Gastro-esophageal reflux disease without esophagitis Status: Chronic Assessment and Plan: IV Protonix (6) Type 2 diabetes mellitus without complications: Code(s): E11.9 - Type 2 diabetes mellitus without complications Status: Acute Assessment and Plan: Sliding scale insulin (7) Sepsis: Qualifiers: Acute renal failure type: unspecified Sepsis acute organ dysfunction status: with acute organ dysfunction Sepsis type: sepsis due to unspecified organism Severe sepsis acute organ dysfunction type: acute renal failure Severe sepsis shock status: without septic shock Qualified Code(s): A41.9 - Sepsis, unspecified organism; R65.20 - Severe sepsis without septic shock; N17.9 - Acute kidney failure, unspecified Code(s): A41.9 - Sepsis, unspecified organism Status: Acute Assessment and Plan: Secondary to pneumonia which could be aspiration (8) Metastasis to bone: Code(s): C79.51 - Secondary malignant neoplasm of bone Status: Acute Assessment and Plan: Thoracic cervical and lumbar spine MRI shows several lesions consistent with metastatic disease or multiple myeloma Biopsy pending Oncology consulted (9) Pneumonia: Code(s): J18.9 - Pneumonia, unspecified organism Status: Inactive Assessment and Plan: See above (10) Thrombocytopenia: Code(s): D69.6 - Thrombocytopenia, unspecified Status: Acute Assessment and Plan: Likely multifactorial. Hold anticoagulation Rheumatology oncology consult pending (11) Electrolyte abnormality: Code(s): E87.8 - Other disorders of electrolyte and fluid balance, not elsewhere classified Status: Acute Assessment and Plan: Patient is currently getting D5 water for his hypernatremia. Patient was started on D5 half-normal saline. Monitor sodium Plan DVT prophylaxis -SCD, patient thrombocytopenia Stress ulcer prophylaxis -PPI Nutrition -npo Code Status - Full Code Total Critical Care Time - 60 minutes Due to a high probability of clinically significant, life threatening deterioration, the patient required my highest level of preparedness to intervene emergently and I personally spent this critical care time directly and personally managing the patient. This critical care time included obtaining a history; examining the patient; pulse oximetry; ordering and review of studies; arranging urgent treatment with development of a management plan; evaluation of patient's response to treatment; frequent reassessment; and discussions with other providers. It was exclusive of separately billable procedures and treating other patients and teaching time. Please see Assessment and Plan section and the rest of the note for further information on patient assessment and treatment [facility] [employer] Consult Note Consult date: 08/14/24 Reason for consult: Acute respiratory failure HPI: Primo Munroe is a 78 year old male with past medical history of GERD, BPH, coronary artery disease, mixed hyperlipidemia, chronic kidney disease stage 3 and CVA presented to the ER from home via EMS after having multiple falls on 08/10. He was admitted with diagnosis of sepsis dehydration and thought to be having pneumonia. Given the patient's complaint of back pain osteomyelitis or diskitis was also suspected. Patient was admitted and evaluation was started. Patient was started on empiric antibiotics. Echocardiogram showed EF 60-65% with diastolic dysfunction. Patient went into AFib with RVR and was evaluate by Cardiology and started on Cardizem infusion. Patient converted to sinus rhythm. Patient developed bowel obstruction and was evaluated by GI. Patient had gastric tube inserted which was later removed.. Patient was also evaluated by general surgery. MRI of the spine showed several lesions suggestive of multiple myeloma or metastatic malignancy. During this hospitalization patient respiratory status continued to get worsen with worsening hypoxia. This morning patient was on Airvo at 90% FiO2 and was unable to maintain his saturations. He was switched to BiPAP and I was asked to evaluate the patient. During my evaluation patient was on BiPAP 14/7 at 90% FiO2. He was tachypneic. He was unable to provide any meaningful history. He was alert oriented x3. Due to his bowel obstruction worsening respiratory failure and tachypnea and despite on BiPAP decision was made to intubate the patient. Last night patient mention to the overnight physician that he did not want to be intubated but later this morning changes mind and was at okay with intubation and mechanical ventilation. Patient was transferred to ICU and intubated. Review of Systems Review of Systems: ROS unobtainable: Yes unobtainable due to endotracheal tube, unobtainable due to medical condition and unobtainable due to mental status PMFSH Past Medical History Medical History Aortic stenosis Blood type B+ BPH (benign prostatic hyperplasia) Coronary artery disease DVT prophylaxis GERD (gastroesophageal reflux disease) History of CVA (cerebrovascular accident) (~04/2014) History of rib fracture (~2020) Mixed hyperlipidemia Occipital infarction (~04/2014) BRYAN on CPAP PAD (peripheral artery disease) Primary insomnia Ptosis, left eyelid Pulmonary interstitial fibrosis Stage 3a chronic kidney disease (CKD) Type 2 diabetes mellitus without complications Vasovagal syncope Surgical History Surgical History History of appendectomy History of exploratory laparotomy (~2000) Exploratory laparotomy in 2000, laparotomy with adhesion lysis and repair of ventral abdominal hernia in 2015 due to incarcerated hernia History of gastric surgery (~2014) stoma reversal History of lumbar surgery (~2014) April and May 2015 L4 through S1 History of ventral hernia repair (06/2016) Status post cataract extraction of both eyes with insertion of intraocular lens Status post peripheral artery angioplasty with insertion of stent (~2013) Left leg Family History Family History Sibling Cerebrovascular accident Stomach cancer Hx of CABG Both brothers Diabetes mellitus Father Family history of heart disease in male family member before age 55 Cerebrovascular accident Mother Diabetes mellitus Other Family history of cardiovascular disease Family history of gout Family history of malignant neoplasm Family history of osteoarthritis Hypertension Social History Social History Social History: Patient is and lives alone. He has 3 sons. He is retired from the [employer]. He still smokes half a pack of cigarettes per day. He has smoked as much as 2 packs of cigarettes per day since he was 14 until he was 68. Since age 68 he has cut back to 0.5 packs of cigarettes per day. He denies any history of heavy alcohol use but used to drink on occasion but has not done so in many years. He denies illicit substance use. Code status: Full code Surrogate decision maker: Kt (son) Smoking packs per day: 0.5 Smoking cigarettes per day: 10.0 Years smoked: 60 Smoking pack-years: 30.00 Smoking status: Heavy tobacco smoker Tobacco type: cigarettes Second hand tobacco smoke exposure: Yes Alcohol intake: former Substance use: never Substance use type: does not use Do You Feel Safe in your Home?: Yes Lack of Transportation: No Lack of Food: Never True Current Housing: I Have Housing Concerned About Future Housing: No Difficulty Paying Gas/Electric Bills: No Difficulty Paying for Meds: No Currently Unemployed: No Education: High School Diploma/GED Difficulty w/ Childcare or Family Care: No Living arrangements: alone Occupation/Education: retired Additional occupation/education comments: 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 Gender identity (if verbalized by the patient): Male Sexual Orientation (if Verbalized by the Patient): Straight or Heterosexual Spiritual care concerns: No Meds Home Medications and Allergies Home Medications Medication Instructions Recorded Confirmed Type Bifidobacterium infantis 4 mg 4 mg PO DAILY 03/06/21 08/10/24 History capsule (Align) calcium 500 mg tablet 500 mg PO DAILY 03/06/21 08/10/24 History cholecalciferol (vitamin D3) 125 125 mcg PO DAILY 03/06/21 08/10/24 History mcg (5,000 unit) tablet (Vitamin D3) multivitamin 1 cap PO DAILY 03/06/21 08/10/24 History polyethylene glycol 3350 17 gram 17 g PO DAILY PRN Constipation 03/06/21 08/10/24 History oral powder packet (Miralax) nortriptyline 50 mg capsule 50 mg PO QHS #90 caps 01/04/24 08/10/24 Rx tamsulosin 0.4 mg capsule 0.4 mg PO BID #180 caps 04/04/24 08/10/24 Rx clopidogrel 75 mg tablet See Rx Instructions .Route 04/10/24 08/10/24 Rx .COMPLEX #90 tabs atorvastatin 40 mg tablet 40 mg PO DAILY #90 tabs 05/02/24 08/10/24 Rx finasteride 5 mg tablet See Rx Instructions .Route 06/07/24 08/10/24 Rx .COMPLEX #90 tabs pantoprazole 40 mg tablet,delayed 40 mg PO HS #90 tabs 06/18/24 08/10/24 Rx release cyclobenzaprine 10 mg tablet 10 mg PO TID PRN muscle spasm #20 08/04/24 08/10/24 Rx tabs Allergies Allergy/AdvReac Type Severity Reaction Status Date / Time rivaroxaban AdvReac Unknown SEVERE Verified 07/11/24 13:24 NOSE BLEED Vital Signs Vital Signs - 24 hr 08/13/24 13:36 08/13/24 13:36 08/13/24 13:48 Temperature Pulse Rate 108 H 103 H Respiratory Rate 24 H 20 Blood Pressure Pulse Oximetry 92 Oxygen Delivery High Flow Nasal Cannula Oxygen Flow Rate 14 Fraction of Inspired Oxygen 08/13/24 15:56 08/13/24 14:00 08/13/24 16:00 Temperature 36.8 C Pulse Rate 105 H 105 H 105 H Respiratory Rate 24 H Blood Pressure 171/75 H Pulse Oximetry 93 Oxygen Delivery Oxygen Flow Rate Fraction of Inspired Oxygen 08/13/24 16:00 08/13/24 16:21 08/13/24 20:04 Temperature 36.3 C L Pulse Rate 105 H 106 H 103 H Respiratory Rate 24 H 24 H Blood Pressure 165/74 H Pulse Oximetry 93 93 Oxygen Delivery High Flow Nasal Cannula Oxygen Flow Rate 9 Fraction of Inspired Oxygen 08/13/24 21:28 08/13/24 21:34 08/13/24 21:44 Temperature Pulse Rate 111 H 108 H Respiratory Rate 22 H 20 Blood Pressure Pulse Oximetry 90 Oxygen Delivery High Flow Nasal Cannula Oxygen Flow Rate 14 Fraction of Inspired Oxygen 08/13/24 20:00 08/13/24 22:00 08/13/24 22:15 Temperature Pulse Rate 107 H 118 H Respiratory Rate Blood Pressure Pulse Oximetry 94 Oxygen Delivery High Flow Therapy with Na Oxygen Flow Rate 60 Fraction of Inspired Oxygen 90 08/13/24 20:00 08/14/24 00:00 08/14/24 00:00 Temperature 38.0 C H Pulse Rate 116 H 116 H Respiratory Rate 28 H Blood Pressure 139/84 Pulse Oximetry 92 94 94 Oxygen Delivery High Flow Nasal Cannula High Flow Nasal Cannula Oxygen Flow Rate 12 60 Fraction of Inspired Oxygen 92 08/14/24 00:00 08/14/24 02:00 08/14/24 02:20 Temperature Pulse Rate 116 H 124 H 120 H Respiratory Rate 24 H Blood Pressure Pulse Oximetry Oxygen Delivery Oxygen Flow Rate Fraction of Inspired Oxygen 08/14/24 02:20 08/14/24 02:35 08/14/24 04:00 Temperature 38.3 C H Pulse Rate 120 H 114 H 123 H Respiratory Rate 24 H 32 H Blood Pressure 155/61 H Pulse Oximetry 93 91 Oxygen Delivery High Flow Therapy with Na Oxygen Flow Rate 60 Fraction of Inspired Oxygen 91 08/14/24 04:00 08/14/24 04:00 08/14/24 07:28 Temperature 36.9 C Pulse Rate 119 H 120 H Respiratory Rate 23 H Blood Pressure 168/64 H Pulse Oximetry 92 90 Oxygen Delivery High Flow Nasal Cannula Oxygen Flow Rate 60 Fraction of Inspired Oxygen 92 08/14/24 08:07 08/14/24 08:07 08/14/24 08:15 Temperature Pulse Rate 120 H 120 H 120 H Respiratory Rate 24 H 24 H 24 H Blood Pressure Pulse Oximetry 95 Oxygen Delivery High Flow Therapy with Na Oxygen Flow Rate 60 Fraction of Inspired Oxygen 91 08/14/24 06:00 08/14/24 09:14 08/14/24 09:16 Temperature Pulse Rate 119 H 127 H 127 H Respiratory Rate 27 H 27 H Blood Pressure Pulse Oximetry 96 96 Oxygen Delivery BiPAP BiPAP Oxygen Flow Rate Fraction of Inspired Oxygen 90 08/14/24 08:00 08/14/24 08:00 08/14/24 10:00 Temperature Pulse Rate 122 H 130 H Respiratory Rate Blood Pressure Pulse Oximetry 96 Oxygen Delivery BiPAP Oxygen Flow Rate Fraction of Inspired Oxygen 90 08/14/24 12:31 08/14/24 12:32 Temperature Pulse Rate 122 H 122 H Respiratory Rate 18 18 Blood Pressure Pulse Oximetry Oxygen Delivery Oxygen Flow Rate Fraction of Inspired Oxygen Exam Narrative: General: Pt is sedated, intubated and on mechanical ventilation Lungs/Chest: Trachea central Coarse BS B/L, bilateral coarse breathing. Bibasilar crackles. Cardiac: RRR. Normal S1 S2. No murmurs Circulation: Pedal pulses are intact and symmetrical. Abdomen: Bowel sounds are present Obese. Soft. NT. ND. Extremities: No clubbing, cyanosis or edema. Warm : Camacho in place Neurologic: Prior to intubation patient was AO x3 and moves all 4 extremities. Patient now is intubated sedated and chemically paralyzed PERRL Results Labs 08/14/24 03:41 08/14/24 04:19 Labs: Impressions Abdomen X-Ray 08/13/24 13:20 IMPRESSION: 1. Dilated small bowel, likely adynamic ileus. Chest X-Ray 08/13/24 21:57 IMPRESSION: Pulmonary opacities likely representing worsening pulmonary edema and/or infection, likely overlying chronic interstitial changes. Chest X-Ray 08/14/24 12:59 IMPRESSION: 1. Stable diffuse lung disease, consistent with pneumonia versus pulmonary edema superimposed on chronic interstitial lung disease. Short CBC 08/14/24 Range/Units 03:41 WBC 10.0 (4.5-10.0) K/mm3 Hgb 10.8 L (14.0-18.0) g/dL Hct 32.2 L (42.0-52.0) % Plt Count 29 L (150-375) k/mm3 BMP 08/13/24 08/14/24 23:03 04:19 Sodium 150 H 152 H Potassium 3.2 L 3.7 Chloride 116 H 115 H Carbon Dioxide 28 27 BUN 50 H 52 H Creatinine 1.30 1.40 H Glucose 114 H 81 Calcium 9.3 9.3 Liver Function 08/14/24 Range/Units 04:19 Total Bilirubin 1.1 (0.2-1.3) mg/dL AST 187 H (17-59) U/L ALT 35 (6-50) U/L Alkaline Phosphatase 257 H (38-126) U/L Albumin 2.7 L (3.5-5.1) g/dL Hospitalist MIPS Advance Care Plan I have confirmed that the patient's Advanced Care Plan is present, code status is documented, or surrogate decision maker is listed in patient medical record.: Yes Medication Reconciliation I have utilized all available resources to obtain, update and review the patients current medications (includes all prescriptions, OTC, herbals, cannabis, and nutritional supplements).: Yes
--- NOTE | 2024-08-14 12:55 | WPDPROCEDUR ---
Procedures Intubation Intubation Date: 08/14/24 Intubation Time: 12:00 Consent: Consent was obtained from patient A pre-procedural Time-Out was completed immediately before starting the procedure and confirmed: Patient Identification, Site, Procedure, Patient Position and the Availability of Requisite Equipment: Yes Sedative: etomidate Mg given: 30 Paralytic: rocuronium Mg given: 50 Laryngoscope: fiber optic video scope Assist device used: fiber optic device ET tube size: 7.5 Tube secured depth (cm): 25 Tube secured location: lips Tube placement confirmation: visualized tube passing through cords, equal breath sounds bilaterally, no breath sounds over epigastrium and confirmation by capnometry Patient tolerated procedure: well Intubation complications: none
[2024-08-14 12:57] LABS: Procalcitonin 0.7 ng/mL
--- NOTE | 2024-08-14 12:57 | P.PNIM_ITS ---
Progress Note: A&P Assessment and Plan (1) Sepsis: Qualifiers: Acute renal failure type: unspecified Sepsis acute organ dysfunction status: with acute organ dysfunction Sepsis type: sepsis due to unspecified or ganism Severe sepsis acute organ dysfunction type: acute renal failure Severe sepsis shock status: without septic shock Qualified Code(s): A41.9 - Sepsis, unspecified organism; R65.20 - Severe sepsis without septic shock; N17.9 - Acute kidney failure, unspecified Code(s): A41.9 - Sepsis, unspecified organism Status: Acute (2) Acute dehydration: Code(s): E86.0 - Dehydration Status: Acute (3) Multiple falls: Code(s): R29.6 - Repeated falls Status: Acute Plan Acute hypoxemic respiratory failure with acute decompensation from PNA ?ARDS Patient requiring escalating oxygen requirement Patient was till tachypneic on BiPAP Discussed with sonKt, who clearly stated that patient is full code thus certified orthotist was consulted and patient was transferred to ICU for possible intubation and critical care Dr Shaw consulted Sepsis, improving Likely from Pneumonia r/o diskitis/osteomyelitis leukocytosis resolved however Patient tachypneic. CT Chest negative for PE but showed extensive pneumonia f/u CXR still showing stable diffuse PNA vs Pulm edema cultures still negative Continue Levaquin, Flagyl and Vanc monitor closely Pneumonia ?ARDS CXR showed worsening bilateral reticular and groundglass opacities Continue above care Hypernatremia Na 152 Continue D5w, monitor and adjust Partial SBO Having bowel movement small bowel follow through reviewed Gen surgery cleared for clear liquid diet yesterday Abd Xray today showed dilated small bowel, likely adynamic ileus will keep NPO for now Gen surgery following Atrial fibrillation with RVR Now in NSR Cardizem infusion held and Full dose Lovenox on hold due to thrombocytopenia Continue metoprolol, On Xarelto, switch to Lovenox in the meantime ECHO showed normal LV function Cardiology following Back pain with radiculopathy Multiple bone lesion suspicious for metastases vs MM Smudge cells and Atypical lymphocytes on peripheral film Bone biopsy, UPEP and SPEP ordered HemOnc consulted PRN pain control Elevated ddimer DVT/PE ruled CTA chest PE protocol and venous doppler negative for PE or DVT monitor BPH Continue Finasteride and Tamsulosin Hypertension Continue home meds CKD stage III Cr 1.4 which is about baseline monitor hx of CVA continue Plavix and lipitor CAD continue home meds DVT prophylaxis on Sq Lovenox will transition to PO AC once cleared by speech) Monitor in ICU. Subjective Date/time seen: 08/14/24 12:57 Interval history: Patient decompensated this morning, and was placed on BiPAP Discussed with his son who is his POA and he stated that patient is a full code and he wants him to be intubated if needed. Patient continued to be Tachypneic even on BIPAP thus Video Production Specialist was consulted and patient transferred to ICU for possible intubation. Review of Systems Review of Systems: 12 systems were reviewed with pertinent positives and negatives per HPI. Except as documented in the HPI, all other systems were reviewed and are negative. Exam Narrative: General: dyspneic Eyes: EOMI, PERRLA ENNT External ears normal, Neck is supple, no masses, Respiratory systems: Clear to auscultation Cardiovascular S1, S2, normal rhythm, no murmur, rub, or gallop; no thrill or palpable murmurs on palpation. Gastrointestinal: soft, non-tender, and non-distended abdomen with no masses; BS present Skin: no rash, lesions, ulcerations, subcutaneous nodules or induration Musculoskeletal: spine tenderness on palpation Neurologic: Alert and oriented x3, power 4/5 in lower extremities Mental Status Exam: normal affect Const: Other: Obese, mildly ill-appearing, uncomfortable HENMT: Other: Mucous membranes are dry, no oral pharyngeal erythema, crowded posterior oropharynx, head is normocephalic atraumatic Eyes: Other: Pupils are equal and reactive no scleral icterus, no conjunctival pallor Neck: Other: Large neck circumference, no gross lymphadenopathy, possible thyroid enlargement Resp: Other: Crackles of the right upper lobe, decreased breath sounds at the bases, moderate tachypnea with abdominal respirations Cardio: Other: Sinus tachycardia, 2+ bilateral radial pedal pulses, no murmur, no JVD GI: Other: Obese, distended, soft, nontender, positive bowel sounds Back/Spine/Pelvis: Other: No reproducible pain to palpation of spinous processes, surgical scar over L4-S1 region Skin: Other: Hot to touch, mildly diaphoretic Neuro: Other: Alert oriented x4, speech is clear, no facial asymmetry, decreased sensation of left upper and lower extremity which patient reports is chronic, 5/5 material movers strength on the left 4/5 material movers strength on the right, extraocular movements intact Psych: Other: Anxious, pleasant, cooperative, appropriate judgment and insight Objective Data Vital Signs Vital Signs: Vital Signs - 24 hr 08/13/24 13:36 08/13/24 13:36 08/13/24 13:48 Temperature Pulse Rate 108 H 103 H Respiratory Rate 24 H 20 Blood Pressure Pulse Oximetry 92 Oxygen Delivery High Flow Nasal Cannula Oxygen Flow Rate 14 Fraction of Inspired Oxygen 08/13/24 15:56 08/13/24 14:00 08/13/24 16:00 Temperature 98.2 F Pulse Rate 105 H 105 H 105 H Respiratory Rate 24 H Blood Pressure 171/75 H Pulse Oximetry 93 Oxygen Delivery Oxygen Flow Rate Fraction of Inspired Oxygen 08/13/24 16:00 08/13/24 16:21 08/13/24 20:04 Temperature 97.4 F L Pulse Rate 105 H 106 H 103 H Respiratory Rate 24 H 24 H Blood Pressure 165/74 H Pulse Oximetry 93 93 Oxygen Delivery High Flow Nasal Cannula Oxygen Flow Rate 9 Fraction of Inspired Oxygen 08/13/24 21:28 08/13/24 21:34 08/13/24 21:44 Temperature Pulse Rate 111 H 108 H Respiratory Rate 22 H 20 Blood Pressure Pulse Oximetry 90 Oxygen Delivery High Flow Nasal Cannula Oxygen Flow Rate 14 Fraction of Inspired Oxygen 08/13/24 20:00 08/13/24 22:00 08/13/24 22:15 Temperature Pulse Rate 107 H 118 H Respiratory Rate Blood Pressure Pulse Oximetry 94 Oxygen Delivery High Flow Therapy with Na Oxygen Flow Rate 60 Fraction of Inspired Oxygen 90 08/13/24 20:00 08/14/24 00:00 08/14/24 00:00 Temperature 100.4 F H Pulse Rate 116 H 116 H Respiratory Rate 28 H Blood Pressure 139/84 Pulse Oximetry 92 94 94 Oxygen Delivery High Flow Nasal Cannula High Flow Nasal Cannula Oxygen Flow Rate 12 60 Fraction of Inspired Oxygen 92 08/14/24 00:00 08/14/24 02:00 08/14/24 02:20 Temperature Pulse Rate 116 H 124 H 120 H Respiratory Rate 24 H Blood Pressure Pulse Oximetry Oxygen Delivery Oxygen Flow Rate Fraction of Inspired Oxygen 08/14/24 02:20 08/14/24 02:35 08/14/24 04:00 Temperature 101.0 F H Pulse Rate 120 H 114 H 123 H Respiratory Rate 24 H 32 H Blood Pressure 155/61 H Pulse Oximetry 93 91 Oxygen Delivery High Flow Therapy with Na Oxygen Flow Rate 60 Fraction of Inspired Oxygen 91 08/14/24 04:00 08/14/24 04:00 08/14/24 07:28 Temperature 98.5 F Pulse Rate 119 H 120 H Respiratory Rate 23 H Blood Pressure 168/64 H Pulse Oximetry 92 90 Oxygen Delivery High Flow Nasal Cannula Oxygen Flow Rate 60 Fraction of Inspired Oxygen 92 08/14/24 08:07 08/14/24 08:07 08/14/24 08:15 Temperature Pulse Rate 120 H 120 H 120 H Respiratory Rate 24 H 24 H 24 H Blood Pressure Pulse Oximetry 95 Oxygen Delivery High Flow Therapy with Na Oxygen Flow Rate 60 Fraction of Inspired Oxygen 91 08/14/24 06:00 08/14/24 09:14 08/14/24 09:16 Temperature Pulse Rate 119 H 127 H 127 H Respiratory Rate 27 H 27 H Blood Pressure Pulse Oximetry 96 96 Oxygen Delivery BiPAP BiPAP Oxygen Flow Rate Fraction of Inspired Oxygen 90 08/14/24 08:00 08/14/24 08:00 08/14/24 10:00 Temperature Pulse Rate 122 H 130 H Respiratory Rate Blood Pressure Pulse Oximetry 96 Oxygen Delivery BiPAP Oxygen Flow Rate Fraction of Inspired Oxygen 90 08/14/24 12:31 08/14/24 12:32 Temperature Pulse Rate 122 H 122 H Respiratory Rate 18 18 Blood Pressure Pulse Oximetry Oxygen Delivery Oxygen Flow Rate Fraction of Inspired Oxygen Intake/Output Intake/Output: Intake & Output 08/11/24 08/12/24 08/13/24 08/14/24 23:59 23:59 23:59 23:59 Intake Total 3099.6 1503.3 1558.3 Output Total 1575 3750 600 1201 Balance 1524.6 -2246.7 958.3 -1201 Meds/Results Medications: Active Medications Generic Name Dose Route Start Last Admin Trade Name Freq PRN Reason Stop Dose Admin Acetaminophen 650 mg 08/09/24 19:56 08/10/24 20:00 Acetaminophen 325 Mg Tablet PO 650 mg Q4H PRN Administration Mild Pain (1-3) or Fever Dextrose 12.5 gm 08/10/24 06:29 08/11/24 10:46 Dextrose 50% 25 Gm/50 Ml Syringe IV PUSH 12.5 gm PRN PRN Administration Hypoglycemia Protocol Enoxaparin Sodium 95 mg 08/11/24 21:00 08/12/24 08:34 Enoxaparin 100 Mg/Ml Syringe SUB-Q Not Given Q12H [place] Glucagon 1 mg 08/10/24 06:29 Glucagon For Inj 1 Mg Vial IM PRN PRN Hypoglycemia Protocol Glucose 15 gm 08/10/24 06:29 Glucose Oral Gel 15 Gm Of Glucse In 37.5 Gm Tube PO PRN PRN Hypoglycemia Protocol Hydralazine HCl 20 mg 08/11/24 11:57 Hydralazine Hcl 20 Mg/Ml Vial IV PUSH Q4H PRN Blood Sugar - High Levofloxacin/Dextrose 750 mg in 150 mls @ 100 mls/hr 08/09/24 20:00 08/13/24 21:15 Levaquin 750 Mg/D5w 150 Ml IVPB 100 mls/hr Q48H [place] Administration Dextrose 1,000 mls @ 100 mls/hr 08/10/24 06:29 Dextrose 5% 1,000 Ml IVPB PRN PRN Hypoglycemia Protocol Metronidazole 500 mg in 100 mls @ 100 mls/hr 08/10/24 13:00 08/14/24 05:27 Flagyl 500 Mg/Iso Soln 100 Ml IVPB 100 mls/hr Q8HR [place] Administration Fentanyl Citrate 2,500 mcg in 250 mls @ 5 mls/hr 08/14/24 12:20 08/14/24 12:31 Fentanyl 2,500 Mcg/Ns 250 Ml IV CONT 50 mcg/hr .Q50H [place] 5 mls/hr Administration Protocol 50 MCG/HR Midazolam HCl 100 mg in 100 mls @ 4 mls/hr 08/14/24 12:20 08/14/24 12:32 Versed 100 Mg/Ns 100 Ml IV CONT 4 mg/hr .Q25H [place] 4 mls/hr Administration Protocol 4 MG/HR Dextrose/Sodium Chloride 1,000 mls @ 100 mls/hr 08/14/24 12:25 Dextrose 5% Sodium Chloride 0.45% IV CONT 08/15/24 12:24 .Q10H [place] Insulin Aspart 3 - 6 units 08/14/24 18:00 Insulin Aspart (*Bkc) 100 Units/Ml SUB-Q Q6HR [facility] Protocol Ipratropium [place] 0.5 mg 08/10/24 08:00 08/14/24 08:03 Ipratropium Br 0.02% Inh Soln 0.5 Mg/2.5 Ml Vial INHALATION 0.5 mg Q6HRT [place] Administration Levalbuterol HCl 0.63 mg 08/10/24 08:00 08/14/24 08:03 Levalbuterol Neb 1.25 Mg/3 Ml INHALATION 0.63 mg Q6HRT [place] Administration Metoclopramide HCl 5 mg 08/13/24 18:00 08/14/24 12:55 Metoclopramide Hcl Inj 10 Mg/2 Ml Vial IV PUSH 5 mg Q6HR [place] Administration Metoprolol Succinate 50 mg 08/11/24 16:10 08/11/24 17:02 Metoprolol Succinate Ext Rel 50 Mg Tabcr PO Not Given QAM [place] Midazolam HCl 2 mg 08/14/24 12:06 Midazolam Hcl (*Crx) 2 Mg/2 Ml Vial IV PUSH Q5M PRN ventilator asynchrony Morphine Sulfate 2 mg 08/12/24 03:15 Morphine Sulfate (*Crx) 2 Mg/Ml Inj IV PUSH Q4H PRN Pain Rated 7-10 Multi-Ingred Cream/Lotion/Oil/Oint 1 applic 08/14/24 21:00 Mineral Oil/White Petrolatum Ointment EACH EYE Q12HR [place] Ondansetron HCl 4 mg 08/12/24 03:15 08/14/24 05:34 Ondansetron Inj 4 Mg/2 Ml Vial IV PUSH 4 mg Q4H PRN Administration Nausea And Vomiting Pantoprazole Sodium 40 mg 08/13/24 09:00 08/14/24 08:43 Pantoprazole Sodium Iv 40 Mg Vial IV PUSH 40 mg QAM [place] Administration Perflutren Lipid Microsphere 0 ml 08/14/24 08:35 Perflutren Lipid Microspheres 1.5 Ml Vial Diluted To 10 Ml Total Volume IV PUSH 08/17/24 08:35 ONCE PRN adequate visualization Protocol Radiology Results: ITS Impressions Head CT 08/09/24 17:49 IMPRESSION: 1. No fracture or acute intracranial process. 2. 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 3. Age-related changes including mild diffuse volume loss and mild scattered mesenteric white matter hypoattenuation consistent with chronic small vessel ischemic disease. Cervical Spine CT 08/09/24 18:15 IMPRESSION: 1. Moderate to severe cervical spondylosis. No acute osseous abnormality. Thoracic/Lumbar Spine CT 08/09/24 18:22 IMPRESSION: 1. Multiple old posterior left rib fractures and chronic compression fractures with mild anterior wedging at T5 and T6 and mild right-sided anterior vertebral body height loss at L2. No acute osseous abnormality. 2. Moderate thoracic spondylosis and mild lumbar spondylosis. 3. Combined instrumented L5-S1 anterior and posterior spinal fusion. 4. Chronic bilateral lower lung predominant interstitial lung disease with indeterminate 8 mm pulmonary nodule in the left lower lobe. Recommend 3 month follow-up low-dose noncontrast chest CT. Chest CTA 08/10/24 18:43 IMPRESSION: 1. No pulmonary embolism. 2. Bilateral interstitial and alveolar opacification more prominent in the right upper lobe which may indicate pneumonitis versus fibrotic changes versus pulmonary edema. 3. Bilateral pleural effusion more on the right side. 4. Cholelithiasis. 5. Left adrenal adenoma. 6. Mediastinal lymphadenopathy.. 7. Multiple healing rib fractures in the left hemithorax. Brain MRA 08/11/24 09:25 IMPRESSION: 1. High-grade stenosis on the right P1 segment with downstream moderate-sized region of encephalomalacia consistent with chronic infarct. 2. Moderate grade stenosis at the origin of the right M1 segment. Venous Doppler Study 08/11/24 14:29 IMPRESSION: 1. No deep venous thrombosis in either lower limb. Chest/Abdomen/Pelvis CT 08/12/24 08:46 IMPRESSION: Extensive interval bilateral patchy pulmonary infiltrates since 08/10/2024, which may be consistent with extensive aspiration pneumonitis or rapidly worsening pneumonia Brain MRI 08/12/24 14:11 IMPRESSION: No acute intracranial process. Abdomen Ultrasound 08/12/24 16:37 IMPRESSION: Likely, additional gallbladder sludge and stones in the dependent gallbladder lumen. Small Bowel X-Ray 08/12/24 19:16 IMPRESSION: Radiographic findings consistent with low-grade small bowel obstruction or ileus. Lumbar Spine MRI 08/13/24 06:32 IMPRESSION: 1. Widespread enhancement of the bones without abnormal CT correlate suspicious for metastatic disease or multiple myeloma. 2. Mild lumbar spondylosis. 3. Anterior fusion procedure at L5-S1. Cervical Spine MRI 08/13/24 06:43 IMPRESSION: 1. Widespread abnormal contrast enhancement in the bones, consistent with metas tatic disease versus multiple myeloma. 2. Moderate cervical spondylosis. Thoracic Spine MRI 08/13/24 06:48 IMPRESSION: 1. Widespread contrast enhancement of the bones, consistent with metastatic disease versus multiple myeloma. 2. Mild thoracic spondylosis. Labs Labs: Laboratory Results - last 24 hr 08/13/24 08/13/24 08/13/24 14:46 18:39 21:47 WBC RBC Hgb Hct MCV MCH MCHC RDW Plt Count MPV Immature Gran % (Auto) Neut % (Auto) Lymph % (Auto) [place] % (Auto) Eos % (Auto) Baso % (Auto) Lymph # (Auto) [place] # (Auto) Eos # (Auto) Baso # (Auto) Abs Immat Gran (auto) Absolute Neuts (auto) Absolute Nucleated RBC Total Counted Neutrophils % (Manual) Band Neutrophils % Lymphocytes % (Manual) Monocytes % (Manual) Eosinophils % (Manual) Basophils % (Manual) Metamyelocytes % Nucleated RBC % Abs Neuts (Manual) Abs Lymphs (Manual) Abs Monocytes (Manual) Absolute Eos (Manual) Abs Basophils (Manual) Atypical Lymphocytes Smudge Cells Platelet Estimate % Immature Plt Fraction Hypochromasia Poikilocytosis Anisocytosis Target Cells [place] Cells Schistocytes Puncture Site Right radial ABG pH 7.400 ABG pCO2 38.4 ABG pO2 71.4 L ABG PO2/FiO2 Ratio 1.19 ABG HCO3 23.3 ABG O2 Saturation 94.5 L ABG O2 Content 15.5 L ABG Base Excess -1.3 A-a Gradient 314.2 Oxyhemoglobin 93.1 Carboxyhemoglobin 0.7 Methemoglobin 0.1 Reduced Hemoglobin 6.1 H Total Hemoglobin 11.8 L O2 Delivery Device Other device O2 Liters/Min 22.0 FiO2 60 Sodium Potassium Chloride Carbon Dioxide Anion Gap BUN Creatinine Estim Creat Clear Calc Estimated GFR Glucose POC Capillary Glucose 153 H Lactic Acid 5.8 H* Calcium Magnesium Total Bilirubin AST ALT Alkaline Phosphatase C-Reactive Protein NT-Pro-B Natriuret Pep Total Protein Albumin Procalcitonin 08/13/24 08/14/24 08/14/24 23:03 03:41 04:19 WBC 10.0 RBC 3.95 L Hgb 10.8 L Hct 32.2 L MCV 81.5 MCH 27.3 MCHC 33.5 RDW 17.1 H Plt Count 29 L MPV 9.8 Immature Gran % (Auto) Not Reportable Neut % (Auto) Not Reportable Lymph % (Auto) Not Reportable [place] % (Auto) Not Reportable Eos % (Auto) Not Reportable Baso % (Auto) Not Reportable Lymph # (Auto) Not Reportable [place] # (Auto) Not Reportable Eos # (Auto) Not Reportable Baso # (Auto) Not Reportable Abs Immat Gran (auto) Not Reportable Absolute Neuts (auto) Not Reportable Absolute Nucleated RBC Not Reportable Total Counted 100 Neutrophils % (Manual) 54 Band Neutrophils % 8 H Lymphocytes % (Manual) 28 Monocytes % (Manual) 3 Eosinophils % (Manual) 5 H Basophils % (Manual) 1 Metamyelocytes % 1 Nucleated RBC % Not Reportable Abs Neuts (Manual) 6.20 Abs Lymphs (Manual) 2.80 Abs Monocytes (Manual) 0.30 Absolute Eos (Manual) 0.50 Abs Basophils (Manual) 0.10 Atypical Lymphocytes Present Smudge Cells Present Platelet Estimate Decreased % Immature Plt Fraction 7.3 Hypochromasia 1+ Poikilocytosis 1+ Anisocytosis 1+ Target Cells 1+ [place] Cells 1+ Schistocytes Rare Puncture Site ABG pH ABG pCO2 ABG pO2 ABG PO2/FiO2 Ratio ABG HCO3 ABG O2 Saturation ABG O2 Content ABG Base Excess A-a Gradient Oxyhemoglobin Carboxyhemoglobin Methemoglobin Reduced Hemoglobin Total Hemoglobin O2 Delivery Device O2 Liters/Min FiO2 Sodium 150 H 152 H Potassium 3.2 L 3.7 Chloride 116 H 115 H Carbon Dioxide 28 27 Anion Gap 6 10 BUN 50 H 52 H Creatinine 1.30 1.40 H Estim Creat Clear Calc 43 40 Estimated GFR 53 L 49 L Glucose 114 H 81 POC Capillary Glucose Lactic Acid 5.2 H* 4.6 H* Calcium 9.3 9.3 Magnesium 1.9 Total Bilirubin 1.1 AST 187 H ALT 35 Alkaline Phosphatase 257 H C-Reactive Protein 29.2 H NT-Pro-B Natriuret Pep 1790 H 2420 H Total Protein 6.0 L Albumin 2.7 L Procalcitonin 0.7 0.7 08/14/24 08/14/24 08/14/24 06:42 08:50 11:10 WBC RBC Hgb Hct MCV MCH MCHC RDW Plt Count MPV Immature Gran % (Auto) Neut % (Auto) Lymph % (Auto) [place] % (Auto) Eos % (Auto) Baso % (Auto) Lymph # (Auto) [place] # (Auto) Eos # (Auto) Baso # (Auto) Abs Immat Gran (auto) Absolute Neuts (auto) Absolute Nucleated RBC Total Counted Neutrophils % (Manual) Band Neutrophils % Lymphocytes % (Manual) Monocytes % (Manual) Eosinophils % (Manual) Basophils % (Manual) Metamyelocytes % Nucleated RBC % Abs Neuts (Manual) Abs Lymphs (Manual) Abs Monocytes (Manual) Absolute Eos (Manual) Abs Basophils (Manual) Atypical Lymphocytes Smudge Cells Platelet Estimate % Immature Plt Fraction Hypochromasia Poikilocytosis Anisocytosis Target Cells [place] Cells Schistocytes Puncture Site Right radial ABG pH 7.403 ABG pCO2 36.5 ABG pO2 61.7 L ABG PO2/FiO2 Ratio 0.67 ABG HCO3 22.3 ABG O2 Saturation 91.9 L ABG O2 Content 14.2 L ABG Base Excess -2.1 A-a Gradient 557.0 Oxyhemoglobin 89.9 L Carboxyhemoglobin Methemoglobin Reduced Hemoglobin Total Hemoglobin 11.2 L O2 Delivery Device High flow nasal melecio O2 Liters/Min 60.0 FiO2 92 Sodium Potassium Chloride Carbon Dioxide Anion Gap BUN Creatinine Estim Creat Clear Calc Estimated GFR Glucose POC Capillary Glucose 79 147 H Lactic Acid Calcium Magnesium Total Bilirubin AST ALT Alkaline Phosphatase C-Reactive Protein NT-Pro-B Natriuret Pep Total Protein Albumin Procalcitonin Quality VTE Prophylaxis VTE prophylaxis: pharmacologic ordered (Lovenox 40 mg subQ daily.)
[2024-08-14] MEDS: LIDOCAINE HCL 1% PF INJ 5 ML VIAL INFILTRATE (13:10)
[2024-08-14] MEDS: DEXTROSE 5%/0.45% SOD CHL 1,000 ML 100 ML IV CONT (13:42)
[2024-08-14] MEDS: ACETAMINOPHEN 325 MG TABLET 650 MG PO ×2 (14:05→18:34)
[2024-08-14 14:11] LABS: Alveolar/Arterial O2 Gradient 511.8 mmHg; Base Excess ABG -5.6 mEq/l (+/-2.0); Fractional Inspired Oxygen 100 %; HCO3 ABG 26.5 mEq/l (22.0-26.0); Oxygen Content ABG 16.7 %vol (16.0-22.0); Oxyhemoglobin 94.7 % THb (90.0-100.0); PO2 ABG 106.2 mmHg (80.0-100.0); PO2 FiO2 Ratio Arterial Blood 1.06 %; Total Hemoglobin 12.4 g/dL (12.0-18.0)
[2024-08-14 14:14] LABS: Site Drawn LEFT BRACHIAL; pH ABG 7.064 (7.350-7.450)
[2024-08-14 14:15] LABS: Arterial Blood Gas Ventilator rate 22 /MIN; Device VENTILATOR
[2024-08-14 14:16] LABS: Arterial Blood Gas PEEP 10 cmH2O; Arterial Blood Gas Tidal Volume 480 ml; Arterial Blood Gas Vent Mode CMV
[2024-08-14] MEDS: SODIUM BICARBONATE 8.4% 50 MEQ/50 ML SYRINGE 100 MEQ IV PUSH (14:28)
[2024-08-14] MEDS: CENTRAL LINE FLUSH 10 ML IV PUSH ×2 (14:28→21:08)
[2024-08-14] MEDS: CEFEPIME 1 GM/NS 50 ML 1 GM/50 ML BAG IVPB (15:11)
--- NOTE | 2024-08-14 16:25 | P.PNGS_ITS ---
Progress Note: A&P Assessment and Plan (1) Small bowel obstruction: Code(s): K56.609 - Unspecified intestinal obstruction, unspecified as to partial versus complete obstruction Status: Acute Assessment and Plan: SBFT went through in 3.5 hours and has suggested more likely an ileus. NG tube was removed and diet was being advance, but he developed respiratory distress. Patient has been transferred to ICU for acute respiratory failure/pneumonia and required intubation. Continue OG tube to suction for now and critical care management. Repeat CT scan chest/abdomen/pelvis was ordered by [employer] today. Will continue to follow along. Plan I have discussed the patient's case and plan of care with Dr. Barrientos. Subjective Subjective Date/Time Seen: 08/14/24 16:25 Interval history: Patient seen today in the ICU with his youngest son at the bedside. He developed acute respiratory distress and eventually required intubation with transfer to the ICU today. He appears to have pneumonia and possible ARDS. Per nursing, there was concern of possible aspiration. Exam Const: General: ill appearing Orientation/consciousness: Other orientation findings (sedated and intubated) GI: Inspection: distended GI Palp: Yes Soft to palpation, No Guarding due to palpation present (GI) and Yes Other GI palpation findings present (exam limited as patient is sedate) Auscultation: Hypoactive bowel sounds present Other: OG in place to suction Objective Data Vital Signs Vital Signs: Vital Signs - 24 hr 08/13/24 20:04 08/13/24 21:28 08/13/24 21:34 Temperature 97.4 F L Pulse Rate 103 H 111 H Respiratory Rate 24 H 22 H Blood Pressure 165/74 H Pulse Oximetry 93 90 Oxygen Delivery High Flow Nasal Cannula Oxygen Flow Rate 14 Fraction of Inspired Oxygen 08/13/24 21:44 08/13/24 20:00 08/13/24 22:00 Temperature Pulse Rate 108 H 107 H 118 H Respiratory Rate 20 Blood Pressure Pulse Oximetry Oxygen Delivery Oxygen Flow Rate Fraction of Inspired Oxygen 08/13/24 22:15 08/13/24 20:00 08/14/24 00:00 Temperature Pulse Rate 116 H Respiratory Rate Blood Pressure Pulse Oximetry 94 92 94 Oxygen Delivery High Flow Therapy with Na High Flow Nasal Cannula High Flow Nasal Cannula Oxygen Flow Rate 60 12 60 Fraction of Inspired Oxygen 90 92 08/14/24 00:00 08/14/24 00:00 08/14/24 02:00 Temperature 100.4 F H Pulse Rate 116 H 116 H 124 H Respiratory Rate 28 H Blood Pressure 139/84 Pulse Oximetry 94 Oxygen Delivery Oxygen Flow Rate Fraction of Inspired Oxygen 08/14/24 02:20 08/14/24 02:20 08/14/24 02:35 Temperature Pulse Rate 120 H 120 H 114 H Respiratory Rate 24 H 24 H Blood Pressure Pulse Oximetry 93 Oxygen Delivery High Flow Therapy with Na Oxygen Flow Rate 60 Fraction of Inspired Oxygen 91 08/14/24 04:00 08/14/24 04:00 08/14/24 04:00 Temperature 101.0 F H Pulse Rate 123 H 119 H Respiratory Rate 32 H Blood Pressure 155/61 H Pulse Oximetry 91 92 Oxygen Delivery High Flow Nasal Cannula Oxygen Flow Rate 60 Fraction of Inspired Oxygen 92 08/14/24 07:28 08/14/24 08:07 08/14/24 08:07 Temperature 98.5 F Pulse Rate 120 H 120 H 120 H Respiratory Rate 23 H 24 H 24 H Blood Pressure 168/64 H Pulse Oximetry 90 95 Oxygen Delivery High Flow Therapy with Na Oxygen Flow Rate 60 Fraction of Inspired Oxygen 91 08/14/24 08:15 08/14/24 06:00 08/14/24 09:14 Temperature Pulse Rate 120 H 119 H 127 H Respiratory Rate 24 H 27 H Blood Pressure Pulse Oximetry 96 Oxygen Delivery BiPAP Oxygen Flow Rate Fraction of Inspired Oxygen 90 08/14/24 09:16 08/14/24 08:00 08/14/24 08:00 Temperature Pulse Rate 127 H 122 H Respiratory Rate 27 H Blood Pressure Pulse Oximetry 96 96 Oxygen Delivery BiPAP BiPAP Oxygen Flow Rate Fraction of Inspired Oxygen 90 08/14/24 10:00 08/14/24 12:31 08/14/24 12:32 Temperature Pulse Rate 130 H 122 H 122 H Respiratory Rate 18 18 Blood Pressure Pulse Oximetry Oxygen Delivery Oxygen Flow Rate Fraction of Inspired Oxygen 08/14/24 12:00 08/14/24 12:15 08/14/24 12:19 Temperature Pulse Rate 119 H 133 H Respiratory Rate 28 H Blood Pressure 171/70 H Pulse Oximetry 96 Oxygen Delivery BiPAP Oxygen Flow Rate Fraction of Inspired Oxygen 90 08/14/24 12:25 08/14/24 14:00 08/14/24 14:00 Temperature Pulse Rate 121 H 130 H 130 H Respiratory Rate 22 H 22 H Blood Pressure Pulse Oximetry 93 Oxygen Delivery Mechanical Ventilation Oxygen Flow Rate Fraction of Inspired Oxygen 100 08/14/24 14:26 08/14/24 14:27 08/14/24 14:00 Temperature Pulse Rate 130 H 130 H 129 H Respiratory Rate 26 H 26 H Blood Pressure Pulse Oximetry Oxygen Delivery Oxygen Flow Rate Fraction of Inspired Oxygen 08/14/24 14:22 08/14/24 16:00 08/14/24 16:00 Temperature 102.3 F H Pulse Rate 129 H 126 H 127 H Respiratory Rate 26 H Blood Pressure 101/49 L Pulse Oximetry 93 95 Oxygen Delivery Mechanical Ventilation Oxygen Flow Rate Fraction of Inspired Oxygen 90 Intake/Output Intake/Output: Intake & Output 08/11/24 08/12/24 08/13/24 08/14/24 23:59 23:59 23:59 23:59 Intake Total 3099.6 1503.3 1558.3 117.3 Output Total 1575 3750 600 1201 Balance 1524.6 -2246.7 958.3 -1083.7 Meds/Results Medications: Active Medications Generic Name Dose Route Start Last Admin Trade Name Freq PRN Reason Stop Dose Admin Acetaminophen 650 mg 08/09/24 19:56 08/14/24 14:05 Acetaminophen 325 Mg Tablet PO 650 mg Q4H PRN Administration Mild Pain (1-3) or Fever Dextrose 12.5 gm 08/10/24 06:29 08/11/24 10:46 Dextrose 50% 25 Gm/50 Ml Syringe IV PUSH 12.5 gm PRN PRN Administration Hypoglycemia Protocol Enoxaparin Sodium 95 mg 08/11/24 21:00 08/12/24 08:34 Enoxaparin 100 Mg/Ml Syringe SUB-Q Not Given Q12H [place] Glucagon 1 mg 08/10/24 06:29 Glucagon For Inj 1 Mg Vial IM PRN PRN Hypoglycemia Protocol Glucose 15 gm 08/10/24 06:29 Glucose Oral Gel 15 Gm Of Glucse In 37.5 Gm Tube PO PRN PRN Hypoglycemia Protocol Hydralazine HCl 20 mg 08/11/24 11:57 Hydralazine Hcl 20 Mg/Ml Vial IV PUSH Q4H PRN Blood Sugar - High Dextrose 1,000 mls @ 100 mls/hr 08/10/24 06:29 Dextrose 5% 1,000 Ml IVPB PRN PRN Hypoglycemia Protocol Metronidazole 500 mg in 100 mls @ 100 mls/hr 08/10/24 13:00 08/14/24 14:06 Flagyl 500 Mg/Iso Soln 100 Ml IVPB 100 mls/hr Q8HR [place] Administration Fentanyl Citrate 2,500 mcg in 250 mls @ 5 mls/hr 08/14/24 12:20 08/14/24 14:26 Fentanyl 2,500 Mcg/Ns 250 Ml IV CONT 100 mcg/hr .Q50H [place] 10 mls/hr Titration Protocol 50 MCG/HR Midazolam HCl 100 mg in 100 mls @ 4 mls/hr 08/14/24 12:20 08/14/24 14:27 Versed 100 Mg/Ns 100 Ml IV CONT 6 mg/hr .Q25H [place] 6 mls/hr Titration Protocol 4 MG/HR Dextrose/Sodium Chloride 1,000 mls @ 100 mls/hr 08/14/24 12:25 08/14/24 13:42 Dextrose 5% Sodium Chloride 0.45% IV CONT 08/14/24 22:24 100 mls/hr .Q10H [place] Administration Cefepime HCl 1 gm in 50 mls @ 100 mls/hr 08/14/24 15:00 08/14/24 15:11 Maxipime 1 Gm/Ns 50 Ml IVPB 100 mls/hr Q12H [place] Administration Insulin Aspart 3 - 6 units 08/14/24 18:00 Insulin Aspart (*Bkc) 100 Units/Ml SUB-Q Q6HR [place] Protocol Ipratropium [place] 0.5 mg 08/14/24 14:27 Ipratropium Br 0.02% Inh Soln 0.5 Mg/2.5 Ml Vial INHALATION Q6HRT PRN Shortness Of Breath Or Wheezing Levalbuterol HCl 0.63 mg 08/14/24 14:27 Levalbuterol Neb 1.25 Mg/3 Ml INHALATION Q6HRT PRN Shortness Of Breath Or Wheezing Metoclopramide HCl 5 mg 08/13/24 18:00 08/14/24 12:55 Metoclopramide Hcl Inj 10 Mg/2 Ml Vial IV PUSH 5 mg Q6HR [place] Administration Metoprolol Succinate 50 mg 08/11/24 16:10 08/11/24 17:02 Metoprolol Succinate Ext Rel 50 Mg Tabcr PO Not Given QAM [place] Midazolam HCl 2 mg 08/14/24 12:06 Midazolam Hcl (*Crx) 2 Mg/2 Ml Vial IV PUSH Q5M PRN ventilator asynchrony Morphine Sulfate 2 mg 08/12/24 03:15 Morphine Sulfate (*Crx) 2 Mg/Ml Inj IV PUSH Q4H PRN Pain Rated 7-10 Multi-Ingred Cream/Lotion/Oil/Oint 1 applic 08/14/24 21:00 Mineral Oil/White Petrolatum Ointment EACH EYE Q12HR [place] Ondansetron HCl 4 mg 08/12/24 03:15 08/14/24 05:34 Ondansetron Inj 4 Mg/2 Ml Vial IV PUSH 4 mg Q4H PRN Administration Nausea And Vomiting Pantoprazole Sodium 40 mg 08/13/24 09:00 08/14/24 08:43 Pantoprazole Sodium Iv 40 Mg Vial IV PUSH 40 mg QAM [place] Administration Perflutren Lipid Microsphere 0 ml 08/14/24 08:35 Perflutren Lipid Microspheres 1.5 Ml Vial Diluted To 10 Ml Total Volume IV PUSH 08/17/24 08:35 ONCE PRN adequate visualization Protocol Sodium Chloride 10 ml 08/14/24 14:00 08/14/24 14:28 Central Line Flush IV PUSH 10 ml Q8HR [place] Administration Sodium Chloride 10 ml 08/14/24 13:51 Central Line Flush IV PUSH PRN PRN with TPN bag changes Sodium Chloride 20 ml 08/14/24 13:51 Central Line Flush IV PUSH PRN PRN after blood draws Radiology Results: ITS Impressions Head CT 08/09/24 17:49 IMPRESSION: 1. No fracture or acute intracranial process. 2. 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 3. Age-related changes including mild diffuse volume loss and mild scattered mesenteric white matter hypoattenuation consistent with chronic small vessel ischemic disease. Cervical Spine CT 08/09/24 18:15 IMPRESSION: 1. Moderate to severe cervical spondylosis. No acute osseous abnormality. Thoracic/Lumbar Spine CT 08/09/24 18:22 IMPRESSION: 1. Multiple old posterior left rib fractures and chronic compression fractures with mild anterior wedging at T5 and T6 and mild right-sided anterior vertebral body height loss at L2. No acute osseous abnormality. 2. Moderate thoracic spondylosis and mild lumbar spondylosis. 3. Combined instrumented L5-S1 anterior and posterior spinal fusion. 4. Chronic bilateral lower lung predominant interstitial lung disease with indeterminate 8 mm pulmonary nodule in the left lower lobe. Recommend 3 month follow-up low-dose noncontrast chest CT. Chest CTA 08/10/24 18:43 IMPRESSION: 1. No pulmonary embolism. 2. Bilateral interstitial and alveolar opacification more prominent in the right upper lobe which may indicate pneumonitis versus fibrotic changes versus pulmonary edema. 3. Bilateral pleural effusion more on the right side. 4. Cholelithiasis. 5. Left adrenal adenoma. 6. Mediastinal lymphadenopathy.. 7. Multiple healing rib fractures in the left hemithorax. Brain MRA 08/11/24 09:25 IMPRESSION: 1. High-grade stenosis on the right P1 segment with downstream moderate-sized region of encephalomalacia consistent with chronic infarct. 2. Moderate grade stenosis at the origin of the right M1 segment. Chest/Abdomen/Pelvis CT 08/12/24 08:46 IMPRESSION: Extensive interval bilateral patchy pulmonary infiltrates since 08/10/2024, which may be consistent with extensive aspiration pneumonitis or rapidly worsening pneumonia Brain MRI 08/12/24 14:11 IMPRESSION: No acute intracranial process. Abdomen Ultrasound 08/12/24 16:37 IMPRESSION: Likely, additional gallbladder sludge and stones in the dependent gallbladder lumen. Small Bowel X-Ray 08/12/24 19:16 IMPRESSION: Radiographic findings consistent with low-grade small bowel obstruction or ileus. Lumbar Spine MRI 08/13/24 06:32 IMPRESSION: 1. Widespread enhancement of the bones without abnormal CT correlate suspicious for metastatic disease or multiple myeloma. 2. Mild lumbar spondylosis. 3. Anterior fusion procedure at L5-S1. Cervical Spine MRI 08/13/24 06:43 IMPRESSION: 1. Widespread abnormal contrast enhancement in the bones, consistent with metastatic disease versus multiple myeloma. 2. Moderate cervical spondylosis. Thoracic Spine MRI 08/13/24 06:48 IMPRESSION: 1. Widespread contrast enhancement of the bones, consistent with metastatic disease versus multiple myeloma. 2. Mild thoracic spondylosis. Chest X-Ray 08/14/24 12:59 IMPRESSION: 1. Stable diffuse lung disease, consistent with pneumonia versus pulmonary edema superimposed on chronic interstitial lung disease. Abdomen X-Ray 08/14/24 13:03 IMPRESSION: 1. Orogastric tube tip in the distal stomach. 2. Dilated small bowel, likely adynamic ileus. Venous Doppler Study 08/14/24 15:47 IMPRESSION: 1. No deep venous thrombosis. 2. Small left Calles's cyst. Labs Labs: Laboratory Results - last 24 hr 08/13/24 08/13/24 08/13/24 18:39 21:47 23:03 WBC RBC Hgb Hct MCV MCH MCHC RDW Plt Count MPV Immature Gran % (Auto) Neut % (Auto) Lymph % (Auto) Cooper % (Auto) Eos % (Auto) Baso % (Auto) Lymph # (Auto) Cooper # (Auto) Eos # (Auto) Baso # (Auto) Abs Immat Gran (auto) Absolute Neuts (auto) Absolute Nucleated RBC Total Counted Neutrophils % (Manual) Band Neutrophils % Lymphocytes % (Manual) Monocytes % (Manual) Eosinophils % (Manual) Basophils % (Manual) Metamyelocytes % Nucleated RBC % Abs Neuts (Manual) Abs Lymphs (Manual) Abs Monocytes (Manual) Absolute Eos (Manual) Abs Basophils (Manual) Atypical Lymphocytes Smudge Cells Platelet Estimate % Immature Plt Fraction Hypochromasia Poikilocytosis Anisocytosis Target Cells Dennise Cells Schistocytes Puncture Site Right radial ABG pH 7.400 ABG pCO2 38.4 ABG pO2 71.4 L ABG PO2/FiO2 Ratio 1.19 ABG HCO3 23.3 ABG O2 Saturation 94.5 L ABG O2 Content 15.5 L ABG Base Excess -1.3 A-a Gradient 314.2 Oxyhemoglobin 93.1 Carboxyhemoglobin 0.7 Methemoglobin 0.1 Reduced Hemoglobin 6.1 H Total Hemoglobin 11.8 L O2 Delivery Device Other device O2 Liters/Min 22.0 Minute Volume Vent Rate Vent Mode FiO2 60 Tidal Volume PEEP Peak Inspir Pressure Pressure Support Sodium 150 H Potassium 3.2 L Chloride 116 H Carbon Dioxide 28 Anion Gap 6 BUN 50 H Creatinine 1.30 Estim Creat Clear Calc 43 Estimated GFR 53 L Glucose 114 H POC Capillary Glucose 153 H Lactic Acid 5.2 H* Calcium 9.3 Magnesium Total Bilirubin AST ALT Alkaline Phosphatase C-Reactive Protein 29.2 H NT-Pro-B Natriuret Pep 1790 H Total Protein Albumin Procalcitonin 0.7 08/14/24 08/14/24 08/14/24 03:41 04:19 06:42 WBC 10.0 RBC 3.95 L Hgb 10.8 L Hct 32.2 L MCV 81.5 MCH 27.3 MCHC 33.5 RDW 17.1 H Plt Count 29 L MPV 9.8 Immature Gran % (Auto) Not Reportable Neut % (Auto) Not Reportable Lymph % (Auto) Not Reportable Cooper % (Auto) Not Reportable Eos % (Auto) Not Reportable Baso % (Auto) Not Reportable Lymph # (Auto) Not Reportable Cooper # (Auto) Not Reportable Eos # (Auto) Not Reportable Baso # (Auto) Not Reportable Abs Immat Gran (auto) Not Reportable Absolute Neuts (auto) Not Reportable Absolute Nucleated RBC Not Reportable Total Counted 100 Neutrophils % (Manual) 54 Band Neutrophils % 8 H Lymphocytes % (Manual) 28 Monocytes % (Manual) 3 Eosinophils % (Manual) 5 H Basophils % (Manual) 1 Metamyelocytes % 1 Nucleated RBC % Not Reportable Abs Neuts (Manual) 6.20 Abs Lymphs (Manual) 2.80 Abs Monocytes (Manual) 0.30 Absolute Eos (Manual) 0.50 Abs Basophils (Manual) 0.10 Atypical Lymphocytes Present Smudge Cells Present Platelet Estimate Decreased % Immature Plt Fraction 7.3 Hypochromasia 1+ Poikilocytosis 1+ Anisocytosis 1+ Target Cells 1+ Dennise Cells 1+ Schistocytes Rare Puncture Site ABG pH ABG pCO2 ABG pO2 ABG PO2/FiO2 Ratio ABG HCO3 ABG O2 Saturation ABG O2 Content ABG Base Excess A-a Gradient Oxyhemoglobin Carboxyhemoglobin Methemoglobin Reduced Hemoglobin Total Hemoglobin O2 Delivery Device O2 Liters/Min Minute Volume Vent Rate Vent Mode FiO2 Tidal Volume PEEP Peak Inspir Pressure Pressure Support Sodium 152 H Potassium 3.7 Chloride 115 H Carbon Dioxide 27 Anion Gap 10 BUN 52 H Creatinine 1.40 H Estim Creat Clear Calc 40 Estimated GFR 49 L Glucose 81 POC Capillary Glucose 79 Lactic Acid 4.6 H* Calcium 9.3 Magnesium 1.9 Total Bilirubin 1.1 AST 187 H ALT 35 Alkaline Phosphatase 257 H C-Reactive Protein NT-Pro-B Natriuret Pep 2420 H Total Protein 6.0 L Albumin 2.7 L Procalcitonin 0.7 08/14/24 08/14/24 08/14/24 08:50 11:10 14:07 WBC RBC Hgb Hct MCV MCH MCHC RDW Plt Count MPV Immature Gran % (Auto) Neut % (Auto) Lymph % (Auto) [place] % (Auto) Eos % (Auto) Baso % (Auto) Lymph # (Auto) [place] # (Auto) Eos # (Auto) Baso # (Auto) Abs Immat Gran (auto) Absolute Neuts (auto) Absolute Nucleated RBC Total Counted Neutrophils % (Manual) Band Neutrophils % Lymphocytes % (Manual) Monocytes % (Manual) Eosinophils % (Manual) Basophils % (Manual) Metamyelocytes % Nucleated RBC % Abs Neuts (Manual) Abs Lymphs (Manual) Abs Monocytes (Manual) Absolute Eos (Manual) Abs Basophils (Manual) Atypical Lymphocytes Smudge Cells Platelet Estimate % Immature Plt Fraction Hypochromasia Poikilocytosis Anisocytosis Target Cells King Cells Schistocytes Puncture Site Right radial Left brachial ABG pH 7.403 7.064 L* ABG pCO2 36.5 95.0 H* ABG pO2 61.7 L 106.2 H ABG PO2/FiO2 Ratio 0.67 1.06 ABG HCO3 22.3 26.5 H ABG O2 Saturation 91.9 L 95.0 ABG O2 Content 14.2 L 16.7 ABG Base Excess -2.1 -5.6 A-a Gradient 557.0 511.8 Oxyhemoglobin 89.9 L 94.7 Carboxyhemoglobin Methemoglobin Reduced Hemoglobin Total Hemoglobin 11.2 L 12.4 O2 Delivery Device High flow nasal melecio Ventilator O2 Liters/Min 60.0 Not Reportable Minute Volume Not Reportable Vent Rate 22 Vent Mode Cmv FiO2 92 100 Tidal Volume 480 PEEP 10 Peak Inspir Pressure Not Reportable Pressure Support Not Reportable Sodium Potassium Chloride Carbon Dioxide Anion Gap BUN Creatinine Estim Creat Clear Calc Estimated GFR Glucose POC Capillary Glucose 147 H Lactic Acid Calcium Magnesium Total Bilirubin AST ALT Alkaline Phosphatase C-Reactive Protein NT-Pro-B Natriuret Pep Total Protein Albumin Procalcitonin
--- NOTE | 2024-08-14 17:30 | PC.NURSE ---
Notified Dr Shaw of PT hypotension 85/46. PT HR remains elevated in 120-130's. remains febrile at 102.4. Ice packs recently applied after tylenol administration. Received order for STAT ABG, and to start levophed. Asked to call back with results from CMP and ABG. ORders read back and verified.
[2024-08-14] MEDS: NOREPINEPHRINE 8 MG/D5W 250 ML 8 MG/250 ML BAG 9.38 MG IV CONT (17:40)
[2024-08-14 17:49] LABS: Alveolar/Arterial O2 Gradient 447.7 mmHg; Base Excess ABG -3.4 mEq/l (+/-2.0); Fractional Inspired Oxygen 90 %; HCO3 ABG 26.8 mEq/l (22.0-26.0); Oxygen Content ABG 15.4 %vol (16.0-22.0); Oxygen Saturation ABG 96.6 % (95.0-100.0); Oxyhemoglobin 96.7 % THb (90.0-100.0); PO2 ABG 113.2 mmHg (80.0-100.0); PO2 FiO2 Ratio Arterial Blood 1.26 %; Total Hemoglobin 11.2 g/dL (12.0-18.0)
[2024-08-14 17:51] LABS: pH ABG 7.149 (7.350-7.450)
[2024-08-14 17:52] LABS: Arterial Blood Gas Ventilator rate 26 /MIN; Device VENTILATOR; PCO2 ABG 78.8 mmHg (35.0-45.0); Site Drawn LEFT BRACHIAL
[2024-08-14 17:53] LABS: Arterial Blood Gas PEEP 10 cmH2O; Arterial Blood Gas Tidal Volume 450 ml; Arterial Blood Gas Vent Mode CMV
[2024-08-14 18:09] LABS: Anion Gap 8 mmol/L (4-12); Blood Urea Nitrogen 65 mg/dL (9-20); Calcium 8.8 mg/dL (8.4-10.2); Carbon Dioxide 31 mmol/L (22-30); Chloride 113 mmol/L (98-107); Estimated CRCL calculation 25 ml/min; Estimated Glomerular Filt Rate 28; Glucose 117 mg/dL (65-110); Potassium 4.5 mmol/L (3.4-5.0); Sodium 152 mmol/L (137-145)
--- NOTE | 2024-08-14 18:16 | PDONCCN ---
[facility] - Date of Consult Date/Time: 08/14/24 18:16 Requesting Physician: Nirmala Weinstein DO Primary Care Provider: Rolly Benitez MD - Consult Narrative Reason for consult: Thrombocytopenia and anemia Narrative: Primo Munroe is a 78 year old male with history of coronary artery disease, chronic kidney stage 3 disease, stroke brought into the hospital status post fall when he was found to be on the ground in his garage. He was brought into the hospital by his son. He was complaining of tiredness and fatigue along with lightheadedness and dizziness. Labs showed hemoglobin of 14.2 platelet count of [id number]. Platelet count has slowly dropped down to 29,000 with hemoglobin of 10.8. There was no bleeding. He was transferred to the ICU and was intubated. CT scan chest abdomen and pelvis showed bilateral interstitial and alveolar with specifications suggestive of ARDS versus pulmonary edema and pneumonia. There was mediastinal lymphadenopathy. CT abdomen showed few dilated small bowels with no evidence of complete obstruction. Review of Systems - Review of Systems All systems reviewed & are unremarkable except as noted in [facility] and [facility] Medical History: Medical History (Last Reviewed 08/14/24 @ 13:01 by Froilan Shaw MD) Aortic stenosis Blood type B+ BPH (benign prostatic hyperplasia) Coronary artery disease DVT prophylaxis GERD (gastroesophageal reflux disease) History of CVA (cerebrovascular accident) Onset Date: ~04/2014 History of rib fracture Onset Date: ~2020 Mixed hyperlipidemia Occipital infarction Onset Date: ~04/2014 BRYAN on CPAP PAD (peripheral artery disease) Primary insomnia Ptosis, left eyelid Pulmonary interstitial fibrosis Stage 3a chronic kidney disease (CKD) Type 2 diabetes mellitus without complications Vasovagal syncope Surgical History: Surgical History (Last Reviewed 08/14/24 @ 13:01 by Froilan Shaw MD) History of appendectomy History of exploratory laparotomy Onset Date: ~2000 Exploratory laparotomy in 2000, laparotomy with adhesion lysis and repair of ventral abdominal hernia in 2015 due to incarcerated hernia History of gastric surgery Onset Date: ~2014 stoma reversal History of lumbar surgery Onset Date: ~2014 and May 2015 L4 through S1 History of ventral hernia repair Onset Date: 06/2016 Status post cataract extraction of both eyes with insertion of intraocular lens Status post peripheral artery angioplasty with insertion of stent Onset Date: ~2013 Left leg Family History: Family History (Last Reviewed 12/02/24 @ 13:01 by Froilan Shaw MD) Sibling Cerebrovascular accident Stomach cancer Hx of CABG Both brothers Diabetes mellitus Father Family history of heart disease in male family member before age 55 Cerebrovascular accident Mother Diabetes mellitus Other Family history of cardiovascular disease Family history of gout Family history of malignant neoplasm Family history of osteoarthritis Hypertension - Social History Social History: Social History (Last Reviewed 08/14/24 @ 13:01 by Froilan Shaw MD) Gender Identity: Gender identity (if verbalized by the patient): Male Sexual Orientation: Sexual Orientation (if Verbalized by the Patient): Straight or Heterosexual Alcohol Use: Alcohol intake: former Substance Use: Substance use: never Substance use type: does not use Others: Spiritual care concerns: No Living Arrangements: Living arrangements: alone Oppucation/Education: Occupation/Education: retired Smoking Status: Smoking status: Heavy tobacco smoker Tobacco type: cigarettes Second hand tobacco smoke exposure: Yes Smoking Pack-years: Smoking packs per day: 0.5 Smoking cigarettes per day: 10.0 Years smoked: 60 Smoking pack-years: 30.00 Social Determinants of Health: Do You Feel Safe in your Home?: Yes Has the Lack of Transportation Kept You From Medical Appointments or From Getting Medications?: No Within the Past 12 Months, Were You Worried Whether Your Food Would Run Out Before You Got Money to Buy More?: Never True What is Your Housing Situation Today?: I Have Housing Are You Worried That in the Next 2 Months, You May Not Have Your Own Housing to Live In?: No Do You Have Trouble Paying Your Heating Or Electricity Bill?: No Do You Have Trouble Paying For Medicines?: No Are You Currently Unemployed and Looking for Work?: No Highest Level of Education Completed: High School Diploma/GED Do You Have Trouble With Childcare or the Care of a Family Member?: No Exam - Vital Signs Vital Signs - 24 hr 08/13/24 20:04 08/13/24 21:28 08/13/24 21:34 Temperature 36.3 C L Pulse Rate 103 H 111 H Respiratory Rate 24 H 22 H Blood Pressure 165/74 H Pulse Oximetry 93 90 Oxygen Delivery High Flow Nasal Cannula Oxygen Flow Rate 14 Fraction of Inspired Oxygen 08/13/24 21:44 08/13/24 20:00 08/13/24 22:00 Temperature Pulse Rate 108 H 107 H 118 H Respiratory Rate 20 Blood Pressure Pulse Oximetry Oxygen Delivery Oxygen Flow Rate Fraction of Inspired Oxygen 08/13/24 22:15 08/13/24 20:00 08/14/24 00:00 Temperature Pulse Rate 116 H Respiratory Rate Blood Pressure Pulse Oximetry 94 92 94 Oxygen Delivery High Flow Therapy with Na High Flow Nasal Cannula High Flow Nasal Cannula Oxygen Flow Rate 60 12 60 Fraction of Inspired Oxygen 90 92 08/14/24 00:00 08/14/24 00:00 08/14/24 02:00 Temperature 38.0 C H Pulse Rate 116 H 116 H 124 H Respiratory Rate 28 H Blood Pressure 139/84 Pulse Oximetry 94 Oxygen Delivery Oxygen Flow Rate Fraction of Inspired Oxygen 08/14/24 02:20 08/14/24 02:20 08/14/24 02:35 Temperature Pulse Rate 120 H 120 H 114 H Respiratory Rate 24 H 24 H Blood Pressure Pulse Oximetry 93 Oxygen Delivery High Flow Therapy with Na Oxygen Flow Rate 60 Fraction of Inspired Oxygen 91 08/14/24 04:00 08/14/24 04:00 08/14/24 04:00 Temperature 38.3 C H Pulse Rate 123 H 119 H Respiratory Rate 32 H Blood Pressure 155/61 H Pulse Oximetry 91 92 Oxygen Delivery High Flow Nasal Cannula Oxygen Flow Rate 60 Fraction of Inspired Oxygen 92 08/14/24 07:28 08/14/24 08:07 08/14/24 08:07 Temperature 36.9 C Pulse Rate 120 H 120 H 120 H Respiratory Rate 23 H 24 H 24 H Blood Pressure 168/64 H Pulse Oximetry 90 95 Oxygen Delivery High Flow Therapy with Na Oxygen Flow Rate 60 Fraction of Inspired Oxygen 91 08/14/24 08:15 08/14/24 06:00 08/14/24 09:14 Temperature Pulse Rate 120 H 119 H 127 H Respiratory Rate 24 H 27 H Blood Pressure Pulse Oximetry 96 Oxygen Delivery BiPAP Oxygen Flow Rate Fraction of Inspired Oxygen 90 08/14/24 09:16 08/14/24 08:00 08/14/24 08:00 Temperature Pulse Rate 127 H 122 H Respiratory Rate 27 H Blood Pressure Pulse Oximetry 96 96 Oxygen Delivery BiPAP BiPAP Oxygen Flow Rate Fraction of Inspired Oxygen 90 08/14/24 10:00 08/14/24 12:31 08/14/24 12:32 Temperature Pulse Rate 130 H 122 H 122 H Respiratory Rate 18 18 Blood Pressure Pulse Oximetry Oxygen Delivery Oxygen Flow Rate Fraction of Inspired Oxygen 08/14/24 12:00 08/14/24 12:15 08/14/24 12:19 Temperature Pulse Rate 119 H 133 H Respiratory Rate 28 H Blood Pressure 171/70 H Pulse Oximetry 96 Oxygen Delivery BiPAP Oxygen Flow Rate Fraction of Inspired Oxygen 90 08/14/24 12:25 08/14/24 14:00 08/14/24 14:00 Temperature Pulse Rate 121 H 130 H 130 H Respiratory Rate 22 H 22 H Blood Pressure Pulse Oximetry 93 Oxygen Delivery Mechanical Ventilation Oxygen Flow Rate Fraction of Inspired Oxygen 100 08/14/24 14:26 08/14/24 14:27 08/14/24 14:00 Temperature Pulse Rate 130 H 130 H 129 H Respiratory Rate 26 H 26 H Blood Pressure Pulse Oximetry Oxygen Delivery Oxygen Flow Rate Fraction of Inspired Oxygen 08/14/24 14:22 08/14/24 16:00 08/14/24 16:00 Temperature 39.1 C H Pulse Rate 129 H 126 H 127 H Respiratory Rate 26 H Blood Pressure 101/49 L Pulse Oximetry 93 95 Oxygen Delivery Mechanical Ventilation Oxygen Flow Rate Fraction of Inspired Oxygen 90 08/14/24 16:00 08/14/24 15:05 08/14/24 16:50 Temperature 39.0 C H Pulse Rate 127 H Respiratory Rate Blood Pressure Pulse Oximetry 96 Oxygen Delivery Mechanical Ventilation Oxygen Flow Rate Fraction of Inspired Oxygen 90 90 08/14/24 17:40 08/14/24 16:00 08/14/24 16:00 Temperature Pulse Rate 125 H 127 H 127 H Respiratory Rate 26 H 26 H Blood Pressure 85/46 L Pulse Oximetry Oxygen Delivery Oxygen Flow Rate Fraction of Inspired Oxygen 08/14/24 17:45 08/14/24 17:46 08/14/24 16:00 Temperature Pulse Rate 125 H 124 H Respiratory Rate 26 H Blood Pressure 84/50 L Pulse Oximetry Oxygen Delivery Mechanical Ventilation Oxygen Flow Rate Fraction of Inspired Oxygen 90 08/14/24 17:45 08/14/24 17:58 08/14/24 18:00 Temperature 39.2 C H 39.2 C H Pulse Rate 123 H 124 H 128 H Respiratory Rate 26 H 26 H Blood Pressure 84/50 L 88/51 L Pulse Oximetry 97 95 Oxygen Delivery Oxygen Flow Rate Fraction of Inspired Oxygen - Exam Lungs: clear to auscultation Heart: no murmurs, gallops, or rubs, regular rhythm Abdomen: abdomen soft, non-distended Extremities: normal pulses Integumentary: no abnormalities (Patient is sedated and intubated) - Lab Results Laboratory Last Values WBC 10.0 K/mm3 (4.5-10.0) 08/14/24 03:41 RBC 3.95 M/mm3 (4.6-6.20) L 08/14/24 03:41 Hgb 10.8 g/dL (14.0-18.0) L 08/14/24 03:41 Hct 32.2 % (42.0-52.0) L 08/14/24 03:41 MCV 81.5 fl (80-100) 08/14/24 03:41 MCH 27.3 pg (26-34) 08/14/24 03:41 MCHC 33.5 g/dl (32-36) 08/14/24 03:41 RDW 17.1 % (11.5-14.5) H 08/14/24 03:41 Plt Count 29 k/mm3 (150-375) L 08/14/24 03:41 MPV 9.8 fl (7.4-10.4) 08/14/24 03:41 Immature Gran % (Auto) Not Reportable 08/14/24 03:41 Neut % (Auto) Not Reportable 08/14/24 03:41 Lymph % (Auto) Not Reportable 08/14/24 03:41 Rogers % (Auto) Not Reportable 08/14/24 03:41 Eos % (Auto) Not Reportable 08/14/24 03:41 Baso % (Auto) Not Reportable 08/14/24 03:41 Lymph # (Auto) Not Reportable 08/14/24 03:41 Rogers # (Auto) Not Reportable 08/14/24 03:41 Eos # (Auto) Not Reportable 08/14/24 03:41 Baso # (Auto) Not Reportable 08/14/24 03:41 Abs Immat Gran (auto) Not Reportable 08/14/24 03:41 Absolute Neuts (auto) Not Reportable 08/14/24 03:41 Absolute Nucleated RBC Not Reportable 08/14/24 03:41 Total Counted 100 08/14/24 03:41 Neutrophils % (Manual) 54 % (46-73) 08/14/24 03:41 Band Neutrophils % 8 % (0-6) H 08/14/24 03:41 Lymphocytes % (Manual) 28 % (18-44) 08/14/24 03:41 Monocytes % (Manual) 3 % (3-9) 08/14/24 03:41 Eosinophils % (Manual) 5 % (0-4) H 08/14/24 03:41 Basophils % (Manual) 1 % (0-1) 08/14/24 03:41 Metamyelocytes % 1 % 08/14/24 03:41 Nucleated RBC % Not Reportable 08/14/24 03:41 Abs Neuts (Manual) 6.20 K/mm3 (1.3-6.7) 08/14/24 03:41 Abs Lymphs (Manual) 2.80 K/mm3 (1.1-4.5) 08/14/24 03:41 Abs Monocytes (Manual) 0.30 K/mm3 (0.1-0.90) 08/14/24 03:41 Absolute Eos (Manual) 0.50 K/mm3 (0.02-0.50) 08/14/24 03:41 Abs Basophils (Manual) 0.10 K/mm3 (0.0-0.1) 08/14/24 03:41 Nucleated RBCs 1 % 08/10/24 04:58 Atypical Lymphocytes Present 08/14/24 03:41 Smudge Cells Present 08/14/24 03:41 Platelet Estimate Decreased (Adequate) 08/14/24 03:41 % Immature Plt Fraction 7.3 % (0.9-11.2) 08/14/24 03:41 Hypochromasia 1+ 08/14/24 03:41 Poikilocytosis 1+ 08/14/24 03:41 Anisocytosis 1+ 08/14/24 03:41 Target Cells 1+ 08/14/24 03:41 Dennise Cells 1+ 08/14/24 03:41 Schistocytes Rare 08/14/24 03:41 ESR 16 mm/hr (0-20) 08/09/24 15:38 PT 15.0 Seconds (11.1-14.7) H 08/09/24 15:38 INR 1.2 08/09/24 15:38 APTT 31.7 Seconds (22.3-36.8) 08/09/24 15:38 D-Dimer 9.46 ug/mL (<0.48) H 08/10/24 08:47 Puncture Site Left brachial 08/14/24 17:45 ABG pH 7.149 (7.350-7.450) L* 08/14/24 17:45 ABG pCO2 78.8 mmHg (35.0-45.0) H* 08/14/24 17:45 ABG pO2 113.2 mmHg (80.0-100.0) H 08/14/24 17:45 ABG PO2/FiO2 Ratio 1.26 % 08/14/24 17:45 ABG HCO3 26.8 mEq/l (22.0-26.0) H 08/14/24 17:45 ABG O2 Saturation 96.6 % (95.0-100.0) 08/14/24 17:45 ABG O2 Content 15.4 %vol (16.0-22.0) L 08/14/24 17:45 ABG Base Excess -3.4 mEq/l (+/-2.0) 08/14/24 17:45 A-a Gradient 447.7 mmHg 08/14/24 17:45 Oxyhemoglobin 96.7 % THb (90.0-100.0) 08/14/24 17:45 Carboxyhemoglobin 0.7 % THb (0-2.0) 08/13/24 21:47 Methemoglobin 0.1 %THb (0-1.5) 08/13/24 21:47 Reduced Hemoglobin 6.1 %THb (0-5.0) H 08/13/24 21:47 Total Hemoglobin 11.2 g/dL (12.0-18.0) L 08/14/24 17:45 O2 Delivery Device Ventilator 08/14/24 17:45 O2 Liters/Min Not Reportable 08/14/24 17:45 Minute Volume Not Reportable 08/14/24 17:45 Vent Rate 26 /MIN 08/14/24 17:45 Vent Mode Cmv 08/14/24 17:45 FiO2 90 % 08/14/24 17:45 Tidal Volume 450 ml 08/14/24 17:45 PEEP 10 cmH2O 08/14/24 17:45 Peak Inspir Pressure Not Reportable 08/14/24 17:45 Pressure Support Not Reportable 08/14/24 17:45 Sodium 152 mmol/L (137-145) H 08/14/24 17:37 Potassium 4.5 mmol/L (3.4-5.0) 08/14/24 17:37 Chloride 113 mmol/L (98-107) H 08/14/24 17:37 Carbon Dioxide 31 mmol/L (22-30) H 08/14/24 17:37 Anion Gap 8 mmol/L (4-12) 08/14/24 17:37 BUN 65 mg/dL (9-20) H D 08/14/24 17:37 Creatinine 2.30 mg/dL (0.7-1.3) H 08/14/24 17:37 Estim Creat Clear Calc 25 ml/min 08/14/24 17:37 Estimated GFR 28 (59-) L 08/14/24 17:37 Glucose 117 mg/dL (65-110) H 08/14/24 17:37 POC Capillary Glucose 147 mg/dl (65-105) H 08/14/24 11:10 Lactic Acid 4.6 mmol/L (0.7-2.0) H* 08/14/24 03:41 Calcium 8.8 mg/dL (8.4-10.2) 08/14/24 17:37 Magnesium 1.9 mg/dL (1.6-2.3) 08/14/24 04:19 Total Bilirubin 1.1 mg/dL (0.2-1.3) 08/14/24 04:19 AST 187 U/L (17-59) H 08/14/24 04:19 ALT 35 U/L (6-50) 08/14/24 04:19 Alkaline Phosphatase 257 U/L (38-126) H 08/14/24 04:19 Total Creatine Kinase 265 U/L (55-170) H 08/12/24 10:34 C-Reactive Protein 29.2 mg/dL (<1.0) H 08/13/24 23:03 NT-Pro-B Natriuret Pep 2420 pg/mL (19.9-100) H 08/14/24 04:19 Total Protein 6.0 g/dL (6.3-8.2) L 08/14/24 04:19 Albumin 2.7 g/dL (3.5-5.1) L 08/14/24 04:19 Lipase 36 U/L (23-300) 08/12/24 03:55 Procalcitonin 0.7 ng/mL 08/14/24 04:19 Urine Color Yellow (Yellow) 08/09/24 16:59 Urine Appearance Clear (Clear) 08/09/24 16:59 Urine pH 5.5 (5.0-9.0) 08/09/24 16:59 Ur Specific Minford 1.020 (1.001-1.035) 08/09/24 16:59 Urine Protein 1+ mg/dL (Negative) H 08/09/24 16:59 Urine Glucose (UA) Negative mg/dL (Negative) 08/09/24 16:59 Urine Ketones Trace mg/dL (Negative) H 08/09/24 16:59 Ur Blood (Man) Negative (Negative) 08/09/24 16:59 Urine Nitrate Negative (Negative) 08/09/24 16:59 Urine Bilirubin Negative (Negative) 08/09/24 16:59 Urine Urobilinogen 1.0 mg/dL (<2.0) 08/09/24 16:59 Add Ur Microanalysis Reviewed 08/09/24 16:59 Leukocyte Esterase Rfl Trace SANGEETA/UL (Negative) H 08/09/24 16:59 Urine RBC 0-2 /hpf (0-2) 08/09/24 16:59 Urine WBC 0-5 /hpf (0-3) 08/09/24 16:59 Ur Squamous Epith Cells Few /hpf (Few) 08/09/24 16:59 Urine Bacteria None seen /hpf 08/09/24 16:59 Urine Casts 6-10 08/09/24 16:59 Hyaline Casts Present /lpf (None) 08/09/24 16:59 Nasal MRSA (PCR) Not detected (NOT DETECTE) 08/11/24 19:36 Vancomycin Trough 20.8 ug/mL (10.0-20.0) H 08/12/24 21:05 Influenza A (RT-PCR) Negative (Negative) 08/09/24 15:38 Influenza B (RT-PCR) Negative (Negative) 08/09/24 15:38 RSV (RT-PCR) Negative (Negative) 08/09/24 15:38 SARS-CoV-2 RNA (RT-PCR) Negative (Negative) 08/09/24 15:38 Meds Home Medications Medication Instructions Recorded Confirmed Type Bifidobacterium infantis 4 mg 4 mg PO DAILY 03/06/21 08/10/24 History capsule (Align) calcium 500 mg tablet 500 mg PO DAILY 03/06/21 08/10/24 History cholecalciferol (vitamin D3) 125 125 mcg PO DAILY 03/06/21 08/10/24 History mcg (5,000 unit) tablet (Vitamin D3) multivitamin 1 cap PO DAILY 03/06/21 08/10/24 History polyethylene glycol 3350 17 gram 17 g PO DAILY PRN Constipation 03/06/21 08/10/24 History oral powder packet (Miralax) nortriptyline 50 mg capsule 50 mg PO QHS #90 caps 01/04/24 08/10/24 Rx tamsulosin 0.4 mg capsule 0.4 mg PO BID #180 caps 04/04/24 08/10/24 Rx clopidogrel 75 mg tablet See Rx Instructions .Route 04/10/24 08/10/24 Rx .COMPLEX #90 tabs atorvastatin 40 mg tablet 40 mg PO DAILY #90 tabs 05/02/24 08/10/24 Rx finasteride 5 mg tablet See Rx Instructions .Route 06/07/24 08/10/24 Rx .COMPLEX #90 tabs pantoprazole 40 mg tablet,delayed 40 mg PO HS #90 tabs 06/18/24 08/10/24 Rx release cyclobenzaprine 10 mg tablet 10 mg PO TID PRN muscle spasm #20 08/04/24 08/10/24 Rx tabs Allergies Allergy/AdvReac Type Severity Reaction Status Date / Time rivaroxaban AdvReac Unknown SEVERE Verified 07/11/24 13:24 NOSE BLEED Results - Labs CBC & Chem 7: 08/14/24 03:41 08/14/24 17:37 Labs: Short CBC 08/14/24 Range/Units 03:41 WBC 10.0 (4.5-10.0) K/mm3 Hgb 10.8 L (14.0-18.0) g/dL Hct 32.2 L (42.0-52.0) % Plt Count 29 L (150-375) k/mm3 BMP 08/13/24 08/14/24 08/14/24 23:03 04:19 17:37 Sodium 150 H 152 H 152 H Potassium 3.2 L 3.7 4.5 Chloride 116 H 115 H 113 H Carbon Dioxide 28 27 31 H BUN 50 H 52 H 65 H D Creatinine 1.30 1.40 H 2.30 H Glucose 114 H 81 117 H Calcium 9.3 9.3 8.8 Liver Function 08/14/24 Range/Units 04:19 Total Bilirubin 1.1 (0.2-1.3) mg/dL AST 187 H (17-59) U/L ALT 35 (6-50) U/L Alkaline Phosphatase 257 H (38-126) U/L Albumin 2.7 L (3.5-5.1) g/dL Assessment and Plan - Additional Plan Thrombocytopenia and normocytic anemia. Patient is a 78-year-old male brought into the hospital after being found on the floor in his garage. According to the family he was complaining of tiredness and fatigue. There was no evidence of bleeding and bruising. CT scan pulmonary edema versus pneumonitis versus pneumonia. He is currently intubated. Platelet counts and hemoglobin was normal on admission but slowly declined. His thrombocytopenia could very well be secondary to infection and sepsis versus drug-induced thrombocytopenia versus possibility of ITP. Other labs showed creatinine of 1 7 on admission now down to 2.3. Sodium was elevated at 152 proBNP was elevated as well. Serum protein electrophoresis was ordered and pending. INR normal at 1.2. PTT was normal at 31.7. D-dimer was elevated. Vancomycin trough was elevated at 20.8. Vancomycin has been discontinued. Peripheral smear showed rare schistocytes. Abdominal ultrasound done on August 12 showed no evidence of hepatosplenomegaly. I will order platelet antibodies. Will check LDH. Will check iron profile and vitamin B12 level. We will transfuse on as-needed basis. I have discussed this with patient's son in detail. I have answered all the questions to family satisfaction.
[2024-08-14 19:17] LABS: Iron 113 ug/dL (49-181)
[2024-08-14 19:26] LABS: Percent Iron Saturation 65 % (20-50)
[2024-08-14 20:20] LABS: Folic Acid 16.1 ng/mL (2.76->20); Vitamin B12 > 1000.0 pg/mL (239-931)
[2024-08-14] MEDS: MINERAL OIL/WHITE PETROLATUM OINTMENT 1 APPLIC EACH EYE (21:08)
[2024-08-14 22:05] LABS: Lactate Dehydrogenase > 1000 U/L (120-246)
[2024-08-14 23:46] LABS: Glucose Point of Care 88 mg/dl (65-105)
[2024-08-15] VITALS (75 sets, daily range): BP systolic 75–122; BP diastolic 45–82; PULSE 91–118; RESP 26–29; TEMP 36.3–39; O2SAT 91–97
[2024-08-15 02:39] LABS: Protein, Total 5.3 g/dL (6.1-8.1)
[2024-08-15] MEDS: CEFEPIME 1 GM/NS 50 ML 1 GM/50 ML BAG IVPB ×2 (03:33→14:23)
[2024-08-15 05:25] LABS: Alveolar/Arterial O2 Gradient 305.1 mmHg; Base Excess ABG -7.3 mEq/l (+/-2.0); Carboxyhemoglobin 0.8 % THb (0-2.0); Fractional Inspired Oxygen 65 %; HCO3 ABG 22.6 mEq/l (22.0-26.0); Methemoglobin ABG 0.3 %THb (0-1.5); Oxygen Saturation ABG 93.1 % (95.0-100.0); Oxyhemoglobin 93.3 % THb (90.0-100.0); PO2 ABG 85.5 mmHg (80.0-100.0); PO2 FiO2 Ratio Arterial Blood 1.32 %; Reduced Hemoglobin 5.6 %THb (0-5.0); Total Hemoglobin 12.9 g/dL (12.0-18.0)
[2024-08-15 05:26] LABS: Arterial Blood Gas PEEP 10 cmH2O; Arterial Blood Gas Tidal Volume 450 ml; Arterial Blood Gas Vent Mode CMV; Arterial Blood Gas Ventilator rate 26 /MIN; Device VENTILATOR; Modified Allen's Test Unable to perform; Site Drawn RIGHT RADIAL; pH ABG 7.145 (7.350-7.450)
[2024-08-15] MEDS: NOREPINEPHRINE 8 MG/D5W 250 ML 8 MG/250 ML BAG 13.13 MG IV CONT (05:36)
[2024-08-15] MEDS: metroNIDAZOLE 500 MG/ISO 100ML 500 MG/100 ML BAG 100 MG IVPB ×3 (05:37→21:13)
[2024-08-15] MEDS: METOCLOPRAMIDE HCL INJ 10 MG/2 ML VIAL 5 MG IV PUSH ×4 (05:37→23:28)
[2024-08-15] MEDS: MIDAZOLAM 100MG/NS 100ML(*CRX) 100 MG/100 ML BAG IV CONT (05:37)
[2024-08-15] MEDS: CENTRAL LINE FLUSH 10 ML IV PUSH ×3 (05:37→21:13)
[2024-08-15 05:52] LABS: Basophils Absolute Auto 0.1 K/mm3 (0.0-0.1); Basophils Percent Auto 1.6 % (0.2-1.2); Eosinophils Absolute Auto 0.1 K/mm3 (0-0.3); Eosinophils Percent Auto 1.3 % (0-4.4); Hematocrit 32.6 % (42.0-52.0); Immature Granulocyte Absolute 0.36 K/mm3 (0.00-0.031); Immature Granulocyte Percent A 9.3 % (0-0.5); Immature Platelet Fraction Pct 8.3 % (0.9-11.2); Lymphocytes Absolute Auto 1.42 K/mm3 (0.9-3.2); Lymphocytes Percent Auto 36.7 % (18.3-44.2); Mean Corpuscular HGB Conc 30.7 g/dl (32-36); Mean Corpuscular Hemoglobin 26.7 pg (26-34); Mean Corpuscular Volume 86.9 fl (80-100); Monocytes Absolute Auto 0.4 K/mm3 (0.1-0.6); Monocytes Percent Auto 11.4 % (2.6-8.5); Neutrophils Absolute Auto 1.5 K/mm3 (1.3-6.7); Neutrophils Percent Auto 39.7 % (45.5-73.1); Nucleated Red Blood Cells Perc 1.8 % (0.0-0.2); Red Blood Count 3.75 M/mm3 (4.6-6.20); Red Cell Distribution Width 18.7 % (11.5-14.5); White Blood Count 3.9 K/mm3 (4.5-10.0)
[2024-08-15 06:12] LABS: Alanine Aminotransferase 35 U/L (6-50); Albumin Level 2.4 g/dL (3.5-5.1); Alkaline Phosphatase 178 U/L (38-126); Anion Gap 6 mmol/L (4-12); Aspartate Amino Transferase 241 U/L (17-59); Bilirubin,Total 1.7 mg/dL (0.2-1.3); Blood Urea Nitrogen 80 mg/dL (9-20); Calcium 7.2 mg/dL (8.4-10.2); Carbon Dioxide 30 mmol/L (22-30); Chloride 113 mmol/L (98-107); Estimated CRCL calculation 17 ml/min; Estimated Glomerular Filt Rate 15; Glucose 87 mg/dL (65-110); Magnesium 2.4 mg/dL (1.6-2.3); Potassium 5.2 mmol/L (3.4-5.0); Sodium 149 mmol/L (137-145)
[2024-08-15 06:44] LABS: Platelet Count Result 13 k/mm3 (150-375)
[2024-08-15 06:45] LABS: Platelet Estimate Decreased (Adequate)
[2024-08-15 06:46] LABS: Anisocytosis 2+; Burr Cells 1+; Hypochromasia 1+; Ovalocytes 1+; Polychromasia 1+; Schistocytes None Seen; Target Cells 1+
[2024-08-15] MEDS: INSULIN HUMAN REGULAR (*BKC) 100 UNITS/ML 10 UNITS IV PUSH ×2 (08:03→18:42)
[2024-08-15] MEDS: ACETAMINOPHEN ELIXIR 325 MG/10.15 ML UDC 650 MG PO ×2 (08:03→13:20)
[2024-08-15] MEDS: DEXTROSE 50% 25 GM/50 ML SYRINGE IV PUSH ×2 (08:03→18:41)
[2024-08-15] MEDS: SODIUM ZIRCONIUM CYCLOSILICATE 10 GM POWD.PACK FEED TUBE ×3 (08:15→17:37)
[2024-08-15] MEDS: DEXTROSE 5% IN WATER 500 ML 250 ML IV CONT (08:52)
[2024-08-15] MEDS: PANTOPRAZOLE SODIUM IV 40 MG VIAL IV PUSH (08:52)
[2024-08-15] MEDS: MINERAL OIL/WHITE PETROLATUM OINTMENT 1 APPLIC EACH EYE ×2 (08:53→21:20)
[2024-08-15] MEDS: VASOPRESSIN INJ 100 UNITS in DEXTROSE 5% 95 ML IV CONT (08:56)
--- NOTE | 2024-08-15 08:57 | WPDINTPN ---
Progress Note: A&P Assessment and Plan (1) Acute respiratory failure: Code(s): J96.00 - Acute respiratory failure, unspecified whether with hypoxia or hypercapnia Status: Acute Assessment and Plan: Acute respiratory failure secondary to pneumonia which is most likely aspiration which likely has progressed to ARDS Patient gradually developing worsening hypoxia. He was unable to maintain saturations on Vapotherm this morning and was switched to BiPAP. Despite being on BiPAP he was tachypnea. In light of bowel obstruction and tachypnea patient was intubated on08/[address]/14 CHEST: 1. Bilateral interstitial and alveolar opacification suggestive of ARDS versus pulmonary edema versus pneumonia. Follow-up and clinical correlation advised. Changes are increased compared to the previous examination. 2. Mediastinal lymphadenopathy. 3. Slight cardiomegaly. Chest x-ray reviewed Ventilator settings and ABG reviewed. FiO2 weaned to 55%. Continue peep of 10 tidal volume 4 50 and rate of 26 Ventilation is limited by pressures. Permissive hypercapnia and respiratory acidosis. Bicarb given to treat acidosis Cultures have been negative Continue Flagyl. His Levaquin was switched to cefepime Vancomycin discontinued as MRSA screen negative Initial chest CTA was negative for PE. Venous Dopplers were negative for DVT (2) Septic shock: Code(s): A41.9 - Sepsis, unspecified organism; R65.21 - Severe sepsis with septic shock Status: Acute Assessment and Plan: Secondary to pneumonia. Antibiotics as above. Continue Levophed titration to maintain mean arterial pressure Add stress dose hydrocortisone Add vasopressin infusion Will await liberal IV fused to patient's respiratory status and renal failure (3) Small bowel obstruction: Code(s): K56.609 - Unspecified intestinal obstruction, unspecified as to partial versus complete obstruction Status: Acute Assessment and Plan: OG tube placed after intubation. Patient currently NPO CT abdomen pelvis ABDOMEN/PELVIS: 1. A few dilated small bowel loops in the mid abdomen with no evidence of complete obstruction. Improvement is noted compared to previous study. Follow-up advised. 2. Right kidney stones with no hydronephrosis or ureteric stones. 3. Bilateral small fat containing inguinal hernias. Minimal fat stranding posterior to the body and tail of the pancreas which may be artifactual. This appears more like ileus rather than obstruction. Will start tube feeds at low rate and see if patient tolerates. General surgery following (4) Gall stones: Code(s): K80.20 - Calculus of gallbladder without cholecystitis without obstruction Status: Acute Assessment and Plan: Ultrasound shows gallbladder sludge and stones in the dependent gallbladder lumen. Patient evaluated by general surgery and GI no intervention at this time (5) Atrial fibrillation: Code(s): I48.91 - Unspecified atrial fibrillation Status: Acute Assessment and Plan: Patient had Intermittent AFib currently in sinus rhythm Anticoagulation is on hold due to significant thrombocytopenia (6) GERD (gastroesophageal reflux disease): Code(s): K21.9 - Gastro-esophageal reflux disease without esophagitis Status: Chronic Assessment and Plan: IV Protonix (7) Type 2 diabetes mellitus without complications: Code(s): E11.9 - Type 2 diabetes mellitus without complications Status: Acute Assessment and Plan: Sliding scale insulin (8) Metastasis to bone: Code(s): C79.51 - Secondary malignant neoplasm of bone Status: Acute Assessment and Plan: Thoracic cervical and lumbar spine MRI shows several lesions consistent with metastatic disease or multiple myeloma Biopsy pending. Patient currently not stable for biopsy. Patient also thrombocytopenic Oncology consulted (9) Pneumonia: Code(s): J18.9 - Pneumonia, unspecified organism Status: Inactive Assessment and Plan: See above (10) Thrombocytopenia: Code(s): D69.6 - Thrombocytopenia, unspecified Status: Acute Assessment and Plan: Likely multifactorial. Continue to Hold anticoagulation Hematology consult appreciated Will transfuse platelets to target platelet count more than 20,000 (11) Electrolyte abnormality: Code(s): E87.8 - Other disorders of electrolyte and fluid balance, not elsewhere classified Status: Acute Assessment and Plan: Patient is currently getting D5 water for his hypernatremia. Hyperkalemia will be treated with Lokelma and insulin and D50 Repeat BMP ordered (12) SAMUEL (acute kidney injury): Code(s): N17.9 - Acute kidney failure, unspecified Status: Acute Assessment and Plan: Patient has underlying CKD. Now the renal function has deteriorated likely secondary to sepsis shock and respiratory failure. Patient has received fluids and overall is fairly positive on his balance. Will hold further IV fluids due to concern with respiratory status and worsening hypoxia with volume overload. Maintain mean arterial pressure with vasopressors Consult nephrology Monitor urine output electrolytes and creatinine Patient may need hemodialysis Plan DVT prophylaxis -SCD, patient thrombocytopenia Stress ulcer prophylaxis -PPI Nutrition -start trickle tube feeds Code Status - Full Code I had long discussion patient's son Dawood. I spoke to patient's other son Kt by phone yesterday. I have updated them both with patient's current and critical status with multiorgan failure including respiratory failure, sepsis, shock, acute renal failure, abnormalities on spine MRI. I have updated them with current treatment plan and plan for workup. I have explained them that patient's prognosis is guarded with significant chance of mortality. I answered all their questions. I have explained them the patient may dialysis if renal function does not improve and continues to worsen. Total Critical Care Time - 40 minutes Due to a high probability of clinically significant, life threatening deterioration, the patient required my highest level of preparedness to intervene emergently and I personally spent this critical care time directly and personally managing the patient. This critical care time included obtaining a history; examining the patient; pulse oximetry; ordering and review of studies; arranging urgent treatment with development of a management plan; evaluation of patient's response to treatment; frequent reassessment; and discussions with other providers. It was exclusive of separately billable procedures and treating other patients and teaching time. Please see Assessment and Plan section and the rest of the note for further information on patient assessment and treatment Subjective Date/time seen: 08/15/24 Overnight events reviewed. febrile Continues to be on mechanical ventilation 65% FiO2 and 10 of PEEP Started on Levophed overnight Continues to be sedated with Versed and fentanyl Poor urine output. 300 mL out of OG tube Review of Systems Review of Systems: ROS unobtainable: Yes unobtainable due to endotracheal tube, unobtainable due to medical condition and unobtainable due to mental status Exam Narrative: General: Pt is sedated, intubated and on mechanical ventilation Lungs/Chest: Trachea central Coarse BS B/L, bilateral coarse breathing. Bibasilar crackles. Cardiac: RRR. Normal S1 S2. No murmurs Circulation: Pedal pulses are intact and symmetrical. Abdomen: Bowel sounds are significantly decreased Obese. Soft. NT. ND. Extremities: No clubbing, cyanosis or edema. Warm : Camacho in place Neurologic: Prior to intubation patient was AO x3 and moves all 4 extremities. Patient now is intubated sedated left pupil is bigger than right both are reactive to light Objective Data Vital Signs Vital Signs: Vital Signs - 24 hr 08/14/24 09:14 08/14/24 09:16 08/14/24 10:00 Temperature Pulse Rate 127 H 127 H 130 H Respiratory Rate 27 H 27 H Blood Pressure Pulse Oximetry 96 96 Oxygen Delivery BiPAP BiPAP Fraction of Inspired Oxygen 90 08/14/24 12:31 08/14/24 12:32 08/14/24 12:00 Temperature Pulse Rate 122 H 122 H Respiratory Rate 18 18 Blood Pressure Pulse Oximetry Oxygen Delivery BiPAP Fraction of Inspired Oxygen 90 08/14/24 12:15 08/14/24 12:19 08/14/24 12:25 Temperature Pulse Rate 119 H 133 H 121 H Respiratory Rate 28 H Blood Pressure 171/70 H Pulse Oximetry 96 93 Oxygen Delivery Mechanical Ventilation Fraction of Inspired Oxygen 100 08/14/24 14:00 08/14/24 14:00 08/14/24 14:26 Temperature Pulse Rate 130 H 130 H 130 H Respiratory Rate 22 H 22 H 26 H Blood Pressure Pulse Oximetry Oxygen Delivery Fraction of Inspired Oxygen 08/14/24 14:27 08/14/24 14:00 08/14/24 14:22 Temperature Pulse Rate 130 H 129 H 129 H Respiratory Rate 26 H Blood Pressure Pulse Oximetry 93 Oxygen Delivery Mechanical Ventilation Fraction of Inspired Oxygen 90 08/14/24 16:00 08/14/24 16:00 08/14/24 16:00 Temperature 39.1 C H Pulse Rate 126 H 127 H Respiratory Rate 26 H Blood Pressure 101/49 L Pulse Oximetry 95 Oxygen Delivery Fraction of Inspired Oxygen 90 08/14/24 15:05 08/14/24 16:50 08/14/24 17:40 Temperature 39.0 C H Pulse Rate 127 H 125 H Respiratory Rate Blood Pressure 85/46 L Pulse Oximetry 96 Oxygen Delivery Mechanical Ventilation Fraction of Inspired Oxygen 90 08/14/24 16:00 08/14/24 16:00 08/14/24 17:45 Temperature Pulse Rate 127 H 127 H 125 H Respiratory Rate 26 H 26 H Blood Pressure 84/50 L Pulse Oximetry Oxygen Delivery Fraction of Inspired Oxygen 08/14/24 17:46 08/14/24 16:00 08/14/24 17:45 Temperature 39.2 C H Pulse Rate 124 H 123 H Respiratory Rate 26 H 26 H Blood Pressure 84/50 L Pulse Oximetry 97 Oxygen Delivery Mechanical Ventilation Fraction of Inspired Oxygen 90 08/14/24 17:58 08/14/24 18:00 08/14/24 18:22 Temperature 39.2 C H Pulse Rate 124 H 128 H Respiratory Rate 26 H Blood Pressure 88/51 L Pulse Oximetry 95 Oxygen Delivery Fraction of Inspired Oxygen 70 08/14/24 18:00 08/14/24 18:00 08/14/24 18:00 Temperature Pulse Rate 126 H 126 H 126 H Respiratory Rate 26 H 26 H Blood Pressure 89/48 L Pulse Oximetry Oxygen Delivery Fraction of Inspired Oxygen 08/14/24 18:34 08/14/24 18:34 08/14/24 19:13 Temperature 39.2 C H Pulse Rate 124 H 123 H Respiratory Rate Blood Pressure 86/44 L 87/48 L Pulse Oximetry Oxygen Delivery Fraction of Inspired Oxygen 08/14/24 19:15 08/14/24 19:22 08/14/24 19:23 Temperature 39.1 C H 39.1 C H Pulse Rate 123 H 123 H 124 H Respiratory Rate 26 H 26 H Blood Pressure 87/48 L 94/48 L 94/48 L Pulse Oximetry 93 93 Oxygen Delivery Fraction of Inspired Oxygen 08/14/24 19:30 08/14/24 19:45 08/14/24 19:34 Temperature 39.1 C H 39.1 C H 39.1 C H Pulse Rate 124 H 124 H Respiratory Rate 26 H 26 H Blood Pressure 81/66 L 90/65 L Pulse Oximetry 93 94 Oxygen Delivery Fraction of Inspired Oxygen 08/14/24 19:50 08/14/24 19:55 08/14/24 20:00 Temperature 39.1 C H Pulse Rate 124 H 124 H Respiratory Rate 26 H 263 H Blood Pressure 97/45 L Pulse Oximetry 94 94 Oxygen Delivery Mechanical Ventilation Fraction of Inspired Oxygen 70 70 08/14/24 20:00 08/14/24 20:00 08/14/24 20:00 Temperature Pulse Rate 123 H 123 H 123 H Respiratory Rate 26 H 26 H Blood Pressure 97/45 L Pulse Oximetry Oxygen Delivery Fraction of Inspired Oxygen 08/14/24 21:00 08/14/24 20:00 08/14/24 22:00 Temperature 39.0 C H Pulse Rate 124 H 125 H 118 H Respiratory Rate 26 H Blood Pressure 100/47 L Pulse Oximetry 95 Oxygen Delivery Fraction of Inspired Oxygen 08/14/24 22:00 08/14/24 22:00 08/14/24 22:00 Temperature 38.9 C H Pulse Rate 121 H 121 H 121 H Respiratory Rate 26 H 26 H Blood Pressure 110/61 110/61 Pulse Oximetry 96 Oxygen Delivery Fraction of Inspired Oxygen 08/14/24 22:00 08/14/24 23:35 08/14/24 23:30 Temperature 38.6 C H Pulse Rate 121 H 121 H 121 H Respiratory Rate 26 H 26 H Blood Pressure 109/50 L 109/50 L Pulse Oximetry 95 Oxygen Delivery Fraction of Inspired Oxygen 08/15/24 00:00 08/14/24 23:45 08/14/24 20:05 Temperature 38.5 C H 38.6 C H Pulse Rate 118 H 118 H 124 H Respiratory Rate 26 H 26 H Blood Pressure 105/51 L 97/49 L Pulse Oximetry 94 94 94 Oxygen Delivery Mechanical Ventilation Fraction of Inspired Oxygen 70 08/15/24 00:00 08/15/24 00:00 08/14/24 23:03 Temperature Pulse Rate 118 H 121 H Respiratory Rate 26 H Blood Pressure Pulse Oximetry 94 95 Oxygen Delivery Mechanical Ventilation Mechanical Ventilation Fraction of Inspired Oxygen 70 70 70 08/15/24 00:00 08/15/24 00:00 08/15/24 00:00 Temperature Pulse Rate 118 H 118 H 118 H Respiratory Rate 26 H 26 H Blood Pressure 105/51 L Pulse Oximetry Oxygen Delivery Fraction of Inspired Oxygen 08/15/24 00:00 08/15/24 02:00 08/15/24 02:00 Temperature 38.8 C H Pulse Rate 118 H 118 H 118 H Respiratory Rate 26 H Blood Pressure 101/52 L Pulse Oximetry 95 Oxygen Delivery Fraction of Inspired Oxygen 08/15/24 02:00 08/15/24 02:00 08/15/24 02:00 Temperature Pulse Rate 118 H 118 H 118 H Respiratory Rate 26 H 26 H Blood Pressure 101/52 L Pulse Oximetry Oxygen Delivery Fraction of Inspired Oxygen 08/15/24 02:02 08/15/24 03:31 08/15/24 03:31 Temperature 39.0 C H Pulse Rate 118 H 117 H 117 H Respiratory Rate 26 H Blood Pressure 104/63 104/63 Pulse Oximetry 95 93 Oxygen Delivery Mechanical Ventilation Fraction of Inspired Oxygen 65 08/15/24 03:45 08/15/24 03:55 08/15/24 04:00 Temperature 38.9 C H Pulse Rate 117 H 117 H 116 H Respiratory Rate 26 H 26 H Blood Pressure 106/56 L 108/49 L Pulse Oximetry 95 95 Oxygen Delivery Mechanical Ventilation Fraction of Inspired Oxygen 65 08/15/24 04:00 08/15/24 04:00 08/15/24 04:00 Temperature Pulse Rate 117 H 118 H Respiratory Rate 26 H 26 H Blood Pressure Pulse Oximetry Oxygen Delivery Fraction of Inspired Oxygen 65 08/15/24 04:00 08/15/24 04:15 08/15/24 04:30 Temperature 38.8 C H 38.8 C H 38.8 C H Pulse Rate 117 H 117 H 117 H Respiratory Rate 26 H 26 H 26 H Blood Pressure 108/49 L 102/66 106/56 L Pulse Oximetry 94 94 94 Oxygen Delivery Fraction of Inspired Oxygen 08/15/24 04:35 08/15/24 04:35 08/15/24 04:00 Temperature Pulse Rate 115 H 115 H 116 H Respiratory Rate 26 H Blood Pressure 106/56 L Pulse Oximetry Oxygen Delivery Fraction of Inspired Oxygen 08/15/24 05:03 08/15/24 05:36 08/15/24 05:36 Temperature Pulse Rate 116 H 113 H 113 H Respiratory Rate Blood Pressure 106/50 L 106/50 L Pulse Oximetry 94 Oxygen Delivery Mechanical Ventilation Fraction of Inspired Oxygen 65 08/15/24 05:37 08/15/24 05:37 08/15/24 06:00 Temperature Pulse Rate 116 H 115 H 115 H Respiratory Rate 26 H 26 H Blood Pressure Pulse Oximetry Oxygen Delivery Fraction of Inspired Oxygen 08/15/24 06:00 08/15/24 06:00 08/15/24 06:05 Temperature 38.6 C H Pulse Rate 115 H 115 H 114 H Respiratory Rate 26 H 26 H Blood Pressure 103/45 L 103/45 L Pulse Oximetry 94 Oxygen Delivery Fraction of Inspired Oxygen 08/15/24 06:06 08/15/24 07:19 08/15/24 07:33 Temperature Pulse Rate 115 H 112 H 111 H Respiratory Rate 26 H Blood Pressure 81/47 L 86/54 L Pulse Oximetry Oxygen Delivery Fraction of Inspired Oxygen 08/15/24 07:57 08/15/24 08:00 08/15/24 08:15 Temperature Pulse Rate 109 H 112 H 113 H Respiratory Rate Blood Pressure 75/49 L 92/45 L Pulse Oximetry 93 Oxygen Delivery Mechanical Ventilation Fraction of Inspired Oxygen 55 08/15/24 08:19 08/15/24 08:21 08/15/24 08:45 Temperature 39.0 C H Pulse Rate 112 H 115 H 117 H Respiratory Rate 26 H 26 H Blood Pressure 96/45 L Pulse Oximetry 91 93 Oxygen Delivery Mechanical Ventilation Fraction of Inspired Oxygen 65 08/15/24 08:56 Temperature Pulse Rate 116 H Respiratory Rate Blood Pressure 104/47 L Pulse Oximetry Oxygen Delivery Fraction of Inspired Oxygen Intake/Output Intake/Output: Intake & Output 08/12/24 08/13/24 08/14/24 08/15/24 23:59 23:59 23:59 23:59 Intake Total 1503.3 1558.3 1074.4 439.5 Output Total 3750 600 1951 310 Balance -2246.7 958.3 -876.6 129.5 Meds/Results Medications: Active Medications Generic Name Dose Route Start Last Admin Trade Name Freq PRN Reason Stop Dose Admin Acetaminophen 650 mg 08/15/24 06:44 08/15/24 08:03 Acetaminophen Elixir 325 Mg/10.15 Ml Udc PO 650 mg Q4H PRN Administration Mild Pain (1-3) or Fever Dextrose 12.5 gm 08/10/24 06:29 08/11/24 10:46 Dextrose 50% 25 Gm/50 Ml Syringe IV PUSH 12.5 gm PRN PRN Administration Hypoglycemia Protocol Glucagon 1 mg 08/10/24 06:29 Glucagon For Inj 1 Mg Vial IM PRN PRN Hypoglycemia Protocol Glucose 15 gm 08/10/24 06:29 Glucose Oral Gel 15 Gm Of Glucse In 37.5 Gm Tube PO PRN PRN Hypoglycemia Protocol Hydralazine HCl 20 mg 08/11/24 11:57 Hydralazine Hcl 20 Mg/Ml Vial IV PUSH Q4H PRN Blood Sugar - High Hydrocortisone Sodium Succinate 100 mg 08/15/24 14:00 Hydrocortisone Sodium Succinate 100 Mg/2 Ml Vial IV PUSH Q8HR [place] Dextrose 1,000 mls @ 100 mls/hr 08/10/24 06:29 Dextrose 5% 1,000 Ml IVPB PRN PRN Hypoglycemia Protocol Metronidazole 500 mg in 100 mls @ 100 mls/hr 08/10/24 13:00 08/15/24 07:00 Flagyl 500 Mg/Iso Soln 100 Ml IVPB Infused Q8HR [place] Infusion Fentanyl Citrate 2,500 mcg in 250 mls @ 5 mls/hr 08/14/24 12:20 08/15/24 08:19 Fentanyl 2,500 Mcg/Ns 250 Ml IV CONT 50 mcg/hr .Q50H [place] 5 mls/hr Titration Protocol 50 MCG/HR Midazolam HCl 100 mg in 100 mls @ 3 mls/hr 08/14/24 12:20 08/15/24 06:06 Versed 100 Mg/Ns 100 Ml IV CONT 3 mg/hr .[id number] [place] 3 mls/hr Titration Protocol 3 MG/HR Cefepime HCl 1 gm in 50 mls @ 100 mls/hr 08/14/24 15:00 08/15/24 04:03 Maxipime 1 Gm/Ns 50 Ml IVPB Infused Q12H [place] Infusion Norepinephrine Bitartrate 8 mg in 250 mls @ 28.125 mls/hr 08/14/24 17:35 08/15/24 08:15 Levophed 8 Mg/D5w 250 Ml IV CONT 15 mcg/min .[id number] [place] 28.13 mls/hr Titration Protocol 15 MCG/MIN Sodium Chloride 250 mls @ 30 mls/hr 08/15/24 07:35 Normal Saline Iv IV CONT 08/15/24 15:54 .Q8H20M STA Vasopressin 100 units/ 100 mls @ 2.4 mls/hr 08/15/24 08:00 08/15/24 08:56 Dextrose IV CONT 0.04 units/min .[id number] [place] 2.4 mls/hr Administration Protocol 0.04 UNITS/MIN Dextrose 500 mls @ 250 mls/hr 08/15/24 07:55 08/15/24 08:52 Dextrose 5% In Water IV CONT 08/15/24 09:54 250 mls/hr .Q2H [place] Administration Insulin Aspart 3 - 6 units 08/14/24 18:00 08/15/24 06:22 Insulin Aspart (*Bkc) 100 Units/Ml SUB-Q Not Given Q6HR [place] Protocol Ipratropium [place] 0.5 mg 08/14/24 14:27 Ipratropium Br 0.02% Inh Soln 0.5 Mg/2.5 Ml Vial INHALATION Q6HRT PRN Shortness Of Breath Or Wheezing Levalbuterol HCl 0.63 mg 08/14/24 14:27 Levalbuterol Neb 1.25 Mg/3 Ml INHALATION Q6HRT PRN Shortness Of Breath Or Wheezing Metoclopramide HCl 5 mg 08/13/24 18:00 08/15/24 05:37 Metoclopramide Hcl Inj 10 Mg/2 Ml Vial IV PUSH 5 mg Q6HR [place] Administration Midazolam HCl 2 mg 08/14/24 12:06 Midazolam Hcl (*Crx) 2 Mg/2 Ml Vial IV PUSH Q5M PRN ventilator asynchrony Multi-Ingred Cream/Lotion/Oil/Oint 1 applic 08/14/24 21:00 08/15/24 08:53 Mineral Oil/White Petrolatum Ointment EACH EYE 1 applic Q12HR [place] Administration Ondansetron HCl 4 mg 08/12/24 03:15 08/14/24 05:34 Ondansetron Inj 4 Mg/2 Ml Vial IV PUSH 4 mg Q4H PRN Administration Nausea And Vomiting Pantoprazole Sodium 40 mg 08/13/24 09:00 08/15/24 08:52 Pantoprazole Sodium Iv 40 Mg Vial IV PUSH 40 mg QAM [place] Administration Perflutren Lipid Microsphere 0 ml 08/14/24 08:35 Perflutren Lipid Microspheres 1.5 Ml Vial Diluted To 10 Ml Total Volume IV PUSH 08/17/24 08:35 ONCE PRN adequate visualization Protocol Sodium Chloride 10 ml 08/14/24 14:00 08/15/24 05:37 Central Line Flush IV PUSH 10 ml Q8HR [place] Administration Sodium Chloride 10 ml 08/14/24 13:51 Central Line Flush IV PUSH PRN PRN with TPN bag changes Sodium Chloride 20 ml 08/14/24 13:51 Central Line Flush IV PUSH PRN PRN after blood draws Sodium Zirconium Cyclosilicate 10 gm 08/15/24 07:40 08/15/24 08:15 Sodium Zirconium Cyclosilicate 10 Gm Powd.Pack FEED TUBE 10 gm BID@1000,1800 [place] Administration Radiology Results: ITS Impressions Cervical Spine CT 08/09/24 18:15 IMPRESSION: 1. Moderate to severe cervical spondylosis. No acute osseous abnormality. Thoracic/Lumbar Spine CT 08/09/24 18:22 IMPRESSION: 1. Multiple old posterior left rib fractures and chronic compression fractures with mild anterior wedging at T5 and T6 and mild right-sided anterior vertebral body height loss at L2. No acute osseous abnormality. 2. Moderate thoracic spondylosis and mild lumbar spondylosis. 3. Combined instrumented L5-S1 anterior and posterior spinal fusion. 4. Chronic bilateral lower lung predominant interstitial lung disease with indeterminate 8 mm pulmonary nodule in the left lower lobe. Recommend 3 month follow-up low-dose noncontrast chest CT. Chest CTA 08/10/24 18:43 IMPRESSION: 1. No pulmonary embolism. 2. Bilateral interstitial and alveolar opacification more prominent in the right upper lobe which may indicate pneumonitis versus fibrotic changes versus pulmonary edema. 3. Bilateral pleural effusion more on the right side. 4. Cholelithiasis. 5. Left adrenal adenoma. 6. Mediastinal lymphadenopathy.. 7. Multiple healing rib fractures in the left hemithorax. Brain MRA 08/11/24 09:25 IMPRESSION: 1. High-grade stenosis on the right P1 segment with downstream moderate-sized region of encephalomalacia consistent with chronic infarct. 2. Moderate grade stenosis at the origin of the right M1 segment. Brain MRI 08/12/24 14:11 IMPRESSION: No acute intracranial process. Abdomen Ultrasound 08/12/24 16:37 IMPRESSION: Likely, additional gallbladder sludge and stones in the dependent gallbladder lumen. Small Bowel X-Ray 08/12/24 19:16 IMPRESSION: Radiographic findings consistent with low-grade small bowel obstruction or ileus. Lumbar Spine MRI 08/13/24 06:32 IMPRESSION: 1. Widespread enhancement of the bones without abnormal CT correlate suspicious for metastatic disease or multiple myeloma. 2. Mild lumbar spondylosis. 3. Anterior fusion procedure at L5-S1. Cervical Spine MRI 08/13/24 06:43 IMPRESSION: 1. Widespread abnormal contrast enhancement in the bones, consistent with metastatic disease versus multiple myeloma. 2. Moderate cervical spondylosis. Thoracic Spine MRI 08/13/24 06:48 IMPRESSION: 1. Widespread contrast enhancement of the bones, consistent with metastatic disease versus multiple myeloma. 2. Mild thoracic spondylosis. Abdomen X-Ray 08/14/24 13:03 IMPRESSION: 1. Orogastric tube tip in the distal stomach. 2. Dilated small bowel, likely adynamic ileus. Venous Doppler Study 08/14/24 15:47 IMPRESSION: 1. No deep venous thrombosis. 2. Small left Calles's cyst. Chest/Abdomen/Pelvis CT 08/14/24 17:11 IMPRESSION: CHEST: 1. Bilateral interstitial and alveolar opacification suggestive of ARDS versus pulmonary edema versus pneumonia. Follow-up and clinical correlation advised. Changes are increased compared to the previous examination. 2. Mediastinal lymphadenopathy. 3. Slight cardiomegaly. ABDOMEN/PELVIS: 1. A few dilated small bowel loops in the mid abdomen with no evidence of complete obstruction. Improvement is noted compared to previous study. Follow-up advised. 2. Right kidney stones with no hydronephrosis or ureteric stones. 3. Bilateral small fat containing inguinal hernias. Minimal fat stranding posterior to the body and tail of the pancreas which may be artifactual. Chest X-Ray 08/15/24 06:05 Impression: Diffuse groundglass and interstitial pulmonary disease. Findings are compatible with diffuse chronic interstitial disease, with possible superimposed pulmonary edema or pneumonia. Correlate clinically. Support tubes, as above. Head CT 08/15/24 08:37 IMPRESSION: 1. 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 Labs Labs: Laboratory Results - last 24 hr 08/13/24 08/14/24 08/14/24 10:24 04:19 08:50 WBC RBC Hgb Hct MCV MCH MCHC RDW Plt Count MPV Immature Gran % (Auto) Neut % (Auto) Lymph % (Auto) [place] % (Auto) Eos % (Auto) Baso % (Auto) Lymph # (Auto) [place] # (Auto) Eos # (Auto) Baso # (Auto) Abs Immat Gran (auto) Absolute Neuts (auto) Absolute Nucleated RBC Nucleated RBC % Platelet Estimate % Immature Plt Fraction Polychromasia Hypochromasia Anisocytosis Target Cells Ovalocytes Dennise Cells Schistocytes Puncture Site Right radial ABG pH 7.403 ABG pCO2 36.5 ABG pO2 61.7 L ABG PO2/FiO2 Ratio 0.67 ABG HCO3 22.3 ABG O2 Saturation 91.9 L ABG O2 Content 14.2 L ABG Base Excess -2.1 A-a Gradient 557.0 Oxyhemoglobin 89.9 L Carboxyhemoglobin Methemoglobin Reduced Hemoglobin Total Hemoglobin 11.2 L O2 Delivery Device High flow nasal melecio O2 Liters/Min 60.0 Minute Volume Vent Rate Vent Mode FiO2 92 Tidal Volume PEEP Peak Inspir Pressure Pressure Support Sodium Potassium Chloride Carbon Dioxide Anion Gap BUN Creatinine Estim Creat Clear Calc Estimated GFR Glucose POC Capillary Glucose Calcium Magnesium Iron TIBC % Saturation Ferritin Total Bilirubin AST ALT Alkaline Phosphatase Lactate Dehydrogenase NT-Pro-B Natriuret Pep 2420 H Total Protein 5.3 L Albumin Vitamin B12 Folate Procalcitonin 0.7 08/14/24 08/14/24 08/14/24 11:10 14:07 17:37 WBC RBC Hgb Hct MCV MCH MCHC RDW Plt Count MPV Immature Gran % (Auto) Neut % (Auto) Lymph % (Auto) [place] % (Auto) Eos % (Auto) Baso % (Auto) Lymph # (Auto) [place] # (Auto) Eos # (Auto) Baso # (Auto) Abs Immat Gran (auto) Absolute Neuts (auto) Absolute Nucleated RBC Nucleated RBC % Platelet Estimate % Immature Plt Fraction Polychromasia Hypochromasia Anisocytosis Target Cells Ovalocytes Rodney Cells Schistocytes Puncture Site Left brachial ABG pH 7.064 L* ABG pCO2 95.0 H* ABG pO2 106.2 H ABG PO2/FiO2 Ratio 1.06 ABG HCO3 26.5 H ABG O2 Saturation 95.0 ABG O2 Content 16.7 ABG Base Excess -5.6 A-a Gradient 511.8 Oxyhemoglobin 94.7 Carboxyhemoglobin Methemoglobin Reduced Hemoglobin Total Hemoglobin 12.4 O2 Delivery Device Ventilator O2 Liters/Min Not Reportable Minute Volume Not Reportable Vent Rate 22 Vent Mode Cmv FiO2 100 Tidal Volume 480 PEEP 10 Peak Inspir Pressure Not Reportable Pressure Support Not Reportable Sodium 152 H Potassium 4.5 Chloride 113 H Carbon Dioxide 31 H Anion Gap 8 BUN 65 H D Creatinine 2.30 H Estim Creat Clear Calc 25 Estimated GFR 28 L Glucose 117 H POC Capillary Glucose 147 H Calcium 8.8 Magnesium Iron TIBC % Saturation Ferritin Total Bilirubin AST ALT Alkaline Phosphatase Lactate Dehydrogenase NT-Pro-B Natriuret Pep Total Protein Albumin Vitamin B12 Folate Procalcitonin 08/14/24 08/14/24 08/14/24 17:45 18:44 23:37 WBC RBC Hgb Hct MCV MCH MCHC RDW Plt Count MPV Immature Gran % (Auto) Neut % (Auto) Lymph % (Auto) [place] % (Auto) Eos % (Auto) Baso % (Auto) Lymph # (Auto) [place] # (Auto) Eos # (Auto) Baso # (Auto) Abs Immat Gran (auto) Absolute Neuts (auto) Absolute Nucleated RBC Nucleated RBC % Platelet Estimate % Immature Plt Fraction Polychromasia Hypochromasia Anisocytosis Target Cells Ovalocytes Dennise Cells Schistocytes Puncture Site Left brachial ABG pH 7.149 L* ABG pCO2 78.8 H* ABG pO2 113.2 H ABG PO2/FiO2 Ratio 1.26 ABG HCO3 26.8 H ABG O2 Saturation 96.6 ABG O2 Content 15.4 L ABG Base Excess -3.4 A-a Gradient 447.7 Oxyhemoglobin 96.7 Carboxyhemoglobin Methemoglobin Reduced Hemoglobin Total Hemoglobin 11.2 L O2 Delivery Device Ventilator O2 Liters/Min Not Reportable Minute Volume Not Reportable Vent Rate 26 Vent Mode Cmv FiO2 90 Tidal Volume 450 PEEP 10 Peak Inspir Pressure Not Reportable Pressure Support Not Reportable Sodium Potassium Chloride Carbon Dioxide Anion Gap BUN Creatinine Estim Creat Clear Calc Estimated GFR Glucose POC Capillary Glucose 88 Calcium Magnesium Iron 113 TIBC 175 L % Saturation 65 H Ferritin Total Bilirubin AST ALT Alkaline Phosphatase Lactate Dehydrogenase > 1000 H NT-Pro-B Natriuret Pep Total Protein Albumin Vitamin B12 > 1000.0 H Folate 16.1 Procalcitonin 08/15/24 08/15/24 05:05 05:45 WBC 3.9 L RBC 3.75 L Hgb 10.0 L Hct 32.6 L MCV 86.9 D MCH 26.7 MCHC 30.7 L RDW 18.7 H Plt Count 13 L* D MPV TNP Immature Gran % (Auto) 9.3 H Neut % (Auto) 39.7 L Lymph % (Auto) 36.7 [place] % (Auto) 11.4 H Eos % (Auto) 1.3 Baso % (Auto) 1.6 H Lymph # (Auto) 1.42 [place] # (Auto) 0.4 Eos # (Auto) 0.1 Baso # (Auto) 0.1 Abs Immat Gran (auto) 0.36 H Absolute Neuts (auto) 1.5 Absolute Nucleated RBC 0.070 H Nucleated RBC % 1.8 H Platelet Estimate Decreased % Immature Plt Fraction 8.3 Polychromasia 1+ Hypochromasia 1+ Anisocytosis 2+ Target Cells 1+ Ovalocytes 1+ Rodney Cells 1+ Schistocytes None seen Puncture Site Right radial ABG pH 7.145 L* ABG pCO2 67.0 H* ABG pO2 85.5 ABG PO2/FiO2 Ratio 1.32 ABG HCO3 22.6 ABG O2 Saturation 93.1 L ABG O2 Content 17.0 ABG Base Excess -7.3 A-a Gradient 305.1 Oxyhemoglobin 93.3 Carboxyhemoglobin 0.8 Methemoglobin 0.3 Reduced Hemoglobin 5.6 H Total Hemoglobin 12.9 O2 Delivery Device Ventilator O2 Liters/Min Not Reportable Minute Volume Not Reportable Vent Rate 26 Vent Mode Cmv FiO2 65 Tidal Volume 450 PEEP 10 Peak Inspir Pressure Not Reportable Pressure Support Not Reportable Sodium 149 H Potassium 5.2 H Chloride 113 H Carbon Dioxide 30 Anion Gap 6 BUN 80 H D Creatinine 3.80 H Estim Creat Clear Calc 17 Estimated GFR 15 L Glucose 87 POC Capillary Glucose Calcium 7.2 L Magnesium 2.4 H Iron TIBC % Saturation Ferritin Total Bilirubin 1.7 H AST 241 H ALT 35 Alkaline Phosphatase 178 H Lactate Dehydrogenase NT-Pro-B Natriuret Pep Total Protein 5.0 L Albumin 2.4 L Vitamin B12 Folate Procalcitonin
[2024-08-15] MEDS: SODIUM CHLORIDE 0.9% IV 250 ML 30 ML IV CONT (10:24)
--- NOTE | 2024-08-15 10:38 | P.CONNP_ITS ---
Assessment and Plan Assessment and plan (1) SAMUEL (acute kidney injury): Code(s): N17.9 - Acute kidney failure, unspecified Status: Acute Assessment and Plan: * as noted since admission * suspect multifactorial etiology: * hemodynamic instability/shock * infection/sepsis (pneunonia) * hypoxia * prerenal factors/insensible losses * contrast exposure (CTA of chest on 08/10) * check urine studies and renal ultrasound; CPKs noted * agree with vasopressor support to maintain MAP/BP * remains at high risk for STRIP STAMP STRAIGHTENER/dialysis * follow trend of repeat labs and UOP (2) Stage 3a chronic kidney disease (CKD): Code(s): N18.31 - Chronic kidney disease, stage 3a Status: Acute Assessment and Plan: * baseline creatinine runs around 1.2 - 1.5mg/dl * presumably secondary to diabetes, vascular disease, obstructive sleep apnea, BPH, and age-related change (3) Hypernatremia: Code(s): E87.0 - Hyperosmolality and hypernatremia Status: Acute Assessment and Plan: * as noted by trend of sodiums * on D5W IVFs to compensate * will likely need to add FWF with via NG if/when able (4) Septic shock: Code(s): A41.9 - Sepsis, unspecified organism; R65.21 - Severe sepsis with septic shock Status: Acute Assessment and Plan: * felt to be secondary to pneunonia * follow culture data * vasopressor therapy as needed to maintain MAP/BP * on antibiotics and stress dose steroids (5) Acute respiratory failure: Code(s): J96.00 - Acute respiratory failure, unspecified whether with hypoxia or hypercapnia Status: Acute Assessment and Plan: * due to pneunonia (aspiration) with what appears to be progression to ARDS * intubated and placed on mechanical ventilation on 08/14 * most recent CT of chest noted: * bilateral interstitial and alveolar opacification suggestive of ARDS versus pulmonary edema versus pneumonia. Follow-up and clinical correlation advised. Changes are increased compared to the previous examination * mediastinal lymphadenopathy * slight cardiomegaly. * ventilator weaning when more stable (6) Pneumonia: Code(s): J18.9 - Pneumonia, unspecified organism Status: Acute Assessment and Plan: * as suggested by imaging to date * follow culture data * on antibiotics (7) Bone lesion: Code(s): M89.9 - Disorder of bone, unspecified Status: Acute Assessment and Plan: * as noted on admission imaging * concern for possible metastatic disease versus multiple myeloma * not stable for biopsy at this time (8) Small bowel obstruction: Code(s): K56.609 - Unspecified intestinal obstruction, unspecified as to partial versus complete obstruction Status: Acute Assessment and Plan: * CT of A/P noted: * a few dilated small bowel loops in the mid abdomen with no evidence of complete obstruction * right kidney stones with no hydronephrosis or ureteric stones * bilateral small fat containing inguinal hernias * minimal fat stranding posterior to the body and tail of the pancreas which may be artifactual * OG in place at this time * suspect ileus more than obstruction * General Surgery following * advance tube feeds as tolerated (9) Type 2 diabetes mellitus without complications: Code(s): E11.9 - Type 2 diabetes mellitus without complications Status: Acute Assessment and Plan: * follow accucheks * glycemic control per hospitalists/apparel sales associate Long extensive discussion (greater than 20 minutes) with the patient's nephew at bedside regarding his worsening renal dysfunction in association with poor urine output and the concern that he may require renal replacement therapy / dialysis if his kidney function continues worsen or if he develops issues/problems with hyperkalemia, worsening metabolic acidosis, volume overload, or uremia. The hope would be that renal replacement therapy / dialysis would be a temporary measure but is very possible that given the severity of the insult to his kidneys, he may be dialysis dependent. His nephew appeared to voice understanding. Case discussed with Dr. Shaw as well. I will continue to follow the patient with you while he remains hospitalized and make further recommendations as deemed necessary. Thank you for allowing me to participate in the care of this patient. History of Present Illness Reason for Consult Consult date: 08/15/24 Reason for consult: acute renal failure (on chronic kidney disease) Chief Complaint Chief complaint: SEPSIS, BACK PAIN, SAMUEL History of Present Illness Narrative: All the information I have obtained is from review of the electronic medical record as well as discussion with the physician/nurses involved in the patient's care as the patient is unable to provide any history as he is currently intubated and on mechanical ventilation. The patient is a 78-year-old male with a past medical history as outl ined below who presented to [facility] Emergency Room via EMS after sustaining multiple falls on 08/10. Subsequent workup and evaluation in the ER seemed to indicate that there was a component of dehydration as well as sepsis secondary to pneumonia as the etiology for his recurrent falls. As he had significant back pain as well, there was a concern for possible diskitis/ osteomyelitis as well. After appropriate cultures were obtained, he was started on empiric antibiotics and subsequently admitted to the hospital for further evaluation and therapy. Since his admission, his hospital course has been complicated. He had issues with atrial fibrillation with RVR with initiation of a Cardizem infusion after being evaluated by Cardiology. He subsequently converted to normal sinus r hythm. His echocardiogram demonstrated EF of around 60-65% with known diastolic dysfunction. He then developed what appeared to be a bowel obstruction and was seen in consultation by Gastroenterology. He had an NG tube for decompression and was also seen in consultation by General surgery. This seemed to improve and the NG tube was subsequently removed. Given his ongoing issues and problems with back pain, he had an MRI of his spine that showed several lesions suggestive of multiple myeloma versus some type of metastatic malignancy. Unfortunately, his respiratory status also deteriorated with worsening hypoxia. Yesterday morning, despite being on Airvo at 90% FiO2, he was unable to maintain his oxygen saturations. He was subsequently switched to BiPAP in the hopes that this would improve his respiratory status. Unfortunately, he was quite tachypneic but was still awake and alert. Given his impending respiratory failure, he was transferred to the ICU where he was subsequently intubated placed on mechanical ventilation. In the last 24 hours, he has been having on and off fevers and required initiation of vasopressor therapy overnight due to worsening hypotension. More concerning is the fact that his renal function has deteriorated in association with poor urine output. Renal consultation was requested due to his acute kidney injury on top of his baseline chronic kidney disease. From review his records, his baseline creatinine normally runs around 1.2 -1.5 mg/dL. His baseline chronic kidney disease is likely secondary to his known history of diabetes, vascular disease, obstructive sleep apnea, BPH, and age-related change. His kidney function was at baseline on admission but in the last 24-48 hours, it has declined with his creatinine going from 1.4 to 2.3 and now up to 3.8 mg/dL by labs done this morning. This is further complicated by the fact that he has had a significant drop in urine output as well. However, he has no critical electrolyte abno rmalities at this time and his volume status appears to be relatively stable currently. Given his significant decline in renal function in association with diminished urine output, there was a concern that he may require renal replacement therapy/dialysis relatively soon. Currently, at the time my evaluation, he remains intubated/sedated and on mechanical ventilation as well as vasopressor support. Review of Systems Review of Systems: As per HPI. [facility] Past Medical History Medical History (Updated 08/19/24 @ 15:37 by Ronda Vincent MD) Aortic stenosis Blood type B+ BPH (benign prostatic hyperplasia) Coronary artery disease DVT prophylaxis GERD (gastroesophageal reflux disease) History of CVA (cerebrovascular accident) (~04/2014) History of rib fracture (~2020) Mixed hyperlipidemia Occipital infarction (~04/2014) BRYAN on CPAP PAD (peripheral artery disease) Primary insomnia Ptosis, left eyelid Pulmonary interstitial fibrosis Stage 3a chronic kidney disease (CKD) Type 2 diabetes mellitus without complications Vasovagal syncope Surgical History Surgical History (Updated 08/14/24 @ 18:24 by Hugo Glynn MD) History of appendectomy History of exploratory laparotomy (~2000) Exploratory laparotomy in 2000, laparotomy with adhesion lysis and repair of ventral abdominal hernia in 2015 due to incarcerated hernia History of gastric surgery (~2014) stoma reversal History of lumbar surgery (~2014) April and May 2015 L4 through S1 History of ventral hernia repair (06/2016) Status post cataract extraction of both eyes with insertion of intraocular lens Status post peripheral artery angioplasty with insertion of stent (~2013) Left leg Family History Family History Sibling Cerebrovascular accident Stomach cancer Hx of CABG Both brothers Diabetes mellitus Father Family history of heart disease in male family member before age 55 Cerebrovascular accident Mother Diabetes mellitus Other Family history of cardiovascular disease Family history of gout Family history of malignant neoplasm Family history of osteoarthritis Hypertension Social History Social History Social History: Patient is and lives alone. He has 3 sons. He is retired from the railroad. He still smokes half a pack of cigarettes per day. He has smoked as much as 2 packs of cigarettes per day since he was 14 until he was 68. Since age 68 he has cut back to 0.5 packs of cigarettes per day. He denies any history of heavy alcohol use but used to drink on occasion but has not done so in many years. He denies illicit substance use. Code status: Full code Surrogate decision maker: Kt (son) Smoking packs per day: 0.5 Smoking cigarettes per day: 10.0 Years smoked: 60 Smoking pack-years: 30.00 Smoking status: Heavy tobacco smoker Tobacco type: cigarettes Second hand tobacco smoke exposure: Yes Alcohol intake: former Substance use: never Substance use type: does not use Do You Feel Safe in your Home?: Yes Lack of Transportation: No Lack of Food: Never True Current Housing: I Have Housing Concerned About Future Housing: No Difficulty Paying Gas/Electric Bills: No Difficulty Paying for Meds: No Currently Unemployed: No Education: High School Diploma/GED Difficulty w/ Childcare or Family Care: No Living arrangements: alone Occupation/Education: retired Additional occupation/education comments: He worked as a [employer] man for the [employer]. Gender identity (if verbalized by the patient): Male Sexual Orientation (if Verbalized by the Patient): Straight or Heterosexual Spiritual care concerns: No Meds Home Medications and Allergies Home Medications Medication Instructions Recorded Confirmed Type Bifidobacterium infantis 4 mg 4 mg PO DAILY 03/06/21 08/10/24 History capsule (Align) calcium 500 mg tablet 500 mg PO DAILY 03/06/21 08/10/24 History cholecalciferol (vitamin D3) 125 125 mcg PO DAILY 03/06/21 08/10/24 History mcg (5,000 unit) tablet (Vitamin D3) multivitamin 1 cap PO DAILY 03/06/21 08/10/24 History polyethylene glycol 3350 17 gram 17 g PO DAILY PRN Constipation 03/06/21 08/10/24 History oral powder packet (Miralax) nortriptyline 50 mg capsule 50 mg PO QHS #90 caps 01/04/24 08/10/24 Rx tamsulosin 0.4 mg capsule 0.4 mg PO BID #180 caps 04/04/24 08/10/24 Rx clopidogrel 75 mg tablet See Rx Instructions .Route 04/10/24 08/10/24 Rx .COMPLEX #90 tabs atorvastatin 40 mg tablet 40 mg PO DAILY #90 tabs 05/02/24 08/10/24 Rx finasteride 5 mg tablet See Rx Instructions .Route 06/07/24 08/10/24 Rx .COMPLEX #90 tabs pantoprazole 40 mg tablet,delayed 40 mg PO HS #90 tabs 06/18/24 08/10/24 Rx release cyclobenzaprine 10 mg tablet 10 mg PO TID PRN muscle spasm #20 08/04/24 08/10/24 Rx tabs Allergies Allergy/AdvReac Type Severity Reaction Status Date / Time rivaroxaban AdvReac Unknown SEVERE Verified 07/11/24 13:24 NOSE BLEED Vital Signs Vital Signs Temp Pulse Resp BP Pulse Ox O2 Del Method FiO2 08/15/24 10:35 102.0 F H 110 H 26 H 105/52 L 97 08/15/24 10:00 102.0 F H 110 H 26 H 111/52 L 96 08/15/24 08:00 65 08/15/24 10:36 102.0 F H 111 H 26 H 107/53 L 96 08/15/24 10:26 112 H 112/51 L 08/15/24 10:20 102.0 F H 112 H 26 H 112/51 L 96 08/15/24 08:00 Mechanical Ventilation 65 08/15/24 09:51 112 H 26 H 08/15/24 09:50 112 H 26 H 08/15/24 09:30 112 H 94/47 L 08/15/24 08:00 112 H 26 H 08/15/24 09:30 111 H 26 H 08/15/24 08:57 102 F H 08/15/24 08:56 116 H 104/47 L 08/15/24 08:45 117 H 93 Mechanical Ventilation 65 08/15/24 08:21 102.2 F H 115 H 26 H 96/45 L 91 08/15/24 08:19 112 H 26 H 08/15/24 08:15 113 H 92/45 L 08/15/24 08:00 112 H 75/49 L 08/15/24 07:57 109 H 93 Mechanical Ventilation 55 08/15/24 07:33 111 H 86/54 L 08/15/24 07:19 112 H 81/47 L 08/15/24 06:06 115 H 26 H 08/15/24 06:05 114 H 26 H 08/15/24 06:00 115 H 103/45 L 08/15/24 06:00 101.5 F H 115 H 26 H 103/45 L 94 08/15/24 06:00 115 H 08/15/24 05:37 115 H 26 H 08/15/24 05:37 116 H 26 H 08/15/24 05:36 113 H 106/50 L 08/15/24 05:36 113 H 106/50 L 08/15/24 05:03 116 H 94 Mechanical Ventilation 65 08/15/24 04:00 116 H 08/15/24 04:35 115 H 26 H 08/15/24 04:35 115 H 106/56 L 08/15/24 04:30 101.8 F H 117 H 26 H 106/56 L 94 08/15/24 04:15 101.9 F H 117 H 26 H 102/66 94 08/15/24 04:00 101.9 F H 117 H 26 H 108/49 L 94 08/15/24 04:00 65 08/15/24 04:00 118 H 26 H 08/15/24 04:00 117 H 26 H 08/15/24 04:00 116 H 108/49 L 08/15/24 03:55 117 H 26 H 95 Mechanical Ventilation 65 08/15/24 03:45 102.0 F H 117 H 26 H 106/56 L 95 08/15/24 03:31 102.2 F H 117 H 26 H 104/63 93 08/15/24 03:31 117 H 104/63 08/15/24 02:02 118 H 95 Mechanical Ventilation 65 08/15/24 02:00 118 H 26 H 08/15/24 02:00 118 H 26 H 08/15/24 02:00 118 H 101/52 L 08/15/24 02:00 101.9 F H 118 H 26 H 101/52 L 95 08/15/24 02:00 118 H 08/15/24 00:00 118 H 08/15/24 00:00 118 H 26 H 08/15/24 00:00 118 H 26 H 08/15/24 00:00 118 H 105/51 L 08/14/24 23:03 121 H 95 Mechanical Ventilation 70 08/15/24 00:00 118 H 26 H 94 Mechanical Ventilation 70 08/15/24 00:00 70 08/14/24 20:05 124 H 94 Mechanical Ventilation 70 08/14/24 23:45 101.4 F H 118 H 26 H 97/49 L 94 08/15/24 00:00 101.3 F H 118 H 26 H 105/51 L 94 08/14/24 23:30 101.5 F H 121 H 26 H 109/50 L 95 08/14/24 23:35 121 H 109/50 L 08/14/24 22:00 121 H 26 H 08/14/24 22:00 121 H 26 H 08/14/24 22:00 121 H 110/61 08/14/24 22:00 102.0 F H 121 H 26 H 110/61 96 08/14/24 22:00 118 H 08/14/24 20:00 125 H 08/14/24 21:00 102.2 F H 124 H 26 H 100/47 L 95 08/14/24 20:00 123 H 26 H 08/14/24 20:00 123 H 26 H 08/14/24 20:00 123 H 97/45 L 08/14/24 20:00 102.3 F H 124 H 263 H 97/45 L 94 08/14/24 19:55 124 H 26 H 94 Mechanical Ventilation 70 08/14/24 19:50 70 08/14/24 19:34 102.4 F H 08/14/24 19:45 102.4 F H 124 H 26 H 90/65 L 94 08/14/24 19:30 102.4 F H 124 H 26 H 81/66 L 93 08/14/24 19:23 124 H 94/48 L 08/14/24 19:22 102.4 F H 123 H 26 H 94/48 L 93 08/14/24 19:15 102.4 F H 123 H 26 H 87/48 L 93 08/14/24 19:13 123 H 87/48 L 08/14/24 18:34 124 H 86/44 L 08/14/24 18:34 102.5 F H 08/14/24 18:00 126 H 26 H 08/14/24 18:00 126 H 89/48 L 08/14/24 18:00 126 H 26 H 08/14/24 18:22 70 08/14/24 18:00 102.6 F H 128 H 26 H 88/51 L 95 08/14/24 17:58 124 H 08/14/24 17:45 102.6 F H 123 H 26 H 84/50 L 97 08/14/24 16:00 Mechanical Ventilation 90 08/14/24 17:46 124 H 26 H 08/14/24 17:45 125 H 84/50 L 08/14/24 16:00 127 H 26 H 08/14/24 16:00 127 H 26 H 08/14/24 17:40 125 H 85/46 L 08/14/24 16:50 127 H 96 Mechanical Ventilation 90 08/14/24 15:05 102.2 F H 08/14/24 16:00 90 08/14/24 16:00 127 H 08/14/24 16:00 102.3 F H 126 H 26 H 101/49 L 95 08/14/24 14:22 129 H 93 Mechanical Ventilation 90 08/14/24 14:00 129 H 08/14/24 14:27 130 H 26 H 08/14/24 14:26 130 H 26 H 08/14/24 14:00 130 H 22 H 08/14/24 14:00 130 H 22 H 08/14/24 12:25 121 H 93 Mechanical Ventilation 100 08/14/24 12:19 133 H 08/14/24 12:15 119 H 28 H 171/70 H 96 08/14/24 12:32 122 H 18 08/14/24 12:31 122 H 18 Exam Narrative: GENERAL APPEARANCE: elderly male intubated/sedated and on mechanical ventilation HEENT: normocephalic, atraumatic, normal conjunctiva and sclera, nares patient NECK: no lymphadenopathy, thyromegaly, or JVD MOUTH: normal lips, teeth, and gums; ETT in place CARDIOVASCULAR: RRR, normal S1 and S2, no rub RESPIRATORY: coarse breath sounds ABDOMEN: soft, nontender, nondistended, decreased bowel sounds present EXTREMITIES: no evidence of cyanosis, clubbing, trace edema NEUROLOGICAL: unable to assess Results Lab Results 08/19/24 06:18 08/19/24 06:18 Lab results: Most recent lab results ABG pH 7.145 (7.350-7.450) L* 08/15/24 05:05 ABG pCO2 67.0 mmHg (35.0-45.0) H* 08/15/24 05:05 ABG pO2 85.5 mmHg (80.0-100.0) 08/15/24 05:05 ABG HCO3 22.6 mEq/l (22.0-26.0) 08/15/24 05:05 ABG O2 Saturation 93.1 % (95.0-100.0) L 08/15/24 05:05 Calcium 7.2 mg/dL (8.4-10.2) L 08/15/24 05:45 Magnesium 2.4 mg/dL (1.6-2.3) H 08/15/24 05:45 Urine Creatinine Cancelled 08/15/24 11:32
--- NOTE | 2024-08-15 10:50 | PC.NURSE ---
OG Tube became dislodged, partially out. No longer at previously marked site. Not able to aspirate any contents prior to medication administration. Readvanced to previous marking 78 at the lip. KUB ordered. DR Villegas in room to read and okayed use of OG.
--- NOTE | 2024-08-15 11:07 | PCNFU ---
Nutrition Follow-Up Complete: Inadequate energy intake related to mechanical ventilation as evidenced by need for full tube feedings Goal: Meet estimated protein energy needs Patient is progressing towards goal. We will continue current goal. Pt current nutrition is Nepro at 20 ml/hr. Nutrition recommendation: goal rate at 40 ml/hr. Last recorded weight is 96.4 kg, up from 94.5 kg on admit Bowel Motility: +BM reported 08/14 Labs Reviewed: Cr 3.8, BUN 80, GFR 15, K 5.2, Na 149 Meds Noted:Reglan, Levophed, Vasopressin, NS Skin: WNL Additional Notes:Patient remains on mechanical vent. Tube feedings started today of Nepro at 20 ml/hr. No plans to advance tube feedings today per Lay Ups Assembler. Recommend goal rate at this time at 40 ml/hr. Flush 100 ml q 4 hours. Monitoring orders, labs, weights, tube feeding tolerance, stool patterns, medications Follow daily in ICU rounds, follow up Tuesdays and Fridays
[2024-08-15 11:39] LABS: Glucose Point of Care 175 mg/dl (65-105)
[2024-08-15 12:14] LABS: Eosinophil Urine None Seen % (None Seen); Urine Eos QC 2nd Tech Confirmed
[2024-08-15 12:20] LABS: Urea Random Urine 154 MG/DL
[2024-08-15 12:21] LABS: Sodium Urine Random 40 meq/L
[2024-08-15 12:30] LABS: Creatinine Urine 126.7 mg/dL; Total Protein Urine Random 28 mg/dL; Ur Ttl Prot Creatinine Ratio 0.22 mg/mg (0-0.20)
[2024-08-15] MEDS: HYDROCORTISONE SODIUM SUCCINATE 100 MG/2 ML VIAL IV PUSH ×2 (13:20→21:13)
--- NOTE | 2024-08-15 14:24 | P.PNGS_ITS ---
Progress Note: A&P Assessment and Plan (1) Small bowel obstruction: Code(s): K56.609 - Unspecified intestinal obstruction, unspecified as to partial versus complete obstruction Status: Acute Assessment and Plan: More likely an ileus according to his small bowel series prior to his intubated. He is now critically ill and intubated in the ICU with pneumonia, sepsis, SAMUEL, and acute respiratory failure. He is now on vasopressors as well. He has an OG in place and was started on trickle tube feedings today. Will continue to follow along with serial abdominal exams and imaging. Will have nursing check residuals every 4 hours to monitor. Continue critical care management and IV antibiotics. (2) Thrombocytopenia: Code(s): D69.6 - Thrombocytopenia, unspecified Status: Acute Assessment and Plan: Platelets have slowly trended down since admission and has come down to 13,000 today. Hem/Onc was consulted and he is receiving platelets today. There was a question of possible multiple myeloma or bone metasasis on imaging. This could be a cause for his thrombocytopenia and anemia, or this could be related to his sepsis. Continue to monitor. (3) Septic shock: Code(s): A41.9 - Sepsis, unspecified organism; R65.21 - Severe sepsis with septic shock Status: Acute (4) SAMUEL (acute kidney injury): Code(s): N17.9 - Acute kidney failure, unspecified Status: Acute (5) Acute respiratory failure: Code(s): J96.00 - Acute respiratory failure, unspecified whether with hypoxia or hypercapnia Status: Acute Plan I have discussed the patient's case and plan of care with Dr. Barrientos. Subjective Subjective Date/Time Seen: 08/15/24 14:24 Interval history: Patient is seen in the ICU. His sedation has been turned off for hours and he is not responding. He had a head CT that was negative for any acute findings. He b ecame hypotensive and was started on vasopressors overnight. He is now on Levophed and vasopressin. Per nursing, they have been titrating down on his Levophed throughout the day today. He was started on trickle tube feedings this morning. No bowel movements overnight or today. Exam Const: General: ill appearing Orientation/consciousness: patient obtunded (intubated, off sedation, does not open eyes or follow commands) GI: Inspection: other (mildly distended) GI Palp: Yes Soft to palpation, No Guarding due to palpation present (GI), No Rebound tenderness present and Yes Other GI palpation findings present (exam limited due to critical condition/obtunded) Auscultation: Hypoactive bowel sounds present Objective Data Vital Signs Vital Signs: Vital Signs - 24 hr 08/14/24 14:26 08/14/24 14:27 08/14/24 16:00 Temperature 102.3 F H Pulse Rate 130 H 130 H 126 H Respiratory Rate 26 H 26 H 26 H Blood Pressure 101/49 L Pulse Oximetry 95 Oxygen Delivery Fraction of Inspired Oxygen 08/14/24 16:00 08/14/24 16:00 08/14/24 15:05 Temperature 102.2 F H Pulse Rate 127 H Respiratory Rate Blood Pressure Pulse Oximetry Oxygen Delivery Fraction of Inspired Oxygen 90 08/14/24 16:50 08/14/24 17:40 08/14/24 16:00 Temperature Pulse Rate 127 H 125 H 127 H Respiratory Rate 26 H Blood Pressure 85/46 L Pulse Oximetry 96 Oxygen Delivery Mechanical Ventilation Fraction of Inspired Oxygen 90 08/14/24 16:00 08/14/24 17:45 08/14/24 17:46 Temperature Pulse Rate 127 H 125 H 124 H Respiratory Rate 26 H 26 H Blood Pressure 84/50 L Pulse Oximetry Oxygen Delivery Fraction of Inspired Oxygen 08/14/24 16:00 08/14/24 17:45 08/14/24 17:58 Temperature 102.6 F H Pulse Rate 123 H 124 H Respiratory Rate 26 H Blood Pressure 84/50 L Pulse Oximetry 97 Oxygen Delivery Mechanical Ventilation Fraction of Inspired Oxygen 90 08/14/24 18:00 08/14/24 18:22 08/14/24 18:00 Temperature 102.6 F H Pulse Rate 128 H 126 H Respiratory Rate 26 H 26 H Blood Pressure 88/51 L Pulse Oximetry 95 Oxygen Delivery Fraction of Inspired Oxygen 70 08/14/24 18:00 08/14/24 18:00 08/14/24 18:34 Temperature 102.5 F H Pulse Rate 126 H 126 H Respiratory Rate 26 H Blood Pressure 89/48 L Pulse Oximetry Oxygen Delivery Fraction of Inspired Oxygen 08/14/24 18:34 08/14/24 19:13 08/14/24 19:15 Temperature 102.4 F H Pulse Rate 124 H 123 H 123 H Respiratory Rate 26 H Blood Pressure 86/44 L 87/48 L 87/48 L Pulse Oximetry 93 Oxygen Delivery Fraction of Inspired Oxygen 08/14/24 19:22 08/14/24 19:23 08/14/24 19:30 Temperature 102.4 F H 102.4 F H Pulse Rate 123 H 124 H 124 H Respiratory Rate 26 H 26 H Blood Pressure 94/48 L 94/48 L 81/66 L Pulse Oximetry 93 93 Oxygen Delivery Fraction of Inspired Oxygen 08/14/24 19:45 08/14/24 19:34 08/14/24 19:50 Temperature 102.4 F H 102.4 F H Pulse Rate 124 H Respiratory Rate 26 H Blood Pressure 90/65 L Pulse Oximetry 94 Oxygen Delivery Fraction of Inspired Oxygen 70 08/14/24 19:55 08/14/24 20:00 08/14/24 20:00 Temperature 102.3 F H Pulse Rate 124 H 124 H 123 H Respiratory Rate 26 H 263 H Blood Pressure 97/45 L 97/45 L Pulse Oximetry 94 94 Oxygen Delivery Mechanical Ventilation Fraction of Inspired Oxygen 70 08/14/24 20:00 08/14/24 20:00 08/14/24 21:00 Temperature 102.2 F H Pulse Rate 123 H 123 H 124 H Respiratory Rate 26 H 26 H 26 H Blood Pressure 100/47 L Pulse Oximetry 95 Oxygen Delivery Fraction of Inspired Oxygen 08/14/24 20:00 08/14/24 22:00 08/14/24 22:00 Temperature 102.0 F H Pulse Rate 125 H 118 H 121 H Respiratory Rate 26 H Blood Pressure 110/61 Pulse Oximetry 96 Oxygen Delivery Fraction of Inspired Oxygen 08/14/24 22:00 08/14/24 22:00 08/14/24 22:00 Temperature Pulse Rate 121 H 121 H 121 H Respiratory Rate 26 H 26 H Blood Pressure 110/61 Pulse Oximetry Oxygen Delivery Fraction of Inspired Oxygen 08/14/24 23:35 08/14/24 23:30 08/15/24 00:00 Temperature 101.5 F H 101.3 F H Pulse Rate 121 H 121 H 118 H Respiratory Rate 26 H 26 H Blood Pressure 109/50 L 109/50 L 105/51 L Pulse Oximetry 95 94 Oxygen Delivery Fraction of Inspired Oxygen 08/14/24 23:45 08/14/24 20:05 08/15/24 00:00 Temperature 101.4 F H Pulse Rate 118 H 124 H Respiratory Rate 26 H Blood Pressure 97/49 L Pulse Oximetry 94 94 Oxygen Delivery Mechanical Ventilation Fraction of Inspired Oxygen 70 70 08/15/24 00:00 08/14/24 23:03 08/15/24 00:00 Temperature Pulse Rate 118 H 121 H 118 H Respiratory Rate 26 H Blood Pressure 105/51 L Pulse Oximetry 94 95 Oxygen Delivery Mechanical Ventilation Mechanical Ventilation Fraction of Inspired Oxygen 70 70 08/15/24 00:00 08/15/24 00:00 08/15/24 00:00 Temperature Pulse Rate 118 H 118 H 118 H Respiratory Rate 26 H 26 H Blood Pressure Pulse Oximetry Oxygen Delivery Fraction of Inspired Oxygen 08/15/24 02:00 08/15/24 02:00 08/15/24 02:00 Temperature 101.9 F H Pulse Rate 118 H 118 H 118 H Respiratory Rate 26 H Blood Pressure 101/52 L 101/52 L Pulse Oximetry 95 Oxygen Delivery Fraction of Inspired Oxygen 08/15/24 02:00 08/15/24 02:00 08/15/24 02:02 Temperature Pulse Rate 118 H 118 H 118 H Respiratory Rate 26 H 26 H Blood Pressure Pulse Oximetry 95 Oxygen Delivery Mechanical Ventilation Fraction of Inspired Oxygen 65 08/15/24 03:31 08/15/24 03:31 08/15/24 03:45 Temperature 102.2 F H 102.0 F H Pulse Rate 117 H 117 H 117 H Respiratory Rate 26 H 26 H Blood Pressure 104/63 104/63 106/56 L Pulse Oximetry 93 95 Oxygen Delivery Fraction of Inspired Oxygen 08/15/24 03:55 08/15/24 04:00 08/15/24 04:00 Temperature Pulse Rate 117 H 116 H 117 H Respiratory Rate 26 H 26 H Blood Pressure 108/49 L Pulse Oximetry 95 Oxygen Delivery Mechanical Ventilation Fraction of Inspired Oxygen 65 08/15/24 04:00 08/15/24 04:00 08/15/24 04:00 Temperature 101.9 F H Pulse Rate 118 H 117 H Respiratory Rate 26 H 26 H Blood Pressure 108/49 L Pulse Oximetry 94 Oxygen Delivery Fraction of Inspired Oxygen 65 08/15/24 04:15 08/15/24 04:30 08/15/24 04:35 Temperature 101.9 F H 101.8 F H Pulse Rate 117 H 117 H 115 H Respiratory Rate 26 H 26 H Blood Pressure 102/66 106/56 L 106/56 L Pulse Oximetry 94 94 Oxygen Delivery Fraction of Inspired Oxygen 08/15/24 04:35 08/15/24 04:00 08/15/24 05:03 Temperature Pulse Rate 115 H 116 H 116 H Respiratory Rate 26 H Blood Pressure Pulse Oximetry 94 Oxygen Delivery Mechanical Ventilation Fraction of Inspired Oxygen 65 08/15/24 05:36 08/15/24 05:36 08/15/24 05:37 Temperature Pulse Rate 113 H 113 H 116 H Respiratory Rate 26 H Blood Pressure 106/50 L 106/50 L Pulse Oximetry Oxygen Delivery Fraction of Inspired Oxygen 08/15/24 05:37 08/15/24 06:00 08/15/24 06:00 Temperature 101.5 F H Pulse Rate 115 H 115 H 115 H Respiratory Rate 26 H 26 H Blood Pressure 103/45 L Pulse Oximetry 94 Oxygen Delivery Fraction of Inspired Oxygen 08/15/24 06:00 08/15/24 06:05 08/15/24 06:06 Temperature Pulse Rate 115 H 114 H 115 H Respiratory Rate 26 H 26 H Blood Pressure 103/45 L Pulse Oximetry Oxygen Delivery Fraction of Inspired Oxygen 08/15/24 07:19 08/15/24 07:33 08/15/24 07:57 Temperature Pulse Rate 112 H 111 H 109 H Respiratory Rate Blood Pressure 81/47 L 86/54 L Pulse Oximetry 93 Oxygen Delivery Mechanical Ventilation Fraction of Inspired Oxygen 55 08/15/24 08:00 08/15/24 08:15 08/15/24 08:19 Temperature Pulse Rate 112 H 113 H 112 H Respiratory Rate 26 H Blood Pressure 75/49 L 92/45 L Pulse Oximetry Oxygen Delivery Fraction of Inspired Oxygen 08/15/24 08:21 08/15/24 08:45 08/15/24 08:56 Temperature 102.2 F H Pulse Rate 115 H 117 H 116 H Respiratory Rate 26 H Blood Pressure 96/45 L 104/47 L Pulse Oximetry 91 93 Oxygen Delivery Mechanical Ventilation Fraction of Inspired Oxygen 65 08/15/24 08:57 08/15/24 09:30 08/15/24 08:00 Temperature 102 F H Pulse Rate 111 H 112 H Respiratory Rate 26 H 26 H Blood Pressure Pulse Oximetry Oxygen Delivery Fraction of Inspired Oxygen 08/15/24 09:30 08/15/24 09:50 08/15/24 09:51 Temperature Pulse Rate 112 H 112 H 112 H Respiratory Rate 26 H 26 H Blood Pressure 94/47 L Pulse Oximetry Oxygen Delivery Fraction of Inspired Oxygen 08/15/24 08:00 08/15/24 10:20 08/15/24 10:26 Temperature 102.0 F H Pulse Rate 112 H 112 H Respiratory Rate 26 H Blood Pressure 112/51 L 112/51 L Pulse Oximetry 96 Oxygen Delivery Mechanical Ventilation Fraction of Inspired Oxygen 65 08/15/24 10:36 08/15/24 08:00 08/15/24 10:00 Temperature 102.0 F H 102.0 F H Pulse Rate 111 H 110 H Respiratory Rate 26 H 26 H Blood Pressure 107/53 L 111/52 L Pulse Oximetry 96 96 Oxygen Delivery Fraction of Inspired Oxygen 65 08/15/24 10:49 08/15/24 10:53 08/15/24 11:05 Temperature 102.0 F H 102 F H Pulse Rate 110 H 111 H 112 H Respiratory Rate 26 H 26 H Blood Pressure 105/52 L 105/52 L 115/56 L Pulse Oximetry 97 97 Oxygen Delivery Fraction of Inspired Oxygen 08/15/24 11:09 08/15/24 11:00 08/15/24 11:12 Temperature 102 F H Pulse Rate 112 H 112 H 112 H Respiratory Rate 26 H Blood Pressure 118/56 L 118/56 L Pulse Oximetry 94 96 Oxygen Delivery Mechanical Ventilation Fraction of Inspired Oxygen 65 08/15/24 08:00 08/15/24 10:00 08/15/24 11:14 Temperature Pulse Rate 109 H 112 H Respiratory Rate Blood Pressure Pulse Oximetry 94 Oxygen Delivery Mechanical Ventilation Fraction of Inspired Oxygen 60 08/15/24 11:24 08/15/24 11:30 08/15/24 11:39 Temperature 101.9 F H Pulse Rate 113 H 112 H 113 H Respiratory Rate 26 H Blood Pressure 112/82 119/53 L 115/53 L Pulse Oximetry 94 Oxygen Delivery Fraction of Inspired Oxygen 08/15/24 11:48 08/15/24 12:00 08/15/24 12:00 Temperature Pulse Rate 112 H Respiratory Rate Blood Pressure 111/58 L Pulse Oximetry Oxygen Delivery Mechanical Ventilation Fraction of Inspired Oxygen 65 65 08/15/24 12:00 08/15/24 10:00 08/15/24 12:00 Temperature 101.9 F H Pulse Rate 112 H 112 H 112 H Respiratory Rate 26 H 26 H Blood Pressure 113/53 L 104/53 L Pulse Oximetry 94 Oxygen Delivery Fraction of Inspired Oxygen 08/15/24 12:00 08/15/24 12:00 08/15/24 12:00 Temperature Pulse Rate 112 H 112 H 112 H Respiratory Rate 26 H Blood Pressure 112/57 L 112/57 L Pulse Oximetry Oxygen Delivery Fraction of Inspired Oxygen 08/15/24 12:00 08/15/24 13:05 08/15/24 13:20 Temperature Pulse Rate 112 H 114 H 115 H Respiratory Rate Blood Pressure 122/53 L 118/59 L Pulse Oximetry Oxygen Delivery Fraction of Inspired Oxygen 08/15/24 13:20 08/15/24 13:30 08/15/24 13:36 Temperature 102.0 F H Pulse Rate 115 H 113 H Respiratory Rate Blood Pressure 116/64 Pulse Oximetry 94 Oxygen Delivery Mechanical Ventilation Fraction of Inspired Oxygen 60 08/15/24 14:15 Temperature Pulse Rate 110 H Respiratory Rate Blood Pressure 107/54 L Pulse Oximetry Oxygen Delivery Fraction of Inspired Oxygen Intake/Output Intake/Output: Intake & Output 08/12/24 08/13/24 08/14/24 08/15/24 23:59 23:59 23:59 23:59 Intake Total 1503.3 1558.3 1074.4 1598.5 Output Total 3750 600 1951 310 Balance -2246.7 958.3 -876.6 1288.5 Meds/Results Medications: Active Medications Generic Name Dose Route Start Last Admin Trade Name Freq PRN Reason Stop Dose Admin Acetaminophen 650 mg 08/15/24 06:44 08/15/24 13:20 Acetaminophen Elixir 325 Mg/10.15 Ml Udc PO 650 mg Q4H PRN Administration Mild Pain (1-3) or Fever Dextrose 12.5 gm 08/10/24 06:29 08/11/24 10:46 Dextrose 50% 25 Gm/50 Ml Syringe IV PUSH 12.5 gm PRN PRN Administration Hypoglycemia Protocol Glucagon 1 mg 08/10/24 06:29 Glucagon For Inj 1 Mg Vial IM PRN PRN Hypoglycemia Protocol Glucose 15 gm 08/10/24 06:29 Glucose Oral Gel 15 Gm Of Glucse In 37.5 Gm Tube PO PRN PRN Hypoglycemia Protocol Hydralazine HCl 20 mg 08/11/24 11:57 Hydralazine Hcl 20 Mg/Ml Vial IV PUSH Q4H PRN Blood Sugar - High Hydrocortisone Sodium Succinate 100 mg 08/15/24 14:00 08/15/24 13:20 Hydrocortisone Sodium Succinate 100 Mg/2 Ml Vial IV PUSH 100 mg Q8HR [place] Administration Dextrose 1,000 mls @ 100 mls/hr 08/10/24 06:29 Dextrose 5% 1,000 Ml IVPB PRN PRN Hypoglycemia Protocol Metronidazole 500 mg in 100 mls @ 100 mls/hr 08/10/24 13:00 08/15/24 14:24 Flagyl 500 Mg/Iso Soln 100 Ml IVPB Infused Q8HR [place] Infusion Fentanyl Citrate 2,500 mcg in 250 mls @ 0 mls/hr 08/14/24 12:20 08/15/24 12:00 Fentanyl 2,500 Mcg/Ns 250 Ml IV CONT 0 mcg/hr .Q0M [place] 0 mls/hr Titration Protocol Midazolam HCl 100 mg in 100 mls @ 0 mls/hr 08/14/24 12:20 08/15/24 12:00 Versed 100 Mg/Ns 100 Ml IV CONT 0 mg/hr .Q0M [place] 0 mls/hr Titration Protocol Cefepime HCl 1 gm in 50 mls @ 100 mls/hr 08/14/24 15:00 08/15/24 14:23 Maxipime 1 Gm/Ns 50 Ml IVPB 100 mls/hr Q12H [place] Administration Norepinephrine Bitartrate 8 mg in 250 mls @ 7.5 mls/hr 08/14/24 17:35 08/15/24 14:15 Levophed 8 Mg/D5w 250 Ml IV CONT 4 mcg/min .Q24H [place] 7.5 mls/hr Titration Protocol 4 MCG/MIN Sodium Chloride 250 mls @ 30 mls/hr 08/15/24 07:35 08/15/24 12:29 Normal Saline Iv IV CONT 08/15/24 15:54 Infused .Q8H20M STA Infusion Vasopressin 100 units/ 100 mls @ 2.4 mls/hr 08/15/24 08:00 08/15/24 12:00 Dextrose IV CONT 0.04 units/min .[id number] [place] 2.4 mls/hr Titration Protocol 0.04 UNITS/MIN Insulin Aspart 3 - 6 units 08/14/24 18:00 08/15/24 11:41 Insulin Aspart (*Bkc) 100 Units/Ml SUB-Q Not Given Q6HR [place] Protocol Ipratropium [place] 0.5 mg 08/14/24 14:27 Ipratropium Br 0.02% Inh Soln 0.5 Mg/2.5 Ml Vial INHALATION Q6HRT PRN Shortness Of Breath Or Wheezing Levalbuterol HCl 0.63 mg 08/14/24 14:27 Levalbuterol Neb 1.25 Mg/3 Ml INHALATION Q6HRT PRN Shortness Of Breath Or Wheezing Metoclopramide HCl 5 mg 08/13/24 18:00 08/15/24 11:45 Metoclopramide Hcl Inj 10 Mg/2 Ml Vial IV PUSH 5 mg Q6HR [place] Administration Midazolam HCl 2 mg 08/14/24 12:06 Midazolam Hcl (*Crx) 2 Mg/2 Ml Vial IV PUSH Q5M PRN ventilator asynchrony Multi-Ingred Cream/Lotion/Oil/Oint 1 applic 08/14/24 21:00 08/15/24 08:53 Mineral Oil/White Petrolatum Ointment EACH EYE 1 applic Q12HR [place] Administration Ondansetron HCl 4 mg 08/12/24 03:15 08/14/24 05:34 Ondansetron Inj 4 Mg/2 Ml Vial IV PUSH 4 mg Q4H PRN Administration Nausea And Vomiting Pantoprazole Sodium 40 mg 08/13/24 09:00 08/15/24 08:52 Pantoprazole Sodium Iv 40 Mg Vial IV PUSH 40 mg QAM [place] Administration Perflutren Lipid Microsphere 0 ml 08/14/24 08:35 Perflutren Lipid Microspheres 1.5 Ml Vial Diluted To 10 Ml Total Volume IV PUSH 08/17/24 08:35 ONCE PRN adequate visualization Protocol Sodium Chloride 10 ml 08/14/24 14:00 08/15/24 13:22 Central Line Flush IV PUSH 10 ml Q8HR [place] Administration Sodium Chloride 10 ml 08/14/24 13:51 Central Line Flush IV PUSH PRN PRN with TPN bag changes Sodium Chloride 20 ml 08/14/24 13:51 Central Line Flush IV PUSH PRN PRN after blood draws Sodium Zirconium Cyclosilicate 10 gm 08/15/24 07:40 08/15/24 10:28 Sodium Zirconium Cyclosilicate 10 Gm Powd.Pack FEED TUBE 10 gm BID@1000,1800 [place] Administration Radiology Results: ITS Impressions Cervical Spine CT 08/09/24 18:15 IMPRESSION: 1. Moderate to severe cervical spondylosis. No acute osseous abnormality. Thoracic/Lumbar Spine CT 08/09/24 18:22 IMPRESSION: 1. Multiple old posterior left rib fractures and chronic compression fractures with mild anterior wedging at T5 and T6 and mild right-sided anterior vertebral body height loss at L2. No acute osseous abnormality. 2. Moderate thoracic spondylosis and mild lumbar spondylosis. 3. Combined instrumented L5-S1 anterior and posterior spinal fusion. 4. Chronic bilateral lower lung predominant interstitial lung disease with indeterminate 8 mm pulmonary nodule in the left lower lobe. Recommend 3 month follow-up low-dose noncontrast chest CT. Chest CTA 08/10/24 18:43 IMPRESSION: 1. No pulmonary embolism. 2. Bilateral interstitial and alveolar opacification more prominent in the right upper lobe which may indicate pneumonitis versus fibrotic changes versus pulmonary edema. 3. Bilateral pleural effusion more on the right side. 4. Cholelithiasis. 5. Left adrenal adenoma. 6. Mediastinal lymphadenopathy.. 7. Multiple healing rib fractures in the left hemithorax. Brain MRA 08/11/24 09:25 IMPRESSION: 1. High-grade stenosis on the right P1 segment with downstream moderate-sized region of encephalomalacia consistent with chronic infarct. 2. Moderate grade stenosis at the origin of the right M1 segment. Brain MRI 08/12/24 14:11 IMPRESSION: No acute intracranial process. Abdomen Ultrasound 08/12/24 16:37 IMPRESSION: Likely, additional gallbladder sludge and stones in the dependent gallbladder lumen. Small Bowel X-Ray 08/12/24 19:16 IMPRESSION: Radiographic findings consistent with low-grade small bowel obstruction or ileus. Lumbar Spine MRI 08/13/24 06:32 IMPRESSION: 1. Widespread enhancement of the bones without abnormal CT correlate suspicious for metastatic disease or multiple myeloma. 2. Mild lumbar spondylosis. 3. Anterior fusion procedure at L5-S1. Cervical Spine MRI 08/13/24 06:43 IMPRESSION: 1. Widespread abnormal contrast enhancement in the bones, consistent with metastatic disease versus multiple myeloma. 2. Moderate cervical spondylosis. Thoracic Spine MRI 08/13/24 06:48 IMPRESSION: 1. Widespread contrast enhancement of the bones, consistent with metastatic disease versus multiple myeloma. 2. Mild thoracic spondylosis. Venous Doppler Study 08/14/24 15:47 IMPRESSION: 1. No deep venous thrombosis. 2. Small left Calles's cyst. Chest/Abdomen/Pelvis CT 08/14/24 17:11 IMPRESSION: CHEST: 1. Bilateral interstitial and alveolar opacification suggestive of ARDS versus pulmonary edema versus pneumonia. Follow-up and clinical correlation advised. Changes are increased compared to the previous examination. 2. Mediastinal lymphadenopathy. 3. Slight cardiomegaly. ABDOMEN/PELVIS: 1. A few dilated small bowel loops in the mid abdomen with no evidence of complete obstruction. Improvement is noted compared to previous study. Follow-up advised. 2. Right kidney stones with no hydronephrosis or ureteric stones. 3. Bilateral small fat containing inguinal hernias. Minimal fat stranding posterior to the body and tail of the pancreas which may be artifactual. Chest X-Ray 08/15/24 06:05 Impression: Diffuse groundglass and interstitial pulmonary disease. Findings are compatible with diffuse chronic interstitial disease, with possible superimposed pulmonary edema or pneumonia. Correlate clinically. Support tubes, as above. Head CT 08/15/24 08:37 IMPRESSION: 1. 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 Abdomen X-Ray 08/15/24 10:58 IMPRESSION: 1. Orogastric tube in the stomach with distal tip near the pylorus. Consider withdrawal by 10 cm. 2. Diffuse bilateral lung disease which could represent pulmonary edema, pneumonia, ARDS or some combination thereof. 3. Endotracheal tube tip 6.1 cm above the tyler. Consider advancement by 3.4 cm. Labs Labs: Laboratory Results - last 24 hr 08/13/24 08/14/24 08/14/24 10:24 17:37 17:45 WBC RBC Hgb Hct MCV MCH MCHC RDW Plt Count MPV Immature Gran % (Auto) Neut % (Auto) Lymph % (Auto) [place] % (Auto) Eos % (Auto) Baso % (Auto) Lymph # (Auto) [place] # (Auto) Eos # (Auto) Baso # (Auto) Abs Immat Gran (auto) Absolute Neuts (auto) Absolute Nucleated RBC Nucleated RBC % Platelet Estimate % Immature Plt Fraction Polychromasia Hypochromasia Anisocytosis Target Cells Ovalocytes Dennise Cells Schistocytes Puncture Site Left brachial ABG pH 7.149 L* ABG pCO2 78.8 H* ABG pO2 113.2 H ABG PO2/FiO2 Ratio 1.26 ABG HCO3 26.8 H ABG O2 Saturation 96.6 ABG O2 Content 15.4 L ABG Base Excess -3.4 A-a Gradient 447.7 Oxyhemoglobin 96.7 Carboxyhemoglobin Methemoglobin Reduced Hemoglobin Total Hemoglobin 11.2 L O2 Delivery Device Ventilator O2 Liters/Min Not Reportable Minute Volume Not Reportable Vent Rate 26 Vent Mode Cmv FiO2 90 Tidal Volume 450 PEEP 10 Peak Inspir Pressure Not Reportable Pressure Support Not Reportable Sodium 152 H Potassium 4.5 Chloride 113 H Carbon Dioxide 31 H Anion Gap 8 BUN 65 H D Creatinine 2.30 H Estim Creat Clear Calc 25 Estimated GFR 28 L Glucose 117 H POC Capillary Glucose Calcium 8.8 Magnesium Iron TIBC % Saturation Ferritin Total Bilirubin AST ALT Alkaline Phosphatase Lactate Dehydrogenase Total Protein 5.3 L Albumin Vitamin B12 Folate Urine Eosinophils U Random Total Protein Ur Random Sodium Ur Random Urea Urine Total Volume Urine Creatinine Protein/Creat Ratio 2 Blood Type 08/14/24 08/14/24 08/15/24 18:44 23:37 05:05 WBC RBC Hgb Hct MCV MCH MCHC RDW Plt Count MPV Immature Gran % (Auto) Neut % (Auto) Lymph % (Auto) [place] % (Auto) Eos % (Auto) Baso % (Auto) Lymph # (Auto) [place] # (Auto) Eos # (Auto) Baso # (Auto) Abs Immat Gran (auto) Absolute Neuts (auto) Absolute Nucleated RBC Nucleated RBC % Platelet Estimate % Immature Plt Fraction Polychromasia Hypochromasia Anisocytosis Target Cells Ovalocytes [place] Cells Schistocytes Puncture Site Right radial ABG pH 7.145 L* ABG pCO2 67.0 H* ABG pO2 85.5 ABG PO2/FiO2 Ratio 1.32 ABG HCO3 22.6 ABG O2 Saturation 93.1 L ABG O2 Content 17.0 ABG Base Excess -7.3 A-a Gradient 305.1 Oxyhemoglobin 93.3 Carboxyhemoglobin 0.8 Methemoglobin 0.3 Reduced Hemoglobin 5.6 H Total Hemoglobin 12.9 O2 Delivery Device Ventilator O2 Liters/Min Not Reportable Minute Volume Not Reportable Vent Rate 26 Vent Mode Cmv FiO2 65 Tidal Volume 450 PEEP 10 Peak Inspir Pressure Not Reportable Pressure Support Not Reportable Sodium Potassium Chloride Carbon Dioxide Anion Gap BUN Creatinine Estim Creat Clear Calc Estimated GFR Glucose POC Capillary Glucose 88 Calcium Magnesium Iron 113 TIBC 175 L % Saturation 65 H Ferritin Total Bilirubin AST ALT Alkaline Phosphatase Lactate Dehydrogenase > 1000 H Total Protein Albumin Vitamin B12 > 1000.0 H Folate 16.1 Urine Eosinophils U Random Total Protein Ur Random Sodium Ur Random Urea Urine Total Volume Urine Creatinine Protein/Creat Ratio 2 Blood Type 08/15/24 08/15/24 08/15/24 05:45 08:01 11:32 WBC 3.9 L RBC 3.75 L Hgb 10.0 L Hct 32.6 L MCV 86.9 D MCH 26.7 MCHC 30.7 L RDW 18.7 H Plt Count 13 L* D MPV TNP Immature Gran % (Auto) 9.3 H Neut % (Auto) 39.7 L Lymph % (Auto) 36.7 [place] % (Auto) 11.4 H Eos % (Auto) 1.3 Baso % (Auto) 1.6 H Lymph # (Auto) 1.42 [place] # (Auto) 0.4 Eos # (Auto) 0.1 Baso # (Auto) 0.1 Abs Immat Gran (auto) 0.36 H Absolute Neuts (auto) 1.5 Absolute Nucleated RBC 0.070 H Nucleated RBC % 1.8 H Platelet Estimate Decreased % Immature Plt Fraction 8.3 Polychromasia 1+ Hypochromasia 1+ Anisocytosis 2+ Target Cells 1+ Ovalocytes 1+ Dennise Cells 1+ Schistocytes None seen Puncture Site ABG pH ABG pCO2 ABG pO2 ABG PO2/FiO2 Ratio ABG HCO3 ABG O2 Saturation ABG O2 Content ABG Base Excess A-a Gradient Oxyhemoglobin Carboxyhemoglobin Methemoglobin Reduced Hemoglobin Total Hemoglobin O2 Delivery Device O2 Liters/Min Minute Volume Vent Rate Vent Mode FiO2 Tidal Volume PEEP Peak Inspir Pressure Pressure Support Sodium 149 H Potassium 5.2 H Chloride 113 H Carbon Dioxide 30 Anion Gap 6 BUN 80 H D Creatinine 3.80 H Estim Creat Clear Calc 17 Estimated GFR 15 L Glucose 87 POC Capillary Glucose Calcium 7.2 L Magnesium 2.4 H Iron TIBC % Saturation Ferritin Total Bilirubin 1.7 H AST 241 H ALT 35 Alkaline Phosphatase 178 H Lactate Dehydrogenase Total Protein 5.0 L Albumin 2.4 L Vitamin B12 Folate Urine Eosinophils None seen U Random Total Protein 28 Ur Random Sodium Ur Random Urea Urine Total Volume Urine Creatinine Protein/Creat Ratio 2 Blood Type B Positive 08/15/24 08/15/24 08/15/24 11:32 11:32 11:36 WBC RBC Hgb Hct MCV MCH MCHC RDW Plt Count MPV Immature Gran % (Auto) Neut % (Auto) Lymph % (Auto) [place] % (Auto) Eos % (Auto) Baso % (Auto) Lymph # (Auto) [place] # (Auto) Eos # (Auto) Baso # (Auto) Abs Immat Gran (auto) Absolute Neuts (auto) Absolute Nucleated RBC Nucleated RBC % Platelet Estimate % Immature Plt Fraction Polychromasia Hypochromasia Anisocytosis Target Cells Ovalocytes Dennise Cells Schistocytes Puncture Site ABG pH ABG pCO2 ABG pO2 ABG PO2/FiO2 Ratio ABG HCO3 ABG O2 Saturation ABG O2 Content ABG Base Excess A-a Gradient Oxyhemoglobin Carboxyhemoglobin Methemoglobin Reduced Hemoglobin Total Hemoglobin O2 Delivery Device O2 Liters/Min Minute Volume Vent Rate Vent Mode FiO2 Tidal Volume PEEP Peak Inspir Pressure Pressure Support Sodium Potassium Chloride Carbon Dioxide Anion Gap BUN Creatinine Estim Creat Clear Calc Estimated GFR Glucose POC Capillary Glucose 175 H Calcium Magnesium Iron TIBC % Saturation Ferritin Total Bilirubin AST ALT Alkaline Phosphatase Lactate Dehydrogenase Total Protein Albumin Vitamin B12 Folate Urine Eosinophils U Random Total Protein Cancelled Ur Random Sodium 40 Ur Random Urea 154 Urine Total Volume Cancelled Urine Creatinine 126.7 Cancelled Protein/Creat Ratio 2 0.22 H Blood Type
[2024-08-15 14:57] LABS: Add Urine Microscopic? YES; Appearance Urine Turbid (Clear); Bacteria Urine None Seen /hpf; Bilirubin Urine 2+ (Negative); Blood Urine 2+ (Negative); Color Urine Dark Yellow (Yellow); Glucose Urine UA Negative (Negative); Granular Casts Urine Present /lpf; Ketones Urine Negative (Negative); Leukocyte Esterase Ur 1+ LEU/UL (Negative); Need Manual Microscopic Reviewed; Nitrate Urine Positive (Negative); Non Pathogenic Casts >20; Protein Urine 1+ mg/dL (Negative); RBC Urine 21-50 /hpf (0-2); Red Blood Cell Casts Urine Present /lpf; Specific Grav Ur 1.029 (1.001-1.035); Squamous Epithelial Cell Urine Many /hpf (Few); Urobilinogen Urine 0.2 mg/dL (<2.0)
[2024-08-15 16:03] LABS: Kappa\\Lambda Light Chains 0.91 (0.26-1.65); Lambda Light Chain 35.6 mg/L (5.7-26.3)
[2024-08-15 16:46] LABS: Glucose Point of Care 211 mg/dl (65-105)
[2024-08-15] MEDS: INSULIN ASPART (*BKC) 100 UNITS/ML SUB-Q ×2 (17:37→23:28)
[2024-08-15 18:21] LABS: Anion Gap 13 mmol/L (4-12); Blood Urea Nitrogen 89 mg/dL (9-20); Calcium 5.8 mg/dL (8.4-10.2); Carbon Dioxide 24 mmol/L (22-30); Chloride 110 mmol/L (98-107); Estimated CRCL calculation 13 ml/min; Estimated Glomerular Filt Rate 12; Glucose 243 mg/dL (65-110); Sodium 147 mmol/L (137-145)
[2024-08-15] MEDS: CALCIUM GLUC 2,000 MG/NS 100ML 2,000 MG/100 ML BAG 100 MG IVPB (18:43)
[2024-08-15 19:06] LABS: Lipase 123 U/L (23-300)
[2024-08-15 23:17] LABS: Anion Gap 11 mmol/L (4-12); Blood Urea Nitrogen 98 mg/dL (9-20); Carbon Dioxide 26 mmol/L (22-30); Chloride 110 mmol/L (98-107); Estimated CRCL calculation 13 ml/min; Estimated Glomerular Filt Rate 11; Glucose 289 mg/dL (65-110); Potassium 5.2 mmol/L (3.4-5.0); Sodium 147 mmol/L (137-145)
[2024-08-15 23:40] LABS: Glucose Point of Care 274 mg/dl (65-105)
[2024-08-16] VITALS (41 sets, daily range): BP systolic 97–141; BP diastolic 52–90; PULSE 84–116; RESP 24–26; TEMP 35.8–37.3; O2SAT 26–97
[2024-08-16 03:08] LABS: Creatinine, Random Urine 111 mg/dL (20-320); Total Prot/Creat ratio mg/mg 0.946 (0.025-0.148); Total Protein/Creatinine Ratio 946 mg/g creat (25-148)
[2024-08-16] MEDS: CEFEPIME 1 GM/NS 50 ML 1 GM/50 ML BAG IVPB ×2 (03:54→18:37)
[2024-08-16] MEDS: METOCLOPRAMIDE HCL INJ 10 MG/2 ML VIAL 5 MG IV PUSH (05:38)
[2024-08-16] MEDS: metroNIDAZOLE 500 MG/ISO 100ML 500 MG/100 ML BAG 100 MG IVPB ×3 (05:38→21:00)
[2024-08-16] MEDS: HYDROCORTISONE SODIUM SUCCINATE 100 MG/2 ML VIAL IV PUSH ×3 (05:38→21:00)
[2024-08-16] MEDS: CENTRAL LINE FLUSH 10 ML IV PUSH ×3 (05:38→21:03)
[2024-08-16 05:55] LABS: Hematocrit 28.1 % (42.0-52.0); Immature Platelet Fraction Pct 2.1 % (0.9-11.2); Mean Corpuscular Volume 84.4 fl (80-100); Mean Platelet Volume 10.7 fl (7.4-10.4); Platelet Count Result 35 k/mm3 (150-375); Red Blood Count 3.33 M/mm3 (4.6-6.20); Red Cell Distribution Width 18.5 % (11.5-14.5); White Blood Count 2.5 K/mm3 (4.5-10.0)
[2024-08-16 06:15] LABS: Alanine Aminotransferase 40 U/L (6-50); Albumin Level 2.4 g/dL (3.5-5.1); Alkaline Phosphatase 133 U/L (38-126); Anion Gap 10 mmol/L (4-12); Aspartate Amino Transferase 213 U/L (17-59); Bilirubin,Total 2.2 mg/dL (0.2-1.3); Blood Urea Nitrogen 109 mg/dL (9-20); Carbon Dioxide 27 mmol/L (22-30); Chloride 112 mmol/L (98-107); Estimated CRCL calculation 13 ml/min; Estimated Glomerular Filt Rate 11; Glucose 210 mg/dL (65-110); Magnesium 2.6 mg/dL (1.6-2.3); Potassium 4.7 mmol/L (3.4-5.0); Sodium 149 mmol/L (137-145)
[2024-08-16] MEDS: INSULIN ASPART (*BKC) 100 UNITS/ML SUB-Q (06:18)
[2024-08-16 06:31] LABS: Alveolar/Arterial O2 Gradient 221.8 mmHg; Base Excess ABG -3.7 mEq/l (+/-2.0); Carboxyhemoglobin 0.3 % THb (0-2.0); Fractional Inspired Oxygen 60 %; HCO3 ABG 23.9 mEq/l (22.0-26.0); Methemoglobin ABG 0.2 %THb (0-1.5); Oxygen Content ABG 14.5 %vol (16.0-22.0); Oxygen Saturation ABG 98.5 % (95.0-100.0); Oxyhemoglobin 98.1 % THb (90.0-100.0); PCO2 ABG 55.7 mmHg (35.0-45.0); PO2 ABG 144.7 mmHg (80.0-100.0); PO2 FiO2 Ratio Arterial Blood 2.41 %; Reduced Hemoglobin 1.4 %THb (0-5.0); Total Hemoglobin 10.3 g/dL (12.0-18.0)
[2024-08-16 06:32] LABS: Device VENTILATOR; Modified Allen's Test Pass; Site Drawn RIGHT RADIAL
[2024-08-16 06:33] LABS: Arterial Blood Gas PEEP 10 cmH2O; Arterial Blood Gas Tidal Volume 450 ml; Arterial Blood Gas Vent Mode CMV; Arterial Blood Gas Ventilator rate 26 /MIN
[2024-08-16 07:31] LABS: Hepatitis B Surface Antigen Negative (Negative)
[2024-08-16 07:49] LABS: Hepatitis B Surface Anti Res Negative
[2024-08-16] MEDS: PANTOPRAZOLE SODIUM IV 40 MG VIAL IV PUSH (08:26)
[2024-08-16] MEDS: MINERAL OIL/WHITE PETROLATUM OINTMENT 1 APPLIC EACH EYE ×2 (08:27→21:03)
[2024-08-16] MEDS: SODIUM CHLORIDE 0.9% IV 250 ML 30 ML IV CONT (08:30)
[2024-08-16 09:02] LABS: Glucose Point of Care 168 mg/dl (65-105)
--- NOTE | 2024-08-16 09:13 | WPDINTPN ---
Progress Note: A&P Assessment and Plan (1) Acute respiratory failure: Code(s): J96.00 - Acute respiratory failure, unspecified whether with hypoxia or hypercapnia Status: Acute Assessment and Plan: Acute respiratory failure secondary to pneumonia which is most likely aspiration which likely has progressed to ARDS Patient gradually developing worsening hypoxia. He was unable to maintain saturations on Vapotherm this morning and was switched to BiPAP. Despite being on BiPAP he was tachypnea. In light of bowel obstruction and tachypnea patient was intubated on08/[address]/14 CHEST: 1. Bilateral interstitial and alveolar opacification suggestive of ARDS versus pulmonary edema versus pneumonia. Follow-up and clinical correlation advised. Changes are increased compared to the previous examination. 2. Mediastinal lymphadenopathy. 3. Slight cardiomegaly. Chest x-ray reviewed. Withdraw ET tube by 2 cm Ventilator settings and ABG reviewed. FiO2 weaned to 55%. Continue peep of 10 tidal volume 450 and rate of 26 Ventilation is limited by pressures. Permissive hypercapnia and respiratory acidosis. Bicarb given to treat acidosis Cultures have been negative Continue Flagyl. His Levaquin was switched to cefepime Vancomycin discontinued as MRSA screen negative Initial chest CTA was negative for PE. Venous Dopplers were negative for DVT Plan to initiate dialysis to remove fluid (2) Septic shock: Code(s): A41.9 - Sepsis, unspecified organism; R65.21 - Severe sepsis with septic shock Status: Acute Assessment and Plan: Secondary to pneumonia. Antibiotics as above. Continue Levophed titration to maintain mean arterial pressure. Currently off Continue stress dose hydrocortisone Off IV fluids due to respiratory status and renal failure (3) Ileus: Code(s): K56.7 - Ileus, unspecified Status: Acute Assessment and Plan: OG tube placed after intubation. Patient currently NPO CT abdomen pelvis ABDOMEN/PELVIS: 1. A few dilated small bowel loops in the mid abdomen with no evidence of complete obstruction. Improvement is noted compared to previous study. Follow-up advised. 2. Right kidney stones with no hydronephrosis or ureteric stones. 3. Bilateral small fat containing inguinal hernias. Minimal fat stranding posterior to the body and tail of the pancreas which may be artifactual. This appears more like ileus rather than obstruction. 08/15 patient was started on tube feeds at 20 mL/hour for this morning tube feeds had to be held because patient had a residual of 400 mL despite being on tube feeds only at 20 mL/hour. Increase Reglan dose Will restart tube feeds later today at low rate. He may need post but our top of tube insertion General surgery following (4) Small bowel obstruction: Code(s): K56.609 - Unspecified intestinal obstruction, unspecified as to partial versus complete obstruction Status: Acute (5) Gall stones: Code(s): K80.20 - Calculus of gallbladder without cholecystitis without obstruction Status: Acute Assessment and Plan: Ultrasound shows gallbladder sludge and stones in the dependent gallbladder lumen. Patient evaluated by general surgery and GI no intervention at this time (6) Atrial fibrillation: Code(s): I48.91 - Unspecified atrial fibrillation Status: Acute Assessment and Plan: Patient had Intermittent AFib currently in sinus rhythm Anticoagulation is on hold due to significant thrombocytopenia (7) GERD (gastroesophageal reflux disease): Code(s): K21.9 - Gastro-esophageal reflux disease without esophagitis Status: Chronic Assessment and Plan: IV Protonix (8) Type 2 diabetes mellitus without complications: Code(s): E11.9 - Type 2 diabetes mellitus without complications Status: Acute Assessment and Plan: Sliding scale insulin Add Lantus (9) Metastasis to bone: Code(s): C79.51 - Secondary malignant neoplasm of bone Status: Acute Assessment and Plan: Thoracic cervical and lumbar spine MRI shows several lesions consistent with metastatic disease or multiple myeloma Biopsy pending. Patient currently not stable for biopsy. Patient also thrombocytopenic Oncology consulted (10) Pneumonia: Code(s): J18.9 - Pneumonia, unspecified organism Status: Inactive Assessment and Plan: See above (11) Thrombocytopenia: Code(s): D69.6 - Thrombocytopenia, unspecified Status: Acute Assessment and Plan: Likely multifactorial. Continue to Hold anticoagulation Hematology consult appreciated Will transfuse platelets today for invasive procedures (12) Electrolyte abnormality: Code(s): E87.8 - Other disorders of electrolyte and fluid balance, not elsewhere classified Status: Acute Assessment and Plan: Continue water flushes for hypernatremia Hyperkalemia was treated with Lokelma and insulin and D50 yesterday and has improved Plan to initiate dialysis today (13) SAMUEL (acute kidney injury): Code(s): N17.9 - Acute kidney failure, unspecified Status: Acute Assessment and Plan: Patient has underlying CKD. Now the renal function has deteriorated likely secondary to sepsis shock and respiratory failure. Patient has received fluids and overall is fairly positive on his balance. Will hold further IV fluids due to concern with respiratory status and worsening hypoxia with volume overload. Maintain mean arterial pressure with vasopressors Nephrology consulted Monitor urine output electrolytes and creatinine Patient has not shown any improvement in urine output and continues to have worsening renal function patient was treated for hyperkalemia yesterday to proceed with initiating hemodialysis. Patient's family is agreeable. Will place dialysis catheter after transfusion of platelets. Discussed with nephrology Plan DVT prophylaxis -SCD, patient has thrombocytopenia Stress ulcer prophylaxis -PPI Nutrition -hold tube feeds due to ileus Code Status - Full Code 08/15 I had long discussion patient's son Dawood. I spoke to patient's other son Kt by phone yesterday. I have updated them both with patient's current and critical status with multiorgan failure including respiratory failure, sepsis, shock, acute renal failure, abnormalities on spine MRI. I have updated them with current treatment plan and plan for workup. I have explained them that patient's prognosis is guarded with significant chance of mortality. I answered all their questions. I have explained them the patient may dialysis if renal function does not improve and continues to worsen. 08/16 I updated patient's son Dawood at bedside and answered all his questions Total Critical Care Time - 40 minutes Due to a high probability of clinically significant, life threatening deterioration, the patient required my highest level of preparedness to intervene emergently and I personally spent this critical care time directly and personally managing the patient. This critical care time included obtaining a history; examining the patient; pulse oximetry; ordering and review of studies; arranging urgent treatment with development of a management plan; evaluation of patient's response to treatment; frequent reassessment; and discussions with other providers. It was exclusive of separately billable procedures and treating other patients and teaching time. Please see Assessment and Plan section and the rest of the note for further information on patient assessment and treatment Subjective Date/time seen: 08/16/24 Overnight events reviewed. Afebrile Continues to be on mechanical ventilation 60% FiO2 and 10 of PEEP Off vasopressor Off sedatives On tube feeds at 20 mL/hour Poor urine output Sinus rhythm on the monitor Review of Systems Review of Systems: ROS unobtainable: Yes unobtainable due to endotracheal tube, unobtainable due to medical condition and unobtainable due to mental status Exam Narrative: General: Pt is sedated, intubated and on mechanical ventilation Lungs/Chest: Trachea central Coarse BS B/L, bilateral coarse breathing. Bibasilar crackles. Breath sounds decreased on the left Cardiac: RRR. Normal S1 S2. No murmurs Circulation: Pedal pulses are intact and symmetrical. Abdomen: Bowel sounds are significantly decreased Obese. Soft. NT. ND. Extremities: No clubbing, cyanosis or edema. Warm : Camacho in place Neurologic: Prior to intubation patient was AO x3 and moves all 4 extremities. Patient now is intubated sedated left pupil is slightly bigger than right both are reactive to light Objective Data Vital Signs Vital Signs: Vital Signs - 24 hr 08/15/24 09:30 08/15/24 09:30 08/15/24 09:50 Temperature Pulse Rate 111 H 112 H 112 H Respiratory Rate 26 H 26 H Blood Pressure 94/47 L Pulse Oximetry Oxygen Delivery Fraction of Inspired Oxygen 08/15/24 09:51 08/15/24 10:20 08/15/24 10:26 Temperature 38.9 C H Pulse Rate 112 H 112 H 112 H Respiratory Rate 26 H 26 H Blood Pressure 112/51 L 112/51 L Pulse Oximetry 96 Oxygen Delivery Fraction of Inspired Oxygen 08/15/24 10:36 08/15/24 10:00 08/15/24 10:49 Temperature 38.9 C H 38.9 C H 38.9 C H Pulse Rate 111 H 110 H 110 H Respiratory Rate 26 H 26 H 26 H Blood Pressure 107/53 L 111/52 L 105/52 L Pulse Oximetry 96 96 97 Oxygen Delivery Fraction of Inspired Oxygen 08/15/24 10:53 08/15/24 11:05 08/15/24 11:09 Temperature 38.8 C H 38.8 C H Pulse Rate 111 H 112 H 112 H Respiratory Rate 26 H 26 H Blood Pressure 105/52 L 115/56 L 118/56 L Pulse Oximetry 97 94 Oxygen Delivery Fraction of Inspired Oxygen 08/15/24 11:00 08/15/24 11:12 08/15/24 10:00 Temperature Pulse Rate 112 H 112 H 112 H Respiratory Rate Blood Pressure 118/56 L Pulse Oximetry 96 Oxygen Delivery Mechanical Ventilation Fraction of Inspired Oxygen 65 08/15/24 11:14 08/15/24 11:24 08/15/24 11:30 Temperature 38.8 C H Pulse Rate 113 H 112 H Respiratory Rate 26 H Blood Pressure 112/82 119/53 L Pulse Oximetry 94 94 Oxygen Delivery Mechanical Ventilation Fraction of Inspired Oxygen 60 08/15/24 11:39 08/15/24 11:48 08/15/24 12:00 Temperature Pulse Rate 113 H 112 H Respiratory Rate Blood Pressure 115/53 L 111/58 L Pulse Oximetry Oxygen Delivery Mechanical Ventilation Fraction of Inspired Oxygen 65 08/15/24 12:00 08/15/24 12:00 08/15/24 10:00 Temperature 38.8 C H Pulse Rate 112 H 112 H Respiratory Rate 26 H Blood Pressure 113/53 L 104/53 L Pulse Oximetry 94 Oxygen Delivery Fraction of Inspired Oxygen 65 08/15/24 12:00 08/15/24 12:00 08/15/24 12:00 Temperature Pulse Rate 112 H 112 H 112 H Respiratory Rate 26 H 26 H Blood Pressure 112/57 L Pulse Oximetry Oxygen Delivery Fraction of Inspired Oxygen 08/15/24 12:00 08/15/24 12:00 08/15/24 13:05 Temperature Pulse Rate 112 H 112 H 114 H Respiratory Rate Blood Pressure 112/57 L 122/53 L Pulse Oximetry Oxygen Delivery Fraction of Inspired Oxygen 08/15/24 13:20 08/15/24 13:20 08/15/24 13:30 Temperature 38.9 C H Pulse Rate 115 H 115 H Respiratory Rate Blood Pressure 118/59 L 116/64 Pulse Oximetry Oxygen Delivery Fraction of Inspired Oxygen 08/15/24 13:36 08/15/24 14:15 08/15/24 14:32 Temperature Pulse Rate 113 H 110 H 110 H Respiratory Rate Blood Pressure 107/54 L 106/49 L Pulse Oximetry 94 Oxygen Delivery Mechanical Ventilation Fraction of Inspired Oxygen 60 08/15/24 14:46 08/15/24 14:00 08/15/24 14:00 Temperature 38.6 C H Pulse Rate 107 H 106 H 111 H Respiratory Rate 26 H Blood Pressure 109/54 L Pulse Oximetry 95 95 Oxygen Delivery Mechanical Ventilation Fraction of Inspired Oxygen 60 08/15/24 15:49 08/15/24 16:00 08/15/24 16:00 Temperature Pulse Rate 105 H 105 H Respiratory Rate Blood Pressure 108/52 L 108/52 L Pulse Oximetry Oxygen Delivery Mechanical Ventilation Fraction of Inspired Oxygen 65 08/15/24 14:00 08/15/24 16:00 08/15/24 14:00 Temperature Pulse Rate 110 H 105 H 110 H Respiratory Rate 26 H 26 H 26 H Blood Pressure Pulse Oximetry Oxygen Delivery Fraction of Inspired Oxygen 08/15/24 16:00 08/15/24 16:00 08/15/24 16:17 Temperature Pulse Rate 105 H 106 H 104 H Respiratory Rate 26 H Blood Pressure Pulse Oximetry 97 Oxygen Delivery Mechanical Ventilation Fraction of Inspired Oxygen 60 08/15/24 16:00 08/15/24 16:00 08/15/24 18:00 Temperature 38.4 C H 37.8 C H Pulse Rate 106 H 100 Respiratory Rate 29 H 27 H Blood Pressure 109/50 L 96/57 L Pulse Oximetry 97 96 Oxygen Delivery Fraction of Inspired Oxygen 65 08/15/24 18:00 08/15/24 17:55 08/15/24 18:00 Temperature Pulse Rate 101 H 101 H 101 H Respiratory Rate 27 H Blood Pressure 110/70 Pulse Oximetry Oxygen Delivery Fraction of Inspired Oxygen 08/15/24 18:00 08/15/24 18:00 08/15/24 18:55 Temperature Pulse Rate 101 H 102 H 102 H Respiratory Rate 27 H Blood Pressure 96/57 L 106/45 L Pulse Oximetry Oxygen Delivery Fraction of Inspired Oxygen 08/15/24 19:45 08/15/24 20:00 08/15/24 20:00 Temperature 37.0 C Pulse Rate 100 98 Respiratory Rate 26 H Blood Pressure 115/53 L 111/56 L Pulse Oximetry 97 Oxygen Delivery Fraction of Inspired Oxygen 60 08/15/24 20:00 08/15/24 20:00 08/15/24 20:00 Temperature Pulse Rate 98 97 97 Respiratory Rate 26 H 26 H Blood Pressure 111/56 L Pulse Oximetry 97 Oxygen Delivery Mechanical Ventilation Fraction of Inspired Oxygen 60 08/15/24 20:00 08/15/24 20:10 08/15/24 20:15 Temperature 36.9 C Pulse Rate 97 97 97 Respiratory Rate 26 H 26 H Blood Pressure 111/56 L 111/55 L Pulse Oximetry 97 Oxygen Delivery Fraction of Inspired Oxygen 08/15/24 20:31 08/15/24 20:33 08/15/24 21:12 Temperature 36.9 C Pulse Rate 96 97 95 Respiratory Rate 26 H Blood Pressure 110/55 L 110/53 L Pulse Oximetry 97 96 Oxygen Delivery Mechanical Ventilation Fraction of Inspired Oxygen 60 08/15/24 21:00 08/15/24 21:17 08/15/24 21:15 Temperature 36.8 C 36.8 C Pulse Rate 95 95 95 Respiratory Rate 26 H 26 H Blood Pressure 110/53 L 109/54 L 109/54 L Pulse Oximetry 97 97 Oxygen Delivery Fraction of Inspired Oxygen 08/15/24 20:00 08/15/24 21:30 08/15/24 22:00 Temperature 36.6 C Pulse Rate 98 95 94 Respiratory Rate 26 H Blood Pressure 104/51 L Pulse Oximetry 96 Oxygen Delivery Fraction of Inspired Oxygen 08/15/24 22:00 08/15/24 22:53 08/15/24 22:00 Temperature 36.7 C Pulse Rate 94 91 94 Respiratory Rate 26 H Blood Pressure 102/51 L 102/51 L Pulse Oximetry 96 96 Oxygen Delivery Mechanical Ventilation Fraction of Inspired Oxygen 60 08/15/24 22:00 08/15/24 22:00 08/15/24 22:00 Temperature Pulse Rate 95 95 95 Respiratory Rate 26 H 26 H Blood Pressure 102/55 L Pulse Oximetry Oxygen Delivery Fraction of Inspired Oxygen 08/15/24 23:25 08/15/24 23:25 08/15/24 23:31 Temperature 36.4 C L Pulse Rate 92 93 92 Respiratory Rate 26 H Blood Pressure 106/55 L 106/55 L 105/55 L Pulse Oximetry 96 Oxygen Delivery Fraction of Inspired Oxygen 08/15/24 23:30 08/15/24 23:44 08/15/24 23:45 Temperature 36.4 C L Pulse Rate 93 92 Respiratory Rate 26 H 26 H Blood Pressure 105/55 L Pulse Oximetry 96 96 Oxygen Delivery Mechanical Ventilation Fraction of Inspired Oxygen 60 60 08/15/24 23:45 08/16/24 00:00 08/16/24 00:00 Temperature 36.3 C L 36.3 C L Pulse Rate 93 93 92 Respiratory Rate 26 H 26 H Blood Pressure 107/56 L 101/52 L Pulse Oximetry 96 96 Oxygen Delivery Fraction of Inspired Oxygen 08/16/24 02:00 08/16/24 02:00 08/16/24 02:52 Temperature 36.1 C L Pulse Rate 92 92 92 Respiratory Rate 26 H Blood Pressure 102/53 L Pulse Oximetry 96 96 Oxygen Delivery Mechanical Ventilation Fraction of Inspired Oxygen 60 08/16/24 00:00 08/16/24 02:00 08/16/24 04:00 Temperature Pulse Rate 93 90 84 Respiratory Rate Blood Pressure 101/52 L 102/53 L 108/64 Pulse Oximetry Oxygen Delivery Fraction of Inspired Oxygen 08/16/24 00:00 08/16/24 02:00 08/16/24 04:00 Temperature Pulse Rate 93 90 84 Respiratory Rate 26 H 26 H 26 H Blood Pressure Pulse Oximetry Oxygen Delivery Fraction of Inspired Oxygen 08/16/24 00:00 08/16/24 02:00 08/16/24 04:00 Temperature Pulse Rate 93 90 84 Respiratory Rate 26 H 26 H 26 H Blood Pressure Pulse Oximetry Oxygen Delivery Fraction of Inspired Oxygen 08/16/24 00:00 08/16/24 02:00 08/16/24 04:00 Temperature Pulse Rate 93 90 84 Respiratory Rate Blood Pressure 101/52 L 102/53 L 108/64 Pulse Oximetry Oxygen Delivery Fraction of Inspired Oxygen 08/16/24 04:00 08/16/24 04:00 08/16/24 04:00 Temperature 35.8 C L Pulse Rate 87 87 Respiratory Rate 26 H 26 H Blood Pressure 108/64 Pulse Oximetry 97 97 Oxygen Delivery Mechanical Ventilation Fraction of Inspired Oxygen 60 60 08/16/24 04:00 08/16/24 05:25 08/16/24 06:00 Temperature Pulse Rate 86 91 95 Respiratory Rate Blood Pressure Pulse Oximetry 97 Oxygen Delivery Mechanical Ventilation Fraction of Inspired Oxygen 60 08/16/24 06:00 08/16/24 06:00 08/16/24 06:00 Temperature 35.8 C L Pulse Rate 95 95 95 Respiratory Rate 26 H 26 H Blood Pressure 111/61 111/61 Pulse Oximetry 97 Oxygen Delivery Fraction of Inspired Oxygen 08/16/24 06:00 08/16/24 06:00 08/16/24 07:17 Temperature Pulse Rate 95 95 97 Respiratory Rate 26 H Blood Pressure 111/61 Pulse Oximetry 96 Oxygen Delivery Mechanical Ventilation Fraction of Inspired Oxygen 60 08/16/24 07:30 08/16/24 08:37 08/16/24 08:00 Temperature 36.2 C L 36.2 C L Pulse Rate 98 97 98 Respiratory Rate 26 H 26 H Blood Pressure 105/61 113/58 L Pulse Oximetry 95 95 95 Oxygen Delivery Mechanical Ventilation Fraction of Inspired Oxygen 50 08/16/24 08:52 Temperature 36.2 C L Pulse Rate 98 Respiratory Rate 26 H Blood Pressure 109/59 L Pulse Oximetry 96 Oxygen Delivery Fraction of Inspired Oxygen Intake/Output Intake/Output: Intake & Output 08/13/24 08/14/24 08/15/24 08/16/24 23:59 23:59 23:59 23:59 Intake Total 1558.3 1074.4 2147.0 562 Output Total 600 1951 856 125 Balance 958.3 -876.6 1291.0 437 Meds/Results Medications: Active Medications Generic Name Dose Route Start Last Admin Trade Name Freq PRN Reason Stop Dose Admin Acetaminophen 650 mg 08/15/24 06:44 08/15/24 13:20 Acetaminophen Elixir 325 Mg/10.15 Ml Udc PO 650 mg Q4H PRN Administration Mild Pain (1-3) or Fever Dextrose 12.5 gm 08/10/24 06:29 08/11/24 10:46 Dextrose 50% 25 Gm/50 Ml Syringe IV PUSH 12.5 gm PRN PRN Administration Hypoglycemia Protocol Glucagon 1 mg 08/10/24 06:29 Glucagon For Inj 1 Mg Vial IM PRN PRN Hypoglycemia Protocol Glucose 15 gm 08/10/24 06:29 Glucose Oral Gel 15 Gm Of Glucse In 37.5 Gm Tube PO PRN PRN Hypoglycemia Protocol Hydralazine HCl 20 mg 08/11/24 11:57 Hydralazine Hcl 20 Mg/Ml Vial IV PUSH Q4H PRN Blood Sugar - High Hydrocortisone Sodium Succinate 100 mg 08/15/24 14:00 08/16/24 05:38 Hydrocortisone Sodium Succinate 100 Mg/2 Ml Vial IV PUSH 100 mg Q8HR [place] Administration Dextrose 1,000 mls @ 100 mls/hr 08/10/24 06:29 Dextrose 5% 1,000 Ml IVPB PRN PRN Hypoglycemia Protocol Metronidazole 500 mg in 100 mls @ 100 mls/hr 08/10/24 13:00 08/16/24 05:38 Flagyl 500 Mg/Iso Soln 100 Ml IVPB 100 mls/hr Q8HR [place] Administration Fentanyl Citrate 2,500 mcg in 250 mls @ 0 mls/hr 08/14/24 12:20 08/16/24 06:00 Fentanyl 2,500 Mcg/Ns 250 Ml IV CONT 0 mcg/hr .Q0M [place] 0 mls/hr Titration Protocol Midazolam HCl 100 mg in 100 mls @ 0 mls/hr 08/14/24 12:20 08/16/24 06:00 Versed 100 Mg/Ns 100 Ml IV CONT 0 mg/hr .Q0M [place] 0 mls/hr Titration Protocol Cefepime HCl 1 gm in 50 mls @ 100 mls/hr 08/14/24 15:00 08/16/24 04:24 Maxipime 1 Gm/Ns 50 Ml IVPB Infused Q12H [place] Infusion Norepinephrine Bitartrate 8 mg in 250 mls @ 0 mls/hr 08/14/24 17:35 08/16/24 06:00 Levophed 8 Mg/D5w 250 Ml IV CONT 0 mcg/min .Q0M [place] 0 mls/hr Titration Protocol 0 MCG/MIN Sodium Chloride 250 mls @ 30 mls/hr 08/16/24 06:08 08/16/24 08:30 Normal Saline Iv IV CONT 08/16/24 14:27 30 mls/hr .Q8H20M STA Administration Insulin Aspart 4 - 8 units 08/16/24 09:00 08/16/24 09:05 Insulin Aspart (*Bkc) 100 Units/Ml SUB-Q Not Given Q4HR [facility] Protocol Insulin Glargine 20 units 08/16/24 09:00 Insulin Glargine (*Bkc) 100 Units/Ml SUB-Q QAM [place] Ipratropium [place] 0.5 mg 08/14/24 14:27 Ipratropium Br 0.02% Inh Soln 0.5 Mg/2.5 Ml Vial INHALATION Q6HRT PRN Shortness Of Breath Or Wheezing Levalbuterol HCl 0.63 mg 08/14/24 14:27 Levalbuterol Neb 1.25 Mg/3 Ml INHALATION Q6HRT PRN Shortness Of Breath Or Wheezing Metoclopramide HCl 5 mg 08/13/24 18:00 08/16/24 05:38 Metoclopramide Hcl Inj 10 Mg/2 Ml Vial IV PUSH 5 mg Q6HR [place] Administration Midazolam HCl 2 mg 08/14/24 12:06 Midazolam Hcl (*Crx) 2 Mg/2 Ml Vial IV PUSH Q5M PRN ventilator asynchrony Multi-Ingred Cream/Lotion/Oil/Oint 1 applic 12/02/24 21:00 08/16/24 08:27 Mineral Oil/White Petrolatum Ointment EACH EYE 1 applic Q12HR [place] Administration Ondansetron HCl 4 mg 08/12/24 03:15 08/14/24 05:34 Ondansetron Inj 4 Mg/2 Ml Vial IV PUSH 4 mg Q4H PRN Administration Nausea And Vomiting Pantoprazole Sodium 40 mg 08/13/24 09:00 08/16/24 08:26 Pantoprazole Sodium Iv 40 Mg Vial IV PUSH 40 mg QAM [place] Administration Perflutren Lipid Microsphere 0 ml 08/14/24 08:35 Perflutren Lipid Microspheres 1.5 Ml Vial Diluted To 10 Ml Total Volume IV PUSH 08/17/24 08:35 ONCE PRN adequate visualization Protocol Sodium Chloride 10 ml 08/14/24 14:00 08/16/24 05:38 Central Line Flush IV PUSH 10 ml Q8HR [place] Administration Sodium Chloride 10 ml 08/14/24 13:51 Central Line Flush IV PUSH PRN PRN with TPN bag changes Sodium Chloride 20 ml 08/14/24 13:51 Central Line Flush IV PUSH PRN PRN after blood draws Radiology Results: ITS Impressions Cervical Spine CT 08/09/24 18:15 IMPRESSION: 1. Moderate to severe cervical spondylosis. No acute osseous abnormality. Thoracic/Lumbar Spine CT 08/09/24 18:22 IMPRESSION: 1. Multiple old posterior left rib fractures and chronic compression fractures with mild anterior wedging at T5 and T6 and mild right-sided anterior vertebral body height loss at L2. No acute osseous abnormality. 2. Moderate thoracic spondylosis and mild lumbar spondylosis. 3. Combined instrumented L5-S1 anterior and posterior spinal fusion. 4. Chronic bilateral lower lung predominant interstitial lung disease with indeterminate 8 mm pulmonary nodule in the left lower lobe. Recommend 3 month follow-up low-dose noncontrast chest CT. Chest CTA 08/10/24 18:43 IMPRESSION: 1. No pulmonary embolism. 2. Bilateral interstitial and alveolar opacification more prominent in the right upper lobe which may indicate pneumonitis versus fibrotic changes versus pulmonary edema. 3. Bilateral pleural effusion more on the right side. 4. Cholelithiasis. 5. Left adrenal adenoma. 6. Mediastinal lymphadenopathy.. 7. Multiple healing rib fractures in the left hemithorax. Brain MRA 08/11/24 09:25 IMPRESSION: 1. High-grade stenosis on the right P1 segment with downstream moderate-sized region of encephalomalacia consistent with chronic infarct. 2. Moderate grade stenosis at the origin of the right M1 segment. Brain MRI 08/12/24 14:11 IMPRESSION: No acute intracranial process. Abdomen Ultrasound 08/12/24 16:37 IMPRESSION: Likely, additional gallbladder sludge and stones in the dependent gallbladder lumen. Small Bowel X-Ray 08/12/24 19:16 IMPRESSION: Radiographic findings consistent with low-grade small bowel obstruction or ileus. Lumbar Spine MRI 08/13/24 06:32 IMPRESSION: 1. Widespread enhancement of the bones without abnormal CT correlate suspicious for metastatic disease or multiple myeloma. 2. Mild lumbar spondylosis. 3. Anterior fusion procedure at L5-S1. Cervical Spine MRI 08/13/24 06:43 IMPRESSION: 1. Widespread abnormal contrast enhancement in the bones, consistent with metastatic disease versus multiple myeloma. 2. Moderate cervical spondylosis. Thoracic Spine MRI 08/13/24 06:48 IMPRESSION: 1. Widespread contrast enhancement of the bones, consistent with metastatic disease versus multiple myeloma. 2. Mild thoracic spondylosis. Venous Doppler Study 08/14/24 15:47 IMPRESSION: 1. No deep venous thrombosis. 2. Small left Calles's cyst. Chest/Abdomen/Pelvis CT 08/14/24 17:11 IMPRESSION: CHEST: 1. Bilateral interstitial and alveolar opacification suggestive of ARDS versus pulmonary edema versus pneumonia. Follow-up and clinical correlation advised. Changes are increased compared to the previous examination. 2. Mediastinal lymphadenopathy. 3. Slight cardiomegaly. ABDOMEN/PELVIS: 1. A few dilated small bowel loops in the mid abdomen with no evidence of complete obstruction. Improvement is noted compared to previous study. Follow-up advised. 2. Right kidney stones with no hydronephrosis or ureteric stones. 3. Bilateral small fat containing inguinal hernias. Minimal fat stranding posterior to the body and tail of the pancreas which may be artifactual. Head CT 08/15/24 08:37 IMPRESSION: 1. 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 Abdomen X-Ray 08/15/24 10:58 IMPRESSION: 1. Orogastric tube in the stomach with distal tip near the pylorus. Consider withdrawal by 10 cm. 2. Diffuse bilateral lung disease which could represent pulmonary edema, pneumonia, ARDS or some combination thereof. 3. Endotracheal tube tip 6.1 cm above the tyler. Consider advancement by 3.4 cm. Renal Ultrasound 08/15/24 14:34 IMPRESSION: 1. A couple cysts in the left kidney. Otherwise normal kidneys with no hydronephrosis. Chest X-Ray 08/16/24 07:48 Impression: Stable diffuse groundglass and interstitial pulmonary disease. Stable support tubes. Labs Labs: Laboratory Results - last 24 hr 08/13/24 08/14/24 08/15/24 10:24 18:44 08:01 WBC RBC Hgb Hct MCV MCH MCHC RDW Plt Count MPV % Immature Plt Fraction Puncture Site ABG pH ABG pCO2 ABG pO2 ABG PO2/FiO2 Ratio ABG HCO3 ABG O2 Saturation ABG O2 Content ABG Base Excess A-a Gradient Oxyhemoglobin Carboxyhemoglobin Methemoglobin Reduced Hemoglobin Total Hemoglobin O2 Delivery Device O2 Liters/Min Minute Volume Vent Rate Vent Mode FiO2 Tidal Volume PEEP Peak Inspir Pressure Pressure Support Sodium Potassium Chloride Carbon Dioxide Anion Gap BUN Creatinine Estim Creat Clear Calc Estimated GFR Glucose POC Capillary Glucose Calcium Magnesium Total Bilirubin AST ALT Alkaline Phosphatase Total Protein Albumin Lipase Urine Color Urine Appearance Urine pH Ur Specific [place] Urine Protein Urine Glucose (UA) Urine Ketones Ur Blood (Man) Urine Nitrate Urine Bilirubin Urine Urobilinogen Add Ur Microanalysis Leukocyte Esterase Rfl Urine RBC Urine WBC Ur Squamous Epith Cells Urine Bacteria Urine Casts Granular Casts RBC Casts Urine Eosinophils Ur Random Creatinine 111 U Random Total Protein 105 H Ur Random Sodium Ur Random Urea Urine Total Volume Urine Creatinine Protein/Creatinin Ratio 946 H Protein/Creat Ratio 2 [place]/Lambda Ratio 0.91 Free [place] Light Chains 32.3 H Free Lambda Light Chain 35.6 H Hep Bs Antigen Hep Bs Antibody Blood Type B Positive 08/15/24 08/15/24 08/15/24 11:32 11:32 11:32 WBC RBC Hgb Hct MCV MCH MCHC RDW Plt Count MPV % Immature Plt Fraction Puncture Site ABG pH ABG pCO2 ABG pO2 ABG PO2/FiO2 Ratio ABG HCO3 ABG O2 Saturation ABG O2 Content ABG Base Excess A-a Gradient Oxyhemoglobin Carboxyhemoglobin Methemoglobin Reduced Hemoglobin Total Hemoglobin O2 Delivery Device O2 Liters/Min Minute Volume Vent Rate Vent Mode FiO2 Tidal Volume PEEP Peak Inspir Pressure Pressure Support Sodium Potassium Chloride Carbon Dioxide Anion Gap BUN Creatinine Estim Creat Clear Calc Estimated GFR Glucose POC Capillary Glucose Calcium Magnesium Total Bilirubin AST ALT Alkaline Phosphatase Total Protein Albumin Lipase Urine Color Urine Appearance Urine pH Ur Specific [place] Urine Protein Urine Glucose (UA) Urine Ketones Ur Blood (Man) Urine Nitrate Urine Bilirubin Urine Urobilinogen Add Ur Microanalysis Leukocyte Esterase Rfl Urine RBC Urine WBC Ur Squamous Epith Cells Urine Bacteria Urine Casts Granular Casts RBC Casts Urine Eosinophils None seen Ur Random Creatinine U Random Total Protein 28 Cancelled Ur Random Sodium 40 Ur Random Urea 154 Urine Total Volume Cancelled Urine Creatinine 126.7 Cancelled Protein/Creatinin Ratio Protein/Creat Ratio 2 0.22 H [place]/Lambda Ratio Free [place] Light Chains Free Lambda Light Chain Hep Bs Antigen Hep Bs Antibody Blood Type 08/15/24 08/15/24 08/15/24 11:36 14:25 16:35 WBC RBC Hgb Hct MCV MCH MCHC RDW Plt Count MPV % Immature Plt Fraction Puncture Site ABG pH ABG pCO2 ABG pO2 ABG PO2/FiO2 Ratio ABG HCO3 ABG O2 Saturation ABG O2 Content ABG Base Excess A-a Gradient Oxyhemoglobin Carboxyhemoglobin Methemoglobin Reduced Hemoglobin Total Hemoglobin O2 Delivery Device O2 Liters/Min Minute Volume Vent Rate Vent Mode FiO2 Tidal Volume PEEP Peak Inspir Pressure Pressure Support Sodium Potassium Chloride Carbon Dioxide Anion Gap BUN Creatinine Estim Creat Clear Calc Estimated GFR Glucose POC Capillary Glucose 175 H 211 H Calcium Magnesium Total Bilirubin AST ALT Alkaline Phosphatase Total Protein Albumin Lipase Urine Color Dark yellow Urine Appearance Turbid H Urine pH 5.0 Ur Specific [place] 1.029 Urine Protein 1+ H Urine Glucose (UA) Negative Urine Ketones Negative Ur Blood (Man) 2+ H Urine Nitrate Positive H Urine Bilirubin 2+ H Urine Urobilinogen 0.2 Add Ur Microanalysis Reviewed Leukocyte Esterase Rfl 1+ H Urine RBC 21-50 H Urine WBC 11-20 H Ur Squamous Epith Cells Many H Urine Bacteria None seen Urine Casts >20 Granular Casts Present RBC Casts Present H Urine Eosinophils Ur Random Creatinine U Random Total Protein Ur Random Sodium Ur Random Urea Urine Total Volume Urine Creatinine Protein/Creatinin Ratio Protein/Creat Ratio 2 [place]/Lambda Ratio Free [place] Light Chains Free Lambda Light Chain Hep Bs Antigen Hep Bs Antibody Blood Type 08/15/24 08/15/24 08/15/24 17:32 22:51 23:26 WBC RBC Hgb Hct MCV MCH MCHC RDW Plt Count MPV % Immature Plt Fraction Puncture Site ABG pH ABG pCO2 ABG pO2 ABG PO2/FiO2 Ratio ABG HCO3 ABG O2 Saturation ABG O2 Content ABG Base Excess A-a Gradient Oxyhemoglobin Carboxyhemoglobin Methemoglobin Reduced Hemoglobin Total Hemoglobin O2 Delivery Device O2 Liters/Min Minute Volume Vent Rate Vent Mode FiO2 Tidal Volume PEEP Peak Inspir Pressure Pressure Support Sodium 147 H 147 H Potassium 6.0 H* 5.2 H Chloride 110 H 110 H Carbon Dioxide 24 26 Anion Gap 13 H 11 BUN 89 H 98 H Creatinine 4.80 H 5.10 H Estim Creat Clear Calc 13 13 Estimated GFR 12 L 11 L Glucose 243 H 289 H POC Capillary Glucose 274 H Calcium 5.8 L* 6.0 L Magnesium Total Bilirubin AST ALT Alkaline Phosphatase Total Protein Albumin Lipase 123 Urine Color Urine Appearance Urine pH Ur Specific [place] Urine Protein Urine Glucose (UA) Urine Ketones Ur Blood (Man) Urine Nitrate Urine Bilirubin Urine Urobilinogen Add Ur Microanalysis Leukocyte Esterase Rfl Urine RBC Urine WBC Ur Squamous Epith Cells Urine Bacteria Urine Casts Granular Casts RBC Casts Urine Eosinophils Ur Random Creatinine U Random Total Protein Ur Random Sodium Ur Random Urea Urine Total Volume Urine Creatinine Protein/Creatinin Ratio Protein/Creat Ratio 2 [place]/Lambda Ratio Free [place] Light Chains Free Lambda Light Chain Hep Bs Antigen Hep Bs Antibody Blood Type 08/16/24 08/16/24 08/16/24 05:44 05:46 08:59 WBC 2.5 L RBC 3.33 L Hgb 9.0 L Hct 28.1 L MCV 84.4 MCH 27.0 MCHC 32.0 RDW 18.5 H Plt Count 35 L D MPV 10.7 H % Immature Plt Fraction 2.1 Puncture Site Right radial ABG pH 7.250 L* ABG pCO2 55.7 H ABG pO2 144.7 H ABG PO2/FiO2 Ratio 2.41 ABG HCO3 23.9 ABG O2 Saturation 98.5 ABG O2 Content 14.5 L ABG Base Excess -3.7 A-a Gradient 221.8 Oxyhemoglobin 98.1 Carboxyhemoglobin 0.3 Methemoglobin 0.2 Reduced Hemoglobin 1.4 Total Hemoglobin 10.3 L O2 Delivery Device Ventilator O2 Liters/Min Not Reportable Minute Volume Not Reportable Vent Rate 26 Vent Mode Cmv FiO2 60 Tidal Volume 450 PEEP 10 Peak Inspir Pressure Not Reportable Pressure Support Not Reportable Sodium 149 H Potassium 4.7 Chloride 112 H Carbon Dioxide 27 Anion Gap 10 BUN 109 H D Creatinine 5.30 H Estim Creat Clear Calc 13 Estimated GFR 11 L Glucose 210 H POC Capillary Glucose 168 H Calcium 6.0 L Magnesium 2.6 H Total Bilirubin 2.2 H AST 213 H ALT 40 Alkaline Phosphatase 133 H Total Protein 5.0 L Albumin 2.4 L Lipase Urine Color Urine Appearance Urine pH Ur Specific [place] Urine Protein Urine Glucose (UA) Urine Ketones Ur Blood (Man) Urine Nitrate Urine Bilirubin Urine Urobilinogen Add Ur Microanalysis Leukocyte Esterase Rfl Urine RBC Urine WBC Ur Squamous Epith Cells Urine Bacteria Urine Casts Granular Casts RBC Casts Urine Eosinophils Ur Random Creatinine U Random Total Protein Ur Random Sodium Ur Random Urea Urine Total Volume Urine Creatinine Protein/Creatinin Ratio Protein/Creat Ratio 2 [place]/Lambda Ratio Free [place] Light Chains Free Lambda Light Chain Hep Bs Antigen Negative Hep Bs Antibody Negative Blood Type Quality VTE Prophylaxis VTE prophylaxis: mechanical ordered
[2024-08-16] MEDS: MIDAZOLAM HCL (*CRX) 2 MG/2 ML VIAL 4 MG IV PUSH (09:52)
--- NOTE | 2024-08-16 10:47 | WPDPROCEDUR ---
Procedures Central Line Placement Right IJ: Central Line Date: 08/16/24 Central Line Time: 10:00 Discussed w/ the patient/family/POA,the placement of a central venous catheter, including its clinical necessity/indication & associated potential risks, benifits and alternatives.: Yes The patient/family/POA understand(s) and acknowledge(s) the need to proceed with central venous catheter insertion as an important element of the patient's clinical management.: Yes Consent: I have discussed with the patient and/or surrogate, the non-emergent placement of a temporary hemodialysis venous catheter, including its clinical necessity/indication and associated potential risks and complications. The patient and/or surrogate understand(s) and acknowledge(s) the need to proceed with temporary hemodialysis venous catheter insertion as an important element of the patient's clinical management. Time Out Performed: Yes Patient Position: supine Patient placed on monitor/pulse ox: Yes Provider Prep: mask, sterile gown, sterile gloves, Max. sterile barrier precautions, cap and hand hygiene with conventional soap/water or alcohol based hand rub Central line prep: Povidone-Iodine 1% Sterile US Technique with sterile gel/sterile probe covers: Yes Central line lumen inserted: triple Length (cm): 16 Depth of Insertion (cm): 16 Post Procedure: sutured in place, good blood return, all ports aspirated, flushed, capped, transparent dressing and aseptic technique maintained throughout procedure Post procedure x-ray: tip of catheter in good position and no pneumothorax seen Patient tolerated procedure: well Complications: none
--- NOTE | 2024-08-16 11:14 | PCFNICU ---
ICU Rounding Note: Pt current nutrition is Nepro @ 20 ml/h ON HOLD for high residuals (>400 ml). Nutrition recommendation: Continue to hold tube feeding for intolerance. When tube feeding is restarted, Recommend trickle feeding until tolerance improves. Eventual goal rate Nepro @ 40 ml/h: 1584 kcal, 66 g protein, 640 ml free water.May require protein modulars to meet estimated protein needs when tolerance is established and goal rate is reached. Last recorded weight is 102.2 kg. Bowel Motility: +1 BM 08/14/24 Labs Reviewed: Hgb 9.0, Hct 28.1, Alb 2.4, Na 149, BUN 109, Cre 5.3, Glu 210 Meds Noted: No pressors. No sedation.Insulin, Reglan, zofran, protonix Skin: No pressure injuries Additional Notes: Pt to start on dialysis . Port is placed. Flushes increased to 200 ml q 4 h for high sodium levels. Following daily in ICU rounds. Monitoring orders, labs, weights, tube feeding tolerance, stool patterns, medications Follow daily in ICU rounds, follow up Tuesdays and Fridays.
[2024-08-16 11:36] LABS: Glucose Point of Care 190 mg/dl (65-105)
[2024-08-16] MEDS: METOCLOPRAMIDE HCL INJ 10 MG/2 ML VIAL IV PUSH ×3 (11:58→23:53)
[2024-08-16 14:44] LABS: Abnormal Protein Band 1 12 mg/dL (NONE DETECTED)
--- NOTE | 2024-08-16 16:01 | P.PNNP_ITS ---
Progress Note: A&P Assessment and Plan (1) SAMUEL (acute kidney injury): Code(s): N17.9 - Acute kidney failure, unspecified Status: Acute Assessment and Plan: * as noted since admission * suspect multifactorial etiology: * hemodynamic instability/shock * infection/sepsis (pneunonia) * hypoxia * prerenal factors/insensible losses * contrast exposure (CTA of chest on 08/10) * evaluation to date noted: * imaging without obstructive uropathy * urine eosinophils negative * urine electrolytes prerenal * moderate proteinuria * CPK mildly elevated (but not enough to affect kidney function) * due to worsening BUN, creatinine, potassium levels and anuria -- inititiated on hemodialysis today * plan HD tomorrow as well * follow trend of repeat labs and UOP to assess for renal recovery (2) Stage 3a chronic kidney disease (CKD): Code(s): N18.31 - Chronic kidney disease, stage 3a Status: Acute Assessment and Plan: * baseline creatinine runs around 1.2 - 1.5mg/dl * presumably secondary to diabetes, vascular disease, obstructive sleep apnea, BPH, and age-related change (3) Hypernatremia: Code(s): E87.0 - Hyperosmolality and hypernatremia Status: Acute Assessment and Plan: * as noted by trend of sodium * add FWF with via NG if/when able * dialysis will improve to some degree (4) Septic shock: Code(s): A41.9 - Sepsis, unspecified organism; R65.21 - Severe sepsis with septic shock Status: Acute Assessment and Plan: * felt to be secondary to pneumonia * follow culture data * off vasopressor therapy at this time * on antibiotics and stress dose steroids (5) Acute respiratory failure: Code(s): J96.00 - Acute respiratory failure, unspecified whether with hypoxia or hypercapnia Status: Acute Assessment and Plan: * due to pneunonia (aspiration) with what appears to be progression to ARDS * intubated and placed on mechanical ventilation on 08/14 * most recent CT of chest noted: * bilateral interstitial and alveolar opacification suggestive of ARDS versus pulmonary edema versus pneumonia. Follow-up and clinical correlation advised. Changes are increased compared to the previous examination * mediastinal lymphadenopathy * slight cardiomegaly. * fluid removal with dialysis * ventilator weaning when more stable (6) Pneumonia: Code(s): J18.9 - Pneumonia, unspecified organism Status: Acute Assessment and Plan: * as suggested by imaging to date * follow culture data * on antibiotics (7) Bone lesion: Code(s): M89.9 - Disorder of bone, unspecified Status: Acute Assessment and Plan: * as noted on admission imaging * concern for possible metastatic disease versus multiple myeloma * not stable for biopsy at this time (8) Small bowel obstruction: Code(s): K56.609 - Unspecified intestinal obstruction, unspecified as to partial versus complete obstruction Status: Acute Assessment and Plan: * CT of A/P noted: * a few dilated small bowel loops in the mid abdomen with no evidence of complete obstruction * right kidney stones with no hydronephrosis or ureteric stones * bilateral small fat containing inguinal hernias * minimal fat stranding posterior to the body and tail of the pancreas which may be artifactual * OG in place at this time * suspect ileus more than obstruction * General Surgery following * advance tube feeds as tolerated (9) Type 2 diabetes mellitus without complications: Code(s): E11.9 - Type 2 diabetes mellitus without complications Status: Acute Assessment and Plan: * follow accucheks * glycemic control per hospitalists/indigo mixer Will continue to follow. Subjective Date/time seen: 08/16/24 16:01 Interval history: Follow-up for acute kidney injury on chronic kidney disease. Seen earlier today and currently; remains intubated/sedated and on mechanical ventilation; renal function/creatinine and BUN are worse as noted by AM labs in association with poor urine output/anuria; remains hemodynamically stable off vasopressor therapy currently; s/p temporary HD catheter placement following platelet infusion and currently tolerating hemodialysis treatment at the time of my visit (seen on HD at 3:50PM). Exam Narrative: General: elderly male intubated/sedated and on mechanical ventilation Heart: normal S1 and S2; no rub Lungs: coarse breath sounds with bibasilar crackles Abdomen: soft, nontender, nondistended, decreased bowel sounds Extremities: no cyanosis or clubbing; no edema Skin: warm and dry Objective Data Vital Signs Vital Signs: Vital Signs Temp Pulse Resp BP Pulse Ox O2 Del Method FiO2 08/16/24 15:45 104 H 132/73 08/16/24 15:30 97 120/65 08/16/24 15:48 102 H 97 Mechanical Ventilation 50 08/16/24 16:15 106 H 140/77 08/16/24 15:17 94 123/62 08/16/24 15:00 97.5 F L 98 26 H 132/73 97 08/16/24 15:00 50 08/16/24 14:00 97.5 F L 97 26 H 120/61 97 08/16/24 12:00 50 08/16/24 12:00 97 Mechanical Ventilation 50 08/16/24 14:00 97 26 H 08/16/24 14:00 97 26 H 08/16/24 12:00 96 26 H 08/16/24 12:00 96 26 H 08/16/24 14:00 97 120/61 08/16/24 14:00 97 08/16/24 12:00 96 08/16/24 12:00 97.3 F L 96 26 H 110/62 96 08/16/24 12:00 96 111/60 08/16/24 13:02 96 97 Mechanical Ventilation 50 08/16/24 08:00 60 08/16/24 08:00 95 Mechanical Ventilation 60 08/16/24 10:00 93 08/16/24 08:00 97 08/16/24 10:00 93 26 H 08/16/24 08:00 98 26 H 08/16/24 10:00 93 26 H 08/16/24 08:00 98 26 H 08/16/24 10:00 93 97/60 L 08/16/24 08:00 98 113/58 L 08/16/24 10:20 97 97 Mechanical Ventilation 50 08/16/24 10:00 97.3 F L 93 24 H 97/60 L 96 08/16/24 10:06 97.2 F L 95 26 H 97/60 L 96 08/16/24 09:48 97.3 F L 96 26 H 119/61 96 08/16/24 08:52 97.2 F L 98 26 H 109/59 L 96 08/16/24 08:00 97.1 F L 98 26 H 113/58 L 95 08/16/24 08:37 97.2 F L 97 26 H 105/61 95 08/16/24 07:30 98 95 Mechanical Ventilation 50 08/16/24 07:17 97 96 Mechanical Ventilation 60 08/16/24 06:00 95 111/61 12/04/24 06:00 95 26 H 08/16/24 06:00 95 26 H 08/16/24 06:00 95 111/61 08/16/24 06:00 96.5 F L 95 26 H 111/61 97 08/16/24 06:00 95 08/16/24 05:25 91 97 Mechanical Ventilation 60 08/16/24 04:00 86 08/16/24 04:00 87 26 H 97 Mechanical Ventilation 60 08/16/24 04:00 60 08/16/24 04:00 96.4 F L 87 26 H 108/64 97 08/16/24 04:00 84 108/64 08/16/24 02:00 90 102/53 L 08/16/24 00:00 93 101/52 L 08/16/24 04:00 84 26 H 08/16/24 02:00 90 26 H 08/16/24 00:00 93 26 H 08/16/24 04:00 84 26 H 08/16/24 02:00 90 26 H 08/16/24 00:00 93 26 H 08/16/24 04:00 84 108/64 08/16/24 02:00 90 102/53 L 08/16/24 00:00 93 101/52 L 08/16/24 02:52 92 96 Mechanical Ventilation 60 08/16/24 02:00 96.9 F L 92 26 H 102/53 L 96 08/16/24 02:00 92 08/16/24 00:00 92 08/16/24 00:00 97.3 F L 93 26 H 101/52 L 96 08/15/24 23:45 97.4 F L 93 26 H 107/56 L 96 08/15/24 23:45 92 26 H 96 Mechanical Ventilation 60 08/15/24 23:44 60 08/15/24 23:30 97.5 F L 93 26 H 105/55 L 96 08/15/24 23:31 92 105/55 L 08/15/24 23:25 97.5 F L 93 26 H 106/55 L 96 08/15/24 23:25 92 106/55 L 08/15/24 22:00 95 102/55 L 08/15/24 22:00 95 26 H 08/15/24 22:00 95 26 H 08/15/24 22:00 94 102/51 L 08/15/24 22:53 91 96 Mechanical Ventilation 60 08/15/24 22:00 98.0 F 94 26 H 102/51 L 96 08/15/24 22:00 94 08/15/24 21:30 97.9 F 95 26 H 104/51 L 96 08/15/24 20:00 98 08/15/24 21:15 98.2 F 95 26 H 109/54 L 97 08/15/24 21:17 95 109/54 L 08/15/24 21:00 98.2 F 95 26 H 110/53 L 97 08/15/24 21:12 95 110/53 L 08/15/24 20:33 97 96 Mechanical Ventilation 60 08/15/24 20:31 98.4 F 96 26 H 110/55 L 97 08/15/24 20:15 98.5 F 97 26 H 111/55 L 97 08/15/24 20:10 97 111/56 L 08/15/24 20:00 97 26 H 08/15/24 20:00 97 26 H 08/15/24 20:00 97 111/56 L 08/15/24 20:00 98 26 H 97 Mechanical Ventilation 60 08/15/24 20:00 60 08/15/24 20:00 98.6 F 98 26 H 111/56 L 97 08/15/24 19:45 100 115/53 L 08/15/24 18:55 102 H 106/45 L 08/15/24 18:00 102 H 96/57 L 08/15/24 18:00 101 H 27 H 08/15/24 18:00 101 H 27 H 08/15/24 17:55 101 H 110/70 08/15/24 18:00 101 H 08/15/24 18:00 100.1 F H 100 27 H 96/57 L 96 Intake/Output Intake/Output: Intake & Output 08/13/24 08/14/24 08/15/24 08/16/24 23:59 23:59 23:59 23:59 Intake Total 1558.3 1074.4 2147.0 1450 Output Total 600 1951 856 125 Balance 958.3 -876.6 1291.0 1325 Meds/Results Medications: Active Medications Generic Name Dose Route Start Last Admin Trade Name Freq PRN Reason Stop Dose Admin Acetaminophen 650 mg 08/15/24 06:44 08/15/24 13:20 Acetaminophen Elixir 325 Mg/10.15 Ml Udc PO 650 mg Q4H PRN Administration Mild Pain (1-3) or Fever Dextrose 12.5 gm 08/10/24 06:29 08/11/24 10:46 Dextrose 50% 25 Gm/50 Ml Syringe IV PUSH 12.5 gm PRN PRN Administration Hypoglycemia Protocol Epoetin Talat-epbx 10,000 units 08/16/24 21:30 Epoetin Talat-Epbx 10,000 Units/Ml Vial IV PUSH 08/16/24 21:31 ONCE ONE Glucagon 1 mg 08/10/24 06:29 Glucagon For Inj 1 Mg Vial IM PRN PRN Hypoglycemia Protocol Glucose 15 gm 08/10/24 06:29 Glucose Oral Gel 15 Gm Of Glucse In 37.5 Gm Tube PO PRN PRN Hypoglycemia Protocol Hydralazine HCl 20 mg 08/11/24 11:57 Hydralazine Hcl 20 Mg/Ml Vial IV PUSH Q4H PRN Blood Sugar - High Hydrocortisone Sodium Succinate 100 mg 08/15/24 14:00 08/16/24 13:24 Hydrocortisone Sodium Succinate 100 Mg/2 Ml Vial IV PUSH 100 mg Q8HR [place] Administration Dextrose 1,000 mls @ 100 mls/hr 08/10/24 06:29 Dextrose 5% 1,000 Ml IVPB PRN PRN Hypoglycemia Protocol Metronidazole 500 mg in 100 mls @ 100 mls/hr 08/10/24 13:00 08/16/24 14:24 Flagyl 500 Mg/Iso Soln 100 Ml IVPB Infused Q8HR [place] Infusion Fentanyl Citrate 2,500 mcg in 250 mls @ 0 mls/hr 08/14/24 12:20 08/16/24 14:00 Fentanyl 2,500 Mcg/Ns 250 Ml IV CONT 0 mcg/hr .Q0M [place] 0 mls/hr Titration Protocol Midazolam HCl 100 mg in 100 mls @ 0 mls/hr 08/14/24 12:20 08/16/24 14:00 Versed 100 Mg/Ns 100 Ml IV CONT 0 mg/hr .Q0M [place] 0 mls/hr Titration Protocol Cefepime HCl 1 gm in 50 mls @ 100 mls/hr 08/14/24 15:00 08/16/24 04:24 Maxipime 1 Gm/Ns 50 Ml IVPB Infused Q12H [place] Infusion Norepinephrine Bitartrate 8 mg in 250 mls @ 0 mls/hr 08/14/24 17:35 08/16/24 14:00 Levophed 8 Mg/D5w 250 Ml IV CONT 0 mcg/min .Q0M [place] 0 mls/hr Titration Protocol 0 MCG/MIN Albumin Human 50 mls @ 999 mls/hr 08/16/24 10:28 Albutein IVPB 09/15/24 10:27 Q10M PRN HYPOTENSION Insulin Aspart 4 - 8 units 08/16/24 09:00 08/16/24 11:58 Insulin Aspart (*Bkc) 100 Units/Ml SUB-Q Not Given Q4HR [facility] Protocol Ipratropium Beulah 0.5 mg 08/14/24 14:27 Ipratropium Br 0.02% Inh Soln 0.5 Mg/2.5 Ml Vial INHALATION Q6HRT PRN Shortness Of Breath Or Wheezing Levalbuterol HCl 0.63 mg 08/14/24 14:27 Levalbuterol Neb 1.25 Mg/3 Ml INHALATION Q6HRT PRN Shortness Of Breath Or Wheezing Metoclopramide HCl 10 mg 08/16/24 12:00 08/16/24 11:58 Metoclopramide Hcl Inj 10 Mg/2 Ml Vial IV PUSH 10 mg Q6HR [place] Administration Midazolam HCl 2 mg 08/14/24 12:06 Midazolam Hcl (*Crx) 2 Mg/2 Ml Vial IV PUSH Q5M PRN ventilator asynchrony Multi-Ingred Cream/Lotion/Oil/Oint 1 applic 08/14/24 21:00 08/16/24 08:27 Mineral Oil/White Petrolatum Ointment EACH EYE 1 applic Q12HR [place] Administration Ondansetron HCl 4 mg 08/12/24 03:15 08/14/24 05:34 Ondansetron Inj 4 Mg/2 Ml Vial IV PUSH 4 mg Q4H PRN Administration Nausea And Vomiting Pantoprazole Sodium 40 mg 08/13/24 09:00 08/16/24 08:26 Pantoprazole Sodium Iv 40 Mg Vial IV PUSH 40 mg QAM [place] Administration Perflutren Lipid Microsphere 0 ml 08/14/24 08:35 Perflutren Lipid Microspheres 1.5 Ml Vial Diluted To 10 Ml Total Volume IV PUSH 08/17/24 08:35 ONCE PRN adequate visualization Protocol Sodium Chloride 10 ml 08/14/24 14:00 08/16/24 13:24 Central Line Flush IV PUSH 10 ml Q8HR [place] Administration Sodium Chloride 10 ml 08/14/24 13:51 Central Line Flush IV PUSH PRN PRN with TPN bag changes Sodium Chloride 20 ml 08/14/24 13:51 Central Line Flush IV PUSH PRN PRN after blood draws Radiology Results: ITS Impressions Cervical Spine CT 08/09/24 18:15 IMPRESSION: 1. Moderate to severe cervical spondylosis. No acute osseous abnormality. Thoracic/Lumbar Spine CT 08/09/24 18:22 IMPRESSION: 1. Multiple old posterior left rib fractures and chronic compression fractures with mild anterior wedging at T5 and T6 and mild right-sided anterior vertebral body height loss at L2. No acute osseous abnormality. 2. Moderate thoracic spondylosis and mild lumbar spondylosis. 3. Combined instrumented L5-S1 anterior and posterior spinal fusion. 4. Chronic bilateral lower lung predominant interstitial lung disease with indeterminate 8 mm pulmonary nodule in the left lower lobe. Recommend 3 month follow-up low-dose noncontrast chest CT. Chest CTA 08/10/24 18:43 IMPRESSION: 1. No pulmonary embolism. 2. Bilateral interstitial and alveolar opacification more prominent in the right upper lobe which may indicate pneumonitis versus fibrotic changes versus pulmonary edema. 3. Bilateral pleural effusion more on the right side. 4. Cholelithiasis. 5. Left adrenal adenoma. 6. Mediastinal lymphadenopathy.. 7. Multiple healing rib fractures in the left hemithorax. Brain MRA 08/11/24 09:25 IMPRESSION: 1. High-grade stenosis on the right P1 segment with downstream moderate-sized region of encephalomalacia consistent with chronic infarct. 2. Moderate grade stenosis at the origin of the right M1 segment. Brain MRI 08/12/24 14:11 IMPRESSION: No acute intracranial process. Abdomen Ultrasound 08/12/24 16:37 IMPRESSION: Likely, additional gallbladder sludge and stones in the dependent gallbladder lumen. Small Bowel X-Ray 08/12/24 19:16 IMPRESSION: Radiographic findings consistent with low-grade small bowel obstruction or ileus. Lumbar Spine MRI 08/13/24 06:32 IMPRESSION: 1. Widespread enhancement of the bones without abnormal CT correlate suspicious for metastatic disease or multiple myeloma. 2. Mild lumbar spondylosis. 3. Anterior fusion procedure at L5-S1. Cervical Spine MRI 08/13/24 06:43 IMPRESSION: 1. Widespread abnormal contrast enhancement in the bones, consistent with metastatic disease versus multiple myeloma. 2. Moderate cervical spondylosis. Thoracic Spine MRI 08/13/24 06:48 IMPRESSION: 1. Widespread contrast enhancement of the bones, consistent with metastatic disease versus multiple myeloma. 2. Mild thoracic spondylosis. Venous Doppler Study 08/14/24 15:47 IMPRESSION: 1. No deep venous thrombosis. 2. Small left Calles's cyst. Chest/Abdomen/Pelvis CT 08/14/24 17:11 IMPRESSION: CHEST: 1. Bilateral interstitial and alveolar opacification suggestive of ARDS versus pulmonary edema versus pneumonia. Follow-up and clinical correlation advised. Changes are increased compared to the previous examination. 2. Mediastinal lymphadenopathy. 3. Slight cardiomegaly. ABDOMEN/PELVIS: 1. A few dilated small bowel loops in the mid abdomen with no evidence of complete obstruction. Improvement is noted compared to previous study. Follow-up advised. 2. Right kidney stones with no hydronephrosis or ureteric stones. 3. Bilateral small fat containing inguinal hernias. Minimal fat stranding posterior to the body and tail of the pancreas which may be artifactual. Head CT 08/15/24 08:37 IMPRESSION: 1. 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 Abdomen X-Ray 08/15/24 10:58 IMPRESSION: 1. Orogastric tube in the stomach with distal tip near the pylorus. Consider withdrawal by 10 cm. 2. Diffuse bilateral lung disease which could represent pulmonary edema, pneumonia, ARDS or some combination thereof. 3. Endotracheal tube tip 6.1 cm above the tyler. Consider advancement by 3.4 cm. Renal Ultrasound 08/15/24 14:34 IMPRESSION: 1. A couple cysts in the left kidney. Otherwise normal kidneys with no hydronephrosis. Chest X-Ray 08/16/24 10:26 IMPRESSION: 1. Diffuse lung disease with improvement in left midlung zone, consistent with pulmonary edema versus pneumonia versus acute respiratory distress syndrome (ARDS). 2. Cardiomegaly. Labs Labs: Laboratory Tests 08/16/24 05:46 08/16/24 05:46 Calcium 6.0 L Magnesium 2.6 H Total Bilirubin 2.2 H AST 213 H ALT 40 Alkaline Phosphatase 133 H Total Protein 5.0 L Albumin 2.4 L
--- NOTE | 2024-08-16 16:40 | P.PNGS_ITS ---
Progress Note: A&P Assessment and Plan (1) Small bowel obstruction: Code(s): K56.609 - Unspecified intestinal obstruction, unspecified as to partial versus complete obstruction Status: Acute Assessment and Plan: Patient is critically ill in the ICU with septic shock, respiratory failure, SAMUEL and now requiring hemodialysis. His prognosis is guarded. We would recommend continued critical care management. While he is intubated he will have the OG tube and okay to try resuming tube feedings from our standpoint. Continue Reglan. We will follow along peripherally in case he starts improving and we would need to re-evaluate his possible partial small bowel obstruction versus ileus at that time. He is too unstable for any surgical intervention and needs continued medical treatment for his acute medical issues currently before there would be any need to further evaluate him surgically. (2) Thrombocytopenia: Code(s): D69.6 - Thrombocytopenia, unspecified Status: Acute (3) Septic shock: Code(s): A41.9 - Sepsis, unspecified organism; R65.21 - Severe sepsis with septic shock Status: Acute (4) SAMUEL (acute kidney injury): Code(s): N17.9 - Acute kidney failure, unspecified Status: Acute (5) Acute respiratory failure: Code(s): J96.00 - Acute respiratory failure, unspecified whether with hypoxia or hypercapnia Status: Acute Plan I have discussed the patient's case and plan of care with Dr. Barrientos. Subjective Subjective Date/Time Seen: 08/16/24 16:40 Interval history: Patient is seen in the ICU. He is still appended and off sedation. He is now receiving dialysis today as his BUN and creatinine have increased with low urine output and hyperkalemia. Per nursing, he had high residuals of 400 cc this morning and his tube feeding was held. His OG tube is currently clamped and they are giving 200 cc q.4 hours free water flushes due to his hypernatremia. Exam Const: General: ill appearing and patient obtunded (intubated, off sedation, does not open eyes or follow commands) GI: Inspection: other (mildly distended) GI Palp: Yes Soft to palpation, No Guarding due to palpation present (GI) and Yes Other GI palpation findings present (limited due to critical illness) Auscultation: Hypoactive bowel sounds present Objective Data Vital Signs Vital Signs: Vital Signs - 24 hr 08/15/24 18:00 08/15/24 18:00 08/15/24 17:55 Temperature 100.1 F H Pulse Rate 100 101 H 101 H Respiratory Rate 27 H Blood Pressure 96/57 L 110/70 Pulse Oximetry 96 Oxygen Delivery Fraction of Inspired Oxygen 08/15/24 18:00 08/15/24 18:00 08/15/24 18:00 Temperature Pulse Rate 101 H 101 H 102 H Respiratory Rate 27 H 27 H Blood Pressure 96/57 L Pulse Oximetry Oxygen Delivery Fraction of Inspired Oxygen 08/15/24 18:55 08/15/24 19:45 08/15/24 20:00 Temperature 98.6 F Pulse Rate 102 H 100 98 Respiratory Rate 26 H Blood Pressure 106/45 L 115/53 L 111/56 L Pulse Oximetry 97 Oxygen Delivery Fraction of Inspired Oxygen 08/15/24 20:00 08/15/24 20:00 08/15/24 20:00 Temperature Pulse Rate 98 97 Respiratory Rate 26 H Blood Pressure 111/56 L Pulse Oximetry 97 Oxygen Delivery Mechanical Ventilation Fraction of Inspired Oxygen 60 60 08/15/24 20:00 08/15/24 20:00 08/15/24 20:10 Temperature Pulse Rate 97 97 97 Respiratory Rate 26 H 26 H Blood Pressure 111/56 L Pulse Oximetry Oxygen Delivery Fraction of Inspired Oxygen 08/15/24 20:15 08/15/24 20:31 08/15/24 20:33 Temperature 98.5 F 98.4 F Pulse Rate 97 96 97 Respiratory Rate 26 H 26 H Blood Pressure 111/55 L 110/55 L Pulse Oximetry 97 97 96 Oxygen Delivery Mechanical Ventilation Fraction of Inspired Oxygen 60 08/15/24 21:12 08/15/24 21:00 08/15/24 21:17 Temperature 98.2 F Pulse Rate 95 95 95 Respiratory Rate 26 H Blood Pressure 110/53 L 110/53 L 109/54 L Pulse Oximetry 97 Oxygen Delivery Fraction of Inspired Oxygen 08/15/24 21:15 08/15/24 20:00 08/15/24 21:30 Temperature 98.2 F 97.9 F Pulse Rate 95 98 95 Respiratory Rate 26 H 26 H Blood Pressure 109/54 L 104/51 L Pulse Oximetry 97 96 Oxygen Delivery Fraction of Inspired Oxygen 08/15/24 22:00 08/15/24 22:00 08/15/24 22:53 Temperature 98.0 F Pulse Rate 94 94 91 Respiratory Rate 26 H Blood Pressure 102/51 L Pulse Oximetry 96 96 Oxygen Delivery Mechanical Ventilation Fraction of Inspired Oxygen 60 08/15/24 22:00 08/15/24 22:00 08/15/24 22:00 Temperature Pulse Rate 94 95 95 Respiratory Rate 26 H 26 H Blood Pressure 102/51 L Pulse Oximetry Oxygen Delivery Fraction of Inspired Oxygen 08/15/24 22:00 08/15/24 23:25 08/15/24 23:25 Temperature 97.5 F L Pulse Rate 95 92 93 Respiratory Rate 26 H Blood Pressure 102/55 L 106/55 L 106/55 L Pulse Oximetry 96 Oxygen Delivery Fraction of Inspired Oxygen 08/15/24 23:31 08/15/24 23:30 08/15/24 23:44 Temperature 97.5 F L Pulse Rate 92 93 Respiratory Rate 26 H Blood Pressure 105/55 L 105/55 L Pulse Oximetry 96 Oxygen Delivery Fraction of Inspired Oxygen 60 08/15/24 23:45 08/15/24 23:45 08/16/24 00:00 Temperature 97.4 F L 97.3 F L Pulse Rate 92 93 93 Respiratory Rate 26 H 26 H 26 H Blood Pressure 107/56 L 101/52 L Pulse Oximetry 96 96 96 Oxygen Delivery Mechanical Ventilation Fraction of Inspired Oxygen 60 08/16/24 00:00 08/16/24 02:00 08/16/24 02:00 Temperature 96.9 F L Pulse Rate 92 92 92 Respiratory Rate 26 H Blood Pressure 102/53 L Pulse Oximetry 96 Oxygen Delivery Fraction of Inspired Oxygen 08/16/24 02:52 08/16/24 00:00 08/16/24 02:00 Temperature Pulse Rate 92 93 90 Respiratory Rate Blood Pressure 101/52 L 102/53 L Pulse Oximetry 96 Oxygen Delivery Mechanical Ventilation Fraction of Inspired Oxygen 60 08/16/24 04:00 08/16/24 00:00 08/16/24 02:00 Temperature Pulse Rate 84 93 90 Respiratory Rate 26 H 26 H Blood Pressure 108/64 Pulse Oximetry Oxygen Delivery Fraction of Inspired Oxygen 08/16/24 04:00 08/16/24 00:00 08/16/24 02:00 Temperature Pulse Rate 84 93 90 Respiratory Rate 26 H 26 H 26 H Blood Pressure Pulse Oximetry Oxygen Delivery Fraction of Inspired Oxygen 08/16/24 04:00 08/16/24 00:00 08/16/24 02:00 Temperature Pulse Rate 84 93 90 Respiratory Rate 26 H Blood Pressure 101/52 L 102/53 L Pulse Oximetry Oxygen Delivery Fraction of Inspired Oxygen 08/16/24 04:00 08/16/24 04:00 08/16/24 04:00 Temperature 96.4 F L Pulse Rate 84 87 Respiratory Rate 26 H Blood Pressure 108/64 108/64 Pulse Oximetry 97 Oxygen Delivery Fraction of Inspired Oxygen 60 08/16/24 04:00 08/16/24 04:00 08/16/24 05:25 Temperature Pulse Rate 87 86 91 Respiratory Rate 26 H Blood Pressure Pulse Oximetry 97 97 Oxygen Delivery Mechanical Ventilation Mechanical Ventilation Fraction of Inspired Oxygen 60 60 08/16/24 06:00 08/16/24 06:00 08/16/24 06:00 Temperature 96.5 F L Pulse Rate 95 95 95 Respiratory Rate 26 H Blood Pressure 111/61 111/61 Pulse Oximetry 97 Oxygen Delivery Fraction of Inspired Oxygen 08/16/24 06:00 08/16/24 06:00 08/16/24 06:00 Temperature Pulse Rate 95 95 95 Respiratory Rate 26 H 26 H Blood Pressure 111/61 Pulse Oximetry Oxygen Delivery Fraction of Inspired Oxygen 08/16/24 07:17 08/16/24 07:30 08/16/24 08:37 Temperature 97.2 F L Pulse Rate 97 98 97 Respiratory Rate 26 H Blood Pressure 105/61 Pulse Oximetry 96 95 95 Oxygen Delivery Mechanical Ventilation Mechanical Ventilation Fraction of Inspired Oxygen 60 50 08/16/24 08:00 08/16/24 08:52 08/16/24 09:48 Temperature 97.1 F L 97.2 F L 97.3 F L Pulse Rate 98 98 96 Respiratory Rate 26 H 26 H 26 H Blood Pressure 113/58 L 109/59 L 119/61 Pulse Oximetry 95 96 96 Oxygen Delivery Fraction of Inspired Oxygen 08/16/24 10:06 08/16/24 10:00 08/16/24 10:20 Temperature 97.2 F L 97.3 F L Pulse Rate 95 93 97 Respiratory Rate 26 H 24 H Blood Pressure 97/60 L 97/60 L Pulse Oximetry 96 96 97 Oxygen Delivery Mechanical Ventilation Fraction of Inspired Oxygen 50 08/16/24 08:00 08/16/24 10:00 08/16/24 08:00 Temperature Pulse Rate 98 93 98 Respiratory Rate 26 H Blood Pressure 113/58 L 97/60 L Pulse Oximetry Oxygen Delivery Fraction of Inspired Oxygen 08/16/24 10:00 08/16/24 08:00 08/16/24 10:00 Temperature Pulse Rate 93 98 93 Respiratory Rate 26 H 26 H 26 H Blood Pressure Pulse Oximetry Oxygen Delivery Fraction of Inspired Oxygen 08/16/24 08:00 08/16/24 10:00 08/16/24 08:00 Temperature Pulse Rate 97 93 Respiratory Rate Blood Pressure Pulse Oximetry 95 Oxygen Delivery Mechanical Ventilation Fraction of Inspired Oxygen 60 08/16/24 08:00 08/16/24 13:02 08/16/24 12:00 Temperature Pulse Rate 96 96 Respiratory Rate Blood Pressure 111/60 Pulse Oximetry 97 Oxygen Delivery Mechanical Ventilation Fraction of Inspired Oxygen 60 50 08/16/24 12:00 08/16/24 12:00 08/16/24 14:00 Temperature 97.3 F L Pulse Rate 96 96 97 Respiratory Rate 26 H Blood Pressure 110/62 Pulse Oximetry 96 Oxygen Delivery Fraction of Inspired Oxygen 08/16/24 14:00 08/16/24 12:00 08/16/24 12:00 Temperature Pulse Rate 97 96 96 Respiratory Rate 26 H 26 H Blood Pressure 120/61 Pulse Oximetry Oxygen Delivery Fraction of Inspired Oxygen 08/16/24 14:00 08/16/24 14:00 08/16/24 12:00 Temperature Pulse Rate 97 97 Respiratory Rate 26 H 26 H Blood Pressure Pulse Oximetry 97 Oxygen Delivery Mechanical Ventilation Fraction of Inspired Oxygen 50 08/16/24 12:00 08/16/24 14:00 08/16/24 15:00 Temperature 97.5 F L Pulse Rate 97 Respiratory Rate 26 H Blood Pressure 120/61 Pulse Oximetry 97 Oxygen Delivery Fraction of Inspired Oxygen 50 50 08/16/24 15:00 08/16/24 15:17 08/16/24 16:15 Temperature 97.5 F L Pulse Rate 98 94 106 H Respiratory Rate 26 H Blood Pressure 132/73 123/62 140/77 Pulse Oximetry 97 Oxygen Delivery Fraction of Inspired Oxygen 08/16/24 16:30 08/16/24 15:48 08/16/24 15:30 Temperature Pulse Rate 109 H 102 H 97 Respiratory Rate Blood Pressure 141/80 H 120/65 Pulse Oximetry 97 Oxygen Delivery Mechanical Ventilation Fraction of Inspired Oxygen 50 08/16/24 15:45 08/16/24 16:00 Temperature Pulse Rate 104 H 105 H Respiratory Rate Blood Pressure 132/73 137/81 Pulse Oximetry Oxygen Delivery Fraction of Inspired Oxygen Intake/Output Intake/Output: Intake & Output 08/13/24 08/14/24 08/15/24 08/16/24 23:59 23:59 23:59 23:59 Intake Total 1558.3 1074.4 2147.0 1450 Output Total 600 1951 856 125 Balance 958.3 -876.6 1291.0 1325 Meds/Results Medications: Active Medications Generic Name Dose Route Start Last Admin Trade Name Freq PRN Reason Stop Dose Admin Acetaminophen 650 mg 08/15/24 06:44 08/15/24 13:20 Acetaminophen Elixir 325 Mg/10.15 Ml Udc PO 650 mg Q4H PRN Administration Mild Pain (1-3) or Fever Dextrose 12.5 gm 08/10/24 06:29 08/11/24 10:46 Dextrose 50% 25 Gm/50 Ml Syringe IV PUSH 12.5 gm PRN PRN Administration Hypoglycemia Protocol Epoetin [place]-epbx 10,000 units 08/16/24 21:30 Epoetin [place]-Epbx 10,000 Units/Ml Vial IV PUSH 08/16/24 21:31 ONCE ONE Glucagon 1 mg 08/10/24 06:29 Glucagon For Inj 1 Mg Vial IM PRN PRN Hypoglycemia Protocol Glucose 15 gm 08/10/24 06:29 Glucose Oral Gel 15 Gm Of Glucse In 37.5 Gm Tube PO PRN PRN Hypoglycemia Protocol Hydralazine HCl 20 mg 08/11/24 11:57 Hydralazine Hcl 20 Mg/Ml Vial IV PUSH Q4H PRN Blood Sugar - High Hydrocortisone Sodium Succinate 100 mg 08/15/24 14:00 08/16/24 13:24 Hydrocortisone Sodium Succinate 100 Mg/2 Ml Vial IV PUSH 100 mg Q8HR [place] Administration Dextrose 1,000 mls @ 100 mls/hr 08/10/24 06:29 Dextrose 5% 1,000 Ml IVPB PRN PRN Hypoglycemia Protocol Metronidazole 500 mg in 100 mls @ 100 mls/hr 08/10/24 13:00 08/16/24 14:24 Flagyl 500 Mg/Iso Soln 100 Ml IVPB Infused Q8HR [place] Infusion Fentanyl Citrate 2,500 mcg in 250 mls @ 0 mls/hr 08/14/24 12:20 08/16/24 14:00 Fentanyl 2,500 Mcg/Ns 250 Ml IV CONT 0 mcg/hr .Q0M [place] 0 mls/hr Titration Protocol Midazolam HCl 100 mg in 100 mls @ 0 mls/hr 08/14/24 12:20 08/16/24 14:00 Versed 100 Mg/Ns 100 Ml IV CONT 0 mg/hr .Q0M [place] 0 mls/hr Titration Protocol Cefepime HCl 1 gm in 50 mls @ 100 mls/hr 08/14/24 15:00 08/16/24 04:24 Maxipime 1 Gm/Ns 50 Ml IVPB Infused Q12H [place] Infusion Norepinephrine Bitartrate 8 mg in 250 mls @ 0 mls/hr 08/14/24 17:35 08/16/24 14:00 Levophed 8 Mg/D5w 250 Ml IV CONT 0 mcg/min .Q0M [place] 0 mls/hr Titration Protocol 0 MCG/MIN Albumin Human 50 mls @ 999 mls/hr 08/16/24 10:28 Albutein IVPB 09/15/24 10:27 Q10M PRN HYPOTENSION Insulin Aspart 4 - 8 units 08/16/24 09:00 08/16/24 11:58 Insulin Aspart (*Bkc) 100 Units/Ml SUB-Q Not Given Q4HR [facility] Protocol Ipratropium [place] 0.5 mg 08/14/24 14:27 Ipratropium Br 0.02% Inh Soln 0.5 Mg/2.5 Ml Vial INHALATION Q6HRT PRN Shortness Of Breath Or Wheezing Levalbuterol HCl 0.63 mg 08/14/24 14:27 Levalbuterol Neb 1.25 Mg/3 Ml INHALATION Q6HRT PRN Shortness Of Breath Or Wheezing Metoclopramide HCl 10 mg 08/16/24 12:00 08/16/24 11:58 Metoclopramide Hcl Inj 10 Mg/2 Ml Vial IV PUSH 10 mg Q6HR [place] Administration Midazolam HCl 2 mg 08/14/24 12:06 Midazolam Hcl (*Crx) 2 Mg/2 Ml Vial IV PUSH Q5M PRN ventilator asynchrony Multi-Ingred Cream/Lotion/Oil/Oint 1 applic 08/14/24 21:00 08/16/24 08:27 Mineral Oil/White Petrolatum Ointment EACH EYE 1 applic Q12HR [place] Administration Ondansetron HCl 4 mg 08/12/24 03:15 08/14/24 05:34 Ondansetron Inj 4 Mg/2 Ml Vial IV PUSH 4 mg Q4H PRN Administration Nausea And Vomiting Pantoprazole Sodium 40 mg 08/13/24 09:00 08/16/24 08:26 Pantoprazole Sodium Iv 40 Mg Vial IV PUSH 40 mg QAM [place] Administration Perflutren Lipid Microsphere 0 ml 08/14/24 08:35 Perflutren Lipid Microspheres 1.5 Ml Vial Diluted To 10 Ml Total Volume IV PUSH 08/17/24 08:35 ONCE PRN adequate visualization Protocol Sodium Chloride 10 ml 08/14/24 14:00 08/16/24 13:24 Central Line Flush IV PUSH 10 ml Q8HR [place] Administration Sodium Chloride 10 ml 08/14/24 13:51 Central Line Flush IV PUSH PRN PRN with TPN bag changes Sodium Chloride 20 ml 08/14/24 13:51 Central Line Flush IV PUSH PRN PRN after blood draws Radiology Results: ITS Impressions Cervical Spine CT 08/09/24 18:15 IMPRESSION: 1. Moderate to severe cervical spondylosis. No acute osseous abnormality. Thoracic/Lumbar Spine CT 08/09/24 18:22 IMPRESSION: 1. Multiple old posterior left rib fractures and chronic compression fractures with mild anterior wedging at T5 and T6 and mild right-sided anterior vertebral body height loss at L2. No acute osseous abnormality. 2. Moderate thoracic spondylosis and mild lumbar spondylosis. 3. Combined instrumented L5-S1 anterior and posterior spinal fusion. 4. Chronic bilateral lower lung predominant interstitial lung disease with indeterminate 8 mm pulmonary nodule in the left lower lobe. Recommend 3 month follow-up low-dose noncontrast chest CT. Chest CTA 08/10/24 18:43 IMPRESSION: 1. No pulmonary embolism. 2. Bilateral interstitial and alveolar opacification more prominent in the right upper lobe which may indicate pneumonitis versus fibrotic changes versus pulmonary edema. 3. Bilateral pleural effusion more on the right side. 4. Cholelithiasis. 5. Left adrenal adenoma. 6. Mediastinal lymphadenopathy.. 7. Multiple healing rib fractures in the left hemithorax. Brain MRA 08/11/24 09:25 IMPRESSION: 1. High-grade stenosis on the right P1 segment with downstream moderate-sized region of encephalomalacia consistent with chronic infarct. 2. Moderate grade stenosis at the origin of the right M1 segment. Brain MRI 08/12/24 14:11 IMPRESSION: No acute intracranial process. Abdomen Ultrasound 08/12/24 16:37 IMPRESSION: Likely, additional gallbladder sludge and stones in the dependent gallbladder lumen. Small Bowel X-Ray 08/12/24 19:16 IMPRESSION: Radiographic findings consistent with low-grade small bowel obstruction or ileus. Lumbar Spine MRI 08/13/24 06:32 IMPRESSION: 1. Widespread enhancement of the bones without abnormal CT correlate suspicious for metastatic disease or multiple myeloma. 2. Mild lumbar spondylosis. 3. Anterior fusion procedure at L5-S1. Cervical Spine MRI 08/13/24 06:43 IMPRESSION: 1. Widespread abnormal contrast enhancement in the bones, consistent with metastatic disease versus multiple myeloma. 2. Moderate cervical spondylosis. Thoracic Spine MRI 08/13/24 06:48 IMPRESSION: 1. Widespread contrast enhancement of the bones, consistent with metastatic disease versus multiple myeloma. 2. Mild thoracic spondylosis. Venous Doppler Study 08/14/24 15:47 IMPRESSION: 1. No deep venous thrombosis. 2. Small left Calles's cyst. Chest/Abdomen/Pelvis CT 08/14/24 17:11 IMPRESSION: CHEST: 1. Bilateral interstitial and alveolar opacification suggestive of ARDS versus pulmonary edema versus pneumonia. Follow-up and clinical correlation advised. Changes are increased compared to the previous examination. 2. Mediastinal lymphadenopathy. 3. Slight cardiomegaly. ABDOMEN/PELVIS: 1. A few dilated small bowel loops in the mid abdomen with no evidence of complete obstruction. Improvement is noted compared to previous study. Follow-up advised. 2. Right kidney stones with no hydronephrosis or ureteric stones. 3. Bilateral small fat containing inguinal hernias. Minimal fat stranding posterior to the body and tail of the pancreas which may be artifactual. Head CT 08/15/24 08:37 IMPRESSION: 1. 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 Abdomen X-Ray 08/15/24 10:58 IMPRESSION: 1. Orogastric tube in the stomach with distal tip near the pylorus. Consider withdrawal by 10 cm. 2. Diffuse bilateral lung disease which could represent pulmonary edema, pneumonia, ARDS or some combination thereof. 3. Endotracheal tube tip 6.1 cm above the tyler. Consider advancement by 3.4 cm. Renal Ultrasound 08/15/24 14:34 IMPRESSION: 1. A couple cysts in the left kidney. Otherwise normal kidneys with no hydronephrosis. Chest X-Ray 08/16/24 10:26 IMPRESSION: 1. Diffuse lung disease with improvement in left midlung zone, consistent with pulmonary edema versus pneumonia versus acute respiratory distress syndrome (ARDS). 2. Cardiomegaly. Labs Labs: Laboratory Results - last 24 hr 08/14/24 08/15/24 08/15/24 18:44 08:01 11:32 WBC RBC Hgb Hct MCV MCH MCHC RDW Plt Count MPV % Immature Plt Fraction Puncture Site ABG pH ABG pCO2 ABG pO2 ABG PO2/FiO2 Ratio ABG HCO3 ABG O2 Saturation ABG O2 Content ABG Base Excess A-a Gradient Oxyhemoglobin Carboxyhemoglobin Methemoglobin Reduced Hemoglobin Total Hemoglobin O2 Delivery Device O2 Liters/Min Minute Volume Vent Rate Vent Mode FiO2 Tidal Volume PEEP Peak Inspir Pressure Pressure Support Sodium Potassium Chloride Carbon Dioxide Anion Gap BUN Creatinine Estim Creat Clear Calc Estimated GFR Glucose POC Capillary Glucose Calcium Magnesium Total Bilirubin AST ALT Alkaline Phosphatase Total Protein Albumin Lipase Ur Random Creatinine 111 U Random Total Protein 105 H Protein/Creatinin Ratio 946 H Urine Albumin 29 U Kanqg-8-Jnirambs 10 U Koftk-6-Ngsleqxj 9 U Beta Globulin 13 U Gamma Globulin 40 U Abnormal Prot Band 1 12 H Urine PEP Interpret See note Urine Immunofixation Hep Bs Antigen Hep Bs Antibody Blood Type B Positive 08/15/24 08/15/24 08/15/24 16:35 17:32 22:51 WBC RBC Hgb Hct MCV MCH MCHC RDW Plt Count MPV % Immature Plt Fraction Puncture Site ABG pH ABG pCO2 ABG pO2 ABG PO2/FiO2 Ratio ABG HCO3 ABG O2 Saturation ABG O2 Content ABG Base Excess A-a Gradient Oxyhemoglobin Carboxyhemoglobin Methemoglobin Reduced Hemoglobin Total Hemoglobin O2 Delivery Device O2 Liters/Min Minute Volume Vent Rate Vent Mode FiO2 Tidal Volume PEEP Peak Inspir Pressure Pressure Support Sodium 147 H 147 H Potassium 6.0 H* 5.2 H Chloride 110 H 110 H Carbon Dioxide 24 26 Anion Gap 13 H 11 BUN 89 H 98 H Creatinine 4.80 H 5.10 H Estim Creat Clear Calc 13 13 Estimated GFR 12 L 11 L Glucose 243 H 289 H POC Capillary Glucose 211 H Calcium 5.8 L* 6.0 L Magnesium Total Bilirubin AST ALT Alkaline Phosphatase Total Protein Albumin Lipase 123 Ur Random Creatinine U Random Total Protein Protein/Creatinin Ratio Urine Albumin U Tpwom-5-Jvcrjhud U Sslnf-7-Pgenfpjs U Beta Globulin U Gamma Globulin U Abnormal Prot Band 1 Urine PEP Interpret Urine Immunofixation Hep Bs Antigen Hep Bs Antibody Blood Type 08/15/24 08/16/24 08/16/24 23:26 05:44 05:46 WBC 2.5 L RBC 3.33 L Hgb 9.0 L Hct 28.1 L MCV 84.4 MCH 27.0 MCHC 32.0 RDW 18.5 H Plt Count 35 L D MPV 10.7 H % Immature Plt Fraction 2.1 Puncture Site Right radial ABG pH 7.250 L* ABG pCO2 55.7 H ABG pO2 144.7 H ABG PO2/FiO2 Ratio 2.41 ABG HCO3 23.9 ABG O2 Saturation 98.5 ABG O2 Content 14.5 L ABG Base Excess -3.7 A-a Gradient 221.8 Oxyhemoglobin 98.1 Carboxyhemoglobin 0.3 Methemoglobin 0.2 Reduced Hemoglobin 1.4 Total Hemoglobin 10.3 L O2 Delivery Device Ventilator O2 Liters/Min Not Reportable Minute Volume Not Reportable Vent Rate 26 Vent Mode Cmv FiO2 60 Tidal Volume 450 PEEP 10 Peak Inspir Pressure Not Reportable Pressure Support Not Reportable Sodium 149 H Potassium 4.7 Chloride 112 H Carbon Dioxide 27 Anion Gap 10 BUN 109 H D Creatinine 5.30 H Estim Creat Clear Calc 13 Estimated GFR 11 L Glucose 210 H POC Capillary Glucose 274 H Calcium 6.0 L Magnesium 2.6 H Total Bilirubin 2.2 H AST 213 H ALT 40 Alkaline Phosphatase 133 H Total Protein 5.0 L Albumin 2.4 L Lipase Ur Random Creatinine U Random Total Protein Protein/Creatinin Ratio Urine Albumin U [id number]-9-Rqrpssls U Ooqeo-4-Tkwdbbie U Beta Globulin U Gamma Globulin U Abnormal Prot Band 1 Urine PEP Interpret Urine Immunofixation Hep Bs Antigen Negative Hep Bs Antibody Negative Blood Type 08/16/24 08/16/24 08:59 11:33 WBC RBC Hgb Hct MCV MCH MCHC RDW Plt Count MPV % Immature Plt Fraction Puncture Site ABG pH ABG pCO2 ABG pO2 ABG PO2/FiO2 Ratio ABG HCO3 ABG O2 Saturation ABG O2 Content ABG Base Excess A-a Gradient Oxyhemoglobin Carboxyhemoglobin Methemoglobin Reduced Hemoglobin Total Hemoglobin O2 Delivery Device O2 Liters/Min Minute Volume Vent Rate Vent Mode FiO2 Tidal Volume PEEP Peak Inspir Pressure Pressure Support Sodium Potassium Chloride Carbon Dioxide Anion Gap BUN Creatinine Estim Creat Clear Calc Estimated GFR Glucose POC Capillary Glucose 168 H 190 H Calcium Magnesium Total Bilirubin AST ALT Alkaline Phosphatase Total Protein Albumin Lipase Ur Random Creatinine U Random Total Protein Protein/Creatinin Ratio Urine Albumin U Avcad-7-Qcaecgim U Cpkxg-8-Yhsfztkz U Beta Globulin U Gamma Globulin U Abnormal Prot Band 1 Urine PEP Interpret Urine Immunofixation Hep Bs Antigen Hep Bs Antibody Blood Type
[2024-08-16 16:52] LABS: Glucose Point of Care 146 mg/dl (65-105)
[2024-08-16] MEDS: EPOETIN ALFA-EPBX 10,000 UNITS/ML VIAL 10000 UNITS IV PUSH (17:26)
[2024-08-16] MEDS: HEPARIN SODIUM 1,000 UNITS/ML VIAL 5000 UNITS (17:27)
[2024-08-16 20:58] LABS: Glucose Point of Care 133 mg/dl (65-105)
[2024-08-16 23:53] LABS: Glucose Point of Care 136 mg/dl (65-105)
[2024-08-17] VITALS (43 sets, daily range): BP systolic 116–153; BP diastolic 54–75; PULSE 80–113; RESP 24–28; TEMP 36.1–37.9; O2SAT 95–100
[2024-08-17 05:04] LABS: Base Excess ABG -2.3 mEq/l (+/-2.0); Carboxyhemoglobin 0.6 % THb (0-2.0); Fractional Inspired Oxygen 45 %; HCO3 ABG 23.8 mEq/l (22.0-26.0); Methemoglobin ABG 0.3 %THb (0-1.5); Oxygen Content ABG 14.6 %vol (16.0-22.0); Oxygen Saturation ABG 98.8 % (95.0-100.0); PCO2 ABG 47.1 mmHg (35.0-45.0); PO2 ABG 151.3 mmHg (80.0-100.0); PO2 FiO2 Ratio Arterial Blood 3.36 %; Reduced Hemoglobin 1.1 %THb (0-5.0); Total Hemoglobin 10.4 g/dL (12.0-18.0); pH ABG 7.322 (7.350-7.450)
[2024-08-17 05:08] LABS: Hematocrit 26.5 % (42.0-52.0); Hemoglobin 8.6 g/dL (14.0-18.0); Mean Corpuscular HGB Conc 32.5 g/dl (32-36); Mean Corpuscular Volume 83.3 fl (80-100); Mean Platelet Volume 9.2 fl (7.4-10.4); Platelet Count Result 62 k/mm3 (150-375); Red Blood Count 3.18 M/mm3 (4.6-6.20); Red Cell Distribution Width 18.5 % (11.5-14.5)
[2024-08-17] MEDS: METOCLOPRAMIDE HCL INJ 10 MG/2 ML VIAL IV PUSH ×4 (05:14→23:14)
[2024-08-17] MEDS: HYDROCORTISONE SODIUM SUCCINATE 100 MG/2 ML VIAL IV PUSH (05:14)
[2024-08-17] MEDS: CENTRAL LINE FLUSH 10 ML IV PUSH ×3 (05:15→21:00)
[2024-08-17] MEDS: metroNIDAZOLE 500 MG/ISO 100ML 500 MG/100 ML BAG 100 MG IVPB ×3 (05:15→21:00)
[2024-08-17 05:22] LABS: Alanine Aminotransferase 48 U/L (6-50); Albumin Level 2.6 g/dL (3.5-5.1); Alkaline Phosphatase 161 U/L (38-126); Anion Gap 6 mmol/L (4-12); Aspartate Amino Transferase 179 U/L (17-59); Bilirubin,Total 3.6 mg/dL (0.2-1.3); Blood Urea Nitrogen 82 mg/dL (9-20); Calcium 7.2 mg/dL (8.4-10.2); Carbon Dioxide 28 mmol/L (22-30); Chloride 109 mmol/L (98-107); Estimated CRCL calculation 17 ml/min; Estimated Glomerular Filt Rate 15; Glucose 168 mg/dL (65-110); Magnesium 2.3 mg/dL (1.6-2.3); Potassium 4.7 mmol/L (3.4-5.0); Sodium 143 mmol/L (137-145)
[2024-08-17 05:23] LABS: Device VENTILATOR; Modified Allen's Test Pass; Site Drawn RIGHT RADIAL
[2024-08-17 05:24] LABS: Arterial Blood Gas PEEP 10 cmH2O; Arterial Blood Gas Tidal Volume 450 ml; Arterial Blood Gas Vent Mode CMV; Arterial Blood Gas Ventilator rate 26 /MIN
[2024-08-17] MEDS: MINERAL OIL/WHITE PETROLATUM OINTMENT 1 APPLIC EACH EYE ×2 (08:15→20:59)
[2024-08-17] MEDS: PANTOPRAZOLE SODIUM IV 40 MG VIAL IV PUSH (08:15)
[2024-08-17 08:18] LABS: Glucose Point of Care 167 mg/dl (65-105)
--- NOTE | 2024-08-17 08:50 | P.PNINT_ITS ---
Progress Note: A&P Assessment and Plan (1) Acute respiratory failure: Code(s): J96.00 - Acute respiratory failure, unspecified whether with hypoxia or hypercapnia Status: Acute Assessment and Plan: Acute respiratory failure secondary to pneumonia which is most likely aspiration which likely has progressed to ARDS Patient gradually developing worsening hypoxia. He was unable to maintain saturations on Vapotherm this morning and was switched to BiPAP. Despite being on BiPAP he was tachypnea. In light of bowel obstruction and tachypnea patient was intubated on08/[address]/14 CHEST: 1. Bilateral interstitial and alveolar opacification suggestive of ARDS versus pulmonary edema versus pneumonia. Follow-up and clinical correlation advised. Changes are increased compared to the previous examination. 2. Mediastinal lymphadenopathy. 3. Slight cardiomegaly. Ventilation is limited by pressures. Permissive hypercapnia and respiratory acidosis. Bicarb given to treat acidosis Cultures have been negative Continue Flagyl. His Levaquin was switched to cefepime Vancomycin discontinued as MRSA screen negative Initial chest CTA was negative for PE. Venous Dopplers were negative for DVT FiO2 down to 40% and peep at 8 Continue to remove dialysis Chest x-ray reviewed Ventilator settings reviewed (2) Septic shock: Code(s): A41.9 - Sepsis, unspecified organism; R65.21 - Severe sepsis with septic shock Status: Acute Assessment and Plan: Secondary to pneumonia. Antibiotics as above. Off vasopressors now Wean down stress dose hydrocortisone Off IV fluids due to respiratory status and renal failure (3) Ileus: Code(s): K56.7 - Ileus, unspecified Status: Acute Assessment and Plan: OG tube placed after intubation. Patient currently NPO CT abdomen pelvis ABDOMEN/PELVIS: 1. A few dilated small bowel loops in the mid abdomen with no evidence of complete obstruction. Improvement is noted compared to previous study. Follow-up advised. 2. Right kidney stones with no hydronephrosis or ureteric stones. 3. Bilateral small fat containing inguinal hernias. Minimal fat stranding posterior to the body and tail of the pancreas which may be artifactual. This appears more like ileus rather than obstruction. 08/15 patient was started on tube feeds at 20 mL/hour for this morning tube feeds had to be held because patient had a residual of 400 mL despite being on tube feeds only at 20 mL/hour. Increase Reglan dose Will restart tube feeds later today at low rate. He may need post but our top of tube insertion General surgery following 08/17 restart tube feeds at low rate. Check KUB. May need post pyloric Dobbhoff tube. (4) Gall stones: Code(s): K80.20 - Calculus of gallbladder without cholecystitis without obstruction Status: Acute Assessment and Plan: Ultrasound shows gallbladder sludge and stones in the dependent gallbladder lumen. Patient evaluated by general surgery and GI no intervention at this time (5) Atrial fibrillation: Code(s): I48.91 - Unspecified atrial fibrillation Status: Acute Assessment and Plan: Patient had Intermittent AFib currently in sinus rhythm Anticoagulation is on hold due to significant thrombocytopenia and any (6) GERD (gastroesophageal reflux disease): Code(s): K21.9 - Gastro-esophageal reflux disease without esophagitis Status: Chronic Assessment and Plan: IV Protonix (7) Type 2 diabetes mellitus without complications: Code(s): E11.9 - Type 2 diabetes mellitus without complications Status: Acute Assessment and Plan: Sliding scale insulin Lantus on hold as patient has not been tolerating tube feeds (8) Metastasis to bone: Code(s): C79.51 - Secondary malignant neoplasm of bone Status: Acute Assessment and Plan: Thoracic cervical and lumbar spine MRI shows several lesions consistent with metastatic disease or multiple myeloma Biopsy pending. Patient currently not stable for biopsy. Patient also thr ombocytopenic Oncology consulted Will consider biopsy next week if patient is improved (9) Pneumonia: Code(s): J18.9 - Pneumonia, unspecified organism Status: Inactive Assessment and Plan: See above (10) Thrombocytopenia: Code(s): D69.6 - Thrombocytopenia, unspecified Status: Acute Assessment and Plan: Likely multifactorial. Continue to Hold anticoagulation Hematology consult appreciated 08/16 patient was transfuse platelets for dialysis catheter placement (11) Electrolyte abnormality: Code(s): E87.8 - Other disorders of electrolyte and fluid balance, not elsewhere classified Status: Acute Assessment and Plan: Continue water flushes for hypernatremia Dialysis initiated (12) SAMUEL (acute kidney injury): Code(s): N17.9 - Acute kidney failure, unspecified Status: Acute Assessment and Plan: Patient has underlying CKD. Now the renal function has deteriorated likely secondary to sepsis shock and respiratory failure. Patient has received fluids and overall is fairly positive on his balance. Will hold further IV fluids due to concern with respiratory status and worsening hypoxia with volume overload. Maintain mean arterial pressure with vasopressors Nephrology consulted Monitor urine output electrolytes and creatinine Patient has not shown any improvement in urine output and continues to have worsening renal function patient was treated for hyperkalemia yesterday to proceed with initiating hemodialysis. Patient's family is agreeable. Will place dialysis catheter after transfusion of platelets. Discussed with nephrology 08/16 patient was dialyzed and 1 L fluid was removed 08/17 plan for dialysis again today Plan DVT prophylaxis -SCD, patient has thrombocytopenia Stress ulcer prophylaxis -PPI Nutrition -will resume tube feeds at low rate. Patient does not tolerate patient may need to go for Dobbhoff placement Code Status -DNR 08/15 I had long discussion patient's son Dawood. I spoke to patient's other son Kt by phone yesterday. I have updated them both with patient's current and critical status with multiorgan failure including respiratory failure, sepsis, shock, acute renal failure, abnormalities on spine MRI. I have updated them with current treatment plan and plan for workup. I have explained them that patient's prognosis is guarded with significant chance of mortality. I answered all their questions. I have explained them the patient may dialysis if renal function does not improve and continues to worsen. 08/16 I updated patient's son Dawood at bedside and answered all his questions 08/17 spoke to both sons at bedside and updated them with patient's status. Discussed goals of care and code status. They requested the patient be made DNR. They want to continue current treatment and hoping that patient will improve. They do not believe the patient would want to be on mechanical ventilation for prolonged period of time and do not think patient would want trach and PEG in case patient is unable to be extubated in couple of weeks. Code status was changed as per patient's family request Total Critical Care Time - 45 minutes Due to a high probability of clinically significant, life threatening deterioration, the patient required my highest level of preparedness to intervene emergently and I personally spent this critical care time directly and personally managing the patient. This critical care time included obtaining a history; examining the patient; pulse oximetry; ordering and review of studies; arranging urgent treatment with development of a management plan; evaluation of patient's response to treatment; frequent reassessment; and discussions with other providers. It was exclusive of separately billable procedures and treating other patients and teaching time. Please see Assessment and Plan section and the rest of the note for further information on patient assessment and treatment Subjective Date/time seen: 08/17/24 Overnight events reviewed. Afebrile Continues to be on mechanical ventilation 40% FiO2 and 8 of PEEP Off vasopressors and continuous infusion of sedation Not waking up yet and not following commands Tube feeds were held yesterday due to high residuals Patient was dialyzed yesterday and 1 L fluid was removed Review of Systems Review of Systems: ROS unobtainable: Yes unobtainable due to endotracheal tube, unobtainable due to medical condition and unobtainable due to mental status Exam Narrative: General: Pt is sedated, intubated and on mechanical ventilation Lungs/Chest: Trachea central Coarse BS B/L, bilateral coarse breathing. Bibasilar crackles. Cardiac: RRR. Normal S1 S2. No murmurs Circulation: Pedal pulses are intact and symmetrical. Abdomen: Bowel sounds are significantly decreased. Obese. Soft. NT. ND. Extremities: No clubbing, cyanosis or edema. Warm : Camacho in place Neurologic: Off sedation for more than 48 hours. Does not wake up or follow commands. Withdraws to pain in all 4 extremities. People bilateral reactive to light. Objective Data Vital Signs Vital Signs: Vital Signs - 24 hr 08/16/24 08:52 08/16/24 09:48 08/16/24 10:06 Temperature 36.2 C L 36.3 C L 36.2 C L Pulse Rate 98 96 95 Respiratory Rate 26 H 26 H 26 H Blood Pressure 109/59 L 119/61 97/60 L Pulse Oximetry 96 96 96 Oxygen Delivery Fraction of Inspired Oxygen 08/16/24 10:00 08/16/24 10:20 08/16/24 10:00 Temperature 36.3 C L Pulse Rate 93 97 93 Respiratory Rate 24 H Blood Pressure 97/60 L 97/60 L Pulse Oximetry 96 97 Oxygen Delivery Mechanical Ventilation Fraction of Inspired Oxygen 50 08/16/24 10:00 08/16/24 10:00 08/16/24 10:00 Temperature Pulse Rate 93 93 93 Respiratory Rate 26 H 26 H Blood Pressure Pulse Oximetry Oxygen Delivery Fraction of Inspired Oxygen 08/16/24 13:02 08/16/24 12:00 08/16/24 12:00 Temperature 36.3 C L Pulse Rate 96 96 96 Respiratory Rate 26 H Blood Pressure 111/60 110/62 Pulse Oximetry 97 96 Oxygen Delivery Mechanical Ventilation Fraction of Inspired Oxygen 50 08/16/24 12:00 08/16/24 14:00 08/16/24 14:00 Temperature Pulse Rate 96 97 97 Respiratory Rate Blood Pressure 120/61 Pulse Oximetry Oxygen Delivery Fraction of Inspired Oxygen 08/16/24 12:00 08/16/24 12:00 08/16/24 14:00 Temperature Pulse Rate 96 96 97 Respiratory Rate 26 H 26 H 26 H Blood Pressure Pulse Oximetry Oxygen Delivery Fraction of Inspired Oxygen 08/16/24 14:00 08/16/24 12:00 08/16/24 12:00 Temperature Pulse Rate 97 Respiratory Rate 26 H Blood Pressure Pulse Oximetry 97 Oxygen Delivery Mechanical Ventilation Fraction of Inspired Oxygen 50 50 08/16/24 14:00 08/16/24 15:00 08/16/24 15:00 Temperature 36.4 C L 36.4 C L Pulse Rate 97 98 Respiratory Rate 26 H 26 H Blood Pressure 120/61 132/73 Pulse Oximetry 97 97 Oxygen Delivery Fraction of Inspired Oxygen 50 08/16/24 15:17 08/16/24 16:15 08/16/24 16:30 Temperature Pulse Rate 94 106 H 109 H Respiratory Rate Blood Pressure 123/62 140/77 141/80 H Pulse Oximetry Oxygen Delivery Fraction of Inspired Oxygen 08/16/24 15:48 08/16/24 15:30 08/16/24 15:45 Temperature Pulse Rate 102 H 97 104 H Respiratory Rate Blood Pressure 120/65 132/73 Pulse Oximetry 97 Oxygen Delivery Mechanical Ventilation Fraction of Inspired Oxygen 50 08/16/24 16:00 08/16/24 10:21 08/16/24 16:00 Temperature 36.2 C L Pulse Rate 105 H 97 105 H Respiratory Rate 26 H Blood Pressure 137/81 105/58 L 137/81 Pulse Oximetry 97 Oxygen Delivery Fraction of Inspired Oxygen 08/16/24 16:00 08/16/24 16:00 08/16/24 16:45 Temperature Pulse Rate 105 H 105 H 112 H Respiratory Rate 26 H 26 H Blood Pressure 136/79 Pulse Oximetry Oxygen Delivery Fraction of Inspired Oxygen 08/16/24 17:15 08/16/24 17:30 08/16/24 17:45 Temperature Pulse Rate 112 H 114 H 113 H Respiratory Rate Blood Pressure 137/74 136/76 124/74 Pulse Oximetry Oxygen Delivery Fraction of Inspired Oxygen 08/16/24 18:00 08/16/24 18:19 08/16/24 18:24 Temperature 37.3 C Pulse Rate 116 H 114 H 113 H Respiratory Rate 26 H Blood Pressure 113/79 128/88 131/73 Pulse Oximetry 96 Oxygen Delivery Fraction of Inspired Oxygen 08/16/24 17:00 08/16/24 16:00 08/16/24 16:00 Temperature Pulse Rate 109 H 107 H Respiratory Rate Blood Pressure 129/90 Pulse Oximetry 97 Oxygen Delivery Mechanical Ventilation Fraction of Inspired Oxygen 50 08/16/24 16:00 08/16/24 16:00 08/16/24 18:00 Temperature 36.6 C Pulse Rate 107 H 114 H Respiratory Rate 26 H Blood Pressure 137/81 Pulse Oximetry 97 Oxygen Delivery Fraction of Inspired Oxygen 50 08/16/24 18:00 08/16/24 18:00 08/16/24 18:00 Temperature 37.2 C Pulse Rate 114 H 114 H 114 H Respiratory Rate 26 H 26 H Blood Pressure 113/79 113/79 Pulse Oximetry 26 L Oxygen Delivery Fraction of Inspired Oxygen 08/16/24 18:00 08/16/24 19:40 08/16/24 20:00 Temperature 37.2 C Pulse Rate 114 H 103 H Respiratory Rate 26 H 26 H Blood Pressure 121/59 L Pulse Oximetry 96 Oxygen Delivery Fraction of Inspired Oxygen 50 08/16/24 20:00 08/16/24 19:50 08/16/24 22:00 Temperature Pulse Rate 103 H 103 H 99 Respiratory Rate 26 H Blood Pressure Pulse Oximetry 96 Oxygen Delivery Mechanical Ventilation Fraction of Inspired Oxygen 50 08/16/24 22:00 08/16/24 20:00 08/16/24 22:00 Temperature 36.9 C Pulse Rate 99 103 H 100 Respiratory Rate 26 H Blood Pressure 115/62 121/59 L 117/59 L Pulse Oximetry 97 Oxygen Delivery Fraction of Inspired Oxygen 08/16/24 20:00 08/16/24 22:00 08/16/24 20:00 Temperature Pulse Rate 103 H 100 103 H Respiratory Rate 26 H 26 H 26 H Blood Pressure Pulse Oximetry Oxygen Delivery Fraction of Inspired Oxygen 08/16/24 22:00 08/16/24 23:47 08/16/24 23:47 Temperature Pulse Rate 100 100 Respiratory Rate 26 H 26 H Blood Pressure Pulse Oximetry 97 Oxygen Delivery Mechanical Ventilation Fraction of Inspired Oxygen 50 50 08/17/24 00:00 08/17/24 00:00 08/17/24 00:00 Temperature 36.7 C Pulse Rate 97 97 97 Respiratory Rate 26 H 26 H Blood Pressure 121/61 121/61 Pulse Oximetry 97 Oxygen Delivery Fraction of Inspired Oxygen 08/17/24 00:00 08/17/24 00:00 08/17/24 02:00 Temperature Pulse Rate 97 97 95 Respiratory Rate 26 H Blood Pressure Pulse Oximetry Oxygen Delivery Fraction of Inspired Oxygen 08/17/24 02:00 08/16/24 20:55 08/16/24 23:20 Temperature 36.6 C Pulse Rate 96 110 H 98 Respiratory Rate 26 H Blood Pressure 120/68 Pulse Oximetry 97 96 97 Oxygen Delivery Mechanical Ventilation Mechanical Ventilation Fraction of Inspired Oxygen 50 50 08/17/24 02:25 08/17/24 04:00 08/17/24 04:00 Temperature 36.7 C Pulse Rate 95 94 Respiratory Rate 26 H Blood Pressure 126/63 Pulse Oximetry 97 97 Oxygen Delivery Mechanical Ventilation Fraction of Inspired Oxygen 50 50 08/17/24 04:30 08/17/24 04:00 08/17/24 02:00 Temperature Pulse Rate 94 95 95 Respiratory Rate 26 H Blood Pressure 120/68 Pulse Oximetry 97 Oxygen Delivery Mechanical Ventilation Fraction of Inspired Oxygen 50 08/17/24 04:00 08/17/24 02:00 08/17/24 04:00 Temperature Pulse Rate 96 96 96 Respiratory Rate 26 H 26 H Blood Pressure 126/63 Pulse Oximetry Oxygen Delivery Fraction of Inspired Oxygen 08/17/24 02:00 08/17/24 04:00 08/17/24 05:02 Temperature Pulse Rate 96 96 98 Respiratory Rate 26 H 26 H 26 H Blood Pressure Pulse Oximetry Oxygen Delivery Fraction of Inspired Oxygen 08/17/24 05:03 08/17/24 05:05 08/17/24 06:00 Temperature Pulse Rate 96 97 92 Respiratory Rate 26 H Blood Pressure Pulse Oximetry 97 Oxygen Delivery Mechanical Ventilation Fraction of Inspired Oxygen 45 08/17/24 06:00 08/17/24 07:55 08/17/24 08:00 Temperature 36.6 C Pulse Rate 92 90 87 Respiratory Rate 26 H 26 H Blood Pressure 122/62 Pulse Oximetry 96 96 97 Oxygen Delivery Mechanical Ventilation Mechanical Ventilation Fraction of Inspired Oxygen 40 40 Intake/Output Intake/Output: Intake & Output 08/14/24 08/15/24 08/16/24 08/17/24 23:59 23:59 23:59 23:59 Intake Total 1074.4 2147.0 2208 100 Output Total 7532 323 7403 60 Balance -876.6 1291.0 983 40 Meds/Results Medications: Active Medications Generic Name Dose Route Start Last Admin Trade Name Freq PRN Reason Stop Dose Admin Acetaminophen 650 mg 08/15/24 06:44 08/15/24 13:20 Acetaminophen Elixir 325 Mg/10.15 Ml Udc PO 650 mg Q4H PRN Administration Mild Pain (1-3) or Fever Dextrose 12.5 gm 08/10/24 06:29 08/11/24 10:46 Dextrose 50% 25 Gm/50 Ml Syringe IV PUSH 12.5 gm PRN PRN Administration Hypoglycemia Protocol Epoetin Talat-epbx 10,000 units 08/17/24 20:00 Epoetin Talat-Epbx 10,000 Units/Ml Vial IV PUSH 08/17/24 20:01 ONCE ONE Glucagon 1 mg 08/10/24 06:29 Glucagon For Inj 1 Mg Vial IM PRN PRN Hypoglycemia Protocol Glucose 15 gm 08/10/24 06:29 Glucose Oral Gel 15 Gm Of Glucse In 37.5 Gm Tube PO PRN PRN Hypoglycemia Protocol Hydralazine HCl 20 mg 08/11/24 11:57 Hydralazine Hcl 20 Mg/Ml Vial IV PUSH Q4H PRN Blood Sugar - High Hydrocortisone Sodium Succinate 100 mg 08/15/24 14:00 08/17/24 05:14 Hydrocortisone Sodium Succinate 100 Mg/2 Ml Vial IV PUSH 100 mg Q8HR [place] Administration Dextrose 1,000 mls @ 100 mls/hr 08/10/24 06:29 Dextrose 5% 1,000 Ml IVPB PRN PRN Hypoglycemia Protocol Metronidazole 500 mg in 100 mls @ 100 mls/hr 08/10/24 13:00 08/17/24 07:51 Flagyl 500 Mg/Iso Soln 100 Ml IVPB Infused Q8HR [place] Infusion Fentanyl Citrate 2,500 mcg in 250 mls @ 0 mls/hr 08/14/24 12:20 08/17/24 05:03 Fentanyl 2,500 Mcg/Ns 250 Ml IV CONT Infused .Q0M [facility] Titration Protocol Midazolam HCl 100 mg in 100 mls @ 0 mls/hr 08/14/24 12:20 08/17/24 05:02 Versed 100 Mg/Ns 100 Ml IV CONT Infused .Q0M [facility] Titration Protocol Albumin Human 50 mls @ 999 mls/hr 08/16/24 10:28 Albutein IVPB 09/15/24 10:27 Q10M PRN HYPOTENSION Cefepime HCl 1 gm in 50 mls @ 100 mls/hr 08/17/24 20:00 Maxipime 1 Gm/Ns 50 Ml IVPB Q12H [facility] Insulin Aspart 4 - 8 units 08/16/24 09:00 08/17/24 08:27 Insulin Aspart (*Bkc) 100 Units/Ml SUB-Q Not Given Q4HR [facility] Protocol Ipratropium [place] 0.5 mg 08/14/24 14:27 Ipratropium Br 0.02% Inh Soln 0.5 Mg/2.5 Ml Vial INHALATION Q6HRT PRN Shortness Of Breath Or Wheezing Levalbuterol HCl 0.63 mg 08/14/24 14:27 Levalbuterol Neb 1.25 Mg/3 Ml INHALATION Q6HRT PRN Shortness Of Breath Or Wheezing Metoclopramide HCl 10 mg 08/16/24 12:00 08/17/24 05:14 Metoclopramide Hcl Inj 10 Mg/2 Ml Vial IV PUSH 10 mg Q6HR [place] Administration Midazolam HCl 2 mg 08/14/24 12:06 Midazolam Hcl (*Crx) 2 Mg/2 Ml Vial IV PUSH Q5M PRN ventilator asynchrony Miscellaneous Information 1 each 08/17/24 00:01 Order Clarification XX 09/16/24 00:00 CLARIFY [facility] Multi-Ingred Cream/Lotion/Oil/Oint 1 applic 08/14/24 21:00 08/17/24 08:15 Mineral Oil/White Petrolatum Ointment EACH EYE 1 applic Q12HR [facility] Administration Ondansetron HCl 4 mg 08/12/24 03:15 08/14/24 05:34 Ondansetron Inj 4 Mg/2 Ml Vial IV PUSH 4 mg Q4H PRN Administration Nausea And Vomiting Pantoprazole Sodium 40 mg 08/13/24 09:00 08/17/24 08:15 Pantoprazole Sodium Iv 40 Mg Vial IV PUSH 40 mg QAM [place] Administration Sodium Chloride 10 ml 08/14/24 14:00 08/17/24 05:15 Central Line Flush IV PUSH 10 ml Q8HR [place] Administration Sodium Chloride 10 ml 08/14/24 13:51 Central Line Flush IV PUSH PRN PRN with TPN bag changes Sodium Chloride 20 ml 08/14/24 13:51 Central Line Flush IV PUSH PRN PRN after blood draws Radiology Results: ITS Impressions Cervical Spine CT 08/09/24 18:15 IMPRESSION: 1. Moderate to severe cervical spondylosis. No acute osseous abnormality. Thoracic/Lumbar Spine CT 08/09/24 18:22 IMPRESSION: 1. Multiple old posterior left rib fractures and chronic compression fractures with mild anterior wedging at T5 and T6 and mild right-sided anterior vertebral body height loss at L2. No acute osseous abnormality. 2. Moderate thoracic spondylosis and mild lumbar spondylosis. 3. Combined instrumented L5-S1 anterior and posterior spinal fusion. 4. Chronic bilateral lower lung predominant interstitial lung disease with indeterminate 8 mm pulmonary nodule in the left lower lobe. Recommend 3 month follow-up low-dose noncontrast chest CT. Chest CTA 08/10/24 18:43 IMPRESSION: 1. No pulmonary embolism. 2. Bilateral interstitial and alveolar opacification more prominent in the right upper lobe which may indicate pneumonitis versus fibrotic changes versus pulmonary edema. 3. Bilateral pleural effusion more on the right side. 4. Cholelithiasis. 5. Left adrenal adenoma. 6. Mediastinal lymphadenopathy.. 7. Multiple healing rib fractures in the left hemithorax. Brain MRA 08/11/24 09:25 IMPRESSION: 1. High-grade stenosis on the right P1 segment with downstream moderate-sized region of encephalomalacia consistent with chronic infarct. 2. Moderate grade stenosis at the origin of the right M1 segment. Brain MRI 08/12/24 14:11 IMPRESSION: No acute intracranial process. Abdomen Ultrasound 08/12/24 16:37 IMPRESSION: Likely, additional gallbladder sludge and stones in the dependent gallbladder lumen. Small Bowel X-Ray 08/12/24 19:16 IMPRESSION: Radiographic findings consistent with low-grade small bowel obstruction or ileus. Lumbar Spine MRI 08/13/24 06:32 IMPRESSION: 1. Widespread enhancement of the bones without abnormal CT correlate suspicious for metastatic disease or multiple myeloma. 2. Mild lumbar spondylosis. 3. Anterior fusion procedure at L5-S1. Cervical Spine MRI 08/13/24 06:43 IMPRESSION: 1. Widespread abnormal contrast enhancement in the bones, consistent with metastatic disease versus multiple myeloma. 2. Moderate cervical spondylosis. Thoracic Spine MRI 08/13/24 06:48 IMPRESSION: 1. Widespread contrast enhancement of the bones, consistent with metastatic disease versus multiple myeloma. 2. Mild thoracic spondylosis. Venous Doppler Study 08/14/24 15:47 IMPRESSION: 1. No deep venous thrombosis. 2. Small left Calles's cyst. Chest/Abdomen/Pelvis CT 08/14/24 17:11 IMPRESSION: CHEST: 1. Bilateral interstitial and alveolar opacification suggestive of ARDS versus pulmonary edema versus pneumonia. Follow-up and clinical correlation advised. Changes are increased compared to the previous examination. 2. Mediastinal lymphadenopathy. 3. Slight cardiomegaly. ABDOMEN/PELVIS: 1. A few dilated small bowel loops in the mid abdomen with no evidence of complete obstruction. Improvement is noted compared to previous study. Follow-up advised. 2. Right kidney stones with no hydronephrosis or ureteric stones. 3. Bilateral small fat containing inguinal hernias. Minimal fat stranding posterior to the body and tail of the pancreas which may be artifactual. Head CT 08/15/24 08:37 IMPRESSION: 1. 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 Abdomen X-Ray 08/15/24 10:58 IMPRESSION: 1. Orogastric tube in the stomach with distal tip near the pylorus. Consider withdrawal by 10 cm. 2. Diffuse bilateral lung disease which could represent pulmonary edema, pneumonia, ARDS or some combination thereof. 3. Endotracheal tube tip 6.1 cm above the tyler. Consider advancement by 3.4 cm. Renal Ultrasound 08/15/24 14:34 IMPRESSION: 1. A couple cysts in the left kidney. Otherwise normal kidneys with no hydronephrosis. Chest X-Ray 08/17/24 07:13 Impression: Extensive interstitial disease of the lungs, with minimal groundglass opacity. Support tubes are unchanged. Labs Labs: Laboratory Results - last 24 hr 08/14/24 08/15/24 08/15/24 18:44 08:01 11:32 WBC RBC Hgb Hct MCV MCH MCHC RDW Plt Count MPV Puncture Site ABG pH ABG pCO2 ABG pO2 ABG PO2/FiO2 Ratio ABG HCO3 ABG O2 Saturation ABG O2 Content ABG Base Excess A-a Gradient Oxyhemoglobin Carboxyhemoglobin Methemoglobin Reduced Hemoglobin Total Hemoglobin O2 Delivery Device O2 Liters/Min Minute Volume Vent Rate Vent Mode FiO2 Tidal Volume PEEP Peak Inspir Pressure Pressure Support Sodium Potassium Chloride Carbon Dioxide Anion Gap BUN Creatinine Estim Creat Clear Calc Estimated GFR Glucose POC Capillary Glucose Calcium Magnesium Total Bilirubin AST ALT Alkaline Phosphatase Total Protein Albumin Urine Albumin 29 U [id number] 10 U [id number] 9 U Beta Globulin 13 U Gamma Globulin 40 U Abnormal Prot Band 1 12 H Urine PEP Interpret See note Urine Immunofixation Blood Type B Positive 08/16/24 08/16/24 08/16/24 08:59 11:33 16:13 WBC RBC Hgb Hct MCV MCH MCHC RDW Plt Count MPV Puncture Site ABG pH ABG pCO2 ABG pO2 ABG PO2/FiO2 Ratio ABG HCO3 ABG O2 Saturation ABG O2 Content ABG Base Excess A-a Gradient Oxyhemoglobin Carboxyhemoglobin Methemoglobin Reduced Hemoglobin Total Hemoglobin O2 Delivery Device O2 Liters/Min Minute Volume Vent Rate Vent Mode FiO2 Tidal Volume PEEP Peak Inspir Pressure Pressure Support Sodium Potassium Chloride Carbon Dioxide Anion Gap BUN Creatinine Estim Creat Clear Calc Estimated GFR Glucose POC Capillary Glucose 168 H 190 H 146 H Calcium Magnesium Total Bilirubin AST ALT Alkaline Phosphatase Total Protein Albumin Urine Albumin U Veljw-4-Yyvfayyz U Lxmpt-7-Mtfnjtvs U Beta Globulin U Gamma Globulin U Abnormal Prot Band 1 Urine PEP Interpret Urine Immunofixation Blood Type 08/16/24 08/16/24 08/17/24 20:54 23:51 05:00 WBC 2.0 L RBC 3.18 L Hgb 8.6 L Hct 26.5 L MCV 83.3 MCH 27.0 MCHC 32.5 RDW 18.5 H Plt Count 62 L D MPV 9.2 Puncture Site ABG pH ABG pCO2 ABG pO2 ABG PO2/FiO2 Ratio ABG HCO3 ABG O2 Saturation ABG O2 Content ABG Base Excess A-a Gradient Oxyhemoglobin Carboxyhemoglobin Methemoglobin Reduced Hemoglobin Total Hemoglobin O2 Delivery Device O2 Liters/Min Minute Volume Vent Rate Vent Mode FiO2 Tidal Volume PEEP Peak Inspir Pressure Pressure Support Sodium 143 Potassium 4.7 Chloride 109 H Carbon Dioxide 28 Anion Gap 6 BUN 82 H D Creatinine 4.00 H Estim Creat Clear Calc 17 Estimated GFR 15 L Glucose 168 H POC Capillary Glucose 133 H 136 H Calcium 7.2 L Magnesium 2.3 Total Bilirubin 3.6 H AST 179 H ALT 48 Alkaline Phosphatase 161 H Total Protein 5.0 L Albumin 2.6 L Urine Albumin U Njlzw-2-Aosvzded U Dirch-0-Rtumkvxz U Beta Globulin U Gamma Globulin U Abnormal Prot Band 1 Urine PEP Interpret Urine Immunofixation Blood Type 08/17/24 08/17/24 05:01 08:15 WBC RBC Hgb Hct MCV MCH MCHC RDW Plt Count MPV Puncture Site Right radial ABG pH 7.322 L ABG pCO2 47.1 H ABG pO2 151.3 H ABG PO2/FiO2 Ratio 3.36 ABG HCO3 23.8 ABG O2 Saturation 98.8 ABG O2 Content 14.6 L ABG Base Excess -2.3 A-a Gradient 116.0 Oxyhemoglobin 98.0 Carboxyhemoglobin 0.6 Methemoglobin 0.3 Reduced Hemoglobin 1.1 Total Hemoglobin 10.4 L O2 Delivery Device Ventilator O2 Liters/Min Not Reportable Minute Volume Not Reportable Vent Rate 26 Vent Mode Cmv FiO2 45 Tidal Volume 450 PEEP 10 Peak Inspir Pressure Not Reportable Pressure Support Not Reportable Sodium Potassium Chloride Carbon Dioxide Anion Gap BUN Creatinine Estim Creat Clear Calc Estimated GFR Glucose POC Capillary Glucose 167 H Calcium Magnesium Total Bilirubin AST ALT Alkaline Phosphatase Total Protein Albumin Urine Albumin U Lopkj-1-Ekvuqybz U Nvdkz-8-Zawdpbvm U Beta Globulin U Gamma Globulin U Abnormal Prot Band 1 Urine PEP Interpret Urine Immunofixation Blood Type Quality VTE Prophylaxis VTE prophylaxis: mechanical ordered
[2024-08-17] MEDS: ALTEPLASE 2 MG VIAL (CATHFLO) IV PUSH (09:53)
--- NOTE | 2024-08-17 11:24 | PCFNICU ---
ICU Rounding Note: Pt current nutrition is Nepro at 20 ml/hr. Last recorded weight is 96.8 kg, up from 94.5 kg on admit. Bowel Motility: +BM reported 08/14 Labs Reviewed: Glu 168, BUN 82, Cr 4.0, Alb 2.6 Meds Noted: Reglan, Protonix,Versed, Fentanyl. Skin: WNL Additional Notes:Patient remains on mechanical vent. Tube feedings have been restarted. Goal rate at 40 ml/hr with flush of 100 ml q 4 hours. Dialysis planned for today. Following daily in ICU rounds. Monitoring orders, labs, weights, tube feeding tolerance, stool patterns, medications Follow daily in ICU rounds and reassessing every Tuesdays and Fridays.
[2024-08-17 11:49] LABS: Glucose Point of Care 180 mg/dl (65-105)
--- NOTE | 2024-08-17 15:07 | P.PNNP_ITS ---
Progress Note: A&P Assessment and Plan (1) SAMUEL (acute kidney injury): Code(s): N17.9 - Acute kidney failure, unspecified Status: Acute Assessment and Plan: * as noted since admission * suspect multifactorial etiology: * hemodynamic instability/shock * infection/sepsis (pneunonia) * hypoxia * prerenal factors/insensible losses * contrast exposure (CTA of chest on 08/10) * evaluation to date noted: * imaging without obstructive uropathy * urine eosinophils negative * urine electrolytes prerenal * moderate proteinuria * CPK mildly elevated (but not enough to affect kidney function) * due to worsening BUN, creatinine, potassium levels and anuria -- inititiated on hemodialysis on 08/16 * HD today * possible DUF tomorrow * follow trend of repeat labs and UOP to assess for renal recovery (2) Stage 3a chronic kidney disease (CKD): Code(s): N18.31 - Chronic kidney disease, stage 3a Status: Acute Assessment and Plan: * baseline creatinine runs around 1.2 - 1.5mg/dl * presumably secondary to diabetes, vascular disease, obstructive sleep apnea, BPH, and age-related change (3) Hypernatremia: Code(s): E87.0 - Hyperosmolality and hypernatremia Status: Acute Assessment and Plan: * as noted by trend of sodium * add FWF with via NG if/when able * dialysis will improve to some degree (4) Septic shock: Code(s): A41.9 - Sepsis, unspecified organism; R65.21 - Severe sepsis with septic shock Status: Acute Assessment and Plan: * felt to be secondary to pneumonia * follow culture data * off vasopressor therapy at this time * on antibiotics (5) Acute respiratory failure: Code(s): J96.00 - Acute respiratory failure, unspecified whether with hypoxia or hypercapnia Status: Acute Assessment and Plan: * due to pneunonia (aspiration) with what appears to be progression to ARDS * intubated and placed on mechanical ventilation on 08/14 * most recent CT of chest noted: * bilateral interstitial and alveolar opacification suggestive of ARDS versus pulmonary edema versus pneumonia * mediastinal lymphadenopathy * slight cardiomegaly. * fluid removal with dialysis * ventilator weaning when more stable (6) Pneumonia: Code(s): J18.9 - Pneumonia, unspecified organism Status: Acute Assessment and Plan: * as suggested by imaging to date * follow culture data * on antibiotics (7) Bone lesion: Code(s): M89.9 - Disorder of bone, unspecified Status: Acute Assessment and Plan: * as noted on admission imaging * concern for possible metastatic disease versus multiple myeloma * not stable for biopsy at this time (8) Small bowel obstruction: Code(s): K56.609 - Unspecified intestinal obstruction, unspecified as to partial versus complete obstruction Status: Acute Assessment and Plan: * CT of A/P noted: * a few dilated small bowel loops in the mid abdomen with no evidence of complete obstruction * right kidney stones with no hydronephrosis or ureteric stones * bilateral small fat containing inguinal hernias * minimal fat stranding posterior to the body and tail of the pancreas which may be artifactual * OG in place at this time * suspect ileus more than obstruction * General Surgery following * advance tube feeds as tolerated (9) Type 2 diabetes mellitus without complications: Code(s): E11.9 - Type 2 diabetes mellitus without complications Status: Acute Assessment and Plan: * follow accucheks * glycemic control per hospitalists/intake man Will continue to follow. Subjective Date/time seen: 08/17/24 15:07 Interval history: Follow-up for acute kidney injury on chronic kidney disease. Tolerated dialysis treatment yesterday and tolerating dialysis treatment currently at the time of my visit (seeon on HD at 2:55PM); still not making much urine but remains hemodynamically stable without the need for vasopressor therapy; remains intubated/sedated and on mechanical ventilation. Exam Narrative: General: elderly male intubated/sedated and on mechanical ventilation Heart: normal S1 and S2; no rub Lungs: coarse breath sounds with bibasilar crackles Abdomen: soft, nontender, nondistended, decreased bowel sounds Extremities: no cyanosis or clubbing; no edema Skin: warm and intact Objective Data Vital Signs Vital Signs: Vital Signs - 24 hr 08/16/24 17:15 08/16/24 17:30 08/16/24 17:45 Temperature Pulse Rate 112 H 114 H 113 H Respiratory Rate Blood Pressure 137/74 136/76 124/74 Pulse Oximetry Oxygen Delivery Fraction of Inspired Oxygen 08/16/24 18:00 08/16/24 18:19 08/16/24 18:24 Temperature 99.2 F Pulse Rate 116 H 114 H 113 H Respiratory Rate 26 H Blood Pressure 113/79 128/88 131/73 Pulse Oximetry 96 Oxygen Delivery Fraction of Inspired Oxygen 08/16/24 18:00 08/16/24 18:00 08/16/24 18:00 Temperature 98.9 F Pulse Rate 114 H 114 H 114 H Respiratory Rate 26 H Blood Pressure 113/79 113/79 Pulse Oximetry 26 L Oxygen Delivery Fraction of Inspired Oxygen 08/16/24 18:00 08/16/24 18:00 08/16/24 19:40 Temperature Pulse Rate 114 H 114 H Respiratory Rate 26 H 26 H Blood Pressure Pulse Oximetry Oxygen Delivery Fraction of Inspired Oxygen 50 08/16/24 20:00 08/16/24 20:00 08/16/24 19:50 Temperature 99 F Pulse Rate 103 H 103 H 103 H Respiratory Rate 26 H 26 H Blood Pressure 121/59 L Pulse Oximetry 96 96 Oxygen Delivery Mechanical Ventilation Fraction of Inspired Oxygen 50 08/16/24 22:00 08/16/24 22:00 08/16/24 20:00 Temperature 98.5 F Pulse Rate 99 99 103 H Respiratory Rate 26 H Blood Pressure 115/62 121/59 L Pulse Oximetry 97 Oxygen Delivery Fraction of Inspired Oxygen 08/16/24 22:00 08/16/24 20:00 08/16/24 22:00 Temperature Pulse Rate 100 103 H 100 Respiratory Rate 26 H 26 H Blood Pressure 117/59 L Pulse Oximetry Oxygen Delivery Fraction of Inspired Oxygen 08/16/24 20:00 08/16/24 22:00 08/16/24 23:47 Temperature Pulse Rate 103 H 100 Respiratory Rate 26 H 26 H Blood Pressure Pulse Oximetry Oxygen Delivery Fraction of Inspired Oxygen 50 08/16/24 23:47 08/17/24 00:00 08/17/24 00:00 Temperature 98.0 F Pulse Rate 100 97 97 Respiratory Rate 26 H 26 H Blood Pressure 121/61 121/61 Pulse Oximetry 97 97 Oxygen Delivery Mechanical Ventilation Fraction of Inspired Oxygen 50 08/17/24 00:00 08/17/24 00:00 08/17/24 00:00 Temperature Pulse Rate 97 97 97 Respiratory Rate 26 H 26 H Blood Pressure Pulse Oximetry Oxygen Delivery Fraction of Inspired Oxygen 08/17/24 02:00 08/17/24 02:00 08/16/24 20:55 Temperature 97.9 F Pulse Rate 95 96 110 H Respiratory Rate 26 H Blood Pressure 120/68 Pulse Oximetry 97 96 Oxygen Delivery Mechanical Ventilation Fraction of Inspired Oxygen 50 08/16/24 23:20 08/17/24 02:25 08/17/24 04:00 Temperature 98.1 F Pulse Rate 98 95 94 Respiratory Rate 26 H Blood Pressure 126/63 Pulse Oximetry 97 97 97 Oxygen Delivery Mechanical Ventilation Mechanical Ventilation Fraction of Inspired Oxygen 50 50 08/17/24 04:00 08/17/24 04:30 08/17/24 04:00 Temperature Pulse Rate 94 95 Respiratory Rate 26 H Blood Pressure Pulse Oximetry 97 Oxygen Delivery Mechanical Ventilation Fraction of Inspired Oxygen 50 50 08/17/24 02:00 08/17/24 04:00 08/17/24 02:00 Temperature Pulse Rate 95 96 96 Respiratory Rate 26 H Blood Pressure 120/68 126/63 Pulse Oximetry Oxygen Delivery Fraction of Inspired Oxygen 08/17/24 04:00 08/17/24 02:00 08/17/24 04:00 Temperature Pulse Rate 96 96 96 Respiratory Rate 26 H 26 H 26 H Blood Pressure Pulse Oximetry Oxygen Delivery Fraction of Inspired Oxygen 08/17/24 05:02 08/17/24 05:03 08/17/24 05:05 Temperature Pulse Rate 98 96 97 Respiratory Rate 26 H 26 H Blood Pressure Pulse Oximetry 97 Oxygen Delivery Mechanical Ventilation Fraction of Inspired Oxygen 45 08/17/24 06:00 08/17/24 06:00 08/17/24 07:55 Temperature 97.9 F Pulse Rate 92 92 90 Respiratory Rate 26 H Blood Pressure 122/62 Pulse Oximetry 96 96 Oxygen Delivery Mechanical Ventilation Fraction of Inspired Oxygen 40 08/17/24 08:00 08/17/24 08:00 08/17/24 08:00 Temperature Pulse Rate 87 89 Respiratory Rate 26 H Blood Pressure Pulse Oximetry 97 Oxygen Delivery Mechanical Ventilation Fraction of Inspired Oxygen 40 40 08/17/24 08:00 08/17/24 09:00 08/17/24 10:00 Temperature 97.5 F L Pulse Rate 88 89 83 Respiratory Rate 26 H 26 H Blood Pressure 128/69 116/62 Pulse Oximetry 97 97 Oxygen Delivery Fraction of Inspired Oxygen 08/17/24 10:00 08/17/24 11:32 08/17/24 11:26 Temperature 97.0 F L Pulse Rate 82 86 80 Respiratory Rate 25 H 26 H Blood Pressure 121/61 117/61 Pulse Oximetry 97 96 97 Oxygen Delivery Mechanical Ventilation Fraction of Inspired Oxygen 40 08/17/24 12:00 08/17/24 12:00 08/17/24 12:00 Temperature Pulse Rate 84 87 Respiratory Rate 26 H Blood Pressure Pulse Oximetry 97 Oxygen Delivery Mechanical Ventilation Fraction of Inspired Oxygen 40 40 08/17/24 12:00 08/17/24 13:03 08/17/24 13:52 Temperature 97.0 F L 97.3 F L Pulse Rate 85 87 Respiratory Rate 26 H Blood Pressure 131/67 Pulse Oximetry 96 96 Oxygen Delivery Mechanical Ventilation Fraction of Inspired Oxygen 40 08/17/24 14:00 08/17/24 14:00 08/17/24 14:32 Temperature 97.7 F Pulse Rate 89 91 Respiratory Rate 26 H Blood Pressure 128/59 L 120/60 Pulse Oximetry 96 Oxygen Delivery Fraction of Inspired Oxygen 08/17/24 14:24 08/17/24 14:24 08/17/24 14:46 Temperature 97.8 F Pulse Rate 91 88 Respiratory Rate 24 H Blood Pressure 126/57 L 121/60 Pulse Oximetry Oxygen Delivery Fraction of Inspired Oxygen 40 08/17/24 15:00 08/17/24 15:15 08/17/24 15:30 Temperature Pulse Rate 95 99 102 H Respiratory Rate Blood Pressure 139/68 144/73 H 145/66 H Pulse Oximetry Oxygen Delivery Fraction of Inspired Oxygen 08/17/24 15:45 08/17/24 16:00 08/17/24 16:15 Temperature Pulse Rate 102 H 103 H 104 H Respiratory Rate Blood Pressure 138/68 145/71 H 146/69 H Pulse Oximetry Oxygen Delivery Fraction of Inspired Oxygen 08/17/24 16:30 08/17/24 16:45 08/17/24 17:00 Temperature Pulse Rate 106 H 105 H 106 H Respiratory Rate Blood Pressure 148/70 H 146/75 H 140/73 Pulse Oximetry Oxygen Delivery Fraction of Inspired Oxygen 08/17/24 16:00 08/17/24 16:00 08/17/24 16:00 Temperature 99.0 F Pulse Rate 106 H 105 H Respiratory Rate 26 H 26 H Blood Pressure 146/69 H Pulse Oximetry 96 96 Oxygen Delivery Mechanical Ventilation Fraction of Inspired Oxygen 40 40 08/17/24 16:00 Temperature Pulse Rate 103 H Respiratory Rate Blood Pressure Pulse Oximetry Oxygen Delivery Fraction of Inspired Oxygen Intake/Output Intake/Output: Intake & Output 08/14/24 08/15/24 08/16/24 08/17/24 23:59 23:59 23:59 23:59 Intake Total 1074.4 2147.0 2208 200 Output Total 8863 381 1303 60 Balance -876.6 1291.0 983 140 Meds/Results Medications: Active Medications Generic Name Dose Route Start Last Admin Trade Name Freq PRN Reason Stop Dose Admin Acetaminophen 650 mg 08/15/24 06:44 08/15/24 13:20 Acetaminophen Elixir 325 Mg/10.15 Ml Udc PO 650 mg Q4H PRN Administration Mild Pain (1-3) or Fever Alteplase, Recombinant 2 mg 08/17/24 09:37 08/17/24 09:53 Alteplase 2 Mg Vial (Cathflo) IV PUSH 2 mg ONCE PRN Administration Line Occlusion Dextrose 12.5 gm 08/10/24 06:29 08/11/24 10:46 Dextrose 50% 25 Gm/50 Ml Syringe IV PUSH 12.5 gm PRN PRN Administration Hypoglycemia Protocol Epoetin [place]-epbx 10,000 units 08/17/24 20:00 08/17/24 16:03 Epoetin [place]-Epbx 10,000 Units/Ml Vial IV PUSH 08/17/24 20:01 10,000 units ONCE ONE Administration Glucagon 1 mg 08/10/24 06:29 Glucagon For Inj 1 Mg Vial IM PRN PRN Hypoglycemia Protocol Glucose 15 gm 08/10/24 06:29 Glucose Oral Gel 15 Gm Of Glucse In 37.5 Gm Tube PO PRN PRN Hypoglycemia Protocol Hydralazine HCl 20 mg 08/11/24 11:57 Hydralazine Hcl 20 Mg/Ml Vial IV PUSH Q4H PRN Blood Sugar - High Hydrocortisone Sodium Succinate 100 mg 08/18/24 09:00 Hydrocortisone Sodium Succinate 100 Mg/2 Ml Vial IV PUSH QAM [place] Dextrose 1,000 mls @ 100 mls/hr 08/10/24 06:29 Dextrose 5% 1,000 Ml IVPB PRN PRN Hypoglycemia Protocol Metronidazole 500 mg in 100 mls @ 100 mls/hr 08/10/24 13:00 08/17/24 14:00 Flagyl 500 Mg/Iso Soln 100 Ml IVPB Infused Q8HR [place] Infusion Fentanyl Citrate 2,500 mcg in 250 mls @ 0 mls/hr 08/14/24 12:20 08/17/24 05:03 Fentanyl 2,500 Mcg/Ns 250 Ml IV CONT Infused .Q0M [place] Titration Protocol Midazolam HCl 100 mg in 100 mls @ 0 mls/hr 08/14/24 12:20 08/17/24 05:02 Versed 100 Mg/Ns 100 Ml IV CONT Infused .Q0M [place] Titration Protocol Albumin Human 50 mls @ 999 mls/hr 08/16/24 10:28 Albutein IVPB 09/15/24 10:27 Q10M PRN HYPOTENSION Cefepime HCl 1 gm in 50 mls @ 100 mls/hr 08/17/24 18:00 Maxipime 1 Gm/Ns 50 Ml IVPB DAILY@1800 [place] Norepinephrine Bitartrate 8 mg in 250 mls @ 9.375 mls/hr 08/17/24 12:45 Levophed 8 Mg/D5w 250 Ml IV CONT .Q24H [place] Protocol 5 MCG/MIN Insulin Aspart 4 - 8 units 08/16/24 09:00 08/17/24 16:53 Insulin Aspart (*Bkc) 100 Units/Ml SUB-Q Not Given Q4HR [facility] Protocol Ipratropium [place] 0.5 mg 08/14/24 14:27 Ipratropium Br 0.02% Inh Soln 0.5 Mg/2.5 Ml Vial INHALATION Q6HRT PRN Shortness Of Breath Or Wheezing Levalbuterol HCl 0.63 mg 08/14/24 14:27 Levalbuterol Neb 1.25 Mg/3 Ml INHALATION Q6HRT PRN Shortness Of Breath Or Wheezing Metoclopramide HCl 10 mg 08/16/24 12:00 08/17/24 11:48 Metoclopramide Hcl Inj 10 Mg/2 Ml Vial IV PUSH 10 mg Q6HR [place] Administration Midazolam HCl 2 mg 08/14/24 12:06 Midazolam Hcl (*Crx) 2 Mg/2 Ml Vial IV PUSH Q5M PRN ventilator asynchrony Multi-Ingred Cream/Lotion/Oil/Oint 1 applic 08/14/24 21:00 08/17/24 08:15 Mineral Oil/White Petrolatum Ointment EACH EYE 1 applic Q12HR [place] Administration Ondansetron HCl 4 mg 08/12/24 03:15 08/14/24 05:34 Ondansetron Inj 4 Mg/2 Ml Vial IV PUSH 4 mg Q4H PRN Administration Nausea And Vomiting Pantoprazole Sodium 40 mg 08/13/24 09:00 08/17/24 08:15 Pantoprazole Sodium Iv 40 Mg Vial IV PUSH 40 mg QAM [place] Administration Sodium Chloride 10 ml 08/14/24 14:00 08/17/24 13:00 Central Line Flush IV PUSH 10 ml Q8HR [place] Administration Sodium Chloride 10 ml 08/14/24 13:51 Central Line Flush IV PUSH PRN PRN with TPN bag changes Sodium Chloride 20 ml 08/14/24 13:51 Central Line Flush IV PUSH PRN PRN after blood draws Radiology Results: ITS Impressions Cervical Spine CT 08/09/24 18:15 IMPRESSION: 1. Moderate to severe cervical spondylosis. No acute osseous abnormality. Thoracic/Lumbar Spine CT 08/09/24 18:22 IMPRESSION: 1. Multiple old posterior left rib fractures and chronic compression fractures with mild anterior wedging at T5 and T6 and mild right-sided anterior vertebral body height loss at L2. No acute osseous abnormality. 2. Moderate thoracic spondylosis and mild lumbar spondylosis. 3. Combined instrumented L5-S1 anterior and posterior spinal fusion. 4. Chronic bilateral lower lung predominant interstitial lung disease with indeterminate 8 mm pulmonary nodule in the left lower lobe. Recommend 3 month follow-up low-dose noncontrast chest CT. Chest CTA 08/10/24 18:43 IMPRESSION: 1. No pulmonary embolism. 2. Bilateral interstitial and alveolar opacification more prominent in the right upper lobe which may indicate pneumonitis versus fibrotic changes versus pulmonary edema. 3. Bilateral pleural effusion more on the right side. 4. Cholelithiasis. 5. Left adrenal adenoma. 6. Mediastinal lymphadenopathy.. 7. Multiple healing rib fractures in the left hemithorax. Brain MRA 08/11/24 09:25 IMPRESSION: 1. High-grade stenosis on the right P1 segment with downstream moderate-sized region of encephalomalacia consistent with chronic infarct. 2. Moderate grade stenosis at the origin of the right M1 segment. Brain MRI 08/12/24 14:11 IMPRESSION: No acute intracranial process. Abdomen Ultrasound 08/12/24 16:37 IMPRESSION: Likely, additional gallbladder sludge and stones in the dependent gallbladder lumen. Small Bowel X-Ray 08/12/24 19:16 IMPRESSION: Radiographic findings consistent with low-grade small bowel obstru ction or ileus. Lumbar Spine MRI 08/13/24 06:32 IMPRESSION: 1. Widespread enhancement of the bones without abnormal CT correlate suspicious for metastatic disease or multiple myeloma. 2. Mild lumbar spondylosis. 3. Anterior fusion procedure at L5-S1. Cervical Spine MRI 08/13/24 06:43 IMPRESSION: 1. Widespread abnormal contrast enhancement in the bones, consistent with metastatic disease versus multiple myeloma. 2. Moderate cervical spondylosis. Thoracic Spine MRI 08/13/24 06:48 IMPRESSION: 1. Widespread contrast enhancement of the bones, consistent with metastatic disease versus multiple myeloma. 2. Mild thoracic spondylosis. Venous Doppler Study 08/14/24 15:47 IMPRESSION: 1. No deep venous thrombosis. 2. Small left Calles's cyst. Chest/Abdomen/Pelvis CT 08/14/24 17:11 IMPRESSION: CHEST: 1. Bilateral interstitial and alveolar opacification suggestive of ARDS versus pulmonary edema versus pneumonia. Follow-up and clinical correlation advised. Changes are increased compared to the previous examination. 2. Mediastinal lymphadenopathy. 3. Slight cardiomegaly. ABDOMEN/PELVIS: 1. A few dilated small bowel loops in the mid abdomen with no evidence of complete obstruction. Improvement is noted compared to previous study. Follow-up advised. 2. Right kidney stones with no hydronephrosis or ureteric stones. 3. Bilateral small fat containing inguinal hernias. Minimal fat stranding posterior to the body and tail of the pancreas which may be artifactual. Head CT 08/15/24 08:37 IMPRESSION: 1. 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 Renal Ultrasound 08/15/24 14:34 IMPRESSION: 1. A couple cysts in the left kidney. Otherwise normal kidneys with no hydronephrosis. Chest X-Ray 08/17/24 07:13 Impression: Extensive interstitial disease of the lungs, with minimal groundglass opacity. Support tubes are unchanged. Abdomen X-Ray 08/17/24 09:28 IMPRESSION: 1. Normal bowel gas pattern. Labs Labs: Laboratory Results - last 24 hr 08/14/24 08/16/24 08/16/24 18:44 20:54 23:51 WBC RBC Hgb Hct MCV MCH MCHC RDW Plt Count MPV Puncture Site ABG pH ABG pCO2 ABG pO2 ABG PO2/FiO2 Ratio ABG HCO3 ABG O2 Saturation ABG O2 Content ABG Base Excess A-a Gradient Oxyhemoglobin Carboxyhemoglobin Methemoglobin Reduced Hemoglobin Total Hemoglobin O2 Delivery Device O2 Liters/Min Minute Volume Vent Rate Vent Mode FiO2 Tidal Volume PEEP Peak Inspir Pressure Pressure Support Sodium Potassium Chloride Carbon Dioxide Anion Gap BUN Creatinine Estim Creat Clear Calc Estimated GFR Glucose POC Capillary Glucose 133 H 136 H Calcium Magnesium Total Bilirubin AST ALT Alkaline Phosphatase Total Protein Albumin U Abnormal Prot Band 2 Not Reportable U Abnormal Prot Band 3 Not Reportable 08/17/24 08/17/24 08/17/24 05:00 05:01 08:15 WBC 2.0 L RBC 3.18 L Hgb 8.6 L Hct 26.5 L MCV 83.3 MCH 27.0 MCHC 32.5 RDW 18.5 H Plt Count 62 L D MPV 9.2 Puncture Site Right radial ABG pH 7.322 L ABG pCO2 47.1 H ABG pO2 151.3 H ABG PO2/FiO2 Ratio 3.36 ABG HCO3 23.8 ABG O2 Saturation 98.8 ABG O2 Content 14.6 L ABG Base Excess -2.3 A-a Gradient 116.0 Oxyhemoglobin 98.0 Carboxyhemoglobin 0.6 Methemoglobin 0.3 Reduced Hemoglobin 1.1 Total Hemoglobin 10.4 L O2 Delivery Device Ventilator O2 Liters/Min Not Reportable Minute Volume Not Reportable Vent Rate 26 Vent Mode Cmv FiO2 45 Tidal Volume 450 PEEP 10 Peak Inspir Pressure Not Reportable Pressure Support Not Reportable Sodium 143 Potassium 4.7 Chloride 109 H Carbon Dioxide 28 Anion Gap 6 BUN 82 H D Creatinine 4.00 H Estim Creat Clear Calc 17 Estimated GFR 15 L Glucose 168 H POC Capillary Glucose 167 H Calcium 7.2 L Magnesium 2.3 Total Bilirubin 3.6 H AST 179 H ALT 48 Alkaline Phosphatase 161 H Total Protein 5.0 L Albumin 2.6 L U Abnormal Prot Band 2 U Abnormal Prot Band 3 08/17/24 08/17/24 11:47 16:48 WBC RBC Hgb Hct MCV MCH MCHC RDW Plt Count MPV Puncture Site ABG pH ABG pCO2 ABG pO2 ABG PO2/FiO2 Ratio ABG HCO3 ABG O2 Saturation ABG O2 Content ABG Base Excess A-a Gradient Oxyhemoglobin Carboxyhemoglobin Methemoglobin Reduced Hemoglobin Total Hemoglobin O2 Delivery Device O2 Liters/Min Minute Volume Vent Rate Vent Mode FiO2 Tidal Volume PEEP Peak Inspir Pressure Pressure Support Sodium Potassium Chloride Carbon Dioxide Anion Gap BUN Creatinine Estim Creat Clear Calc Estimated GFR Glucose POC Capillary Glucose 180 H 130 H Calcium Magnesium Total Bilirubin AST ALT Alkaline Phosphatase Total Protein Albumin U Abnormal Prot Band 2 U Abnormal Prot Band 3
[2024-08-17] MEDS: EPOETIN ALFA-EPBX 10,000 UNITS/ML VIAL 10000 UNITS IV PUSH (16:03)
[2024-08-17 16:50] LABS: Glucose Point of Care 130 mg/dl (65-105)
[2024-08-17] MEDS: CEFEPIME 1 GM/NS 50 ML 1 GM/50 ML BAG IVPB (17:44)
[2024-08-17 20:22] LABS: Glucose Point of Care 146 mg/dl (65-105)
[2024-08-17 23:19] LABS: Glucose Point of Care 152 mg/dl (65-105)
[2024-08-18] VITALS (35 sets, daily range): BP systolic 114–149; BP diastolic 52–71; PULSE 91–106; RESP 24–29; TEMP 0–37.8; O2SAT 94–100
[2024-08-18 05:19] LABS: Base Excess ABG -0.8 mEq/l (+/-2.0); Carboxyhemoglobin 0.8 % THb (0-2.0); Fractional Inspired Oxygen 40 %; HCO3 ABG 24.3 mEq/l (22.0-26.0); Methemoglobin ABG 0.4 %THb (0-1.5); Oxygen Content ABG 12.1 %vol (16.0-22.0); Oxygen Saturation ABG 96.8 % (95.0-100.0); Oxyhemoglobin 95.5 % THb (90.0-100.0); PCO2 ABG 42.2 mmHg (35.0-45.0); PO2 ABG 90.7 mmHg (80.0-100.0); PO2 FiO2 Ratio Arterial Blood 2.27 %; Reduced Hemoglobin 3.3 %THb (0-5.0); Total Hemoglobin 8.9 g/dL (12.0-18.0); pH ABG 7.378 (7.350-7.450)
[2024-08-18 05:20] LABS: Arterial Blood Gas PEEP 8 cmH2O; Arterial Blood Gas Tidal Volume 450 ml; Arterial Blood Gas Vent Mode CMV; Arterial Blood Gas Ventilator rate 26 /MIN; Device VENTILATOR; Modified Allen's Test Pass; Site Drawn RIGHT RADIAL
[2024-08-18 05:30] LABS: Hematocrit 25.2 % (42.0-52.0); Hemoglobin 8.3 g/dL (14.0-18.0); Immature Platelet Fraction Pct 1.2 % (0.9-11.2); Mean Corpuscular HGB Conc 32.9 g/dl (32-36); Mean Corpuscular Hemoglobin 26.9 pg (26-34); Mean Corpuscular Volume 81.6 fl (80-100); Platelet Count Result 40 k/mm3 (150-375); Red Blood Count 3.09 M/mm3 (4.6-6.20); Red Cell Distribution Width 17.5 % (11.5-14.5); White Blood Count 2.3 K/mm3 (4.5-10.0)
[2024-08-18 05:49] LABS: Hepatitis B Core Ab Total NON-REACTIVE (NON-REACTIVE)
[2024-08-18] MEDS: METOCLOPRAMIDE HCL INJ 10 MG/2 ML VIAL IV PUSH ×4 (06:19→23:07)
[2024-08-18] MEDS: metroNIDAZOLE 500 MG/ISO 100ML 500 MG/100 ML BAG 100 MG IVPB ×3 (06:19→23:06)
[2024-08-18 06:20] LABS: Alanine Aminotransferase 55 U/L (6-50); Albumin Level 2.4 g/dL (3.5-5.1); Alkaline Phosphatase 187 U/L (38-126); Anion Gap 6 mmol/L (4-12); Aspartate Amino Transferase 168 U/L (17-59); Bilirubin,Total 3.2 mg/dL (0.2-1.3); Blood Urea Nitrogen 69 mg/dL (9-20); Calcium 7.8 mg/dL (8.4-10.2); Carbon Dioxide 27 mmol/L (22-30); Chloride 109 mmol/L (98-107); Estimated CRCL calculation 20 ml/min; Estimated Glomerular Filt Rate 18; Glucose 150 mg/dL (65-110); Magnesium 2.1 mg/dL (1.6-2.3); Sodium 142 mmol/L (137-145)
[2024-08-18] MEDS: CENTRAL LINE FLUSH 10 ML IV PUSH ×3 (06:20→23:07)
[2024-08-18] MEDS: HYDROCORTISONE SODIUM SUCCINATE 100 MG/2 ML VIAL IV PUSH (07:55)
[2024-08-18] MEDS: MINERAL OIL/WHITE PETROLATUM OINTMENT 1 APPLIC EACH EYE ×2 (07:55→23:07)
[2024-08-18] MEDS: PANTOPRAZOLE SODIUM IV 40 MG VIAL IV PUSH (07:55)
[2024-08-18 08:00] LABS: Glucose Point of Care 136 mg/dl (65-105)
[2024-08-18] MEDS: SODIUM CHLORIDE 0.9% IV 1,000 ML 999 ML IV CONT (09:37)
--- NOTE | 2024-08-18 10:44 | P.PNINT_ITS ---
Progress Note: A&P Assessment and Plan (1) Acute respiratory failure: Code(s): J96.00 - Acute respiratory failure, unspecified whether with hypoxia or hypercapnia Status: Acute Assessment and Plan: Acute respiratory failure secondary to pneumonia which is most likely aspiration which likely has progressed to ARDS Patient gradually developing worsening hypoxia. He was unable to maintain saturations on Vapotherm this morning and was switched to BiPAP. Despite being on BiPAP he was tachypnea. In light of bowel obstruction and tachypnea patient was intubated on08/[address]/14 CHEST: 1. Bilateral interstitial and alveolar opacification suggestive of ARDS versus pulmonary edema versus pneumonia. Follow-up and clinical correlation advised. Changes are increased compared to the previous examination. 2. Mediastinal lymphadenopathy. 3. Slight cardiomegaly. Ventilation is limited by pressures. Permissive hypercapnia and respiratory acidosis. Bicarb given to treat acidosis Cultures have been negative Continue Flagyl. His Levaquin was switched to cefepime Vancomycin discontinued as MRSA screen negative Initial chest CTA was negative for PE. Venous Dopplers were negative for DVT FiO2 down to 40% and peep at 8 Continue to remove dialysis Chest x-ray reviewed Ventilator settings reviewed (2) Septic shock: Code(s): A41.9 - Sepsis, unspecified organism; R65.21 - Severe sepsis with septic shock Status: Acute Assessment and Plan: Secondary to pneumonia. Antibiotics as above. Off vasopressors now Wean down stress dose hydrocortisone Off IV fluids due to respiratory status and renal failure (3) Ileus: Code(s): K56.7 - Ileus, unspecified Status: Acute Assessment and Plan: OG tube placed after intubation. Patient currently NPO CT abdomen pelvis ABDOMEN/PELVIS: 1. A few dilated small bowel loops in the mid abdomen with no evidence of complete obstruction. Improvement is noted compared to previous study. Follow-up advised. 2. Right kidney stones with no hydronephrosis or ureteric stones. 3. Bilateral small fat containing inguinal hernias. Minimal fat stranding posterior to the body and tail of the pancreas which may be artifactual. This appears more like ileus rather than obstruction. 08/15 patient was started on tube feeds at 20 mL/hour for this morning tube feeds had to be held because patient had a residual of 400 mL despite being on tube feeds only at 20 mL/hour. Increase Reglan dose Will restart tube feeds later today at low rate. He may need post but our top of tube insertion General surgery following 08/17 did not tolerate tube feeds. 08/18 will request Radiology for post pyloric Dobbhoff tube placement (4) Gall stones: Code(s): K80.20 - Calculus of gallbladder without cholecystitis without obstruction Status: Acute Assessment and Plan: Ultrasound shows gallbladder sludge and stones in the dependent gallbladder lumen. Patient evaluated by general surgery and GI no intervention at this time (5) Atrial fibrillation: Code(s): I48.91 - Unspecified atrial fibrillation Status: Acute Assessment and Plan: Patient had Intermittent AFib currently in sinus rhythm Anticoagulation is on hold due to significant thrombocytopenia and any (6) GERD (gastroesophageal reflux disease): Code(s): K21.9 - Gastro-esophageal reflux disease without esophagitis Status: Chronic Assessment and Plan: IV Protonix (7) Type 2 diabetes mellitus without complications: Code(s): E11.9 - Type 2 diabetes mellitus without complications Status: Acute Assessment and Plan: Sliding scale insulin Lantus on hold as patient has not been tolerating tube feeds (8) Metastasis to bone: Code(s): C79.51 - Secondary malignant neoplasm of bone Status: Acute Assessment and Plan: Thoracic cervical and lumbar spine MRI shows several lesions consistent with metastatic disease or multiple myeloma Biopsy pending. Patient currently not stable for biopsy. Patient also thrombocytopenic Oncology consulted Will consider biopsy next week if patient is improved (9) Pneumonia: Code(s): J18.9 - Pneumonia, unspecified organism Status: Inactive Assessment and Plan: See above (10) Thrombocytopenia: Code(s): D69.6 - Thrombocytopenia, unspecified Status: Acute Assessment and Plan: Likely multifactorial. Continue to Hold anticoagulation Hematology consult appreciated 08/16 patient was transfuse platelets for dialysis catheter placement (11) Electrolyte abnormality: Code(s): E87.8 - Other disorders of electrolyte and fluid balance, not elsewhere classified Status: Acute Assessment and Plan: Continue water flushes for hypernatremia Dialysis to be continued (12) SAMUEL (acute kidney injury): Code(s): N17.9 - Acute kidney failure, unspecified Status: Acute Assessment and Plan: Patient has underlying CKD. Now the renal function has deteriorated likely secondary to sepsis shock and respiratory failure. Patient has received fluids and overall is fairly positive on his balance. Will hold further IV fluids due to concern with respiratory status and worsening hypoxia with volume overload. Maintain mean arterial pressure with vasopressors Nephrology consulted Monitor urine output electrolytes and creatinine Patient has not shown any improvement in urine output and continues to have worsening renal function patient was treated for hyperkalemia yesterday to proceed with initiating hemodialysis. Patient's family is agreeable. Will place dialysis catheter after transfusion of platelets. Discussed with nephrology 08/16 patient was dialyzed and 1 L fluid was removed 08/17 patient was dialyzed on 2 L fluid was removed 08/18 plan for dialysis again today Plan DVT prophylaxis -SCD, patient has thrombocytopenia Stress ulcer prophylaxis -PPI Nutrition -will resume tube feeds at low rate. Patient does not tolerate patient may need to go for Dobbhoff placement Code Status -DNR 08/15 I had long discussion patient's son Dawood. I spoke to patient's other son Kt by phone yesterday. I have updated them both with patient's current and critical status with multiorgan failure including respiratory failure, sepsis, shock, acute renal failure, abnormalities on spine MRI. I have updated them with current treatment plan and plan for workup. I have explained them that patient's prognosis is guarded with significant chance of mortality. I answered all their questions. I have explained them the patient may dialysis if renal function does not improve and continues to worsen. 08/16 I updated patient's son Dawood at bedside and answered all his questions 08/17 spoke to both sons at bedside and updated them with patient's status. Discussed goals of care and code status. They requested the patient be made DNR. They want to continue current treatment and hoping that patient will improve. They do not believe the patient would want to be on mechanical ventilation for prolonged period of time and do not think patient would want trach and PEG in case patient is unable to be extubated in couple of weeks. Code status was changed as per patient's family request 08/18 spoke to patient's to son and other family members and updated them patient's status over last 24 hours. I also discussed plan for another dialysis session today and Dobbhoff placement. The son does not want any additional procedures unless patient shows any signs of improvement by Wednesday. He does not want any insertion at this time. He verbalized understanding that patient is not receiving tube feeds at this time due to his inability to tolerate tube feeding through the OG tube. At this time the plan is the patient does not improve significantly by Wednesday, the plan to proceed with palliative extubation and comfort care Total Critical Care Time - 35 minutes Due to a high probability of clinically significant, life threatening deterioration, the patient required my highest level of preparedness to inte rvene emergently and I personally spent this critical care time directly and personally managing the patient. This critical care time included obtaining a history; examining the patient; pulse oximetry; ordering and review of studies; arranging urgent treatment with development of a management plan; evaluation of patient's response to treatment; frequent reassessment; and discussions with other providers. It was exclusive of separately billable procedures and treating other patients and teaching time. Please see Assessment and Plan section and the rest of the note for further information on patient assessment and treatment Subjective Date/time seen: 08/18/24 Overnight events reviewed. Afebrile Continues to be on mechanical ventilation 40% FiO2 and 8 of PEEP Off sedatives Patient was dialyzed yesterday and 2 L fluid was removed Continues to have poor urine output Did not tolerate tube feeds due to high residual No significant change in neurological status Review of Systems Review of Systems: ROS unobtainable: Yes unobtainable due to endotracheal tube, unobtainable due to medical condition and unobtainable due to mental status Exam Narrative: General: Pt is sedated, intubated and on mechanical ventilation Lungs/Chest: Trachea central Coarse BS B/L, bilateral coarse breathing. Bibasilar crackles. Cardiac: RRR. Normal S1 S2. No murmurs Circulation: Pedal pulses are intact and symmetrical. Abdomen: Bowel sounds are significantly decreased. Obese. Soft. NT. ND. Extremities: No clubbing, cyanosis or edema. Warm : Camacho in place Neurologic: Off sedation for more than 72 hours. Does not wake up or follow commands. Withdraws to pain in all 4 extremities. People bilateral reactive to light. Left slightly bigger than right Objective Data Vital Signs Vital Signs: Vital Signs - 24 hr 08/17/24 11:32 08/17/24 11:26 08/17/24 12:00 Temperature 36.1 C L Pulse Rate 86 80 Respiratory Rate 26 H Blood Pressure 117/61 Pulse Oximetry 96 97 Oxygen Delivery Mechanical Ventilation Fraction of Inspired Oxygen 40 40 08/17/24 12:00 08/17/24 12:00 08/17/24 12:00 Temperature 36.1 C L Pulse Rate 84 87 85 Respiratory Rate 26 H 26 H Blood Pressure 131/67 Pulse Oximetry 97 96 Oxygen Delivery Mechanical Ventilation Fraction of Inspired Oxygen 40 08/17/24 13:03 08/17/24 13:52 08/17/24 14:00 Temperature 36.3 C L Pulse Rate 87 89 Respiratory Rate Blood Pressure Pulse Oximetry 96 Oxygen Delivery Mechanical Ventilation Fraction of Inspired Oxygen 40 08/17/24 14:00 08/17/24 14:32 08/17/24 14:24 Temperature 36.5 C 36.6 C Pulse Rate 91 91 Respiratory Rate 26 H 24 H Blood Pressure 128/59 L 120/60 126/57 L Pulse Oximetry 96 Oxygen Delivery Fraction of Inspired Oxygen 08/17/24 14:24 08/17/24 14:46 08/17/24 15:00 Temperature Pulse Rate 88 95 Respiratory Rate Blood Pressure 121/60 139/68 Pulse Oximetry Oxygen Delivery Fraction of Inspired Oxygen 40 08/17/24 15:15 08/17/24 15:30 08/17/24 15:45 Temperature Pulse Rate 99 102 H 102 H Respiratory Rate Blood Pressure 144/73 H 145/66 H 138/68 Pulse Oximetry Oxygen Delivery Fraction of Inspired Oxygen 08/17/24 16:00 08/17/24 16:15 08/17/24 16:30 Temperature Pulse Rate 103 H 104 H 106 H Respiratory Rate Blood Pressure 145/71 H 146/69 H 148/70 H Pulse Oximetry Oxygen Delivery Fraction of Inspired Oxygen 08/17/24 16:45 08/17/24 17:00 08/17/24 16:00 Temperature Pulse Rate 105 H 106 H 106 H Respiratory Rate 26 H Blood Pressure 146/75 H 140/73 Pulse Oximetry 96 Oxygen Delivery Mechanical Ventilation Fraction of Inspired Oxygen 40 08/17/24 16:00 08/17/24 16:00 08/17/24 16:00 Temperature 37.2 C Pulse Rate 105 H 103 H Respiratory Rate 26 H Blood Pressure 146/69 H Pulse Oximetry 96 Oxygen Delivery Fraction of Inspired Oxygen 40 08/17/24 17:15 08/17/24 17:30 08/17/24 17:45 Temperature Pulse Rate 104 H 105 H 106 H Respiratory Rate Blood Pressure 148/70 H 124/73 138/74 Pulse Oximetry Oxygen Delivery Fraction of Inspired Oxygen 08/17/24 18:00 08/17/24 17:44 08/17/24 18:00 Temperature Pulse Rate 110 H 107 H 110 H Respiratory Rate Blood Pressure 139/64 Pulse Oximetry 95 Oxygen Delivery Mechanical Ventilation Fraction of Inspired Oxygen 40 08/17/24 18:00 08/17/24 18:15 08/17/24 18:18 Temperature Pulse Rate 111 H 111 H 112 H Respiratory Rate 28 H Blood Pressure 137/69 137/69 148/70 H Pulse Oximetry 95 Oxygen Delivery Fraction of Inspired Oxygen 08/17/24 18:30 08/17/24 20:06 08/17/24 20:00 Temperature 37.9 C H 37.8 C H Pulse Rate 113 H 108 H 106 H Respiratory Rate 26 H 27 H Blood Pressure 153/60 H 130/69 Pulse Oximetry 96 95 Oxygen Delivery Mechanical Ventilation Fraction of Inspired Oxygen 40 08/17/24 20:00 08/17/24 20:00 08/17/24 20:00 Temperature Pulse Rate 106 H Respiratory Rate Blood Pressure Pulse Oximetry Oxygen Delivery Mechanical Ventilation Fraction of Inspired Oxygen 40 40 08/17/24 22:00 08/17/24 22:00 08/17/24 23:12 Temperature 37.7 C H Pulse Rate 102 H 102 H 97 Respiratory Rate 27 H Blood Pressure 123/54 L Pulse Oximetry 96 100 Oxygen Delivery Mechanical Ventilation Fraction of Inspired Oxygen 40 08/18/24 00:00 08/18/24 00:00 08/18/24 00:00 Temperature 37.6 C H Pulse Rate 99 Respiratory Rate 29 H Blood Pressure 125/59 L Pulse Oximetry 96 Oxygen Delivery Mechanical Ventilation Fraction of Inspired Oxygen 40 40 08/18/24 02:13 08/18/24 00:00 08/18/24 02:00 Temperature Pulse Rate 96 99 99 Respiratory Rate Blood Pressure Pulse Oximetry 100 Oxygen Delivery Mechanical Ventilation Fraction of Inspired Oxygen 40 08/18/24 02:00 08/18/24 05:11 08/18/24 04:00 Temperature 37.5 C 37.4 C Pulse Rate 99 95 99 Respiratory Rate 26 H 26 H Blood Pressure 117/56 L 132/55 L Pulse Oximetry 96 95 96 Oxygen Delivery Mechanical Ventilation Fraction of Inspired Oxygen 40 08/18/24 04:00 08/18/24 04:00 08/18/24 04:00 Temperature Pulse Rate 99 Respiratory Rate Blood Pressure Pulse Oximetry Oxygen Delivery Mechanical Ventilation Fraction of Inspired Oxygen 40 40 08/18/24 06:00 08/18/24 06:00 08/18/24 07:15 Temperature 37.0 C Pulse Rate 91 91 98 Respiratory Rate 26 H Blood Pressure 118/56 L Pulse Oximetry 95 97 Oxygen Delivery Mechanical Ventilation Fraction of Inspired Oxygen 40 08/18/24 08:00 08/18/24 08:00 08/18/24 08:00 Temperature 36.9 C Pulse Rate 97 98 Respiratory Rate 26 H 26 H Blood Pressure 133/59 L Pulse Oximetry 97 97 Oxygen Delivery Mechanical Ventilation Fraction of Inspired Oxygen 40 40 08/18/24 08:00 08/18/24 09:37 08/18/24 09:37 Temperature 36.8 C Pulse Rate 97 96 Respiratory Rate 24 H Blood Pressure 135/57 L Pulse Oximetry Oxygen Delivery Fraction of Inspired Oxygen 40 08/18/24 09:46 08/18/24 10:00 08/18/24 10:00 Temperature 36.8 C Pulse Rate 95 96 97 Respiratory Rate 25 H Blood Pressure 141/61 H 137/58 L 137/58 L Pulse Oximetry 97 Oxygen Delivery Fraction of Inspired Oxygen 08/18/24 10:15 08/18/24 10:00 Temperature Pulse Rate 98 99 Respiratory Rate Blood Pressure 138/59 L Pulse Oximetry Oxygen Delivery Fraction of Inspired Oxygen Intake/Output Intake/Output: Intake & Output 08/15/24 08/16/24 08/17/24 08/18/24 23:59 23:59 23:59 23:59 Intake Total 2147.0 2208 855 401 Output Total 856 1225 2160 25 Balance 1291.0 983 -1305 376 Meds/Results Medications: Active Medications Generic Name Dose Route Start Last Admin Trade Name Freq PRN Reason Stop Dose Admin Acetaminophen 650 mg 08/15/24 06:44 08/15/24 13:20 Acetaminophen Elixir 325 Mg/10.15 Ml Udc PO 650 mg Q4H PRN Administration Mild Pain (1-3) or Fever Alteplase, Recombinant 2 mg 08/17/24 09:37 08/17/24 09:53 Alteplase 2 Mg Vial (Cathflo) IV PUSH 2 mg ONCE PRN Administration Line Occlusion Dextrose 12.5 gm 08/10/24 06:29 08/11/24 10:46 Dextrose 50% 25 Gm/50 Ml Syringe IV PUSH 12.5 gm PRN PRN Administration Hypoglycemia Protocol Epoetin Talat-epbx 10,000 units 08/18/24 18:26 Epoetin Talat-Epbx 10,000 Units/Ml Vial IV PUSH 08/18/24 18:27 ONCE ONE Glucagon 1 mg 08/10/24 06:29 Glucagon For Inj 1 Mg Vial IM PRN PRN Hypoglycemia Protocol Glucose 15 gm 08/10/24 06:29 Glucose Oral Gel 15 Gm Of Glucse In 37.5 Gm Tube PO PRN PRN Hypoglycemia Protocol Hydralazine HCl 20 mg 08/11/24 11:57 Hydralazine Hcl 20 Mg/Ml Vial IV PUSH Q4H PRN Blood Sugar - High Hydrocortisone Sodium Succinate 100 mg 08/18/24 09:00 08/18/24 07:55 Hydrocortisone Sodium Succinate 100 Mg/2 Ml Vial IV PUSH 100 mg QAM [place] Administration Dextrose 1,000 mls @ 100 mls/hr 08/10/24 06:29 Dextrose 5% 1,000 Ml IVPB PRN PRN Hypoglycemia Protocol Metronidazole 500 mg in 100 mls @ 100 mls/hr 08/10/24 13:00 08/18/24 07:19 Flagyl 500 Mg/Iso Soln 100 Ml IVPB Infused Q8HR [place] Infusion Fentanyl Citrate 2,500 mcg in 250 mls @ 0 mls/hr 08/14/24 12:20 08/17/24 05:03 Fentanyl 2,500 Mcg/Ns 250 Ml IV CONT Infused .Q0M [place] Titration Protocol Midazolam HCl 100 mg in 100 mls @ 0 mls/hr 08/14/24 12:20 08/17/24 05:02 Versed 100 Mg/Ns 100 Ml IV CONT Infused .Q0M [place] Titration Protocol Albumin Human 50 mls @ 999 mls/hr 08/16/24 10:28 Albutein IVPB 09/15/24 10:27 Q10M PRN HYPOTENSION Cefepime HCl 1 gm in 50 mls @ 100 mls/hr 08/17/24 18:00 08/17/24 18:22 Maxipime 1 Gm/Ns 50 Ml IVPB Infused DAILY@1800 [place] Infusion Norepinephrine Bitartrate 8 mg in 250 mls @ 9.375 mls/hr 08/17/24 12:45 08/17/24 19:44 Levophed 8 Mg/D5w 250 Ml IV CONT Not Given .Q24H [place] Protocol 5 MCG/MIN Insulin Aspart 4 - 8 units 08/16/24 09:00 08/18/24 07:55 Insulin Aspart (*Bkc) 100 Units/Ml SUB-Q Not Given Q4HR [facility] Protocol Ipratropium Lamar 0.5 mg 08/14/24 14:27 Ipratropium Br 0.02% Inh Soln 0.5 Mg/2.5 Ml Vial INHALATION Q6HRT PRN Shortness Of Breath Or Wheezing Levalbuterol HCl 0.63 mg 08/14/24 14:27 Levalbuterol Neb 1.25 Mg/3 Ml INHALATION Q6HRT PRN Shortness Of Breath Or Wheezing Metoclopramide HCl 10 mg 08/16/24 12:00 08/18/24 06:19 Metoclopramide Hcl Inj 10 Mg/2 Ml Vial IV PUSH 10 mg Q6HR [place] Administration Midazolam HCl 2 mg 08/14/24 12:06 Midazolam Hcl (*Crx) 2 Mg/2 Ml Vial IV PUSH Q5M PRN ventilator asynchrony Multi-Ingred Cream/Lotion/Oil/Oint 1 applic 08/14/24 21:00 08/18/24 07:55 Mineral Oil/White Petrolatum Ointment EACH EYE 1 applic Q12HR [place] Administration Ondansetron HCl 4 mg 08/12/24 03:15 08/14/24 05:34 Ondansetron Inj 4 Mg/2 Ml Vial IV PUSH 4 mg Q4H PRN Administration Nausea And Vomiting Pantoprazole Sodium 40 mg 08/13/24 09:00 08/18/24 07:55 Pantoprazole Sodium Iv 40 Mg Vial IV PUSH 40 mg QAM [place] Administration Sodium Chloride 10 ml 08/14/24 14:00 08/18/24 06:20 Central Line Flush IV PUSH 10 ml Q8HR [place] Administration Sodium Chloride 10 ml 08/14/24 13:51 Central Line Flush IV PUSH PRN PRN with TPN bag changes Sodium Chloride 20 ml 08/14/24 13:51 Central Line Flush IV PUSH PRN PRN after blood draws Radiology Results: ITS Impressions Cervical Spine CT 08/09/24 18:15 IMPRESSION: 1. Moderate to severe cervical spondylosis. No acute osseous abnormality. Thoracic/Lumbar Spine CT 08/09/24 18:22 IMPRESSION: 1. Multiple old posterior left rib fractures and chronic compression fractures with mild anterior wedging at T5 and T6 and mild right-sided anterior vertebral body height loss at L2. No acute osseous abnormality. 2. Moderate thoracic spondylosis and mild lumbar spondylosis. 3. Combined instrumented L5-S1 anterior and posterior spinal fusion. 4. Chronic bilateral lower lung predominant interstitial lung disease with indeterminate 8 mm pulmonary nodule in the left lower lobe. Recommend 3 month follow-up low-dose noncontrast chest CT. Chest CTA 08/10/24 18:43 IMPRESSION: 1. No pulmonary embolism. 2. Bilateral interstitial and alveolar opacification more prominent in the right upper lobe which may indicate pneumonitis versus fibrotic changes versus pulmonary edema. 3. Bilateral pleural effusion more on the right side. 4. Cholelithiasis. 5. Left adrenal adenoma. 6. Mediastinal lymphadenopathy.. 7. Multiple healing rib fractures in the left hemithorax. Brain MRA 08/11/24 09:25 IMPRESSION: 1. High-grade stenosis on the right P1 segment with downstream moderate-sized region of encephalomalacia consistent with chronic infarct. 2. Moderate grade stenosis at the origin of the right M1 segment. Brain MRI 08/12/24 14:11 IMPRESSION: No acute intracranial process. Abdomen Ultrasound 08/12/24 16:37 IMPRESSION: Likely, additional gallbladder sludge and stones in the dependent gallbladder lumen. Small Bowel X-Ray 08/12/24 19:16 IMPRESSION: Radiographic findings consistent with low-grade small bowel obstruction or ileus. Lumbar Spine MRI 08/13/24 06:32 IMPRESSION: 1. Widespread enhancement of the bones without abnormal CT correlate suspicious for metastatic disease or multiple myeloma. 2. Mild lumbar spondylosis. 3. Anterior fusion procedure at L5-S1. Cervical Spine MRI 08/13/24 06:43 IMPRESSION: 1. Widespread abnormal contrast enhancement in the bones, consistent with metastatic disease versus multiple myeloma. 2. Moderate cervical spondylosis. Thoracic Spine MRI 08/13/24 06:48 IMPRESSION: 1. Widespread contrast enhancement of the bones, consistent with metastatic disease versus multiple myeloma. 2. Mild thoracic spondylosis. Venous Doppler Study 08/14/24 15:47 IMPRESSION: 1. No deep venous thrombosis. 2. Small left Calles's cyst. Chest/Abdomen/Pelvis CT 08/14/24 17:11 IMPRESSION: CHEST: 1. Bilateral interstitial and alveolar opacification suggestive of ARDS versus pulmonary edema versus pneumonia. Follow-up and clinical correlation advised. Changes are increased compared to the previous examination. 2. Mediastinal lymphadenopathy. 3. Slight cardiomegaly. ABDOMEN/PELVIS: 1. A few dilated small bowel loops in the mid abdomen with no evidence of complete obstruction. Improvement is noted compared to previous study. Follow-up advised. 2. Right kidney stones with no hydronephrosis or ureteric stones. 3. Bilateral small fat containing inguinal hernias. Minimal fat stranding posterior to the body and tail of the pancreas which may be artifactual. Head CT 08/15/24 08:37 IMPRESSION: 1. 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 Renal Ultrasound 08/15/24 14:34 IMPRESSION: 1. A couple cysts in the left kidney. Otherwise normal kidneys with no hydronephrosis. Abdomen X-Ray 08/17/24 09:28 IMPRESSION: 1. Normal bowel gas pattern. Chest X-Ray 08/18/24 06:46 Impression: Stable extensive pulmonary disease with extensive interstitial disease and right basilar haziness. Support tubes are unchanged, as above. Labs Labs: Laboratory Results - last 24 hr 08/16/24 08/17/24 08/17/24 05:46 11:47 16:48 WBC RBC Hgb Hct MCV MCH MCHC RDW Plt Count MPV % Immature Plt Fraction Puncture Site ABG pH ABG pCO2 ABG pO2 ABG PO2/FiO2 Ratio ABG HCO3 ABG O2 Saturation ABG O2 Content ABG Base Excess A-a Gradient Oxyhemoglobin Carboxyhemoglobin Methemoglobin Reduced Hemoglobin Total Hemoglobin O2 Delivery Device O2 Liters/Min Minute Volume Vent Rate Vent Mode FiO2 Tidal Volume PEEP Peak Inspir Pressure Pressure Support Sodium Potassium Chloride Carbon Dioxide Anion Gap BUN Creatinine Estim Creat Clear Calc Estimated GFR Glucose POC Capillary Glucose 180 H 130 H Calcium Magnesium Total Bilirubin AST ALT Alkaline Phosphatase Total Protein Albumin Hep B Core Total Ab Non-reactive 08/17/24 08/17/24 08/18/24 20:07 23:13 05:13 WBC RBC Hgb Hct MCV MCH MCHC RDW Plt Count MPV % Immature Plt Fraction Puncture Site Right radial ABG pH 7.378 ABG pCO2 42.2 ABG pO2 90.7 ABG PO2/FiO2 Ratio 2.27 ABG HCO3 24.3 ABG O2 Saturation 96.8 ABG O2 Content 12.1 L ABG Base Excess -0.8 A-a Gradient 146.0 Oxyhemoglobin 95.5 Carboxyhemoglobin 0.8 Methemoglobin 0.4 Reduced Hemoglobin 3.3 Total Hemoglobin 8.9 L O2 Delivery Device Ventilator O2 Liters/Min Not Reportable Minute Volume Not Reportable Vent Rate 26 Vent Mode Cmv FiO2 40 Tidal Volume 450 PEEP 8 Peak Inspir Pressure Not Reportable Pressure Support Not Reportable Sodium Potassium Chloride Carbon Dioxide Anion Gap BUN Creatinine Estim Creat Clear Calc Estimated GFR Glucose POC Capillary Glucose 146 H 152 H Calcium Magnesium Total Bilirubin AST ALT Alkaline Phosphatase Total Protein Albumin Hep B Core Total Ab 08/18/24 08/18/24 05:23 07:54 WBC 2.3 L RBC 3.09 L Hgb 8.3 L Hct 25.2 L MCV 81.6 MCH 26.9 MCHC 32.9 RDW 17.5 H Plt Count 40 L MPV 9.0 % Immature Plt Fraction 1.2 Puncture Site ABG pH ABG pCO2 ABG pO2 ABG PO2/FiO2 Ratio ABG HCO3 ABG O2 Saturation ABG O2 Content ABG Base Excess A-a Gradient Oxyhemoglobin Carboxyhemoglobin Methemoglobin Reduced Hemoglobin Total Hemoglobin O2 Delivery Device O2 Liters/Min Minute Volume Vent Rate Vent Mode FiO2 Tidal Volume PEEP Peak Inspir Pressure Pressure Support Sodium 142 Potassium 4.0 Chloride 109 H Carbon Dioxide 27 Anion Gap 6 BUN 69 H D Creatinine 3.30 H Estim Creat Clear Calc 20 Estimated GFR 18 L Glucose 150 H POC Capillary Glucose 136 H Calcium 7.8 L Magnesium 2.1 Total Bilirubin 3.2 H AST 168 H ALT 55 H Alkaline Phosphatase 187 H Total Protein 6.0 L Albumin 2.4 L Hep B Core Total Ab Quality VTE Prophylaxis VTE prophylaxis: mechanical ordered
--- NOTE | 2024-08-18 11:14 | PCNFU ---
Nutrition Follow-Up Complete: Inadequate energy intake related to mechanical ventilation as evidenced by need for full tube feedings Goal: Meet estimated protein energy needs Patient has limited progress towards goal. We will continue current goal. Pt current nutrition is NPO. Nutrition recommendation: Nepro at 20 ml/hr, goal rate at 50 ml/hr. Last recorded weight is 96.2 kg, up from 94.5 kg on admit. Bowel Motility: +BM reported 08/14 Labs Reviewed: Glu 150, Cr 3.3, BUN 69, GFR 18, Hct 25.2, Hgb 8.3 Meds Noted: Reglan, Fentanyl, Versed, Flagyl Skin: WNL Additional Notes: Patient remains on mechanical vent. Tube feedings held overnight 2/2 to elevated residuals. Spoke with Cash Manager today during rounds, plans for Dobbhoff placement today after Dialysis. Recommend tube feedings of Nepro at 20 ml/hr advancing to goal rate of 50 ml/hr. Tube feedings at goal rate providing 1980 kcals/800 ml water. Flush 100 ml q 4 hours. Agree with diet orders. Monitoring orders, labs, weights, tube feeding tolerance, stool patterns, medications Follow daily in ICU rounds, follow up Tuesdays and Fridays
--- NOTE | 2024-08-18 11:25 | P.PNNP_ITS ---
Progress Note: A&P Assessment and Plan (1) SAMUEL (acute kidney injury): Code(s): N17.9 - Acute kidney failure, unspecified Status: Acute Assessment and Plan: * as noted since admission * suspect multifactorial etiology: * hemodynamic instability/shock * infection/sepsis (pneunonia) * hypoxia * prerenal factors/insensible losses * contrast exposure (CTA of chest on 08/10) * evaluation to date noted: * imaging without obstructive uropathy * urine eosinophils negative * urine electrolytes prerenal * moderate proteinuria * CPK mildly elevated (but not enough to affect kidney function) * due to worsening BUN, creatinine, potassium levels and anuria -- initiated on hemodialysis: * HD on 08/16 and 08/17 * DUF today for further fluid removal * plan HD tomorrow * follow trend of repeat labs and UOP to assess for renal recovery (2) Stage 3a chronic kidney disease (CKD): Code(s): N18.31 - Chronic kidney disease, stage 3a Status: Acute Assessment and Plan: * baseline creatinine runs around 1.2 - 1.5mg/dl * presumably secondary to diabetes, vascular disease, obstructive sleep apnea, BPH, and age-related change (3) Hypernatremia: Code(s): E87.0 - Hyperosmolality and hypernatremia Status: Acute Assessment and Plan: * as noted by trend of sodium * add FWF with via NG if/when able * dialysis will improve to some degree (4) Septic shock: Code(s): A41.9 - Sepsis, unspecified organism; R65.21 - Severe sepsis with septic shock Status: Acute Assessment and Plan: * felt to be secondary to pneumonia * follow culture data * off vasopressor therapy at this time * on antibiotics (5) Acute respiratory failure: Code(s): J96.00 - Acute respiratory failure, unspecified whether with hypoxia or hypercapnia Status: Acute Assessment and Plan: * due to pneunonia (aspiration) with what appears to be progression to ARDS * intubated and placed on mechanical ventilation on 08/14 * most recent CT of chest noted: * bilateral interstitial and alveolar opacification suggestive of ARDS versus pulmonary edema versus pneumonia * mediastinal lymphadenopathy * slight cardiomegaly. * fluid removal with dialysis * ventilator weaning when more stable (6) Pneumonia: Code(s): J18.9 - Pneumonia, unspecified organism Status: Acute Assessment and Plan: * as suggested by imaging to date * follow culture data * on antibiotics (7) Bone lesion: Code(s): M89.9 - Disorder of bone, unspecified Status: Acute Assessment and Plan: * as noted on admission imaging * concern for possible metastatic disease versus multiple myeloma * not stable for biopsy at this time (8) Small bowel obstruction: Code(s): K56.609 - Unspecified intestinal obstruction, unspecified as to partial versus complete obstruction Status: Acute Assessment and Plan: * CT of A/P noted: * a few dilated small bowel loops in the mid abdomen with no evidence of complete obstruction * right kidney stones with no hydronephrosis or ureteric stones * bilateral small fat containing inguinal hernias * minimal fat stranding posterior to the body and tail of the pancreas which may be artifactual * OG in place at this time * suspect ileus more than obstruction * General Surgery following * advance tube feeds as tolerated (9) Type 2 diabetes mellitus without complications: Code(s): E11.9 - Type 2 diabetes mellitus without complications Status: Acute Assessment and Plan: * follow accucheks * glycemic control per hospitalists/packer operator automatic Noted Dr. Shaw's discussion with the patient's family regarding goals of therapy and level of care. It would appear that the patient's family may be leaning more towards comfort care measures given the patient's overall poor prognosis in association with no significant improvement despite all aggressive therapy to date. His renal function remains poor and he is dialysis dependent and more concerning, despite being off all sedation for 24 hours, his neurological status has yet to improve. Will continue to follow. Subjective Date/time seen: 08/18/24 11:25 Interval history: Follow-up for acute kidney injury on chronic kidney disease. Tolerating dry ultrafiltration at the time of my visit (seen on DUF at 11:15AM); tolerated dialysis treatment yesterday as well; remains intubated and on mechanical ventilation but off sedation; no significant change in neurological status; poor urine output noted; hemodynamically stable without the need for vasopressor therapy. Exam Narrative: General: elderly male intubated and on mechanical ventilation Heart: normal S1 and S2; no rub Lungs: coarse breath sounds with bibasilar crackles Abdomen: soft, nontender, nondistended, decreased bowel sounds Extremities: no cyanosis or clubbing; no edema Skin: warm and intact Objective Data Vital Signs Vital Signs: Vital Signs Temp Pulse Resp BP Pulse Ox O2 Del Method FiO2 08/18/24 11:00 99 131/60 08/18/24 10:45 99 133/59 L 08/18/24 11:06 101 H 97 Mechanical Ventilation 40 08/18/24 10:00 99 08/18/24 10:15 98 138/59 L 08/18/24 10:30 98 136/60 08/18/24 10:00 97 137/58 L 08/18/24 10:00 98.2 F 96 25 H 137/58 L 97 08/18/24 09:46 95 141/61 H 08/18/24 09:37 98.3 F 96 24 H 135/57 L 08/18/24 09:37 40 08/18/24 08:00 97 08/18/24 08:00 40 08/18/24 08:00 98 26 H 97 Mechanical Ventilation 40 08/18/24 08:00 98.5 F 97 26 H 133/59 L 97 08/18/24 07:15 98 97 Mechanical Ventilation 40 08/18/24 06:00 98.6 F 91 26 H 118/56 L 95 08/18/24 06:00 91 08/18/24 04:00 99 08/18/24 04:00 40 08/18/24 04:00 Mechanical Ventilation 40 08/18/24 04:00 99.4 F 99 26 H 132/55 L 96 08/18/24 05:11 95 95 Mechanical Ventilation 40 08/18/24 02:00 99.5 F 99 26 H 117/56 L 96 08/18/24 02:00 99 08/18/24 00:00 99 08/18/24 02:13 96 100 Mechanical Ventilation 40 08/18/24 00:00 99.7 F H 99 29 H 125/59 L 96 08/18/24 00:00 40 08/18/24 00:00 Mechanical Ventilation 40 08/17/24 23:12 97 100 Mechanical Ventilation 40 08/17/24 22:00 99.9 F H 102 H 27 H 123/54 L 96 08/17/24 22:00 102 H 08/17/24 20:00 106 H 08/17/24 20:00 Mechanical Ventilation 40 08/17/24 20:00 40 08/17/24 20:00 100.1 F H 106 H 27 H 130/69 95 08/17/24 20:06 108 H 96 Mechanical Ventilation 40 08/17/24 18:30 100.3 F H 113 H 26 H 153/60 H 08/17/24 18:18 112 H 148/70 H 08/17/24 18:15 111 H 137/69 08/17/24 18:00 111 H 28 H 137/69 95 08/17/24 18:00 110 H 08/17/24 17:44 107 H 95 Mechanical Ventilation 40 08/17/24 18:00 110 H 139/64 08/17/24 17:45 106 H 138/74 08/17/24 17:30 105 H 124/73 08/17/24 17:15 104 H 148/70 H 08/17/24 16:00 103 H 08/17/24 16:00 99.0 F 105 H 26 H 146/69 H 96 08/17/24 16:00 40 08/17/24 16:00 106 H 26 H 96 Mechanical Ventilation 40 08/17/24 17:00 106 H 140/73 08/17/24 16:45 105 H 146/75 H 08/17/24 16:30 106 H 148/70 H 08/17/24 16:15 104 H 146/69 H 08/17/24 16:00 103 H 145/71 H 08/17/24 15:45 102 H 138/68 08/17/24 15:30 102 H 145/66 H 08/17/24 15:15 99 144/73 H 08/17/24 15:00 95 139/68 08/17/24 14:46 88 121/60 08/17/24 14:24 40 08/17/24 14:24 97.8 F 91 24 H 126/57 L 08/17/24 14:32 120/60 08/17/24 14:00 97.7 F 91 26 H 128/59 L 96 08/17/24 14:00 89 08/17/24 13:52 87 96 Mechanical Ventilation 40 08/17/24 13:03 97.3 F L Intake/Output Intake/Output: Intake & Output 08/15/24 08/16/24 08/17/24 08/18/24 23:59 23:59 23:59 23:59 Intake Total 2147.0 2208 855 401 Output Total 856 1225 2160 25 Balance 1291.0 983 -1305 376 Meds/Results Medications: Active Medications Generic Name Dose Route Start Last Admin Trade Name Freq PRN Reason Stop Dose Admin Acetaminophen 650 mg 08/15/24 06:44 08/15/24 13:20 Acetaminophen Elixir 325 Mg/10.15 Ml Udc PO 650 mg Q4H PRN Administration Mild Pain (1-3) or Fever Alteplase, Recombinant 2 mg 08/17/24 09:37 08/17/24 09:53 Alteplase 2 Mg Vial (Cathflo) IV PUSH 2 mg ONCE PRN Administration Line Occlusion Dextrose 12.5 gm 08/10/24 06:29 08/11/24 10:46 Dextrose 50% 25 Gm/50 Ml Syringe IV PUSH 12.5 gm PRN PRN Administration Hypoglycemia Protocol Epoetin Talat-epbx 10,000 units 08/18/24 18:26 Epoetin [place]-Epbx 10,000 Units/Ml Vial IV PUSH 08/18/24 18:27 ONCE ONE Glucagon 1 mg 08/10/24 06:29 Glucagon For Inj 1 Mg Vial IM PRN PRN Hypoglycemia Protocol Glucose 15 gm 08/10/24 06:29 Glucose Oral Gel 15 Gm Of Glucse In 37.5 Gm Tube PO PRN PRN Hypoglycemia Protocol Hydralazine HCl 20 mg 08/11/24 11:57 Hydralazine Hcl 20 Mg/Ml Vial IV PUSH Q4H PRN Blood Sugar - High Hydrocortisone Sodium Succinate 100 mg 08/18/24 09:00 08/18/24 07:55 Hydrocortisone Sodium Succinate 100 Mg/2 Ml Vial IV PUSH 100 mg QAM [place] Administration Dextrose 1,000 mls @ 100 mls/hr 08/10/24 06:29 Dextrose 5% 1,000 Ml IVPB PRN PRN Hypoglycemia Protocol Metronidazole 500 mg in 100 mls @ 100 mls/hr 08/10/24 13:00 08/18/24 07:19 Flagyl 500 Mg/Iso Soln 100 Ml IVPB Infused Q8HR [place] Infusion Fentanyl Citrate 2,500 mcg in 250 mls @ 0 mls/hr 08/14/24 12:20 08/17/24 05:03 Fentanyl 2,500 Mcg/Ns 250 Ml IV CONT Infused .Q0M [place] Titration Protocol Midazolam HCl 100 mg in 100 mls @ 0 mls/hr 08/14/24 12:20 08/17/24 05:02 Versed 100 Mg/Ns 100 Ml IV CONT Infused .Q0M [place] Titration Protocol Albumin Human 50 mls @ 999 mls/hr 08/16/24 10:28 Albutein IVPB 09/15/24 10:27 Q10M PRN HYPOTENSION Cefepime HCl 1 gm in 50 mls @ 100 mls/hr 08/17/24 18:00 08/17/24 18:22 Maxipime 1 Gm/Ns 50 Ml IVPB Infused DAILY@1800 [place] Infusion Norepinephrine Bitartrate 8 mg in 250 mls @ 9.375 mls/hr 08/17/24 12:45 08/17/24 19:44 Levophed 8 Mg/D5w 250 Ml IV CONT Not Given .Q24H [place] Protocol 5 MCG/MIN Insulin Aspart 4 - 8 units 08/16/24 09:00 08/18/24 12:05 Insulin Aspart (*Bkc) 100 Units/Ml SUB-Q Not Given Q4HR [facility] Protocol Ipratropium [place] 0.5 mg 08/14/24 14:27 Ipratropium Br 0.02% Inh Soln 0.5 Mg/2.5 Ml Vial INHALATION Q6HRT PRN Shortness Of Breath Or Wheezing Levalbuterol HCl 0.63 mg 08/14/24 14:27 Levalbuterol Neb 1.25 Mg/3 Ml INHALATION Q6HRT PRN Shortness Of Breath Or Wheezing Metoclopramide HCl 10 mg 08/16/24 12:00 08/18/24 12:05 Metoclopramide Hcl Inj 10 Mg/2 Ml Vial IV PUSH 10 mg Q6HR [place] Administration Midazolam HCl 2 mg 08/14/24 12:06 Midazolam Hcl (*Crx) 2 Mg/2 Ml Vial IV PUSH Q5M PRN ventilator asynchrony Multi-Ingred Cream/Lotion/Oil/Oint 1 applic 08/14/24 21:00 08/18/24 07:55 Mineral Oil/White Petrolatum Ointment EACH EYE 1 applic Q12HR [place] Administration Ondansetron HCl 4 mg 08/12/24 03:15 08/14/24 05:34 Ondansetron Inj 4 Mg/2 Ml Vial IV PUSH 4 mg Q4H PRN Administration Nausea And Vomiting Pantoprazole Sodium 40 mg 08/13/24 09:00 08/18/24 07:55 Pantoprazole Sodium Iv 40 Mg Vial IV PUSH 40 mg QAM [place] Administration Sodium Chloride 10 ml 08/14/24 14:00 08/18/24 06:20 Central Line Flush IV PUSH 10 ml Q8HR [place] Administration Sodium Chloride 10 ml 08/14/24 13:51 Central Line Flush IV PUSH PRN PRN with TPN bag changes Sodium Chloride 20 ml 08/14/24 13:51 Central Line Flush IV PUSH PRN PRN after blood draws Radiology Results: ITS Impressions Cervical Spine CT 08/09/24 18:15 IMPRESSION: 1. Moderate to severe cervical spondylosis. No acute osseous abnormality. Thoracic/Lumbar Spine CT 08/09/24 18:22 IMPRESSION: 1. Multiple old posterior left rib fractures and chronic compression fractures with mild anterior wedging at T5 and T6 and mild right-sided anterior vertebral body height loss at L2. No acute osseous abnormality. 2. Moderate thoracic spondylosis and mild lumbar spondylosis. 3. Combined instrumented L5-S1 anterior and posterior spinal fusion. 4. Chronic bilateral lower lung predominant interstitial lung disease with indeterminate 8 mm pulmonary nodule in the left lower lobe. Recommend 3 month follow-up low-dose noncontrast chest CT. Chest CTA 08/10/24 18:43 IMPRESSION: 1. No pulmonary embolism. 2. Bilateral interstitial and alveolar opacification more prominent in the ri ght upper lobe which may indicate pneumonitis versus fibrotic changes versus pulmonary edema. 3. Bilateral pleural effusion more on the right side. 4. Cholelithiasis. 5. Left adrenal adenoma. 6. Mediastinal lymphadenopathy.. 7. Multiple healing rib fractures in the left hemithorax. Brain MRA 08/11/24 09:25 IMPRESSION: 1. High-grade stenosis on the right P1 segment with downstream moderate-sized re gion of encephalomalacia consistent with chronic infarct. 2. Moderate grade stenosis at the origin of the right M1 segment. Brain MRI 08/12/24 14:11 IMPRESSION: No acute intracranial process. Abdomen Ultrasound 08/12/24 16:37 IMPRESSION: Likely, additional gallbladder sludge and stones in the dependent gallbladder lumen. Small Bowel X-Ray 08/12/24 19:16 IMPRESSION: Radiographic findings consistent with low-grade small bowel obstruction or ileus. Lumbar Spine MRI 08/13/24 06:32 IMPRESSION: 1. Widespread enhancement of the bones without abnormal CT correlate suspicious for metastatic disease or multiple myeloma. 2. Mild lumbar spondylosis. 3. Anterior fusion procedure at L5-S1. Cervical Spine MRI 08/13/24 06:43 IMPRESSION: 1. Widespread abnormal contrast enhancement in the bones, consistent with met astatic disease versus multiple myeloma. 2. Moderate cervical spondylosis. Thoracic Spine MRI 08/13/24 06:48 IMPRESSION: 1. Widespread contrast enhancement of the bones, consistent with metastatic disease versus multiple myeloma. 2. Mild thoracic spondylosis. Venous Doppler Study 08/14/24 15:47 IMPRESSION: 1. No deep venous thrombosis. 2. Small left Calles's cyst. Chest/Abdomen/Pelvis CT 08/14/24 17:11 IMPRESSION: CHEST: 1. Bilateral interstitial and alveolar opacification suggestive of ARDS versus pulmonary edema versus pneumonia. Follow-up and clinical correlation advised. Changes are increased compared to the previous examination. 2. Mediastinal lymphadenopathy. 3. Slight cardiomegaly. ABDOMEN/PELVIS: 1. A few dilated small bowel loops in the mid abdomen with no evidence of complete obstruction. Improvement is noted compared to previous study. Follow-up advised. 2. Right kidney stones with no hydronephrosis or ureteric stones. 3. Bilateral small fat containing inguinal hernias. Minimal fat stranding posterior to the body and tail of the pancreas which may be artifactual. Head CT 08/15/24 08:37 IMPRESSION: 1. 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 Renal Ultrasound 08/15/24 14:34 IMPRESSION: 1. A couple cysts in the left kidney. Otherwise normal kidneys with no hydronephrosis. Abdomen X-Ray 08/17/24 09:28 IMPRESSION: 1. Normal bowel gas pattern. Chest X-Ray 08/18/24 06:46 Impression: Stable extensive pulmonary disease with extensive interstitial disease and right basilar haziness. Support tubes are unchanged, as above. Labs Labs: Laboratory Tests 08/18/24 05:23 08/18/24 05:23 Calcium 7.8 L Magnesium 2.1 Total Bilirubin 3.2 H AST 168 H ALT 55 H Alkaline Phosphatase 187 H Total Protein 6.0 L Albumin 2.4 L
[2024-08-18 11:51] LABS: Glucose Point of Care 156 mg/dl (65-105)
[2024-08-18 11:55] LABS: Kappa\\Lambda Light Chains 2.83 (0.26-1.65); Lambda Light Chain 34.3 mg/L (5.7-26.3)
[2024-08-18] MEDS: EPOETIN ALFA-EPBX 10,000 UNITS/ML VIAL 10000 UNITS IV PUSH (11:55)
[2024-08-18 16:00] LABS: Glucose Point of Care 175 mg/dl (65-105)
[2024-08-18] MEDS: CEFEPIME 1 GM/NS 50 ML 1 GM/50 ML BAG IVPB (17:37)
[2024-08-18 20:33] LABS: Glucose Point of Care 165 mg/dl (65-105)
[2024-08-19] VITALS (31 sets, daily range): BP systolic 39–175; BP diastolic 28–66; PULSE 45–122; RESP 17–30; TEMP 37–38.1; O2SAT 66–100
[2024-08-19] MEDS: MIDAZOLAM HCL (*CRX) 2 MG/2 ML VIAL IV PUSH (01:26)
[2024-08-19] MEDS: ACETAMINOPHEN ELIXIR 325 MG/10.15 ML UDC 650 MG PO (02:07)
[2024-08-19] MEDS: hydrALAZINE HCL 20 MG/ML VIAL IV PUSH (02:08)
[2024-08-19 04:30] LABS: Alveolar/Arterial O2 Gradient 90.6 mmHg; Base Excess ABG -6.6 mEq/l (+/-2.0); Carboxyhemoglobin 0.4 % THb (0-2.0); Fractional Inspired Oxygen 40 %; HCO3 ABG 20.5 mEq/l (22.0-26.0); Methemoglobin ABG 0.3 %THb (0-1.5); Oxygen Content ABG 17.7 %vol (16.0-22.0); Oxygen Saturation ABG 98.4 % (95.0-100.0); Oxyhemoglobin 97.9 % THb (90.0-100.0); PCO2 ABG 47.2 mmHg (35.0-45.0); PO2 ABG 140.3 mmHg (80.0-100.0); PO2 FiO2 Ratio Arterial Blood 3.51 %; Reduced Hemoglobin 1.4 %THb (0-5.0); Total Hemoglobin 12.7 g/dL (12.0-18.0)
[2024-08-19 04:34] LABS: Arterial Blood Gas Ventilator rate 26 /MIN; Device VENTILATOR; Modified Allen's Test Pass; Site Drawn LEFT RADIAL; pH ABG 7.255 (7.350-7.450)
[2024-08-19 04:35] LABS: Arterial Blood Gas PEEP 8 cmH2O; Arterial Blood Gas Tidal Volume 450 ml; Arterial Blood Gas Vent Mode CMV
[2024-08-19] MEDS: metroNIDAZOLE 500 MG/ISO 100ML 500 MG/100 ML BAG 100 MG IVPB (06:21)
[2024-08-19] MEDS: CENTRAL LINE FLUSH 10 ML IV PUSH (06:21)
[2024-08-19] MEDS: METOCLOPRAMIDE HCL INJ 10 MG/2 ML VIAL IV PUSH (06:21)
[2024-08-19 06:46] LABS: Hemoglobin 10.2 g/dL (14.0-18.0); Immature Platelet Fraction Pct 4.8 % (0.9-11.2); Mean Corpuscular HGB Conc 31.9 g/dl (32-36); Mean Corpuscular Hemoglobin 26.6 pg (26-34); Mean Corpuscular Volume 83.3 fl (80-100); Mean Platelet Volume 11.2 fl (7.4-10.4); Platelet Count Result 33 k/mm3 (150-375); Red Blood Count 3.84 M/mm3 (4.6-6.20); Red Cell Distribution Width 17.8 % (11.5-14.5); White Blood Count 8.2 K/mm3 (4.5-10.0)
[2024-08-19 07:00] LABS: Alanine Aminotransferase 55 U/L (6-50); Albumin Level 2.9 g/dL (3.5-5.1); Alkaline Phosphatase 244 U/L (38-126); Anion Gap 18 mmol/L (4-12); Aspartate Amino Transferase 134 U/L (17-59); Bilirubin,Total 3.4 mg/dL (0.2-1.3); Blood Urea Nitrogen 116 mg/dL (9-20); Calcium 8.9 mg/dL (8.4-10.2); Carbon Dioxide 20 mmol/L (22-30); Chloride 106 mmol/L (98-107); Glucose 156 mg/dL (65-110); Magnesium 2.4 mg/dL (1.6-2.3); Potassium 4.7 mmol/L (3.4-5.0); Sodium 144 mmol/L (137-145)
[2024-08-19 07:05] LABS: Estimated CRCL calculation 14 ml/min; Estimated Glomerular Filt Rate 12
[2024-08-19] MEDS: HYDROCORTISONE SODIUM SUCCINATE 100 MG/2 ML VIAL IV PUSH (07:42)
[2024-08-19] MEDS: PANTOPRAZOLE SODIUM IV 40 MG VIAL IV PUSH (07:42)
[2024-08-19] MEDS: MINERAL OIL/WHITE PETROLATUM OINTMENT 1 APPLIC EACH EYE (07:42)
[2024-08-19 08:45] LABS: Glucose Point of Care 163 mg/dl (65-105)
--- NOTE | 2024-08-19 08:59 | P.PNINT_ITS ---
Progress Note: A&P Assessment and Plan (1) Acute respiratory failure: Code(s): J96.00 - Acute respiratory failure, unspecified whether with hypoxia or hypercapnia Status: Acute Assessment and Plan: Acute respiratory failure secondary to pneumonia which is most likely aspiration which likely has progressed to ARDS Patient gradually developing worsening hypoxia. He was unable to maintain saturations on Vapotherm this morning and was switched to BiPAP. Despite being on BiPAP he was tachypnea. In light of bowel obstruction and tachypnea patient was intubated on08/[address]/14 CHEST: 1. Bilateral interstitial and alveolar opacification suggestive of ARDS versus pulmonary edema versus pneumonia. Follow-up and clinical correlation advised. Changes are increased compared to the previous examination. 2. Mediastinal lymphadenopathy. 3. Slight cardiomegaly. Ventilation is limited by pressures. Permissive hypercapnia and respiratory acidosis. Bicarb given to treat acidosis Cultures have been negative Continue Flagyl. His Levaquin was switched to cefepime Vancomycin discontinued as MRSA screen negative Initial chest CTA was negative for PE. Venous Dopplers were negative for DVT. Repeat venous Dopplers ordered FiO2 down to 40% and peep at 8 Continue to remove fluid with dialysis Chest x-ray reviewed Ventilator settings reviewed (2) Septic shock: Code(s): A41.9 - Sepsis, unspecified organism; R65.21 - Severe sepsis with septic shock Status: Acute Assessment and Plan: Secondary to pneumonia. Antibiotics as above. Off vasopressors now Discontinued stress dose hydrocortisone Off IV fluids due to respiratory status and renal failure (3) Ileus: Code(s): K56.7 - Ileus, unspecified Status: Acute Assessment and Plan: OG tube placed after intubation. Patient currently NPO CT abdomen pelvis ABDOMEN/PELVIS: 1. A few dilated small bowel loops in the mid abdomen with no evidence of complete obstruction. Improvement is noted compared to previous study. Follow-up advised. 2. Right kidney stones with no hydronephrosis or ureteric stones. 3. Bilateral small fat containing inguinal hernias. Minimal fat stranding posterior to the body and tail of the pancreas which may be artifactual. This appears more like ileus rather than obstruction. 08/15 patient was started on tube feeds at 20 mL/hour for this morning tube feeds had to be held because patient had a residual of 400 mL despite being on tube feeds only at 20 mL/hour. Increase Reglan dose Will restart tube feeds later today at low rate. He may need post but our top of tube insertion General surgery following 08/17 did not tolerate tube feeds. 08/18 plan was to request Radiology for post pyloric Dobbhoff tube placement. Family at this time want to wait until Wednesday to decide with palliative care (4) Gall stones: Code(s): K80.20 - Calculus of gallbladder without cholecystitis without obstruction Status: Acute Assessment and Plan: Ultrasound shows gallbladder sludge and stones in the dependent gallbladder lumen. Patient evaluated by general surgery and GI no intervention at this time (5) Atrial fibrillation: Code(s): I48.91 - Unspecified atrial fibrillation Status: Acute Assessment and Plan: Patient had Intermittent AFib currently in sinus rhythm Anticoagulation is on hold due to significant thrombocytopenia and any (6) GERD (gastroesophageal reflux disease): Code(s): K21.9 - Gastro-esophageal reflux disease without esophagitis Status: Chronic Assessment and Plan: IV Protonix (7) Type 2 diabetes mellitus without complications: Code(s): E11.9 - Type 2 diabetes mellitus without complications Status: Acute Assessment and Plan: Sliding scale insulin Lantus on hold as patient has not been tolerating tube feeds (8) Metastasis to bone: Code(s): C79.51 - Secondary malignant neoplasm of bone Status: Acute Assessment and Plan: Thoracic cervical and lumbar spine MRI shows several lesions consistent with metastatic disease or multiple myeloma Biopsy pending. Patient currently not stable for biopsy. Patient also thrombocytopenic Oncology consulted Will consider biopsy next week if patient is improved (9) Pneumonia: Code(s): J18.9 - Pneumonia, unspecified organism Status: Inactive Assessment and Plan: See above (10) Thrombocytopenia: Code(s): D69.6 - Thrombocytopenia, unspecified Status: Acute Assessment and Plan: Likely multifactorial. Continue to Hold anticoagulation Hematology consult appreciated 08/16 patient was transfuse platelets for dialysis catheter placement (11) Electrolyte abnormality: Code(s): E87.8 - Other disorders of electrolyte and fluid balance, not elsewhere classified Status: Acute Assessment and Plan: Continue water flushes for hypernatremia Dialysis to be continued (12) SAMUEL (acute kidney injury): Code(s): N17.9 - Acute kidney failure, unspecified Status: Acute Assessment and Plan: Patient has underlying CKD. Now the renal function has deteriorated likely secondary to sepsis shock and respiratory failure. Patient has received fluids and overall is fairly positive on his balance. Will hold further IV fluids due to concern with respiratory status and worsening hypoxia with volume overload. Maintain mean arterial pressure with vasopressors Nephrology consulted Monitor urine output electrolytes and creatinine Patient has not shown any improvement in urine output and continues to have worsening renal function patient was treated for hyperkalemia yesterday to proceed with initiating hemodialysis. Patient's family is agreeable. Will place dialysis catheter after transfusion of platelets. Discussed with nephrology 08/16 patient was dialyzed and 1 L fluid was removed 08/17 patient was dialyzed on 2 L fluid was removed 08/18 3 L fluid was 08/19 plan for dialysis again today (13) Swelling of lower extremity: Code(s): M79.89 - Other specified soft tissue disorders Status: Acute Assessment and Plan: Lower extremity swelling despite removing fluid from dialysis. Left more than right Will obtain Doppler of lower extremity veins to rule out DVT Patient at this time is not on any anticoagulation for DVT prophylaxis due to significant thrombocytopenia and anemia. He has required platelet transfusion for invasive procedures. He is on SCDs Plan DVT prophylaxis -SCD, patient has thrombocytopenia Stress ulcer prophylaxis -PPI Nutrition -will resume tube feeds at low rate. Patient does not tolerate patient may need to go for Dobbhoff placement Code Status -DNR 08/15 I had long discussion patient's son Dawood. I spoke to patient's other son Kt by phone yesterday. I have updated them both with patient's current and critical status with multiorgan failure including respiratory failure, sepsis, shock, acute renal failure, abnormalities on spine MRI. I have updated them with current treatment plan and plan for workup. I have explained them that patient's prognosis is guarded with significant chance of mortality. I answered all their questions. I have explained them the patient may dialysis if renal function does not improve and continues to worsen. 08/16 I updated patient's son Dawood at bedside and answered all his questions 08/17 spoke to both sons at bedside and updated them with patient's status. Discussed goals of care and code status. They requested the patient be made DNR. They want to continue current treatment and hoping that patient will improve. They do not believe the patient would want to be on mechanical ventilation for prolonged period of time and do not think patient would want trach and PEG in case patient is unable to be extubated in couple of weeks. Code status was changed as per patient's family request 08/18 spoke to patient's to son and other family members and updated them patient's status over last 24 hours. I also discussed plan for another dialysis session today and Dobbhoff placement. The son does not want any additional procedures unless patient shows any signs of improvement by Wednesday. He does not want any insertion at this time. He verbalized understanding that patient is not receiving tube feeds at this time due to his inability to tolerate tube feeding through the OG tube. At this time the plan is the patient does not improve significantly by Wednesday, the plan to proceed with palliative extubation and comfort care Total Critical Care Time - 32 minutes Due to a high probability of clinically significant, life threatening deterioration, the patient required my highest level of preparedness to intervene emergently and I personally spent this critical care time directly and personally managing the patient. This critical care time included obtaining a history; examining the patient; pulse oximetry; ordering and review of studies; arranging urgent treatment with development of a management plan; evaluation of patient's response to treatment; frequent reassessment; and discussions with other providers. It was exclusive of separately billable procedures and treating other patients and teaching time. Please see Assessment and Plan section and the rest of the note for further information on patient assessment and treatment Subjective Date/time seen: 08/19/24 Overnight events reviewed. Afebrile Continues to be on mechanical ventilation No significant change in neurological status over last 24 hours He was dialyzed yesterday and 3 L fluid was removed Off all continuous infusions Not on tube feeds Oliguric Review of Systems Review of Systems: ROS unobtainable: Yes unobtainable due to endotracheal tube, unobtainable due to medical condition and unobtainable due to mental status Exam Narrative: General: Pt is sedated, intubated and on mechanical ventilation Lungs/Chest: Trachea central Coarse BS B/L, bilateral coarse breathing. Bibasilar crackles. Cardiac: RRR. Normal S1 S2. No murmurs Circulation: Pedal pulses are intact and symmetrical. Abdomen: Bowel sounds are significantly decreased. Obese. Soft. NT. ND. Extremities: No clubbing, cyanosis or edema present left more than right : Camacho in place Neurologic: Off sedation for more than 96 hours. Does not wake up or follow commands. Withdraws to pain in all 4 extremities. People bilateral reactive to light. Left slightly bigger than right Objective Data Vital Signs Vital Signs: Vital Signs - 24 hr 08/18/24 09:37 08/18/24 09:37 08/18/24 09:46 Temperature 36.8 C Pulse Rate 96 95 Respiratory Rate 24 H Blood Pressure 135/57 L 141/61 H Pulse Oximetry Oxygen Delivery Fraction of Inspired Oxygen 40 08/18/24 10:00 08/18/24 10:00 08/18/24 10:30 Temperature 36.8 C Pulse Rate 96 97 98 Respiratory Rate 25 H Blood Pressure 137/58 L 137/58 L 136/60 Pulse Oximetry 97 Oxygen Delivery Fraction of Inspired Oxygen 08/18/24 10:15 08/18/24 10:00 08/18/24 11:06 Temperature Pulse Rate 98 99 101 H Respiratory Rate Blood Pressure 138/59 L Pulse Oximetry 97 Oxygen Delivery Mechanical Ventilation Fraction of Inspired Oxygen 40 08/18/24 10:45 08/18/24 11:00 08/18/24 12:00 Temperature 36.5 C Pulse Rate 99 99 102 H Respiratory Rate 26 H Blood Pressure 133/59 L 131/60 126/63 Pulse Oximetry 97 Oxygen Delivery Fraction of Inspired Oxygen 08/18/24 12:00 08/18/24 12:00 08/18/24 12:00 Temperature Pulse Rate 98 97 Respiratory Rate 26 H Blood Pressure Pulse Oximetry 98 Oxygen Delivery Mechanical Ventilation Fraction of Inspired Oxygen 40 40 08/18/24 11:15 08/18/24 12:54 08/18/24 11:30 Temperature 36.5 C Pulse Rate 101 H 102 H 101 H Respiratory Rate 26 H Blood Pressure 136/62 133/71 129/68 Pulse Oximetry Oxygen Delivery Fraction of Inspired Oxygen 08/18/24 11:45 08/18/24 12:00 08/18/24 12:15 Temperature Pulse Rate 101 H 102 H 102 H Respiratory Rate Blood Pressure 131/62 126/63 128/60 Pulse Oximetry Oxygen Delivery Fraction of Inspired Oxygen 08/18/24 12:30 08/18/24 12:45 08/18/24 12:47 Temperature Pulse Rate 102 H 106 H 101 H Respiratory Rate Blood Pressure 114/64 135/62 129/62 Pulse Oximetry Oxygen Delivery Fraction of Inspired Oxygen 08/18/24 13:50 08/18/24 14:00 08/18/24 14:00 Temperature 36.7 C Pulse Rate 99 97 97 Respiratory Rate 28 H Blood Pressure 119/52 L Pulse Oximetry 94 95 Oxygen Delivery Mechanical Ventilation Fraction of Inspired Oxygen 40 08/18/24 16:00 08/18/24 16:00 08/18/24 16:00 Temperature 36.7 C Pulse Rate 96 99 101 H Respiratory Rate 26 H 25 H Blood Pressure 130/57 L Pulse Oximetry 98 97 Oxygen Delivery Mechanical Ventilation Fraction of Inspired Oxygen 40 08/18/24 16:00 08/18/24 17:01 08/18/24 17:54 Temperature Pulse Rate 103 H 101 H Respiratory Rate Blood Pressure Pulse Oximetry 97 Oxygen Delivery Mechanical Ventilation Fraction of Inspired Oxygen 40 40 08/18/24 18:00 08/18/24 20:15 08/18/24 20:00 Temperature 36.8 C Pulse Rate 103 H 103 H 103 H Respiratory Rate 25 H 25 H Blood Pressure 145/60 H Pulse Oximetry 96 98 96 Oxygen Delivery Mechanical Ventilation Mechanical Ventilation Fraction of Inspired Oxygen 40 40 08/18/24 20:00 08/18/24 20:00 08/18/24 20:00 Temperature 36.9 C Pulse Rate 103 H 101 H Respiratory Rate 25 H Blood Pressure 149/58 H Pulse Oximetry 97 Oxygen Delivery Fraction of Inspired Oxygen 40 08/18/24 22:25 08/18/24 22:00 08/18/24 22:00 Temperature 37.1 C Pulse Rate 105 H 104 H 104 H Respiratory Rate 25 H Blood Pressure 143/67 H Pulse Oximetry 98 97 Oxygen Delivery Mechanical Ventilation Fraction of Inspired Oxygen 40 08/19/24 00:00 08/19/24 00:00 08/19/24 00:00 Temperature Pulse Rate 118 H 118 H Respiratory Rate 25 H Blood Pressure Pulse Oximetry 97 Oxygen Delivery Mechanical Ventilation Fraction of Inspired Oxygen 40 40 08/19/24 02:10 08/19/24 04:22 08/19/24 04:00 Temperature Pulse Rate 118 H 122 H 122 H Respiratory Rate 25 H Blood Pressure Pulse Oximetry 97 96 96 Oxygen Delivery Mechanical Ventilation Mechanical Ventilation Mechanical Ventilation Fraction of Inspired Oxygen 40 40 40 08/19/24 04:00 08/19/24 02:00 08/19/24 04:00 Temperature Pulse Rate 112 H 120 H Respiratory Rate Blood Pressure Pulse Oximetry Oxygen Delivery Fraction of Inspired Oxygen 40 08/19/24 06:00 08/19/24 00:00 08/19/24 02:00 Temperature 37.2 C 37.6 C Pulse Rate 112 H 112 H 117 H Respiratory Rate 26 H 26 H Blood Pressure 161/66 H 175/64 H Pulse Oximetry 97 100 Oxygen Delivery Fraction of Inspired Oxygen 08/19/24 04:00 08/19/24 06:00 08/19/24 07:52 Temperature 37.2 C 37.7 C H Pulse Rate 112 H 108 H 115 H Respiratory Rate 26 H 26 H Blood Pressure 161/66 H 122/57 L Pulse Oximetry 97 95 96 Oxygen Delivery Mechanical Ventilation Fraction of Inspired Oxygen 30 08/19/24 07:55 08/19/24 08:11 Temperature Pulse Rate Respiratory Rate Blood Pressure Pulse Oximetry 96 Oxygen Delivery Mechanical Ventilation Fraction of Inspired Oxygen 30 40 Intake/Output Intake/Output: Intake & Output 08/16/24 08/17/24 08/18/24 08/19/24 23:59 23:59 23:59 23:59 Intake Total 2208 855 751 400 Output Total 1225 2160 3100 100 Balance [phone] -[phone] -[phone] Meds/Results Medications: Active Medications Generic Name Dose Route Start Last Admin Trade Name Freq PRN Reason Stop Dose Admin Acetaminophen 650 mg 08/15/24 06:44 08/19/24 02:07 Acetaminophen Elixir 325 Mg/10.15 Ml Udc PO 650 mg Q4H PRN Administration Mild Pain (1-3) or Fever Alteplase, Recombinant 2 mg 08/17/24 09:37 08/17/24 09:53 Alteplase 2 Mg Vial (Cathflo) IV PUSH 2 mg ONCE PRN Administration Line Occlusion Dextrose 12.5 gm 08/10/24 06:29 08/11/24 10:46 Dextrose 50% 25 Gm/50 Ml Syringe IV PUSH 12.5 gm PRN PRN Administration Hypoglycemia Protocol Epoetin Talat-epbx 10,000 units 08/19/24 18:40 Epoetin [place]-Epbx 10,000 Units/Ml Vial IV PUSH 08/19/24 18:41 ONCE ONE Glucagon 1 mg 08/10/24 06:29 Glucagon For Inj 1 Mg Vial IM PRN PRN Hypoglycemia Protocol Glucose 15 gm 08/10/24 06:29 Glucose Oral Gel 15 Gm Of Glucse In 37.5 Gm Tube PO PRN PRN Hypoglycemia Protocol Hydralazine HCl 20 mg 08/11/24 11:57 08/19/24 02:08 Hydralazine Hcl 20 Mg/Ml Vial IV PUSH 20 mg Q4H PRN Administration Blood Sugar - High Dextrose 1,000 mls @ 100 mls/hr 08/10/24 06:29 Dextrose 5% 1,000 Ml IVPB PRN PRN Hypoglycemia Protocol Midazolam HCl 100 mg in 100 mls @ 0 mls/hr 08/14/24 12:20 08/17/24 05:02 Versed 100 Mg/Ns 100 Ml IV CONT Infused .Q0M [place] Titration Protocol Albumin Human 50 mls @ 999 mls/hr 08/16/24 10:28 Albutein IVPB 09/15/24 10:27 Q10M PRN HYPOTENSION Cefepime HCl 1 gm in 50 mls @ 100 mls/hr 08/17/24 18:00 08/18/24 18:07 Maxipime 1 Gm/Ns 50 Ml IVPB Infused DAILY@1800 [place] Infusion Norepinephrine Bitartrate 8 mg in 250 mls @ 9.375 mls/hr 08/17/24 12:45 08/17/24 19:44 Levophed 8 Mg/D5w 250 Ml IV CONT Not Given .Q24H [place] Protocol 5 MCG/MIN Insulin Aspart 4 - 8 units 08/16/24 09:00 08/19/24 07:54 Insulin Aspart (*Bkc) 100 Units/Ml SUB-Q Not Given Q4HR [facility] Protocol Ipratropium [place] 0.5 mg 08/14/24 14:27 Ipratropium Br 0.02% Inh Soln 0.5 Mg/2.5 Ml Vial INHALATION Q6HRT PRN Shortness Of Breath Or Wheezing Levalbuterol HCl 0.63 mg 08/14/24 14:27 Levalbuterol Neb 1.25 Mg/3 Ml INHALATION Q6HRT PRN Shortness Of Breath Or Wheezing Metoclopramide HCl 10 mg 08/16/24 12:00 08/19/24 06:21 Metoclopramide Hcl Inj 10 Mg/2 Ml Vial IV PUSH 10 mg Q6HR [place] Administration Multi-Ingred Cream/Lotion/Oil/Oint 1 applic 08/14/24 21:00 08/19/24 07:42 Mineral Oil/White Petrolatum Ointment EACH EYE 1 applic Q12HR [place] Administration Pantoprazole Sodium 40 mg 08/13/24 09:00 12 07:42 Pantoprazole Sodium Iv 40 Mg Vial IV PUSH 40 mg QAM [place] Administration Sodium Chloride 10 ml 08/14/24 14:00 08/19/24 06:21 Central Line Flush IV PUSH 10 ml Q8HR [place] Administration Sodium Chloride 10 ml 08/14/24 13:51 Central Line Flush IV PUSH PRN PRN with TPN bag changes Sodium Chloride 20 ml 08/14/24 13:51 Central Line Flush IV PUSH PRN PRN after blood draws Radiology Results: ITS Impressions Cervical Spine CT 08/09/24 18:15 IMPRESSION: 1. Moderate to severe cervical spondylosis. No acute osseous abnormality. Thoracic/Lumbar Spine CT 08/09/24 18:22 IMPRESSION: 1. Multiple old posterior left rib fractures and chronic compression fractures with mild anterior wedging at T5 and T6 and mild right-sided anterior vertebral body height loss at L2. No acute osseous abnormality. 2. Moderate thoracic spondylosis and mild lumbar spondylosis. 3. Combined instrumented L5-S1 anterior and posterior spinal fusion. 4. Chronic bilateral lower lung predominant interstitial lung disease with indeterminate 8 mm pulmonary nodule in the left lower lobe. Recommend 3 month follow-up low-dose noncontrast chest CT. Chest CTA 08/10/24 18:43 IMPRESSION: 1. No pulmonary embolism. 2. Bilateral interstitial and alveolar opacification more prominent in the right upper lobe which may indicate pneumonitis versus fibrotic changes versus pulmonary edema. 3. Bilateral pleural effusion more on the right side. 4. Cholelithiasis. 5. Left adrenal adenoma. 6. Mediastinal lymphadenopathy.. 7. Multiple healing rib fractures in the left hemithorax. Brain MRA 08/11/24 09:25 IMPRESSION: 1. High-grade stenosis on the right P1 segment with downstream moderate-sized region of encephalomalacia consistent with chronic infarct. 2. Moderate grade stenosis at the origin of the right M1 segment. Brain MRI 08/12/24 14:11 IMPRESSION: No acute intracranial process. Abdomen Ultrasound 08/12/24 16:37 IMPRESSION: Likely, additional gallbladder sludge and stones in the dependent gallbladder lumen. Small Bowel X-Ray 08/12/24 19:16 IMPRESSION: Radiographic findings consistent with low-grade small bowel obstruction or ileus. Lumbar Spine MRI 08/13/24 06:32 IMPRESSION: 1. Widespread enhancement of the bones without abnormal CT correlate suspicious for metastatic disease or multiple myeloma. 2. Mild lumbar spondylosis. 3. Anterior fusion procedure at L5-S1. Cervical Spine MRI 08/13/24 06:43 IMPRESSION: 1. Widespread abnormal contrast enhancement in the bones, consistent with metastatic disease versus multiple myeloma. 2. Moderate cervical spondylosis. Thoracic Spine MRI 08/13/24 06:48 IMPRESSION: 1. Widespread contrast enhancement of the bones, consistent with metastatic disease versus multiple myeloma. 2. Mild thoracic spondylosis. Venous Doppler Study 08/14/24 15:47 IMPRESSION: 1. No deep venous thrombosis. 2. Small left Calles's cyst. Chest/Abdomen/Pelvis CT 08/14/24 17:11 IMPRESSION: CHEST: 1. Bilateral interstitial and alveolar opacification suggestive of ARDS versus pulmonary edema versus pneumonia. Follow-up and clinical correlation advised. Changes are increased compared to the previous examination. 2. Mediastinal lymphadenopathy. 3. Slight cardiomegaly. ABDOMEN/PELVIS: 1. A few dilated small bowel loops in the mid abdomen with no evidence of complete obstruction. Improvement is noted compared to previous study. Follow-up advised. 2. Right kidney stones with no hydronephrosis or ureteric stones. 3. Bilateral small fat containing inguinal hernias. Minimal fat stranding posterior to the body and tail of the pancreas which may be artifactual. Head CT 08/15/24 08:37 IMPRESSION: 1. 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 Renal Ultrasound 08/15/24 14:34 IMPRESSION: 1. A couple cysts in the left kidney. Otherwise normal kidneys with no hydronephrosis. Abdomen X-Ray 08/17/24 09:28 IMPRESSION: 1. Normal bowel gas pattern. Chest X-Ray 08/19/24 05:52 IMPRESSION: 1. Stable diffuse lung disease, consistent with pulmonary edema versus pneumonia versus acute respiratory distress syndrome (ARDS). Labs Labs: Laboratory Results - last 24 hr 08/16/24 08/18/24 08/18/24 05:46 11:36 15:56 WBC RBC Hgb Hct MCV MCH MCHC RDW Plt Count MPV % Immature Plt Fraction Puncture Site ABG pH ABG pCO2 ABG pO2 ABG PO2/FiO2 Ratio ABG HCO3 ABG O2 Saturation ABG O2 Content ABG Base Excess A-a Gradient Oxyhemoglobin Carboxyhemoglobin Methemoglobin Reduced Hemoglobin Total Hemoglobin O2 Delivery Device O2 Liters/Min Minute Volume Vent Rate Vent Mode FiO2 Tidal Volume PEEP Peak Inspir Pressure Pressure Support Sodium Potassium Chloride Carbon Dioxide Anion Gap BUN Creatinine Estim Creat Clear Calc Estimated GFR Glucose POC Capillary Glucose 156 H 175 H Calcium Magnesium Total Bilirubin AST ALT Alkaline Phosphatase Total Protein Albumin [place]/Lambda Ratio 2.83 H Free [place] Light Chains 97.0 H Free Lambda Light Chain 34.3 H 08/18/24 08/19/24 08/19/24 20:26 04:18 05:53 WBC RBC Hgb Hct MCV MCH MCHC RDW Plt Count MPV % Immature Plt Fraction Puncture Site Left radial ABG pH 7.255 L* ABG pCO2 47.2 H ABG pO2 140.3 H ABG PO2/FiO2 Ratio 3.51 ABG HCO3 20.5 L ABG O2 Saturation 98.4 ABG O2 Content 17.7 ABG Base Excess -6.6 A-a Gradient 90.6 Oxyhemoglobin 97.9 Carboxyhemoglobin 0.4 Methemoglobin 0.3 Reduced Hemoglobin 1.4 Total Hemoglobin 12.7 O2 Delivery Device Ventilator O2 Liters/Min Not Reportable Minute Volume Not Reportable Vent Rate 26 Vent Mode Cmv FiO2 40 Tidal Volume 450 PEEP 8 Peak Inspir Pressure Not Reportable Pressure Support Not Reportable Sodium Potassium Chloride Carbon Dioxide Anion Gap BUN Creatinine Estim Creat Clear Calc Estimated GFR Glucose POC Capillary Glucose 165 H 163 H Calcium Magnesium Total Bilirubin AST ALT Alkaline Phosphatase Total Protein Albumin [place]/Lambda Ratio Free [place] Light Chains Free Lambda Light Chain 08/19/24 06:18 WBC 8.2 RBC 3.84 L Hgb 10.2 L Hct 32.0 L MCV 83.3 MCH 26.6 MCHC 31.9 L RDW 17.8 H Plt Count 33 L MPV 11.2 H % Immature Plt Fraction 4.8 Puncture Site ABG pH ABG pCO2 ABG pO2 ABG PO2/FiO2 Ratio ABG HCO3 ABG O2 Saturation ABG O2 Content ABG Base Excess A-a Gradient Oxyhemoglobin Carboxyhemoglobin Methemoglobin Reduced Hemoglobin Total Hemoglobin O2 Delivery Device O2 Liters/Min Minute Volume Vent Rate Vent Mode FiO2 Tidal Volume PEEP Peak Inspir Pressure Pressure Support Sodium 144 Potassium 4.7 Chloride 106 Carbon Dioxide 20 L Anion Gap 18 H BUN 116 H D Creatinine 4.70 H Estim Creat Clear Calc 14 Estimated GFR 12 L Glucose 156 H POC Capillary Glucose Calcium 8.9 Magnesium 2.4 H Total Bilirubin 3.4 H AST 134 H ALT 55 H Alkaline Phosphatase 244 H Total Protein 6.0 L Albumin 2.9 L [place]/Lambda Ratio Free [place] Light Chains Free Lambda Light Chain Quality VTE Prophylaxis VTE prophylaxis: mechanical ordered
[2024-08-19 09:09] LABS: Glucose Point of Care 145 mg/dl (65-105)
--- NOTE | 2024-08-19 09:45 | P.PNNP_ITS ---
Progress Note: A&P Assessment and Plan (1) SAMUEL (acute kidney injury): Code(s): N17.9 - Acute kidney failure, unspecified Status: Acute Assessment and Plan: * as noted since admission * suspect multifactorial etiology: * hemodynamic instability/shock * infection/sepsis (pneunonia) * hypoxia * prerenal factors/insensible losses * contrast exposure (CTA of chest on 08/10) * evaluation to date noted: * imaging without obstructive uropathy * urine eosinophils negative * urine electrolytes prerenal * moderate proteinuria * CPK mildly elevated (but not enough to affect kidney function) * due to worsening BUN, creatinine, potassium levels and anuria -- initiated on hemodialysis: * HD on 08/16 and 08/17 * DUF today for further fluid removal * HD today * follow trend of repeat labs and UOP to assess for renal recovery (2) Stage 3a chronic kidney disease (CKD): Code(s): N18.31 - Chronic kidney disease, stage 3a Status: Acute Assessment and Plan: * baseline creatinine runs around 1.2 - 1.5mg/dl * presumably secondary to diabetes, vascular disease, obstructive sleep apnea, BPH, and age-related change (3) Hypernatremia: Code(s): E87.0 - Hyperosmolality and hypernatremia Status: Acute Assessment and Plan: * as noted by trend of sodium * add FWF with via NG if/when able * dialysis will improve to some degree (4) Septic shock: Code(s): A41.9 - Sepsis, unspecified organism; R65.21 - Severe sepsis with septic shock Status: Acute Assessment and Plan: * felt to be secondary to pneumonia * follow culture data * off vasopressor therapy at this time * on antibiotics (5) Acute respiratory failure: Code(s): J96.00 - Acute respiratory failure, unspecified whether with hypoxia or hypercapnia Status: Acute Assessment and Plan: * due to pneunonia (aspiration) with what appears to be progression to ARDS * intubated and placed on mechanical ventilation on 08/14 * most recent CT of chest noted: * bilateral interstitial and alveolar opacification suggestive of ARDS versus pulmonary edema versus pneumonia * mediastinal lymphadenopathy * slight cardiomegaly. * fluid removal with dialysis * ventilator weaning when more stable (6) Pneumonia: Code(s): J18.9 - Pneumonia, unspecified organism Status: Acute Assessment and Plan: * as suggested by imaging to date * follow culture data * on antibiotics (7) Bone lesion: Code(s): M89.9 - Disorder of bone, unspecified Status: Acute Assessment and Plan: * as noted on admission imaging * concern for possible metastatic disease versus multiple myeloma * not stable for biopsy at this time (8) Small bowel obstruction: Code(s): K56.609 - Unspecified intestinal obstruction, unspecified as to partial versus complete obstruction Status: Acute Assessment and Plan: * CT of A/P noted: * a few dilated small bowel loops in the mid abdomen with no evidence of complete obstruction * right kidney stones with no hydronephrosis or ureteric stones * bilateral small fat containing inguinal hernias * minimal fat stranding posterior to the body and tail of the pancreas which may be artifactual * OG in place at this time * suspect ileus more than obstruction * General Surgery following * advance tube feeds as tolerated (9) Type 2 diabetes mellitus without complications: Code(s): E11.9 - Type 2 diabetes mellitus without complications Status: Acute Assessment and Plan: * follow accucheks * glycemic control per hospitalists/wet suit gluer Will continue to follow. Subjective Date/time seen: 08/19/24 09:45 Interval history: Follow-up for acute kidney injury on chronic kidney disease. Tolerated dry ultrafiltration yesterday with 3L fluid removal; tolerating hemodialysis treatment at the time of my visit (seen on HD at 9:35AM -- tr eatment just started); remains intubated and on mechanical ventilation; despite being off sedation, no significant change in neurological status noted; still not making much urine and renal function/creatinine/BUN rise without dialytic intervention. Exam Narrative: General: elderly male intubated and on mechanical ventilation Heart: normal S1 and S2; no rub Lungs: coarse breath sounds with bibasilar crackles Abdomen: soft, nontender, nondistended, decreased bowel sounds Extremities: no cyanosis or clubbing; trace - 1+ edema Skin: no rash or nodules Objective Data Vital Signs Vital Signs: Vital Signs Temp Pulse Resp BP Pulse Ox O2 Del Method FiO2 08/19/24 09:45 111 H 129/58 L 08/19/24 09:34 117 H 155/58 H 08/19/24 09:20 99.4 F 117 H 29 H 150/52 H 93 08/19/24 09:20 30 08/19/24 08:11 40 08/19/24 07:55 96 Mechanical Ventilation 30 08/19/24 07:52 115 H 96 Mechanical Ventilation 30 08/19/24 06:00 99.9 F H 108 H 26 H 122/57 L 95 08/19/24 04:00 99 F 112 H 26 H 161/66 H 97 08/19/24 02:00 99.6 F 117 H 26 H 175/64 H 100 08/19/24 00:00 99 F 112 H 26 H 161/66 H 97 08/19/24 06:00 112 H 08/19/24 04:00 120 H 08/19/24 02:00 112 H 08/19/24 04:00 40 08/19/24 04:00 122 H 25 H 96 Mechanical Ventilation 40 08/19/24 04:22 122 H 96 Mechanical Ventilation 40 08/19/24 02:10 118 H 97 Mechanical Ventilation 40 08/19/24 00:00 40 08/19/24 00:00 118 H 08/19/24 00:00 118 H 25 H 97 Mechanical Ventilation 40 08/18/24 22:00 98.7 F 104 H 25 H 143/67 H 97 08/18/24 22:00 104 H 08/18/24 22:25 105 H 98 Mechanical Ventilation 40 08/18/24 20:00 98.4 F 101 H 25 H 149/58 H 97 08/18/24 20:00 40 08/18/24 20:00 103 H 08/18/24 20:00 103 H 25 H 96 Mechanical Ventilation 40 08/18/24 20:15 103 H 98 Mechanical Ventilation 40 08/18/24 18:00 98.3 F 103 H 25 H 145/60 H 96 08/18/24 17:54 101 H 08/18/24 17:01 103 H 97 Mechanical Ventilation 40 08/18/24 16:00 40 08/18/24 16:00 101 H 25 H 97 Mechanical Ventilation 40 08/18/24 16:00 99 08/18/24 16:00 98.0 F 96 26 H 130/57 L 98 08/18/24 14:00 98.1 F 97 28 H 119/52 L 95 08/18/24 14:00 97 08/18/24 13:50 99 94 Mechanical Ventilation 40 08/18/24 12:47 101 H 129/62 08/18/24 12:45 106 H 135/62 08/18/24 12:30 102 H 114/64 08/18/24 12:15 102 H 128/60 08/18/24 12:54 97.7 F 102 H 26 H 133/71 Intake/Output Intake/Output: Intake & Output 08/16/24 08/17/24 08/18/24 08/19/24 23:59 23:59 23:59 23:59 Intake Total 2208 855 751 420.6 Output Total 1225 2160 3100 100 Balance 344 -8085 -2029 320.6 Meds/Results Medications: Active Medications Generic Name Dose Route Start Last Admin Trade Name Freq PRN Reason Stop Dose Admin Acetaminophen 650 mg 08/15/24 06:44 08/19/24 02:07 Acetaminophen Elixir 325 Mg/10.15 Ml Udc PO 650 mg Q4H PRN Administration Mild Pain (1-3) or Fever Alteplase, Recombinant 2 mg 08/17/24 09:37 08/17/24 09:53 Alteplase 2 Mg Vial (Cathflo) IV PUSH 2 mg ONCE PRN Administration Line Occlusion Dextrose 12.5 gm 08/10/24 06:29 08/11/24 10:46 Dextrose 50% 25 Gm/50 Ml Syringe IV PUSH 12.5 gm PRN PRN Administration Hypoglycemia Protocol Epoetin Tlaat-epbx 10,000 units 08/19/24 18:40 Epoetin Talat-Epbx 10,000 Units/Ml Vial IV PUSH 08/19/24 18:41 ONCE ONE Glucagon 1 mg 08/10/24 06:29 Glucagon For Inj 1 Mg Vial IM PRN PRN Hypoglycemia Protocol Glucose 15 gm 08/10/24 06:29 Glucose Oral Gel 15 Gm Of Glucse In 37.5 Gm Tube PO PRN PRN Hypoglycemia Protocol Hydralazine HCl 20 mg 08/11/24 11:57 08/19/24 02:08 Hydralazine Hcl 20 Mg/Ml Vial IV PUSH 20 mg Q4H PRN Administration Blood Sugar - High Dextrose 1,000 mls @ 100 mls/hr 08/10/24 06:29 Dextrose 5% 1,000 Ml IVPB PRN PRN Hypoglycemia Protocol Midazolam HCl 100 mg in 100 mls @ 0 mls/hr 08/14/24 12:20 08/17/24 05:02 Versed 100 Mg/Ns 100 Ml IV CONT Infused .Q0M [place] Titration Protocol Albumin Human 50 mls @ 999 mls/hr 08/16/24 10:28 08/19/24 10:20 Albutein IVPB 09/15/24 10:27 999 mls/hr Q10M PRN Administration HYPOTENSION Cefepime HCl 1 gm in 50 mls @ 100 mls/hr 08/17/24 18:00 08/18/24 18:07 Maxipime 1 Gm/Ns 50 Ml IVPB Infused Albumin Human 250 mls @ 250 mls/hr 08/19/24 11:31 08/19/24 11:47 Albumin Human 5% IV CONT 08/19/24 12:30 250 mls/hr .Q1H ONE Administration Insulin Aspart 4 - 8 units 08/16/24 09:00 08/19/24 11:52 Insulin Aspart (*Bkc) 100 Units/Ml SUB-Q Not Given Q4HR [facility] Protocol Ipratropium Thiells 0.5 mg 08/14/24 14:27 Ipratropium Br 0.02% Inh Soln 0.5 Mg/2.5 Ml Vial INHALATION Q6HRT PRN Shortness Of Breath Or Wheezing Levalbuterol HCl 0.63 mg 08/14/24 14:27 Levalbuterol Neb 1.25 Mg/3 Ml INHALATION Q6HRT PRN Shortness Of Breath Or Wheezing Metoclopramide HCl 10 mg 08/16/24 12:00 08/19/24 11:52 Metoclopramide Hcl Inj 10 Mg/2 Ml Vial IV PUSH Not Given Q6HR [facility] Multi-Ingred Cream/Lotion/Oil/Oint 1 applic 08/14/24 21:00 08/19/24 07:42 Mineral Oil/White Petrolatum Ointment EACH EYE 1 applic Q12HR [place] Administration Pantoprazole Sodium 40 mg 08/13/24 09:00 08/19/24 07:42 Pantoprazole Sodium Iv 40 Mg Vial IV PUSH 40 mg QAM [place] Administration Sodium Chloride 10 ml 08/14/24 14:00 08/19/24 06:21 Central Line Flush IV PUSH 10 ml Q8HR [place] Administration Sodium Chloride 10 ml 08/14/24 13:51 Central Line Flush IV PUSH PRN PRN with TPN bag changes Sodium Chloride 20 ml 08/14/24 13:51 Central Line Flush IV PUSH PRN PRN after blood draws Radiology Results: ITS Impressions Cervical Spine CT 08/09/24 18:15 IMPRESSION: 1. Moderate to severe cervical spondylosis. No acute osseous abnormality. Thoracic/Lumbar Spine CT 08/09/24 18:22 IMPRESSION: 1. Multiple old posterior left rib fractures and chronic compression fractures with mild anterior wedging at T5 and T6 and mild right-sided anterior vertebral body height loss at L2. No acute osseous abnormality. 2. Moderate thoracic spondylosis and mild lumbar spondylosis. 3. Combined instrumented L5-S1 anterior and posterior spinal fusion. 4. Chronic bilateral lower lung predominant interstitial lung disease with indeterminate 8 mm pulmonary nodule in the left lower lobe. Recommend 3 month follow-up low-dose noncontrast chest CT. Chest CTA 08/10/24 18:43 IMPRESSION: 1. No pulmonary embolism. 2. Bilateral interstitial and alveolar opacification more prominent in the right upper lobe which may indicate pneumonitis versus fibrotic changes versus pulmonary edema. 3. Bilateral pleural effusion more on the right side. 4. Cholelithiasis. 5. Left adrenal adenoma. 6. Mediastinal lymphadenopathy.. 7. Multiple healing rib fractures in the left hemithorax. Brain MRA 08/11/24 09:25 IMPRESSION: 1. High-grade stenosis on the right P1 segment with downstream moderate-sized region of encephalomalacia consistent with chronic infarct. 2. Moderate grade stenosis at the origin of the right M1 segment. Brain MRI 08/12/24 14:11 IMPRESSION: No acute intracranial process. Abdomen Ultrasound 08/12/24 16:37 IMPRESSION: Likely, additional gallbladder sludge and stones in the dependent gallbladder lumen. Small Bowel X-Ray 08/12/24 19:16 IMPRESSION: Radiographic findings consistent with low-grade small bowel obstruction or ileus. Lumbar Spine MRI 08/13/24 06:32 IMPRESSION: 1. Widespread enhancement of the bones without abnormal CT correlate suspicious for metastatic disease or multiple myeloma. 2. Mild lumbar spondylosis. 3. Anterior fusion procedure at L5-S1. Cervical Spine MRI 08/13/24 06:43 IMPRESSION: 1. Widespread abnormal contrast enhancement in the bones, consistent with metastatic disease versus multiple myeloma. 2. Moderate cervical spondylosis. Thoracic Spine MRI 08/13/24 06:48 IMPRESSION: 1. Widespread contrast enhancement of the bones, consistent with metastatic disease versus multiple myeloma. 2. Mild thoracic spondylosis. Chest/Abdomen/Pelvis CT 08/14/24 17:11 IMPRESSION: CHEST: 1. Bilateral interstitial and alveolar opacification suggestive of ARDS versus pulmonary edema versus pneumonia. Follow-up and clinical correlation advised. Changes are increased compared to the previous examination. 2. Mediastinal lymphadenopathy. 3. Slight cardiomegaly. ABDOMEN/PELVIS: 1. A few dilated small bowel loops in the mid abdomen with no evidence of complete obstruction. Improvement is noted compared to previous study. Follow-up advised. 2. Right kidney stones with no hydronephrosis or ureteric stones. 3. Bilateral small fat containing inguinal hernias. Minimal fat stranding posterior to the body and tail of the pancreas which may be artifactual. Head CT 08/15/24 08:37 IMPRESSION: 1. 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 Renal Ultrasound 08/15/24 14:34 IMPRESSION: 1. A couple cysts in the left kidney. Otherwise normal kidneys with no hydronephrosis. Abdomen X-Ray 08/17/24 09:28 IMPRESSION: 1. Normal bowel gas pattern. Chest X-Ray 08/19/24 05:52 IMPRESSION: 1. Stable diffuse lung disease, consistent with pulmonary edema versus pneumonia versus acute respiratory distress syndrome (ARDS). Venous Doppler Study 08/19/24 11:37 IMPRESSION: 1. No deep venous thrombosis. Labs Labs: Laboratory Tests 08/19/24 06:18 08/19/24 06:18 Calcium 8.9 Magnesium 2.4 H Total Bilirubin 3.4 H AST 134 H ALT 55 H Alkaline Phosphatase 244 H Total Protein 6.0 L Albumin 2.9 L
[2024-08-19] MEDS: ALBUMIN HUMAN 25% 12.5 GM/50ML 50 ML IVPB (10:20)
[2024-08-19] MEDS: NOREPINEPHRINE 8 MG/D5W 250 ML 8 MG/250 ML BAG 9.38 MG IV CONT (11:15)
[2024-08-19] MEDS: HEPARIN SODIUM 1,000 UNITS/ML VIAL 3000 UNITS (11:32)
[2024-08-19] MEDS: ALBUMIN HUMAN 5% 250 ML IV CONT (11:47)
[2024-08-19 11:53] LABS: Glucose Point of Care 172 mg/dl (65-105)
--- NOTE | 2024-08-19 12:08 | PM.EVENT ---
Event Note Event Note Event Note: Patient was getting dialyzed when he became suddenly bradycardic hypotensive. He had feeble but dopplerable pulse. Dialysis was discontinued. Patient was started on Levophed. These interventions led to recovery of the heart rate back to sinus tachycardia and blood pressure improved. No other significant change in respiratory or hemodynamic status. Once dialysis discontinued patient's family including both son along with other family members arrived at bedside. They were contemplating for many days palliative extubation and comfort care measures for him. And initially were planning to do it tomorrow on Wednesday. After today's event son told me that he feels that he is prolonging patient is suffering by continuing to wait as he has not seen any signs of recovery last few days. He feels the patient would not want to continue like this on extended life support considering his prognosis and multiple medical problems he currently has. Both sons have decided, in accordance with pt's wishes, to discontinue all medical therapy and institute comfort measures only. I have explained to them that I will use opioids, anxiolytics and other agents on as needed basis to promote comfort and discontinue all medical therapy, lab testing and invasive monitoring. Patient will eventually . They both verbalized understanding and agreed to proceed. I have requested nurse to notify primary hospitalist attending off the plan.
[2024-08-19] MEDS: MORPHINE SULFATE INJ (*CRX) 10 MG/ML AMP 5 MG IV PUSH (12:21)
[2024-08-19] MEDS: LORazepam INJ (*CRX) 2 MG/ML VIAL IV PUSH ×3 (12:22→15:31)
[2024-08-19] MEDS: MORPHINE SULFATE (*CRX) 2 MG/ML INJ 4 MG IV PUSH ×2 (13:24→15:30)
[2024-08-19] MEDS: ATROPINE SULFATE 1% OPHTH SOLN 5 ML BOTTLE SUBLINGUAL (13:24)
--- NOTE | 2024-08-19 17:07 | PM.DDS ---
Discharge Summary Date and Time Date of : 08/19/24 Time of : 16:49 Provider Name of First RN That Pronounced: Jess Nixon Name of Second RN That Pronounced: Janusz Abdalla Probable Cause of Probable Cause of : Respiratory failure due multiple comorbid conditions Summary Hospital Course: 78-year-old male with past medical history of GERD, BPH, coronary artery disease, mixed hyperlipidemia, chronic kidney disease stage 3 and CVA who presents to the ER from home via EMS after having multiple falls. The patient reports that he has history of intermittent back pain. He reports that he has been having increased back pain recently due to his multiple falls. He reports that when he stands up he will often feel dizzy. He does have history of orthostatic hypotension. He also reports that he has a tendency to fall because of residual paresthesias to his left upper and lower extremity due to prior CVA in 2013. He is gotten to the point that when he does stand up his left leg will fatigue quickly and then his right leg cannot hold him up in he will start to shake and fall. When he was stood up for ambulation in the ER the patient only made if you shuffling footsteps and then almost fell. The patient reports he has had numerous falls recently and fell in the garage on Wednesday. His neighbor came and helped him up and then called the patient's son. The patient's son then drove up from [place] and when the son arrived at the patient's house he found the patient on the floor in the living room. The patient denies having been on the floor for 3 days but does note that he has gotten up and fallen again in multiple times. He up the patient up and the patient did not want to come into the ER for evaluations so he put off coming to the hospital in still the . He does have chronic leg pain. Review ask him about his pain currently he rubs his lateral thighs and buttock region. He is restless and cannot sit still in the bed. He is tachypneic and speaking in 2-3 word sentences. He states that he has been more short of breath over the last day. On initial arrival to the ER patient had a normal temperature but he did develop of fever up to 100.1. He denies any significant chills or hot flashes at home. He was noted to have marked leukocytosis with bandemia. He reports he has a frequent intermittent dry cough. He does not think that his cough is any worse than baseline. He does continue to smoke 1/4 pack of cigarettes per day to 1/2 pack of cigarettes per day. He used to smoke up to 1.5 packs of cigarettes per day. He denies any known ill contacts. He denies any wounds. He does have several abrasions of various stages of healing to his knees in lower extremities. He denies any actual loss of consciousness. Patient is alert oriented times 4 but does not give the best history regarding frequency and symptoms regarding his acute hospital stay. He has chronic BPH with slow urine stream. His symptoms are unchanged from baseline. He has been having some dysuria on and off for the last couple of months. He denies any hematuria. His last bowel movement was day before yesterday. He reports that he takes MiraLax on a somewhat frequent basis to have normal stools. The patient reports that he had recently lost about 25 lb with dietary changes. However despite the recent weight loss reports his abdomen is more distended. During hospitalization patient was treated for sepsis shock,a.fibrillation, glenna , pneumonia, hypernatremia, thrombocytopenia. Today as per general manager road production patient was getting dialyzed when he became suddenly bradycardic hypotensive. He had feeble but dopplerable pulse. Dialysis was discontinued. Patient was started on Levophed. These interventions led to recovery of the heart rate back to sinus tachycardia and blood pressure improved. No other significant change in respiratory or hemodynamic status. Once dialysis discontinued patient's family including both son along with other family members arrived at bedside. They were contemplating for many days palliative extubation and comfort care measures for him. And initially were planning to do it tomorrow on Wednesday. After today's event son told me that he feels that he is prolonging patient is suffering by continuing to wait as he has not seen any signs of recovery last few days. He feels the patient would not want to continue like this on extended life support considering his prognosis and multiple medical problems he currently has. Both sons have decided, in accordance with pt's wishes, to discontinue all medical therapy and institute comfort measures only. I have explained to them that I will use opioids, anxiolytics and other agents on as needed basis to promote comfort and discontinue all medical therapy, lab testing and invasive monitoring. Patient will eventually . They both verbalized understanding and agreed to proceed.Patient at 16:49 due to respiratory failure due to multiple co-morbid conditions.
[2024-08-19 17:55] LABS: Platelet Antibody, Direct IgG POSITIVE (NEGATIVE)
[2024-08-20 19:34] LABS: Immunofixation, Serum Normal pattern.
[2024-08-21 19:39] LABS: Abnormal Protein Band 1 0.1 g/dL (NONE DETECTED); Albumin 2.2 g/dL (3.8-4.8); Alpha 1 Globulin 0.6 g/dL (0.2-0.3); Beta 1 Globulin 0.3 g/dL (0.4-0.6); Gamma Globulin 0.9 g/dL (0.8-1.7)
== END 2024-08-19 16:49 | disposition expired | DRG 870 ==
LOC: ANHED 20:20 → ANHIMU 22:49 → ANHICU 08-14 12:06
PROVIDERS: Emergency Medicine; Internal Medicine; Internal Medicine Gastroenterology; Internal Medicine Hematology & Oncology; Internal Medicine Nephrology; Physician Assistant; Admitting Provider Internal Medicine; Emergency Provider Emergency Medicine; PCP Family Medicine Adolescent Medicine; Visit Provider Internal Medicine
DX: A41.9 Sepsis, unspecified organism (principal); J18.9 Pneumonia, unspecified organism; J69.0 Pneumonitis due to inhalation of food and vomit; R65.21 Severe sepsis with septic shock; N17.9 Acute kidney failure, unspecified; C79.51 Secondary malignant neoplasm of bone; E87.1 Hypo-osmolality and hyponatremia; I69.354 Hemiplegia and hemiparesis following cerebral infarction affecting left non-dominant side; K56.0 Paralytic ileus; R06.03 Acute respiratory distress; E86.0 Dehydration; K21.9 Gastro-esophageal reflux disease without esophagitis; N40.0 Benign prostatic hyperplasia without lower urinary tract symptoms; I25.10 Atherosclerotic heart disease of native coronary artery without angina pectoris; E78.2 Mixed hyperlipidemia; G47.33 Obstructive sleep apnea (adult) (pediatric); D69.6 Thrombocytopenia, unspecified; I48.0 Paroxysmal atrial fibrillation; E11.22 Type 2 diabetes mellitus with diabetic chronic kidney disease; N18.31 Chronic kidney disease, stage 3a; F17.210 Nicotine dependence, cigarettes, uncomplicated; R29.6 Repeated falls; I35.0 Nonrheumatic aortic (valve) stenosis; I48.91 Unspecified atrial fibrillation; M54.10 Radiculopathy, site unspecified; I69.398 Other sequelae of cerebral infarction; R29.818 Other symptoms and signs involving the nervous system; K80.20 Calculus of gallbladder without cholecystitis without obstruction; Z90.49 Acquired absence of other specified parts of digestive tract; Z95.820 Peripheral vascular angioplasty status with implants and grafts; D64.9 Anemia, unspecified; R00.1 Bradycardia, unspecified; S80.812A Abrasion, left lower leg, initial encounter; S80.811A Abrasion, right lower leg, initial encounter; W19.XXXA Unspecified fall, initial encounter
CPT/HCPCS: 31500; 36415; 36430; 36569; 36600; 70450; 70544; 70551; 71045; 71046; 71250; 71260; 71275; 72125; 72128; 72131; 72141; 72142; 72157; 72158; 74018; 74176; 74177; 74250; 76705; 76775; 80048; 80053; 80202; 81001; 81050; 82375; 82550; 82565; 82570; 82607; 82728; 82746; 82805; 82948; 83050; 83540; 83550; 83605; 83615; 83690; 83735; 83880; 83883; 84145; 84155; 84156; 84165; 84166; 84300; 84540; 85018; 85025; 85027; 85055; 85380; 85610; 85652; 85730; 85999; 86023; 86140; 86334; 86335; 86704; 86706; 86900; 86901; 87040; 87086; 87340; 87637; 87641; 92610; 93005; 93970; 94002; 94003; 94640; 96360; 97161; 97166; 99285; P9036; A9270; A9577; C1751; C1752; C8929; G0257; J0360; J0461; J0613; J0692; J1644; J1650; J1720; J1815; J1836; J1940; J1956; J2003; J2060; J2250; J2270; J2405; J2470; J2543; J2550; J2765; J2997; J3010; J3370; J3475; J3480; J7030; J7040; J7050; J7060; J7070; J7120; P9034; P9041; P9047; Q5105; Q9957; Q9967